=== PATIENT | male | born 1960 | race Hispanic/Latino ===

== ENCOUNTER 2016-11-01 17:56 | Inpatient (IN) | payer MEDICAID, OTHER ==
[2016-11-01 19:48] LABS: URINE BILIRUBIN NEGATIVE (NEGATIVE); URINE BLOOD 1+ (NEGATIVE); URINE CLARITY Clear (Clear); URINE COLOR Yellow (YELLOW); URINE GLUCOSE (UA) 3+ mg/dL (Normal); URINE LEUKOCYTE ESTERASE NEG Leu/uL (Negative); URINE NITRATE NEGATIVE (NEGATIVE); URINE PROTEIN 1+ mg/dL (NEGATIVE); URINE UROBILINOGEN NORMAL mg/dL (0.2-1.0)
[2016-11-01 19:51] LABS: BASO # 0.1 K/uL (0.0-0.2); BASO % 1.2 % (0.0-2.0); EOS # 0.4 K/uL (0.0-0.7); EOS % 3.8 % (0.0-4.0); HEMOGLOBIN 14.1 g/dL (12.0-18.0); LYMPH # 2.2 K/uL (1.0-4.3); LYMPH % 21.7 % (20.0-40.0); MEAN CELL VOLUME 86.7 fL (80.0-94.0); MEAN CORPUSCULAR HGB CONC 33.4 g/dL (33.0-37.0); MONO # 0.9 K/uL (0.0-0.8); MONO % 8.8 % (0.0-10.0); NEUT # 6.6 K/uL (1.8-7.0); NEUT % 64.5 % (50.0-75.0); NRBC % 0.1 % (0.0-2.0); RBC 4.86 Mil/uL (4.40-5.90); RED CELL DISTRIBUTION WIDTH 15.2 % (11.5-14.5); WHITE BLOOD COUNT 10.2 K/uL (4.8-10.8)
[2016-11-01 19:52] LABS: ALBUMIN 3.7 g/dL (3.5-5.0)
[2016-11-01 19:54] LABS: OPIATES, UR POSITIVE (NEGATIVE); PHENCYCLIDINE, UR NEGATIVE (NEGATIVE)
[2016-11-01 19:55] LABS: ACETAMINOPHEN < 10.0 ug/mL (10.0-30.0); ALB/GLOB RATIO 1.1 (1.0-2.1); AST/SGOT 36 U/L (17-59); BLOOD UREA NITROGEN 13 mg/dL (9-20); GFR AFRICAN-AMERICAN > 60; GFR NON-AFRICAN AMERICAN > 60; SALICYLATE < 1.0 mg/dL 1
[2016-11-01 19:56] LABS: ALT/SGPT 53 U/L (21-72); BARBITURATES, UR NEGATIVE (NEGATIVE)
[2016-11-01 19:57] LABS: BENZODIAZEPINES, UR NEGATIVE (NEGATIVE)
--- NOTE | 2016-11-01 20:04 | C.PDOC ---
Time Seen by Provider: 11/01/16 19:29 Chief Complaint (Nursing): Psychiatric Evaluation History Per: Patient Onset/Duration Of Symptoms: Days Current Symptoms Are (Timing): Still Present Suicide/Self Injury Attempted (Context): None Modifying Factor(s): Narcotics Severity: Moderate Associated Symptoms: Depression, Suicidal Thoughts Additional History Per: Prior Records Past Medical History Reviewed: Historical Data, Nursing Documentation, Vital Signs Vital Signs: Last Vital Signs Temp 98.3 F 11/01/16 19:42 Pulse 50 L 11/01/16 19:42 Resp 18 11/01/16 19:42 BP 181/82 H 11/01/16 19:42 Pulse Ox 100 11/01/16 20:04 - Medical History PMH: Back Problems, Depression, Diabetes (?) Surgical History: No Surg Hx - [facility] Procedures INJECT/INFUSE NEC (09/28/12) Family History: States: Unknown Family Hx - Social History Hx Tobacco Use: Yes Hx Alcohol Use: No Hx Substance Use: Yes (Snorts Heroin) - Immunization History Hx Tetanus Toxoid Vaccination: No Hx Influenza Vaccination: No Hx Pneumococcal Vaccination: No Review Of Systems Except As Marked, All Systems Reviewed And Found Negative. Constitutional: Negative for: Fever, Weakness Cardiovascular: Negative for: Chest Pain Respiratory: Negative for: Shortness of Breath Gastrointestinal: Negative for: Vomiting, Abdominal Pain Genitourinary: Negative for: Dysuria Musculoskeletal: Negative for: Neck Pain Skin: Negative for: Rash Neurological: Negative for: Weakness, Numbness, Seizures, Altered Mental Status , Headache Psych: Negative for: Psychosis Physical Exam - Physical Exam Appears: Non-toxic, No Acute Distress Skin: Normal Color, Warm, Dry, No Rash Head: Atraumatic, Normacephalic Eye(s): bilateral: Normal Inspection, PERRL, EOMI Neck: Normal ROM, Supple Cardiovascular: Rhythm Regular Respiratory: Normal Breath Sounds, No Accessory Muscle Use Gastrointestinal/Abdominal: Soft, No Tenderness Back: No CVA Tenderness Extremity: Normal ROM, No Deformity Neurological/Psych: Oriented x3, Normal Motor, Normal Sensation ED Course And Treatment - Laboratory Results Result Diagrams: 11/01/16 19:39 11/01/16 19:39 Lab Interpretation: No Acute Changes O2 Sat by Pulse Oximetry: 100 Pulse Ox Interpretation: Normal Progress Note: Pt is medically stable for psychiatric admission. Disposition Counseled Patient/Family Regarding: Studies Performed, Diagnosis - Disposition Disposition: HOSPITALIZED Disposition Time: 21:53 Condition: STABLE - Clinical Impression Clinical Impression: Depressive disorder, Opioid abuse Decision To Admit - Pt Status Changed To: Hospital Disposition Of: Inpatient - Admit Certification Admit to Inpatient:: After my assessment, the patient will require hospitalization for at least two midnights. This is because of the severity of symptoms shown, intensity of services needed, and/or the medical risk in this patient being treated as an outpatient. - InPatient: Physician Admission Certification: I certify that this patient requires 2 or more midnights of care for the following reason:: Psych. - . Bed Request Type: Psychiatry Admitting Physician: Katelyn Richardson Patient Diagnosis: Depressive disorder, Opioid abuse
[2016-11-01 22:10] VITALS: O2SAT 98
--- NOTE | 2016-11-01 22:37 | PCM.BM ---
<Eric Petty - Last Filed: 11/01/16 22:35> Treatment Plan Problems - Problems identified on initial assessmt Depression Date Initiated: 11/01/16 Time Initiated: 22:30 Assessment reference: NA Status: Active Opiates abuse Date Initiated: 11/01/16 Time Initiated: 22:37 Assessment reference: NA Status: Active Comment: "4 or 5 bags of heroin, sniffed the bags at 10pm" <Gabbi Gilman - Last Filed: 11/02/16 10:48> - Diagnosis (1) Depressive disorder Status: Acute Interventions: 11/02/16 10:48 * Assess/adjust medications daily and /or as needed * See patient on an individual basis 7x/week to assess symptoms of depression * Monitor for side effects & effectiveness of medications * (2) Opioid abuse Status: Acute Interventions: 11/02/16 10:48 * Assess 7x/week regarding severity of withdrawal * Educate regarding risks, benefits, side effects and alternatives of medications * Use Motivational Interviewing for abstinence * Use CBT for relapse prevention * Medication management for withdrawal symptoms * Encourage medication assisted treatment *
--- NOTE | 2016-11-02 14:39 | PCM.PSYCH ---
Initial Psychiatric Evaluation - Initial Psychiatric Evaluation Type of Admission: Voluntary Legal Status: Capacity Chief Complaint (in patient's own words): 'I was feeling depressed and suicidal' History of Present Illness and Precipitating Events: Patient is a 56-year-old male, who is homeless, came to the hospital because he was feeling depressed and suicidal. Patient states that he feels like he is at "the end of my rope, and I want to jump off a antwon because everything has gone downhill for the past 2 weeks." He explains that he was going to receive a room in [place], [place] but due to missing paperwork he was not able to secure it. He is also frustrated with not being able to get a copy of his certificate from [place], [place]. Patient states that he abuses heroin 5-6 bags per day by snorting. He denies any withdrawal symptoms, paranoia, or hallucinations. Patient denies use of any other substances. Patient denies any previous psychiatric history. He reports a history of previous psychiatric hospitalization for attempted suicide. He states that he attempted suicide 7 years ago by cutting his wrists. Patient states that he has been abusing 5-6 bags of heroin everyday for the past year. He reports a history of smoking 1-1.5 packs of cigarettes per day for past 43 years. He also states that he smokes marijuana "once in a while." Patient states that he used to abuse cocaine 20 years ago, but quit. He denies use of any other substances. Past medical history Denies Current Medications: Active Medications Generic Name Dose Route Start Last Admin Trade Name Freq PRN Reason Stop Dose Admin Acetaminophen 650 mg 11/01/16 23:33 Tylenol 325mg Tab PO Q6 PRN Fever >100.4 F Al Hydrox/Mg Hydrox/Simethicone 30 ml 11/01/16 23:34 Maalox 30 Ml PO TID PRN Indigestion / Heartburn Clonidine HCl 0.1 mg 11/01/16 23:34 Catapres PO Q8 PRN COWS Score More or Equal to 5 Diphenhydramine HCl 50 mg 11/01/16 23:33 11/02/16 02:20 Benadryl PO 50 mg Q6 PRN Administration Extra Pyramidal Symptoms Loperamide HCl 2 mg 11/01/16 23:33 Imodium PO Q8 PRN Diarrhea Ondansetron HCl 4 mg 11/01/16 23:33 Zofran Tab PO Q8H PRN Nausea/Vomiting Pneumococcal Polyvalent Vaccine 0.5 ml 11/04/16 10:00 Pneumovax 23 Vaccine IM 11/04/16 10:01 .ONCE ONE Sertraline HCl 25 mg 11/02/16 10:00 Zoloft PO DAILY BRENDA Trazodone HCl 50 mg 11/01/16 23:45 Desyrel PO HS BRENDA Past Psychiatric History - Past Psychiatric History Previous Treatment History: None Pertinent Medical Hx (Current Medical&Sleep Prob, Allergies): Allergies Allergy/AdvReac Type Severity Reaction Status Date / Time aspirin Allergy VOMITING Verified 07/01/16 18:45 No Known Home Med 11/01/16 Review of Systems - Psychiatric Psychiatric: Abnormal Sleep Pattern, Anhedonia, Anxiety, Depression, Difficulty Concentrating, Hopelessness. absent: Homicidal Ideation, Suicidal Ideation ( none now) Mental Status Examination - Personal Presentation Personal Presentation: Looks stated age - Affect Affect: Constricted, Blunted - Motor Activity Motor Activity: Calm - Reliability in Providing Information Reliability in Providing Information: Good - Speech Speech: Organized, Relevant - Mood Mood: Depressed, Anxious - Formal Thought Process Formal Thought Process: No Impairment - Cognitive Functions Orientation: Person, Place, Situation, Time Sensorium: Alert Attention/Concentration: Attentive Estimate of Intelligence: Below average Judgement: Imparied, as evidence by: Poor judgement, Intact, as evidence by: Insight regarding need for hospitalization - Risk Risk: Suicidal - Strength & Assets Inventory Strength & Assets Inventory: Cooperative - Limitations Limitations: Living alone DSM 5 DX - DSM 5 DSM 5 Diagnosis: Major depressive d/o - severe Opioid use disorder - severe Opioid withdrawal - Recommended/Plan of Treatment Treatment Recommendations and Plan of Treatment: Methadone detox if he withdraws As needed meds Support and psychoed Attend groups and activities Zoloft for depression CBT for depression 33 min Projected ELOS: 5 days Prognosis: good - Smoking Cessation Smoking Cessation Initiated: Yes
--- NOTE | 2016-11-03 15:22 | PCM.PYCHPN ---
Psychiatric Progress Note - Psychiatric Progress Note Patient seen today, length of contact: 16 min Patient Chief Complaint: 'I am feeling better but didn't get much sleep last night' Problems Identified/Issues Discussed: Patient is seen, evaluated, and case discussed with the staff. Patient states that his mood feels better today. He states that he could not sleep last night and only got 4 hours of sleep. Patient states denies diarrhea today, but states that he still has nausea, vomiting, cough, back pain, and abdominal craps. He denies any suicidal ideations. He denies any hallucinations , and paranoia. Patient is compliant with all medications, and denies any side effects. Support and psychoeducation given. Medication Change: Yes Medical Record Reviewed: Yes Mental Status Examination - Cognitive Function Orientation: Person, Place, Situation, Time Memory: Intact Attention: Poor Concentration: Poor Association: Loose Fund of Knowledge: Poor - Mood Mood: Depressed, Anxious - Affect Affect: Constricted, Blunted - Speech Speech: Appropriate - Formal Thought Process Formal Thought Process: No Impairment - Suicidal Ideation Suicidal Ideation: No - Homicidal Ideation Homicidal Ideation: No Goal/Treatment Plan - Goal/Treatment Plan Need for Continued Stay: Remain at risks for inpatient hospitalization, Discharge may exacerbated symptoms Progress Toward Problem(s) and Goals/Treatment Plan: Methadone detox if he withdraws As needed meds Support and psychoed Attend groups and activities Ghanshyam for depression CBT for depression Estimated Date of D/C: 11/06/16
[2016-11-03] MEDS: Aluminum Hydroxide/Magnesium Hydroxide Susp (30 mL) PO PRN ×2 (15:41→21:19)
[2016-11-04] MEDS ORDERED: Pneumococcal 23-Valent Vaccine IM ONE (10:00)
--- NOTE | 2016-11-04 13:44 | PCM.PYCHPN ---
Psychiatric Progress Note - Psychiatric Progress Note Patient seen today, length of contact: 16 min Patient Chief Complaint: 'I am doing good today' Problems Identified/Issues Discussed: Patient is seen, evaluated, and case discussed with the staff. Patient states that he is doing well today. He denies any symptoms. He states that he was able to get a good night's sleep, his mood is much better today, and denies any suicidal ideations. He denies any hallucinations, and paranoia. Patient is compliant with all medications, and denies any side effects. Support and psychoeducation given. Medication Change: Yes Medical Record Reviewed: Yes Mental Status Examination - Cognitive Function Orientation: Person, Place, Situation, Time Memory: Intact Attention: WNL Concentration: Poor Association: Loose Fund of Knowledge: Poor - Mood Mood: Depressed, Anxious - Affect Affect: Constricted - Speech Speech: Appropriate - Formal Thought Process Formal Thought Process: No Impairment - Suicidal Ideation Suicidal Ideation: No - Homicidal Ideation Homicidal Ideation: No Goal/Treatment Plan - Goal/Treatment Plan Need for Continued Stay: Remain at risks for inpatient hospitalization, Discharge may exacerbated symptoms Progress Toward Problem(s) and Goals/Treatment Plan: Methadone detox if he withdraws As needed meds Support and psychoed Attend groups and activities Zoloft for depression CBT for depression Estimated Date of D/C: 11/06/16
[2016-11-04] MEDS: Aluminum Hydroxide/Magnesium Hydroxide Susp (30 mL) PO PRN ×2 (13:45→21:12)
[2016-11-05 07:57] VITALS: BP 174/92; PULSE 67; RESP 19; TEMP 98.1
--- NOTE | 2016-11-05 09:35 | PCM.PYCHDC ---
Mental Status Examination - Mental Status Examination Orientation: Person, Place, Situation, Time Memory: Intact Mood: Anxious Affect: Constricted Speech: Appropriate Attention: WNL Concentration: Poor Association: WNL Fund of Knowledge: Poor Formal Thought Process: No Impairment Suicidal Ideation: No Current Homicidal Ideation?: No Discharge Summary - Discharge Note Reason for Hospitalization: Depression and SI Consultations:: List each consultation separately and include: 1. Reason for request. 2. Findings. 3. Follow-up Summary of Hospital Course include:: 1. Description of specific treatment plan utilized for patients during their course of treatmen. 2. Summarize the time- course for resolution of acute symptoms and/or regressed behaviors. 3. Describe issues identified and worked on during hospitalization. 4. Describe medication utilized. 5. Describe medical problems identified and treated. 6. Reassessment of suicide risk Summary of Hospital Course: On admission: Patient is a 56-year-old male, who is homeless, came to the hospital because he was feeling depressed and suicidal. Patient states that he feels like he is at "the end of my rope, and I want to jump off a antwon because everything has gone downhill for the past 2 weeks." He explains that he was going to receive a room in [place], [place] but due to missing paperwork he was not able to secure it. He is also frustrated with not being able to get a copy of his certificate from [place], [place]. Patient states that he abuses heroin 5-6 bags per day by snorting. He denies any withdrawal symptoms, paranoia, or hallucinations. Patient denies use of any other substances. Patient denies any previous psychiatric history. He reports a history of previous psychiatric hospitalization for attempted suicide. He states that he attempted suicide 7 years ago by cutting his wrists. Patient states that he has been abusing 5-6 bags of heroin everyday for the past year. He reports a history of smoking 1-1.5 packs of cigarettes per day for past 43 years. He also states that he smokes marijuana "once in a while." Patient states that he used to abuse cocaine 20 years ago, but quit. He denies use of any other substances. Past medical history Denies Hospital course: The pt was admitted and started on treatment with psychotherapy, support, psychoeducation and medications. AK and CBT used. The pt attended groups and activities, as well as milieu therapy. All the risks and benefits of medications are discussed and the patient understood and agreed. After care discussed with the patient. Went to [facility] bc [facility] is not accepting new pts The patient improved with the treatment provided and discharged as planned. - Final Diagnosis (DSM 5) Condition upon Discharge: STABLE DSM 5: Major depressive d/o - severe Opioid use disorder - severe Opioid withdrawal Disposition: HOME/ ROUTINE Follow-up Treatment Plan: Continue below medications after discharge. Follow after care plan as discussed above. Use relapse prevention skills. Return to ER or call 911 if suicidal, homicidal or symptoms relapse. Stay away from stress, alcohol and drugs. Use relaxation techniques. See primary doctor once a year and get labs. Consider MAT Prescriptions/Medication Reconciliation: Sertraline [Zoloft] 50 mg PO DAILY #30 tab traZODone [Desyrel] 100 mg PO HS #30 tab
== END 2016-11-05 10:35 | disposition home or self-care (01) | DRG 426 ==
LOC: C.ER 17:56 → C.5E 21:54
PROVIDERS: ADMIT Psychiatry & Neurology Psychiatry; ATTEND Psychiatry & Neurology Psychiatry
PROC: HZ2ZZZZ Detoxification Services for Substance Abuse Treatment (ICD-10-PCS; principal; 2016-11-01)
PROC: HZ91ZZZ Pharmacotherapy for Substance Abuse Treatment, Methadone Maintenance (ICD-10-PCS; 2016-11-01)
PROC: HZ56ZZZ Individual Psychotherapy for Substance Abuse Treatment, Psychoeducation (ICD-10-PCS; 2016-11-01)
PROC: HZ59ZZZ Individual Psychotherapy for Substance Abuse Treatment, Supportive (ICD-10-PCS; 2016-11-01)
DX: F32.9 Major depressive disorder, single episode, unspecified (principal); F11.23 Opioid dependence with withdrawal

== ENCOUNTER 2017-07-18 12:04 | Emergency (ER) | payer MEDICAID, OTHER ==
[2017-07-18 12:04] VITALS: BMI 29.2
[2017-07-18 12:14] VITALS: BP 139/77; PULSE 87; RESP 20; TEMP 97.5; O2SAT 99
--- NOTE | 2017-07-18 12:36 | C.PDOC ---
History Of Present Illness 57 year old male presents to the emergency department complaining of back pain. Patient arrived here immediately after being discharged from [place] at 10: 30AM. At [place], patient states that at [place], he was given Tylenol which he refused to take, and had a Lidocaine patch applied his back which has not helped his pain, hence he presents here. Patient reports he has had this back pain for the past 15 years, during which he took 120mg MS Contin and 15mg Oxycontin, but he has not taken them for the past 10 years. Time Seen by Provider: 07/18/17 12:21 Chief Complaint (Nursing): Back Pain History Per: Patient History/Exam Limitations: no limitations Onset/Duration Of Symptoms: Other (15 years) Quality Of Discomfort: "Pain" Past Medical History Reviewed: Historical Data, Nursing Documentation, Vital Signs Vital Signs: Last Vital Signs Temp 97.5 F L 07/18/17 12:10 Pulse 87 07/18/17 12:10 Resp 20 07/18/17 12:10 BP 139/77 07/18/17 12:10 Pulse Ox 99 07/18/17 12:36 - Medical History PMH: Anxiety, Back Problems, Depression, Diabetes (?), Hepatitis (Pt history and treatment), HTN, Kidney Stones, Chronic Kidney Disease Denies: HIV (Patient denied), Seizures (Patient denied), Sexually Transmitted Disease (Patient denied) Surgical History: No Surg Hx - [facility] Procedures DETOXIFICATION SERVICES FOR SUBSTANCE ABUSE TREATMENT (11/01/16) INDIV PSYCHOTHERAPY FOR SUBSTANCE ABUSE TREATMENT, SUPPORT (11/01/16) INDIV PSYCHOTHERAPY FOR SUBSTANCE ABUSE, PSYCHOEDUCATION (11/01/16) INJECT/INFUSE NEC (09/28/12) PHARMACOTHERAPY FOR SUBSTANCE ABUSE, METHADONE MAINT (11/01/16) Family History: States: No Known Family Hx - Social History Hx Tobacco Use: Yes Hx Alcohol Use: No Hx Substance Use: No - Immunization History Hx Tetanus Toxoid Vaccination: Yes Hx Influenza Vaccination: No Hx Pneumococcal Vaccination: No Review Of Systems Except As Marked, All Systems Reviewed And Found Negative. Musculoskeletal: Positive for: Back Pain Physical Exam - Physical Exam Appears: In Acute Distress (qualified as moderate) Skin: Normal Color, No Other (lesions) Head: Atraumatic, Normacephalic Neck: Normal, Supple Back: Other (limited full extension, patched placed near midline, diffuse lower back tenderness) Neurological/Psych: Oriented x3, Normal Speech, Normal Cognition, Other (no focal deficits. ) Gait: Other (weight bearing without difficulty) ED Course And Treatment O2 Sat by Pulse Oximetry: 99 (RA) Pulse Ox Interpretation: Normal Progress Note: Patient administered Decadron 12mg PO, Dilaudid 4mg PO, and Neurontin 300mg PO. Progress - Data Reviewed Data Reviewed: Old records Disposition Counseled Patient/Family Regarding: Diagnosis, Need For Followup, Rx Given - Disposition Referrals: Jadyn Lyon MD [Staff Provider] - Disposition: HOME/ ROUTINE Disposition Time: 12:35 Condition: IMPROVED Prescriptions: Gabapentin [Neurontin] 300 mg PO TID #30 cap Instructions: Sciatica Forms: [facility] [employer] [facility] (Czech) - Clinical Impression Clinical Impression: Chronic back pain, Sciatica - Scribe Statement The provider has reviewed the documentation as recorded by the Scribe (Galen Givens) Provider Attestation: All medical record entries made by the Scribe were at my direction and personally dictated by me. I have reviewed the chart and agree that the record accurately reflects my personal performance of the history, physical exam, medical decision making, and the department course for this patient. I have also personally directed, reviewed, and agree with the discharge instructions and disposition.
== END 2017-07-18 12:56 | disposition home or self-care (01) ==
LOC: C.ER 12:04
DX: G89.29 Other chronic pain (principal); M54.9 Dorsalgia, unspecified; M54.30 Sciatica, unspecified side
CPT/HCPCS: 99283; J8540

== ENCOUNTER 2017-10-31 06:06 | Inpatient (IN) | payer MEDICAID, OTHER ==
[2017-10-31 06:06] VITALS: BMI 29.2
[2017-10-31] MEDS ORDERED: Sodium Chloride 0.9% 1,000 ML IV ONE (07:40)
[2017-10-31] MEDS ORDERED: Iohexol 240 (50 ml) PO STA (07:40)
--- NOTE | 2017-10-31 07:40 | C.PDOC ---
History Of Present Illness 57 year old male presents to ED for evaluation of periumbilical pain worsening for the past week. Notes that pain occasionally radiates to upper and lower abdomen, and is now constant and more intense. 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 Pt has history of cholelithiasis "but this doesn't feel like my usual gallbladder pain". Pt states he has beer each night with dinner "haven't drank hard in many years". PSH neg. Denies fever, n/v/d, weight loss, or bloating. Prior ER visits for chronic back pain exacerbation but denies current pain med use. PERIUMB PAIN WORSENING X 1 WEEK. OCC RADIATION UPPER AND LOWER ABD, NOW CONSTANT AND MORE INTENSE. LAST BM THIS MORNING "LIKE USUAL" BUT REPORTS BM HAS BEEN [employer] COLOR THAN USUAL. HO CHOLELITHIASIS "BUT THIS DOESNT FEEL LIKE MY USUAL GALLBLADDER PAIN". PS HAS BEER EACH NIGHT W DINNER "HAVENT DRANK HARD IN MANY YEARS". PSH NEG. NO FEVER, NVD, WT LOSS, BLOATING. PRIOR ER VISITS FOR CHRONIC BACK PAIN EXAC BUT DENIES CURRENT PAIN MED USE. EXAM MOD DIST NONTOXIC HEENT ICTERIC MMM ABD +PERIUM/CENTRAL ABD TEND MOD SOFT NO R/G SKIN +JAUNDICE GOOD TURGOR REMAINDER NEG MDM NEW ONSET JAUNDICE RO ACUTE ABD. CT, LABS, PAIN RX, REEVAL Time Seen by Provider: 10/31/17 07:20 Chief Complaint (Nursing): Abdominal Pain History Per: Patient History/Exam Limitations: no limitations Onset/Duration Of Symptoms: Days, Worse Since Current Symptoms Are (Timing): Still Present Location Of Pain/Discomfort: Periumbilical Radiation Of Pain To:: None Quality Of Discomfort: "Pain" Associated Symptoms: denies: Nausea, Vomiting, Diarrhea, Urinary Symptoms Exacerbating Factors: None Alleviating Factors: None Recent travel outside of the [place]: No Additional History Per: Patient Past Medical History Reviewed: Historical Data, Nursing Documentation, Vital Signs Vital Signs: Last Vital Signs Temp 98.7 F 10/31/17 09:21 Pulse 85 10/31/17 09:21 Resp 18 10/31/17 09:21 BP 142/97 H 10/31/17 09:21 Pulse Ox 97 10/31/17 11:26 - Medical History PMH: Anxiety, Back Problems, Depression, Diabetes (?), Hepatitis (Pt history and treatment), HTN, Kidney Stones, Chronic Kidney Disease Denies: HIV (Patient denied), Seizures (Patient denied), Sexually Transmitted Disease (Patient denied) - [facility] Procedures DETOXIFICATION SERVICES FOR SUBSTANCE ABUSE TREATMENT (11/01/16) INDIV PSYCHOTHERAPY FOR SUBSTANCE ABUSE TREATMENT, SUPPORT (11/01/16) INDIV PSYCHOTHERAPY FOR SUBSTANCE ABUSE, PSYCHOEDUCATION (11/01/16) INJECT/INFUSE NEC (09/28/12) PHARMACOTHERAPY FOR SUBSTANCE ABUSE, METHADONE MAINT (11/01/16) Family History: States: Unknown Family Hx - Social History Hx Tobacco Use: Yes Hx Alcohol Use: No Hx Substance Use: No - Immunization History Hx Tetanus Toxoid Vaccination: Yes Hx Influenza Vaccination: No Hx Pneumococcal Vaccination: No Review Of Systems Except As Marked, All Systems Reviewed And Found Negative. Constitutional: Negative for: Fever, Chills Gastrointestinal: Positive for: Abdominal Pain. Negative for: Nausea, Vomiting , Diarrhea, Constipation Genitourinary: Negative for: Dysuria, Frequency, Hematuria Physical Exam - Physical Exam Appears: Non-toxic, Other (Moderate distress) Skin: Warm, Dry, Jaundice, Other (good turgor) Head: Atraumatic, Normacephalic Eye(s): bilateral: Scleral Icterus Nose: Normal Oral Mucosa: Moist Neck: Normal ROM, Supple Chest: Symmetrical Cardiovascular: Rhythm Regular, No Murmur Respiratory: Normal Breath Sounds, No Rales, No Rhonchi, No Wheezing Gastrointestinal/Abdominal: Soft, Tenderness (moderate periumbilical/central ), No Guarding, No Rebound Extremity: Normal ROM Neurological/Psych: Oriented x3, Normal Speech ED Course And Treatment - Laboratory Results Result Diagrams: 10/31/17 08:09 10/31/17 08:09 ECG: Interpreted By Me ECG Rhythm: Sinus Rhythm ECG Interpretation: Normal Rate From EC O2 Sat by Pulse Oximetry: 97 (RA) Pulse Ox Interpretation: Normal - CT Scan/US Abd Pelvis CT Other Rad Studies (CT/US): Read By Radiologist, Radiology Report Reviewed CT/US Interpretation: Impression: 1. Multiple distended and mildly dilated loops of small bowel seen within the left upper and mid abdomen. This may represent an underlying enteritis. No discrete transition point to suggest gross bowel obstruction however or early or developing bowel obstruction cannot be excluded. Clinical correlation. 2. Under distended and/or thickened colon which may represent an underlying pancolitis. Clinical correlation. 3. Hepatomegaly with a somewhat cirrhotic contour measuring up to 28 centimeters length. Suggestion of indeterminate hepatic lesions. Correlation with multiphasic CT or MR would be helpful for further evaluation clinically indicated. 4. Cholelithiasis. 5. Prominent spleen. 6. Small amount of pelvic ascites. Additional findings as above. Chest CT Other Rad Studies (CT/US): Read By Radiologist, Radiology Report Reviewed CT/US Interpretation: Impression: Scattered areas of consolidation suggestive for atelectasis within the bilateral lung power as described above. 7 millimeter pulmonary nodule within the right lung as described above. Three month interval followup maybe helpful if clinically indicated. Hepatosplenomegaly. Cholelithiasis. Abdominal ascites. Additional findings as above. Progress - Re-Evaluation Re-evaluation Note: 10/31/17 11:05 CO RECUR ABD PAIN. VSS. D/W DR Michael DE LA CRUZ AWARE OF ER FINDINGS WILL ADMIT. STATES TO ADMIT UNDER DR BAJWA - Data Reviewed Data Reviewed: Lab, Diagnostic imaging, Old records Medical Decision Making Medical Decision Making: Plan: Blood work Urinalysis EKG CXR Abd Pelvis CT IV fluids, Zofran, Morphine NEW ONSET JAUNDICE RO ACUTE ABD. CT, LABS, PAIN RX, REEVA Disposition Counseled Patient/Family Regarding: Studies Performed, Diagnosis - Disposition Disposition: HOSPITALIZED Disposition Time: 11:19 Condition: STABLE Forms: [facility] (Slovak) - POA Present On Arrival: None - Clinical Impression Clinical Impression: Jaundice not of , Cholelithiasis, Abdominal pain - Scribe Statement The provider has reviewed the documentation as recorded by the Scribe KP All medical record entries made by the Scribe were at my direction and personally dictated by me. I have reviewed the chart and agree that the record accurately reflects my personal performance of the history, physical exam, medical decision making, and the department course for this patient. I have also personally directed, reviewed, and agree with the discharge instructions and disposition. Decision To Admit - Pt Status Changed To: Hospital Disposition Of: Inpatient - Admit Certification Admit to Inpatient:: After my assessment, the patient will require hospitalization for at least two midnights. This is because of the severity of symptoms shown, intensity of services needed, and/or the medical risk in this patient being treated as an outpatient. - InPatient: Physician Admission Certification:: SEE NOTE - . Bed Request Type: Regular Admitting Physician: Augustina Medeiros Patient Diagnosis: Jaundice not of , Cholelithiasis, Abdominal pain
[2017-10-31] MEDS ORDERED: Iohexol 240 (50 ml) ONE (08:11)
[2017-10-31] MEDS ORDERED: Morphine 4 MG/ML VIAL ONE ×2 (08:11→12:17)
[2017-10-31] MEDS ORDERED: Sodium Chloride 0.9% 1,000 ML ONE (08:11)
[2017-10-31 08:15] LABS: BASO # 0.1 K/uL (0.0-0.2); BASO % 1.6 % (0.0-2.0); EOS # 0.2 K/uL (0.0-0.7); EOS % 2.2 % (0.0-4.0); MEAN CELL VOLUME 90.9 fL (80.0-94.0); MEAN CORPUSCULAR HEMOGLOBIN 31.8 pg (27.0-31.0); MEAN PLATELET VOLUME 10.7 fL (7.2-11.7); MONO # 0.6 K/uL (0.0-0.8); MONO % 7.3 % (0.0-10.0); NEUT # 6.7 K/uL (1.8-7.0); NEUT % 76.9 % (50.0-75.0); RBC 3.77 Mil/uL (4.40-5.90); RED CELL DISTRIBUTION WIDTH 15.7 % (11.5-14.5); WHITE BLOOD COUNT 8.7 K/uL (4.8-10.8)
[2017-10-31 08:24] LABS: URINE BILIRUBIN 1+ (NEGATIVE); URINE CLARITY Clear (Clear); URINE COLOR Amber (YELLOW); URINE GLUCOSE (UA) 3+ mg/dL (Normal); URINE LEUKOCYTE ESTERASE NEG Leu/uL (Negative); URINE PROTEIN 2+ mg/dL (NEGATIVE)
[2017-10-31 08:27] LABS: ALBUMIN 3.4 g/dL (3.5-5.0); ALT/SGPT 95 U/L (21-72); AST/SGOT 133 U/L (17-59); BLOOD UREA NITROGEN 13 mg/dL (9-20); CALCIUM 8.8 mg/dl (8.6-10.4); GFR AFRICAN-AMERICAN > 60; GFR NON-AFRICAN AMERICAN > 60; LIPASE 119 U/L (23-300)
--- NOTE | 2017-10-31 08:28 | RAD ---
Chest x-ray single frontal view History: Abdominal pain. Comparison: 10/31/2017 Findings: Mild venous congestion. Bilateral hilar prominence. Biapical pleural thickening with upper lobe granulomatous changes. Mild cardiomegaly. Degenerative changes in the spine and shoulders. Impression: Mild venous congestion. Bilateral hilar prominence. Biapical pleural thickening with upper lobe granulomatous changes. Mild cardiomegaly.
[2017-10-31 08:30] LABS: URINE BLOOD TRACE (NEGATIVE)
--- NOTE | 2017-10-31 08:58 | CT ---
CT chest History: Jaundice. Abdominal pain. Comparison: X-ray dated 10/31/2017 Technique: Multiple contiguous axial images were performed through the chest without the use of intravenous contrast. Subsequently, sagittal and coronal reformatted images were obtained. This CT exam was performed using one or more of the following dose reduction techniques: Automated exposure control, adjustment of the mA and/or kV according to patient size, and/or use of iterative reconstruction technique. Findings: Right lung: Emphysematous changes. 7 millimeter nodular density/pulmonary nodule seen within the right lung on series 3, image 52 near the fissure at the level of the inferior right upper lobe/superior right middle lobe. Mild atelectatic changes at the anterior aspect of the right lower lobe. Left lung: Mild nodular consolidation within the inferior left upper lobe on series 3, image 63 as well as within the lingula on series 3, image 72. More linear consolidative changes anteriorly within the left lower lobe. Trachea thru central airways are patent. No significant axillary adenopathy. Heterogeneity of the thyroid. Calcification and plaque within the aorta. Aortic arch measures up to 3 centimeters. Few shotty precarinal lymph nodes. Coronary calcifications. No pleural or pericardial effusion. Enlarged liver measuring up to 28.4 centimeters in length with a somewhat cirrhotic contour. Perihepatic ascites noted. Cholelithiasis. Prominent spleen. Nodularity of the adrenal glands. Mild fatty atrophy of the pancreas. Small hiatal hernia. Gastric wall thickening. Distended loops of small bowel in the left upper abdomen. Mild perinephric fat stranding. Partially exophytic low-attenuation lesion off the midpole of the left kidney measuring 9 millimeters, too small to adequately characterize. Degenerative changes spine. Impression: Scattered areas of consolidation suggestive for atelectasis within the bilateral lung power as described above. 7 millimeter pulmonary nodule within the right lung as described above. Three month interval followup maybe helpful if clinically indicated. Hepatosplenomegaly. Cholelithiasis. Abdominal ascites. Additional findings as above.
--- NOTE | 2017-10-31 09:36 | CT ---
CT abdomen and pelvis History: Abdominal pain. Comparison: None available. Technique: Multiple contiguous axial images were performed through the abdomen and pelvis without the use of intravenous contrast. Subsequently, sagittal and coronal reformatted images were obtained. This CT exam was performed using one or more of the following dose reduction techniques: Automated exposure control, adjustment of the mA and/or kV according to patient size, and/or use of iterative reconstruction technique. Findings: Scattered areas of atelectasis at the lung bases. No pleural or pericardial effusion. Hepatomegaly with a somewhat cirrhotic contour measuring up to 28 centimeters length. Perihepatic ascites. Within the right hepatic lobe, there is a relative focal area of increased attenuation with some peripheral low attenuation measuring up to 3.7 centimeters. This is of uncertain clinical etiology and may represent a hepatic lesion. Underlying neoplasm cannot be excluded. Additional heterogeneous 1.9 centimeter mixed attenuation lesion in the inferior aspect of the right kidney on series 3, image 53 also indeterminate. Correlation with multiphasic CT or MR would be helpful for further evaluation clinically indicated. Cholelithiasis. Prominent spleen. Nodular thickening of the adrenal glands. Mild fatty atrophy of the pancreas. Multiple distended and mildly dilated loops of small bowel seen within the left upper and mid abdomen. This may represent an underlying enteritis. No discrete transition point to suggest gross bowel obstruction however or early or developing bowel obstruction cannot be excluded. Clinical correlation. Calcification and plaque within the aorta. Left perinephric fat stranding. Urinary bladder is preserved. Prominent prostate with calcification. Small amount of pelvic ascites. Under distended and/or thickened colon which may represent an underlying pancolitis. Clinical correlation. Appendix appears partially imaged, grossly preserved. Shotty para-aortic and inguinal lymph nodes. Shotty lymphadenopathy in the upper abdomen. Small fat containing umbilical hernia. Degenerative changes in the spine and bilateral hips. Superior and inferior endplate concavities at the L5 vertebral body level. Multilevel anterior osteophytosis in the thoracic and lumbar spine. Impression: 1. Multiple distended and mildly dilated loops of small bowel seen within the left upper and mid abdomen. This may represent an underlying enteritis. No discrete transition point to suggest gross bowel obstruction however or early or developing bowel obstruction cannot be excluded. Clinical correlation. 2. Under distended and/or thickened colon which may represent an underlying pancolitis. Clinical correlation. 3. Hepatomegaly with a somewhat cirrhotic contour measuring up to 28 centimeters length. Suggestion of indeterminate hepatic lesions. Correlation with multiphasic CT or MR would be helpful for further evaluation clinically indicated. 4. Cholelithiasis. 5. Prominent spleen. 6. Small amount of pelvic ascites. Additional findings as above.
--- NOTE | 2017-10-31 11:00 | US ---
Right upper quadrant abdominal ultrasound History: Abdominal pain. Comparison: CT scan dated 10/31/2017 Technique: Real-time sonography was performed through the right upper quadrant of the abdomen. Findings: Liver: 18.5 centimeters in length. Increased echogenicity of the hepatic parenchymal cortex suggestive for fatty infiltration versus hepatic parenchymal disease. Clinical correlation. Multiple hepatic masses which are partially echogenic for example measuring up to 3.9 x 4.0 x 3.7 centimeters and 2.1 x 2.3 x 2.2 centimeters. These are indeterminate and may represent underlying neoplasm. Correlation with multiphasic CT or MR would be helpful for further evaluation if clinically indicated. Perihepatic ascites. Gallbladder: Cholelithiasis. Calculi measure up to 1.3 centimeters. Gallbladder wall thickening and edema measuring up to 5 millimeters. Pericholecystic fluid. Echogenic foci noted at the level of the portal vein concerning for possible portal vein thrombosis. Clinical correlation. Common bile duct measures 4.3 millimeters, within normal limits. Pancreas not well visualized. Visualized aorta and IVC are preserved. Right kidney: 12.5 x 5.2 x 5.7 centimeters. No calculi or hydronephrosis. Impression: 1. Echogenic foci noted at the level of the portal vein which may represent underlying portal vein thrombus. Clinical correlation. 2. Enlarged liver measuring 18.5 centimeters in length with associated increased echogenicity of the hepatic parenchymal cortex suggestive for fatty infiltration versus hepatic parenchymal disease. Clinical correlation. 3. Multiple prominent partially echogenic hepatic masses which are indeterminate and may represent underlying hepatic neoplasm. Correlation with multiphasic CT or MR may be helpful for further evaluation if clinically indicated. 4. Cholelithiasis with gallbladder wall thickening measuring up to 5 millimeters with associated gallbladder wall edema. Associated pericholecystic fluid. This may represent underlying cholecystitis. Clinical correlation. 5. Pancreas not well visualized.
[2017-10-31 11:52] LABS: INR 1.2; PROTHROMBIN TIME 13.5 SECONDS (9.7-12.2)
--- NOTE | 2017-10-31 12:04 | CP.PCM.PN ---
Subjective - Date & Time of Evaluation Date of Evaluation: 10/31/17 Time of Evaluation: 11:45 Objective - Vital Signs/Intake and Output Vital Signs (last 24 hours): Temp Pulse Resp BP Pulse Ox 98.7 F 85 18 142/97 H 97 10/31/17 09:21 10/31/17 09:21 10/31/17 09:21 10/31/17 09:21 10/31/17 11:27 - Medications Medications: Current Medications Metronidazole (Flagyl) 500 mg in 100 mls @ 100 mls/hr IVPB Q8H BRENDA PRN Reason: Protocol Piperacillin Sod/Tazobactam Sod (Zosyn 3.375 Gm Iv Premix) 3.375 gm in 50 mls @ 100 mls/hr IVPB Q6H BRENDA PRN Reason: Protocol - Labs Labs: 10/31/17 08:09 10/31/17 08:09 PT 13.5 SECONDS (9.7-12.2) H 10/31/17 11:31 INR 1.2 10/31/17 11:31 APTT 28 SECONDS (21-34) 10/31/17 11:31
--- NOTE | 2017-10-31 12:08 | CP.PCM.HP ---
<Jose Jack - Last Filed: 10/31/17 18:21> History of Present Illness - History of Present Illness History of Present Illness: 57 year old Male w/ PMHx Anxiety, Back Problems, Depression, Diabetes (?), Hepatitis (Pt history and treatment), HTN, Kidney Stones, colithiasis presents to ED with 1 month of abdominal pain that has been worsening over the past 3 days. Patient states the pain is in subxyphoid to umbilical area with radiation occasionally to the right upper quadrant that fluctuates in intensity. Patient also has had episodes of diarrhea, lasting for a few days over the past month, with bowel movements primarily white in color, with no blood. Patient also has had dark urine with no foul order present. Patient denies having taken an medications for the pain. ROS: Patient denies vision changes, vomiting, chest pain, lower extremity swelling. Pt does have diarrhea, nausea, and leg cramping. PMD: None PMHx: Anxiety, Back Problems, Depression, Diabetes (?), Hepatitis (Pt history and treatment), HTN, Kidney Stones PSHx: Denies Meds: Denies Allergies: Aspirin - GI blled Social: Pt states he has stopped drinking heavily for the past 25 years, only has occasional beer now. Per chart review FHx: Father, 65, colon cancer; Mother, living, diabetes, HTN, CAD Code Status: DNR/DNI Incase of emergency: SisterDemario, BrotherEloy, [phone] Present on Admission - Present on Admission Any Indicators Present on Admission: No Review of Systems - Constitutional Constitutional: absent: Weight Gain, Weight Loss - EENT Eyes: absent: Blurred Vision, Change in Vision, Itchy Eyes Ears: absent: Decreased Hearing, Ear Discharge Nose/Mouth/Throat: absent: Mouth Pain, Neck Pain - Cardiovascular Cardiovascular: absent: Syncope - Respiratory Respiratory: absent: Cough, Dyspnea, Wheezing, Snoring - Gastrointestinal Gastrointestinal: Diarrhea, Loose Stools, Nausea. absent: Heartburn Additional comments: pt states bowels are discolored / white - Genitourinary Genitourinary: absent: Difficulty Urinating, Pyuria, Nocturia Additional comments: Dark urine - Musculoskeletal Musculoskeletal: Muscle Cramps. absent: Arthralgias, Joint Swelling, Muscle Weakness, Radiating Pain into Limb Additional comments: Patient states leg cramps in the AM. - Integumentary Integumentary: absent: Bleeding Lesions, Pruritus, Rash, Skin Pain, Swelling - Neurological Neurological: absent: Abnormal Hearing, Behavioral Changes, Headaches, Tingling - Endocrine Endocrine: absent: Polyphagia, Polyuria - Hematologic/Lymphatic Hematologic: absent: Easy Bleeding, Easy Bruising, Lymphadenopathy Past Patient History - Infectious Disease Hx of Infectious Diseases: None - Past Social History Smoking Status: Heavy Smoker > 10 Cigarettes Daily - CARDIAC Hx Hypertension: Yes - PULMONARY Hx Respiratory Disorders: No Hx Tuberculosis: No (Patient denied) - NEUROLOGICAL Hx Seizures: No (Patient denied) - HEENT Hx HEENT Problems: No - RENAL Hx Chronic Kidney Disease: Yes Hx Kidney Stones: Yes - ENDOCRINE/METABOLIC Hx Endocrine Disorders: Yes Hx Diabetes Mellitus Type 2: Yes Other/Comment: "enlarged spleen" - HEMATOLOGICAL/ONCOLOGICAL Hx Human Immunodeficiency Virus (HIV): No (Patient denied) - INTEGUMENTARY Hx Dermatological Problems: No - MUSCULOSKELETAL/RHEUMATOLOGICAL Hx Musculoskeletal Disorders: Yes - GASTROINTESTINAL Hx Gastrointestinal Disorders: Yes Other/Comment: Gallstones - GENITOURINARY/GYNECOLOGICAL Hx Sexually Transmitted Disorders: No (Patient denied) - PSYCHIATRIC Hx Anxiety: Yes Hx Depression: Yes Hx Substance Use: No - SURGICAL HISTORY Hx Surgeries: No - ANESTHESIA Hx Anesthesia: No Meds Allergies/Adverse Reactions: Allergies Allergy/AdvReac Type Severity Reaction Status Date / Time aspirin AdvReac VOMITING Verified 07/18/17 12:14 Physical Exam - Constitutional Appears: Non-toxic, No Acute Distress - Eye Exam Eye Exam: EOMI, Scleral icterus Pupil Exam: PERRL - ENT Exam ENT Exam: Mucous Membranes Moist, Normal Oropharynx - Neck Exam Neck exam: Negative for: Thyromegaly - Respiratory Exam Respiratory Exam: Clear to Auscultation Bilateral, NORMAL BREATHING PATTERN. absent: Rales, Rhonchi, Wheezes - Cardiovascular Exam Cardiovascular Exam: +S1, +S2. absent: Irregular Rhythm - GI/Abdominal Exam GI & Abdominal Exam: Normal Bowel Sounds, Soft - Extremities Exam Extremities exam: Positive for: normal inspection, pedal pulses present. Negative for: calf tenderness, joint swelling, tenderness - Back Exam Back exam: NORMAL INSPECTION. absent: CVA tenderness (L), CVA tenderness (R) - Neurological Exam Neurological exam: Alert, CN II-XII Intact, Oriented x3 - Psychiatric Exam Psychiatric exam: Normal Affect, Normal Mood - Skin Skin Exam: Dry, Intact, Normal Color, Warm Results - Vital Signs Recent Vital Signs: Last Vital Signs Temp 98.7 F 10/31/17 09:21 Pulse 85 10/31/17 09:21 Resp 18 10/31/17 09:21 BP 142/97 H 10/31/17 09:21 Pulse Ox 97 10/31/17 11:27 - Labs Result Diagrams: 10/31/17 08:09 10/31/17 08:09 Labs: Laboratory Results - last 24 hr 10/31/17 10/31/17 10/31/17 08:09 08:09 08:09 WBC 8.7 RBC 3.77 L Hgb 12.0 D Hct 34.3 L MCV 90.9 D MCH 31.8 H MCHC 35.0 RDW 15.7 H Plt Count 164 MPV 10.7 Neut % (Auto) 76.9 H Lymph % (Auto) 12.0 L [place] % (Auto) 7.3 Eos % (Auto) 2.2 Baso % (Auto) 1.6 Neut # (Auto) 6.7 Lymph # (Auto) 1.0 [place] # (Auto) 0.6 Eos # (Auto) 0.2 Baso # (Auto) 0.1 PT INR APTT Sodium 138 Potassium 3.8 Chloride 103 Carbon Dioxide 26 Anion Gap 13 BUN 13 Creatinine 0.6 L Est GFR ( Amer) > 60 Est GFR (Non-Af Amer) > 60 Random Glucose 263 H Calcium 8.8 Total Bilirubin 5.7 H AST 133 H ALT 95 H D Alkaline Phosphatase 448 H Total Protein 6.8 Albumin 3.4 L Globulin 3.4 Albumin/Globulin Ratio 1.0 Lipase 119 Urine Color [place] Urine Clarity Clear Urine pH 6.0 Ur Specific [place] 1.015 Urine Protein 2+ H Urine Glucose (UA) 3+ H Urine Ketones Negative Urine Blood Trace Urine Nitrate Negative Urine Bilirubin 1+ H Urine Urobilinogen 4.0 Ur Leukocyte Esterase Neg Urine WBC (Auto) < 1 Urine RBC (Auto) 5 H 10/31/17 11:31 WBC RBC Hgb Hct MCV MCH MCHC RDW Plt Count MPV Neut % (Auto) Lymph % (Auto) [place] % (Auto) Eos % (Auto) Baso % (Auto) Neut # (Auto) Lymph # (Auto) [place] # (Auto) Eos # (Auto) Baso # (Auto) PT 13.5 H INR 1.2 APTT 28 Sodium Potassium Chloride Carbon Dioxide Anion Gap BUN Creatinine Est GFR ( Amer) Est GFR (Non-Af Amer) Random Glucose Calcium Total Bilirubin AST ALT Alkaline Phosphatase Total Protein Albumin Globulin Albumin/Globulin Ratio Lipase Urine Color Urine Clarity Urine pH Ur Specific [place] Urine Protein Urine Glucose (UA) Urine Ketones Urine Blood Urine Nitrate Urine Bilirubin Urine Urobilinogen Ur Leukocyte Esterase Urine WBC (Auto) Urine RBC (Auto) Assessment & Plan - Assessment and Plan (Free Text) Assessment: 57 year old M presents to ED w/ abdominal pain of 1 month: 1) Acute liver failure/ obstructive jaundice - R/o liver malignancy - Alpha feta protein elevated @1230 - CT scan indicates indeterminate hepatic lesions - F/u w/ MRI [address] Crawley recs - F/U IR - for paracentesis tap to see malignant cells & cultures 2) Hepatic Vein thrombosis - F/u MRI - Heparin [id number] - F/u coags profiles, Factor V, Protein C, Protein S, Prothombine Gene 3) Acute cholecytisis/ Pancolitis - F/u Bool cultures, stool cultures - Discussed w/ Dr. Benitez, no surgerical intervention at this time, clear liquid diets today, NPO after midnight for possible surgical intervention 4) Prophylaxis - Protonix 40mg IVP - Heparin [id number] <Augustina Medeiros - Last Filed: 11/02/17 07:55> Results - Vital Signs Recent Vital Signs: Last Vital Signs Temp 98.0 F 11/01/17 16:08 Pulse 67 11/01/17 16:08 Resp 20 11/01/17 16:08 BP 176/87 H 11/01/17 16:08 Pulse Ox 97 11/01/17 16:08 - Labs Result Diagrams: 11/02/17 06:44 11/01/17 06:52 Labs: Laboratory Results - last 24 hr 10/31/17 10/31/17 11/01/17 12:01 20:57 02:52 WBC RBC Hgb Hct MCV MCH MCHC RDW Plt Count MPV Neut % (Auto) Lymph % (Auto) [place] % (Auto) Eos % (Auto) Baso % (Auto) Neut # (Auto) Lymph # (Auto) [place] # (Auto) Eos # (Auto) Baso # (Auto) PT INR APTT 40 H D Sodium Potassium Chloride Carbon Dioxide Anion Gap BUN Creatinine Est GFR ( Amer) Est GFR (Non-Af Amer) Random Glucose Calcium Total Bilirubin AST ALT Alkaline Phosphatase Total Protein Albumin Globulin Albumin/Globulin Ratio Urine Opiates Screen Positive H Urine Methadone Screen Negative Ur Barbiturates Screen Negative Ur Phencyclidine Scrn Negative Ur Amphetamines Screen Negative U Benzodiazepines Scrn Negative U Oth Cocaine Metabols Negative U Cannabinoids Screen Negative Anti-Cardiolipin IgG Ab <14 Anti-Cardiolipin IgA Ab <11 Anti-Cardiolipin IgM Ab <12 11/01/17 11/01/17 11/01/17 06:52 06:52 11:31 WBC 8.1 RBC 3.65 L Hgb 11.6 L Hct 33.4 L MCV 91.4 MCH 31.9 H MCHC 34.8 RDW 15.9 H Plt Count 165 MPV 10.7 Neut % (Auto) 71.1 Lymph % (Auto) 18.2 L [place] % (Auto) 6.4 Eos % (Auto) 3.1 Baso % (Auto) 1.2 Neut # (Auto) 5.8 Lymph # (Auto) 1.5 [place] # (Auto) 0.5 Eos # (Auto) 0.3 Baso # (Auto) 0.1 PT 15.0 H INR 1.4 APTT 51 H D Sodium 140 Potassium 3.9 Chloride 104 Carbon Dioxide 25 Anion Gap 15 BUN 8 L Creatinine 0.7 L Est GFR ( Amer) > 60 Est GFR (Non-Af Amer) > 60 Random Glucose 171 H Calcium 8.8 Total Bilirubin 6.1 H AST 128 H ALT 85 H Alkaline Phosphatase 396 H Total Protein 6.5 Albumin 3.3 L Globulin 3.2 Albumin/Globulin Ratio 1.0 Urine Opiates Screen Urine Methadone Screen Ur Barbiturates Screen Ur Phencyclidine Scrn Ur Amphetamines Screen U Benzodiazepines Scrn U Oth Cocaine Metabols U Cannabinoids Screen Anti-Cardiolipin IgG Ab Anti-Cardiolipin IgA Ab Anti-Cardiolipin IgM Ab Attending/Attestation - Attestation I have personally seen and examined this patient.: Yes I have fully participated in the care of the patient.: Yes I have reviewed all pertinent clinical information: Yes Notes (Text): Patient was seen and examined by me at ER. patient has history of alcohol abuse 9stop drinking 25 years ago) and has history of hep C treated in the past. No following a primary care physician last few years. He is currently homeless . He is alert and oriented x3. Labs at ER showed acute liver failure with high bilirubin. CT without IV contrast and US done showed Liver mass,portal vein thrombosis ,acute cholecystits and pancolitis on examination Icteric sclera ,his lungs clear,abdomen soft,mild tenderness in med abdomen,no guarding Patient wants to be DNR/DNI Discussed with the resident. I agree with the documentation of the assessment and the plan of the resident
[2017-10-31] MEDS: Piperacill/Tazo 3.375gm in Dex 3.375 GM/50 ML BAG IVPB SCH ×2 (13:12→18:25)
[2017-10-31] MEDS: metroNIDAZOLE IV 500 mg/100 ml 500 MG/100 ML BAG IVPB SCH ×2 (13:50→21:00)
[2017-10-31] MEDS ORDERED: Heparin25000 units/250ml 1/2NS 25,000 UNITS/250 ML BAG IV PRN (16:43)
--- NOTE | 2017-10-31 16:50 | CP.PCM.CON ---
<Yovani Armenta - Last Filed: 11/01/17 05:22> History of Present Illness - History of Present Illness History of Present Illness: 57M w/ PMHx HepC, HTN, cholelithiasis, presents to ED with complaints of abdominal pain. Patient states abdominal pain has been ongoing for past month, with greatest severity of abdominal pain being within the past three days. Patient reports pain is along epigastric region with radiation towards right upper quadrant. Patient reports nausea as well as b/l leg cramping. Denies headaches/dizzines, fever/chill, vomiting, constipation, dysuria. PMHx:as stated above PSHx: Denies All: ASA Review of Systems - Review of Systems Review of Systems: 12 pt ROS unremarkable except as stated in HPI Past Patient History - Infectious Disease Hx of Infectious Diseases: None - Past Social History Smoking Status: Heavy Smoker > 10 Cigarettes Daily - CARDIAC Hx Hypertension: Yes - PULMONARY Hx Respiratory Disorders: No Hx Tuberculosis: No (Patient denied) - NEUROLOGICAL Hx Seizures: No (Patient denied) - HEENT Hx HEENT Problems: No - RENAL Hx Chronic Kidney Disease: Yes Hx Kidney Stones: Yes - ENDOCRINE/METABOLIC Hx Endocrine Disorders: Yes Hx Diabetes Mellitus Type 2: Yes Other/Comment: "enlarged spleen" - HEMATOLOGICAL/ONCOLOGICAL Hx Human Immunodeficiency Virus (HIV): No (Patient denied) - INTEGUMENTARY Hx Dermatological Problems: No - MUSCULOSKELETAL/RHEUMATOLOGICAL Hx Musculoskeletal Disorders: Yes - GASTROINTESTINAL Hx Gastrointestinal Disorders: Yes Other/Comment: Gallstones - GENITOURINARY/GYNECOLOGICAL Hx Sexually Transmitted Disorders: No (Patient denied) - PSYCHIATRIC Hx Anxiety: Yes Hx Depression: Yes Hx Substance Use: No - SURGICAL HISTORY Hx Surgeries: No - ANESTHESIA Hx Anesthesia: No Meds Allergies/Adverse Reactions: Allergies Allergy/AdvReac Type Severity Reaction Status Date / Time aspirin AdvReac VOMITING Verified 07/18/17 12:14 - Medications Medications: Current Medications Metronidazole (Flagyl) 500 mg in 100 mls @ 100 mls/hr IVPB Q8H BRENDA PRN Reason: Protocol Last Admin: 10/31/17 13:50 Dose: 100 mls/hr Piperacillin Sod/Tazobactam Sod (Zosyn 3.375 Gm Iv Premix) 3.375 gm in 50 mls @ 100 mls/hr IVPB Q6H BRENDA PRN Reason: Protocol Last Admin: 10/31/17 13:12 Dose: 100 mls/hr Pantoprazole Sodium (Protonix Inj) 40 mg IVP DAILY BRENDA Physical Exam - Constitutional Appears: Chronically Ill Additional comments: Jaundice - Head Exam Head Exam: NORMOCEPHALIC - ENT Exam ENT Exam: Mucous Membranes Moist - Respiratory Exam Respiratory Exam: NORMAL BREATHING PATTERN - Cardiovascular Exam Cardiovascular Exam: +S1, +S2 - GI/Abdominal Exam GI & Abdominal Exam: Soft, Tenderness. absent: Distended, Firm, Guarding, Rebound, Rigid Additional comments: RUQ tenderness - Neurological Exam Neurological exam: Alert, Oriented x3 - Psychiatric Exam Psychiatric exam: Normal Mood - Skin Skin Exam: Dry, Intact, Warm Results - Vital Signs Recent Vital Signs: Last Vital Signs Temp 98.5 F 10/31/17 10:00 Pulse 87 10/31/17 12:59 Resp 18 10/31/17 12:59 BP 155/80 H 10/31/17 12:59 Pulse Ox 99 10/31/17 12:59 - Labs Result Diagrams: 10/31/17 08:09 10/31/17 08:09 Labs: Laboratory Results - last 24 hr 10/31/17 10/31/17 10/31/17 08:09 08:09 08:09 WBC 8.7 RBC 3.77 L Hgb 12.0 D Hct 34.3 L MCV 90.9 D MCH 31.8 H MCHC 35.0 RDW 15.7 H Plt Count 164 MPV 10.7 Neut % (Auto) 76.9 H Lymph % (Auto) 12.0 L [place] % (Auto) 7.3 Eos % (Auto) 2.2 Baso % (Auto) 1.6 Neut # (Auto) 6.7 Lymph # (Auto) 1.0 [place] # (Auto) 0.6 Eos # (Auto) 0.2 Baso # (Auto) 0.1 PT INR APTT Sodium 138 Potassium 3.8 Chloride 103 Carbon Dioxide 26 Anion Gap 13 BUN 13 Creatinine 0.6 L Est GFR ( Amer) > 60 Est GFR (Non-Af Amer) > 60 Random Glucose 263 H Calcium 8.8 Total Bilirubin 5.7 H AST 133 H ALT 95 H D Alkaline Phosphatase 448 H Total Protein 6.8 Albumin 3.4 L Globulin 3.4 Albumin/Globulin Ratio 1.0 Lipase 119 Alpha Fetoprotein Urine Color [place] Urine Clarity Clear Urine pH 6.0 Ur Specific [place] 1.015 Urine Protein 2+ H Urine Glucose (UA) 3+ H Urine Ketones Negative Urine Blood Trace Urine Nitrate Negative Urine Bilirubin 1+ H Urine Urobilinogen 4.0 Ur Leukocyte Esterase Neg Urine WBC (Auto) < 1 Urine RBC (Auto) 5 H HIV 1&2 Antibody Screen 10/31/17 10/31/17 10/31/17 11:31 12:01 12:01 WBC RBC Hgb Hct MCV MCH MCHC RDW Plt Count MPV Neut % (Auto) Lymph % (Auto) [place] % (Auto) Eos % (Auto) Baso % (Auto) Neut # (Auto) Lymph # (Auto) [place] # (Auto) Eos # (Auto) Baso # (Auto) PT 13.5 H INR 1.2 APTT 28 Sodium Potassium Chloride Carbon Dioxide Anion Gap BUN Creatinine Est GFR ( Amer) Est GFR (Non-Af Amer) Random Glucose Calcium Total Bilirubin AST ALT Alkaline Phosphatase Total Protein Albumin Globulin Albumin/Globulin Ratio Lipase Alpha Fetoprotein 1230.0 H Urine Color Urine Clarity Urine pH Ur Specific [place] Urine Protein Urine Glucose (UA) Urine Ketones Urine Blood Urine Nitrate Urine Bilirubin Urine Urobilinogen Ur Leukocyte Esterase Urine WBC (Auto) Urine RBC (Auto) HIV 1&2 Antibody Screen Negative Assessment & Plan - Assessment and Plan (Free Text) Assessment: 57M with cholecystitis Plan: Child Figueroa Score Class B, 30% perioperative mortality MELD Score: 8 No plans for acute surgical intervention at this present time C/w ABx C/w hep drip for portal vein thrombosis C/w Analgesics F/u AM labs F/u GI recs Will follow D/w Dr. Eli Workman PGY3 <Adilson Benitez B - Last Filed: 11/07/17 18:43> Meds - Medications Medications: Current Medications Docusate Sodium (Colace) 100 mg PO BID [facility] Last Admin: 11/07/17 18:07 Dose: 100 mg Enoxaparin Sodium (Lovenox) 80 mg SC Q12 [facility] Last Admin: 11/07/17 09:48 Dose: 80 mg Morphine Sulfate (Morphine Immediate Release Tab) 15 mg PO QID PRN PRN Reason: Pain, moderate (4-7) Last Admin: 11/07/17 08:24 Dose: 15 mg Pantoprazole Sodium (Protonix Ec Tab) 40 mg PO DAILY BRENDA Last Admin: 11/07/17 09:48 Dose: 40 mg Results - Vital Signs Recent Vital Signs: Last Vital Signs Temp 98.8 F 11/07/17 16:00 Pulse 58 L 11/07/17 16:00 Resp 20 11/07/17 16:00 BP 149/54 L 11/07/17 16:00 Pulse Ox 97 11/07/17 16:00 - Labs Result Diagrams: 11/07/17 07:54 11/07/17 07:54 Labs: Laboratory Results - last 24 hr 11/07/17 11/07/17 07:54 07:54 WBC 10.6 RBC 3.69 L Hgb 11.6 L Hct 33.9 L MCV 92.0 MCH 31.4 H MCHC 34.1 RDW 16.3 H Plt Count 170 MPV 11.5 Neut % (Auto) 66.0 Lymph % (Auto) 23.5 [place] % (Auto) 6.9 Eos % (Auto) 2.4 Baso % (Auto) 1.2 Neut # (Auto) 7.0 Lymph # (Auto) 2.5 [place] # (Auto) 0.7 Eos # (Auto) 0.3 Baso # (Auto) 0.1 Sodium 136 Potassium 4.2 Chloride 101 Carbon Dioxide 24 Anion Gap 14 BUN 12 Creatinine 0.6 L Est GFR ( Amer) > 60 Est GFR (Non-Af Amer) > 60 Random Glucose 212 H Calcium 9.0 Total Bilirubin 5.9 H AST 108 H ALT 67 Alkaline Phosphatase 481 H Total Protein 7.1 Albumin 3.4 L Globulin 3.6 Albumin/Globulin Ratio 1.0 Attending/Attestation - Attestation I have personally seen and examined this patient.: Yes I have fully participated in the care of the patient.: Yes I have reviewed all pertinent clinical information: Yes Notes (Text): Pt was seen and examined at bedside Agree with above note and assessment Pt with Upper abdominal pain and tenderness Labs and radiology reviewed Ass : Hepatomegaly with Portal vein thrombosis , cholelithiasis Plan : No acute surgical intervention required for cholelithiasis c.w current mx IV antibiotics Plan d.w pt in detail Risk and benefit explained in detail.
[2017-10-31 21:19] LABS: BARBITURATES, UR NEGATIVE (NEGATIVE); BENZODIAZEPINES, UR NEGATIVE (NEGATIVE); OPIATES, UR POSITIVE (NEGATIVE); PHENCYCLIDINE, UR NEGATIVE (NEGATIVE)
[2017-11-01] MEDS: Piperacill/Tazo 3.375gm in Dex 3.375 GM/50 ML BAG IVPB SCH ×4 (00:02→18:06)
[2017-11-01] MEDS: metroNIDAZOLE IV 500 mg/100 ml 500 MG/100 ML BAG IVPB SCH ×3 (04:32→20:01)
[2017-11-01] MEDS: Heparin25000 units/250ml 1/2NS 25,000 UNITS/250 ML BAG IV PRN ×2 (04:34→13:14)
[2017-11-01] MEDS ORDERED: Dextrose 5%/Lactated Ringer's 1,000 ML IV SCH (07:30)
[2017-11-01 07:32] LABS: BASO # 0.1 K/uL (0.0-0.2); BASO % 1.2 % (0.0-2.0); EOS # 0.3 K/uL (0.0-0.7); EOS % 3.1 % (0.0-4.0); HEMOGLOBIN 11.6 g/dL (12.0-18.0); LYMPH # 1.5 K/uL (1.0-4.3); LYMPH % 18.2 % (20.0-40.0); MEAN CELL VOLUME 91.4 fL (80.0-94.0); MEAN CORPUSCULAR HEMOGLOBIN 31.9 pg (27.0-31.0); MEAN CORPUSCULAR HGB CONC 34.8 g/dL (33.0-37.0); MEAN PLATELET VOLUME 10.7 fL (7.2-11.7); MONO # 0.5 K/uL (0.0-0.8); MONO % 6.4 % (0.0-10.0); NEUT # 5.8 K/uL (1.8-7.0); NEUT % 71.1 % (50.0-75.0); RBC 3.65 Mil/uL (4.40-5.90); RED CELL DISTRIBUTION WIDTH 15.9 % (11.5-14.5); WHITE BLOOD COUNT 8.1 K/uL (4.8-10.8)
[2017-11-01 07:37] LABS: ALBUMIN 3.3 g/dL (3.5-5.0); ALT/SGPT 85 U/L (21-72); AST/SGOT 128 U/L (17-59); BLOOD UREA NITROGEN 8 mg/dL (9-20); CALCIUM 8.8 mg/dl (8.6-10.4); GFR AFRICAN-AMERICAN > 60; GFR NON-AFRICAN AMERICAN > 60
[2017-11-01 11:44] LABS: INR 1.4
[2017-11-01 11:56] LABS: CARDIOLIPIN AB (IGA) <11 APL (<=11)
--- NOTE | 2017-11-01 15:09 | CP.PCM.CON ---
History of Present Illness - History of Present Illness History of Present Illness: GI service consult requested on this 57 year old homeless man, h/o HCV treated > 15 yrs ago but apparently relapsed, admitted with severe abdominal pain progressively worsening over past month. Patient reports, martín colored stools, dark urine, weight loss > 20 lbs, weakness. Sono and CT show multiple liver lesions and likely portal vein thrombosis. Patient was begun on IV Heparin. Patient is very depressed and wants to . Has history of admissions in the past for Depression. AFP is markedly elevated. Patient drinks alcohol occasionally and uses ilicit drugs on occasion in the homeless [facility]. His father of colon cancer. Patient never had colonoscopy. He denies overt blood in stool or melena, and he recently had diarrhea intermittently. Review of Systems - Constitutional Constitutional: As Per HPI, Weight Loss - Cardiovascular Cardiovascular: absent: Chest Pain - Respiratory Respiratory: absent: Dyspnea - Gastrointestinal Gastrointestinal: Abdominal Pain, Nausea. absent: Melena - Psychiatric Psychiatric: Anhedonia, Depression, Hopelessness, Mood Swings - Hematologic/Lymphatic Hematologic: absent: Easy Bleeding Past Patient History - Infectious Disease Hx of Infectious Diseases: None - Past Medical History & Family History Past Medical History?: Yes - Past Social History Smoking Status: Heavy Smoker > 10 Cigarettes Daily - CARDIAC Hx Hypertension: Yes - PULMONARY Hx Respiratory Disorders: No Hx Tuberculosis: No (Patient denied) - NEUROLOGICAL Hx Seizures: No (Patient denied) - HEENT Hx HEENT Problems: No - RENAL Hx Chronic Kidney Disease: Yes Hx Kidney Stones: Yes - ENDOCRINE/METABOLIC Hx Endocrine Disorders: Yes Hx Diabetes Mellitus Type 2: Yes Other/Comment: "enlarged spleen" - HEMATOLOGICAL/ONCOLOGICAL Hx Human Immunodeficiency Virus (HIV): No (Patient denied) - INTEGUMENTARY Hx Dermatological Problems: No - MUSCULOSKELETAL/RHEUMATOLOGICAL Hx Musculoskeletal Disorders: Yes - GASTROINTESTINAL Hx Gastrointestinal Disorders: Yes Other/Comment: Gallstones - GENITOURINARY/GYNECOLOGICAL Hx Sexually Transmitted Disorders: No (Patient denied) - PSYCHIATRIC Hx Anxiety: Yes Hx Depression: Yes Hx Substance Use: No - SURGICAL HISTORY Hx Surgeries: No - ANESTHESIA Hx Anesthesia: No Meds Allergies/Adverse Reactions: Allergies Allergy/AdvReac Type Severity Reaction Status Date / Time aspirin AdvReac VOMITING Verified 07/18/17 12:14 - Medications Medications: Current Medications Metronidazole (Flagyl) 500 mg in 100 mls @ 100 mls/hr IVPB Q8H BRENDA PRN Reason: Protocol Last Admin: 11/01/17 12:29 Dose: 100 mls/hr Piperacillin Sod/Tazobactam Sod (Zosyn 3.375 Gm Iv Premix) 3.375 gm in 50 mls @ 100 mls/hr IVPB Q6H BRENDA PRN Reason: Protocol Last Admin: 11/01/17 12:14 Dose: 100 mls/hr Heparin Sodium/Sodium Chloride (Heparin 90667 Units/250ml 1/2 Normal Saline) 25 ,000 units in 250 mls @ 15.105 mls/hr IV .[id number] PRN; Protocol; 18 UNITS/KG/HR PRN Reason: PROTOCOL Last Admin: 11/01/17 13:14 Dose: 20 units/kg/hr, 16.783 mls/hr Dextrose/Lactated Ringer's (Dextrose 5%/Lactated Ringer's) 1,000 mls @ 60 mls/ hr IV .[id number] [facility] Last Admin: 11/01/17 12:14 Dose: 60 mls/hr Morphine Sulfate (Morphine) 1 mg IVP Q6 PRN PRN Reason: Pain, severe (8-10) Last Admin: 11/01/17 10:26 Dose: 1 mg Pantoprazole Sodium (Protonix Inj) 40 mg IVP DAILY [facility] Last Admin: 11/01/17 10:26 Dose: 40 mg Physical Exam - Constitutional Appears: Chronically Ill - Head Exam Head Exam: NORMOCEPHALIC - Eye Exam Eye Exam: absent: Scleral icterus - Neck Exam Neck exam: Positive for: Normal Inspection - Respiratory Exam Respiratory Exam: NORMAL BREATHING PATTERN - Cardiovascular Exam Cardiovascular Exam: REGULAR RHYTHM - GI/Abdominal Exam GI & Abdominal Exam: Soft. absent: Guarding, Mass, Rebound, Tenderness - Rectal Exam Rectal Exam: Deferred - Extremities Exam Extremities exam: Positive for: normal inspection - Neurological Exam Neurological exam: Alert, Oriented x3 - Skin Skin Exam: Normal Color Results - Vital Signs Recent Vital Signs: Last Vital Signs Temp 99 F 11/01/17 07:58 Pulse 60 11/01/17 07:58 Resp 20 11/01/17 07:58 BP 163/64 H 11/01/17 07:58 Pulse Ox 98 11/01/17 07:58 - Labs Result Diagrams: 11/01/17 06:52 11/01/17 06:52 Labs: Laboratory Results - last 24 hr 10/31/17 10/31/17 11/01/17 12:01 20:57 02:52 WBC RBC Hgb Hct MCV MCH MCHC RDW Plt Count MPV Neut % (Auto) Lymph % (Auto) [place] % (Auto) Eos % (Auto) Baso % (Auto) Neut # (Auto) Lymph # (Auto) [place] # (Auto) Eos # (Auto) Baso # (Auto) PT INR APTT 40 H D Sodium Potassium Chloride Carbon Dioxide Anion Gap BUN Creatinine Est GFR ( Amer) Est GFR (Non-Af Amer) Random Glucose Calcium Total Bilirubin AST ALT Alkaline Phosphatase Total Protein Albumin Globulin Albumin/Globulin Ratio Urine Opiates Screen Positive H Urine Methadone Screen Negative Ur Barbiturates Screen Negative Ur Phencyclidine Scrn Negative Ur Amphetamines Screen Negative U Benzodiazepines Scrn Negative U Oth Cocaine Metabols Negative U Cannabinoids Screen Negative Anti-Cardiolipin IgG Ab <14 Anti-Cardiolipin IgA Ab <11 Anti-Cardiolipin IgM Ab <12 11/01/17 11/01/17 11/01/17 06:52 06:52 11:31 WBC 8.1 RBC 3.65 L Hgb 11.6 L Hct 33.4 L MCV 91.4 MCH 31.9 H MCHC 34.8 RDW 15.9 H Plt Count 165 MPV 10.7 Neut % (Auto) 71.1 Lymph % (Auto) 18.2 L [place] % (Auto) 6.4 Eos % (Auto) 3.1 Baso % (Auto) 1.2 Neut # (Auto) 5.8 Lymph # (Auto) 1.5 [place] # (Auto) 0.5 Eos # (Auto) 0.3 Baso # (Auto) 0.1 PT 15.0 H INR 1.4 APTT 51 H D Sodium 140 Potassium 3.9 Chloride 104 Carbon Dioxide 25 Anion Gap 15 BUN 8 L Creatinine 0.7 L Est GFR ( Amer) > 60 Est GFR (Non-Af Amer) > 60 Random Glucose 171 H Calcium 8.8 Total Bilirubin 6.1 H AST 128 H ALT 85 H Alkaline Phosphatase 396 H Total Protein 6.5 Albumin 3.3 L Globulin 3.2 Albumin/Globulin Ratio 1.0 Urine Opiates Screen Urine Methadone Screen Ur Barbiturates Screen Ur Phencyclidine Scrn Ur Amphetamines Screen U Benzodiazepines Scrn U Oth Cocaine Metabols U Cannabinoids Screen Anti-Cardiolipin IgG Ab Anti-Cardiolipin IgA Ab Anti-Cardiolipin IgM Ab Assessment & Plan (1) Liver masses Assessment and Plan: In setting of chronic Hepatitis C, portal vein thrombosis, elevated AFP, I suspect multifocal Hepatocellular carcinoma. Less likely would be liver metastases from unknown primary This is likely source of patient's abdominal pain Rec: Triple phase CT abdomen. May need liver biopsy if CT is not consistent with HCC Status: Acute (2) Cholelithiasis Assessment and Plan: Cholecystitis unlikely Surgery consult is on board Status: Acute (3) Depressive disorder Assessment and Plan: Patient is fatalistic about his illness and social situation and wants to . has prior history of major Depression with inpatient treatment. Recommend Psychiatry consult Status: Acute (4) Carrier of viral hepatitis C Assessment and Plan: Need to check viral load, genotype, etc. Ongoing illicit drug use. Not a candidate for retreatment. Was treated > 20 years ago. 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 Hematology consult is on board Status: Acute - Date & Time Date: 11/01/17 Time: 15:19
--- NOTE | 2017-11-01 16:27 | CP.PCM.PN ---
<Linda Rothberjennie Centeno - Last Filed: 11/01/17 19:49> Subjective - Date & Time of Evaluation Date of Evaluation: 11/01/17 Time of Evaluation: 14:52 - Subjective Subjective: PGY-1 Medicine Progress Note for hospitalist Dr. Medeiros. Patient was seen and examined today at bedside in no acute distress. Nurse reports no overnight events. Abdominal pain unchanged from yesterday. Patient complains of three bowel movements in the last 24 hours, which is more than his usual. Patient is hungry as he has been NPO since yesterday. Denies chest pain, shortness of breath, nausea, vomiting, constipation. Objective - Vital Signs/Intake and Output Vital Signs (last 24 hours): Temp Pulse Resp BP Pulse Ox 98.0 F 67 20 176/87 H 97 11/01/17 16:08 11/01/17 16:08 11/01/17 16:08 11/01/17 16:08 11/01/17 16:08 Intake and Output: 11/01/17 11/01/17 06:59 18:59 Intake Total 532 Balance 532 - Medications Medications: Current Medications Metronidazole (Flagyl) 500 mg in 100 mls @ 100 mls/hr IVPB Q8H BRENDA PRN Reason: Protocol Last Admin: 11/01/17 12:29 Dose: 100 mls/hr Piperacillin Sod/Tazobactam Sod (Zosyn 3.375 Gm Iv Premix) 3.375 gm in 50 mls @ 100 mls/hr IVPB Q6H BRENDA PRN Reason: Protocol Last Admin: 11/01/17 12:14 Dose: 100 mls/hr Heparin Sodium/Sodium Chloride (Heparin 42212 Units/250ml 1/2 Normal Saline) 25 ,000 units in 250 mls @ 15.105 mls/hr IV .[id number] PRN; Protocol; 18 UNITS/KG/HR PRN Reason: PROTOCOL Last Admin: 11/01/17 13:14 Dose: 20 units/kg/hr, 16.783 mls/hr Morphine Sulfate (Morphine) 1 mg IVP Q6 PRN PRN Reason: Pain, severe (8-10) Last Admin: 11/01/17 10:26 Dose: 1 mg Pantoprazole Sodium (Protonix Inj) 40 mg IVP DAILY [facility] Last Admin: 11/01/17 10:26 Dose: 40 mg - Labs Labs: 11/01/17 06:52 11/01/17 06:52 PT 15.0 SECONDS (9.7-12.2) H 11/01/17 11:31 INR 1.4 11/01/17 11:31 APTT 51 SECONDS (21-34) H D 11/01/17 11:31 - Constitutional Appears: Well, No Acute Distress, Agitated - Head Exam Head Exam: ATRAUMATIC, NORMOCEPHALIC - Eye Exam Eye Exam: EOMI, Normal appearance. absent: Nystagmus, Scleral icterus Pupil Exam: NORMAL ACCOMODATION - ENT Exam ENT Exam: Mucous Membranes Dry - Respiratory Exam Respiratory Exam: Clear to Ausculation Bilateral, NORMAL BREATHING PATTERN. absent: Rales, Rhonchi, Wheezes - Cardiovascular Exam Cardiovascular Exam: REGULAR RHYTHM, +S1, +S2. absent: Murmur - GI/Abdominal Exam GI & Abdominal Exam: Guarding, Soft, Tenderness, Normal Bowel Sounds. absent: Firm, Rigid, Rebound Additional comments: Tenderness to palpation in the RUQ, extending down umbilicus to suprapubic area - Extremities Exam Extremities Exam: Full ROM, Normal Capillary Refill, Normal Inspection. absent : Joint Swelling, Pedal Edema Additional comments: peripheral pulses present 3+ (radial, DP) IV intact, good flow - Neurological Exam Neurological Exam: Alert, Awake, Oriented x3 - Psychiatric Exam Psychiatric exam: Agitated, Normal Affect, Normal Mood - Skin Skin Exam: Dry, Intact, Normal Color, Warm. absent: Cyanosis, Mottled, Pallor Additional comments: not jaundiced Assessment and Plan - Assessment and Plan (Free Text) Plan: 1) Acute liver failure/ obstructive jaundice - probable liver malignancy with metastasis Alpha feta protein elevated @1230 on admission Hx chronic Hepatitis C - f/u hepatitis panel - f/u HCV panel: genotype and quantitative Abd CT (10/31) multiple distended and mildly dilated loops of small bowel, may represent underlying enteritis. No discrete transition point to suggest gross bowl obstruction. CXR (10/31) mild venous congestion. Bilateral hilar prominence. Biapical pleural thickening with upper lobe granulomatous changes Chest CT (10/31) scattered areas of consolidation suggestive for atelectasis within the bilateral lung power. 7mm pulmonary nodule within the right lung. Hepatosplenomegaly. Cholelithiasis. Abdominal ascites. Abd US (10/31) portal vein thrombosis. enlarged liver 18.5cm with increased echogenecity of the hepatic parenchymal cortex suggestive for fatty infiltration vs. hepatic parenchymal disease. multiple prominent partially echogenic hepatic masses which are indeterminate and may represent underlying hepatic neoplasm. cholelithiasis with gallbladder thickening with associated pericholecystic fluid - may represent underlying cholecystitis. GI consulted: Dr. Crawley - henrik appreciated - triple phase CT abdomen tomorrow - consider liver biopsy if CT inconsistent with clinical picture - defer colonoscopy, in light of probable hepatocellular carcinoma - f/u CA 19-9, CEA 2) Hepatic Vein thrombosis - f/u CT 3 phase - Heparin [id number] - Coag (11/01) PT 15.0H INR 1.4 PTT 51H - f/u Anti phospholipid, Factor V, Protein C, Protein S, Prothrombin gene - collected Heme/Onc consulted: Dr. Cash - henrik appreciated. - F/u coags profiles, Factor V, Protein C, Protein S, Prothombine Gene 3) Cholelithiasis/Pancolitis Abd US (10/31) portal vein thrombosis. enlarged liver 18.5cm with increased echogenecity of the hepatic parenchymal cortex suggestive for fatty infiltration vs. hepatic parenchymal disease. multiple prominent partially echogenic hepatic masses which are indeterminate and may represent underlying hepatic neoplasm. cholelithiasis with gallbladder thickening with associated pericholecystic fluid - may represent underlying cholecystitis. Blood culture (10/31) no growth - preliminary Stool culture (11/01) collected Surgery consulted: Dr. Benitez - henrik appreciated - No plans for acute surgical intervention at this time - Cont antibiotics - Cont heparin drip for portal vein thrombosis - Cont analgesics 4) Prophylaxis - Protonix 40mg IVP - Heparin [id number] - Full Diet - DNR/DNI - Palliative Care consulted: Tata - 1:1 care <Augustina Medeiros - Last Filed: 11/05/17 15:06> Objective - Vital Signs/Intake and Output Vital Signs (last 24 hours): Temp Pulse Resp BP Pulse Ox 98.1 F 76 20 163/76 H 98 11/01/17 23:00 11/02/17 05:30 11/02/17 05:30 11/02/17 05:30 11/02/17 05:30 Intake and Output: 11/02/17 11/02/17 06:59 18:59 Intake Total 634.4 Balance 634.4 - Medications Medications: Current Medications Metronidazole (Flagyl) 500 mg in 100 mls @ 100 mls/hr IVPB Q8H BRENDA PRN Reason: Protocol Last Admin: 11/02/17 03:15 Dose: 100 mls/hr Piperacillin Sod/Tazobactam Sod (Zosyn 3.375 Gm Iv Premix) 3.375 gm in 50 mls @ 100 mls/hr IVPB Q6H BRENDA PRN Reason: Protocol Last Admin: 11/02/17 05:40 Dose: 100 mls/hr Heparin Sodium/Sodium Chloride (Heparin 80136 Units/250ml 1/2 Normal Saline) 25 ,000 units in 250 mls @ 15.105 mls/hr IV .[id number] PRN; Protocol; 18 UNITS/KG/HR PRN Reason: PROTOCOL Last Admin: 11/02/17 04:00 Dose: 20 units/kg/hr, 16.783 mls/hr Morphine Sulfate (Morphine) 1 mg IVP Q6 PRN PRN Reason: Pain, severe (8-10) Last Admin: 11/02/17 04:10 Dose: 1 mg Pantoprazole Sodium (Protonix Inj) 40 mg IVP DAILY [facility] Last Admin: 11/01/17 10:26 Dose: 40 mg - Labs Labs: 11/02/17 06:44 11/01/17 06:52 PT 15.2 SECONDS (9.7-12.2) H 11/02/17 06:44 INR 1.4 11/02/17 06:44 APTT 53 SECONDS (21-34) H 11/02/17 06:44 Attending/Attestation - Attestation I have personally seen and examined this patient.: Yes I have fully participated in the care of the patient.: Yes I have reviewed all pertinent clinical information, including history, physical exam and plan: Yes Notes (Text): Seen and examined by me. Discussed with the resident. Patient has mild abdominal pain,tolerating diet On heparin drip.Elevated AFP and CA19-9. Likely hepatocellular cancer d/w [employer]. we will follow triple phase CT liver I agree with the resident's documentation of the assessment and the plan
--- NOTE | 2017-11-01 20:31 | CP.PCM.CON ---
History of Present Illness - History of Present Illness History of Present Illness: 57 year old male with a history of hep C cirrhosis s/p treatment, admitted with abdominal pain, found to have portal vein thrombosis and multiple liver lesions , elevated AFP concerning for malignancy. The patient notes to progressive abdominal pain, associated with diminished appetite and about a 25 pound weightloss over [address] of the A/P revealed portal vein thrombosis, multiple liver nodules and suggestion of liver cirrhosis. He is currently on a heparin drip and feeling better. Past medical history: Hep C cirrhosis, substance abuse Past surgical history: Denies Family history: Father had colon cancer Social history: Occasional alcohol and drug abuse Allergies: Aspirin Review of systems: All remaining review of systems including HEENT, cardiovascular respiratory, gastrointestinal, genitourinary, musculoskeletal, dermatologic, neurologic, and psychiatric are negative unless mentioned in the HPI. Past Patient History - Infectious Disease Hx of Infectious Diseases: None - Past Medical History & Family History Past Medical History?: Yes - Past Social History Smoking Status: Heavy Smoker > 10 Cigarettes Daily - CARDIAC Hx Hypertension: Yes - PULMONARY Hx Respiratory Disorders: No Hx Tuberculosis: No (Patient denied) - NEUROLOGICAL Hx Seizures: No (Patient denied) - HEENT Hx HEENT Problems: No - RENAL Hx Chronic Kidney Disease: Yes Hx Kidney Stones: Yes - ENDOCRINE/METABOLIC Hx Endocrine Disorders: Yes Hx Diabetes Mellitus Type 2: Yes Other/Comment: "enlarged spleen" - HEMATOLOGICAL/ONCOLOGICAL Hx Human Immunodeficiency Virus (HIV): No (Patient denied) - INTEGUMENTARY Hx Dermatological Problems: No - MUSCULOSKELETAL/RHEUMATOLOGICAL Hx Musculoskeletal Disorders: Yes - GASTROINTESTINAL Hx Gastrointestinal Disorders: Yes Other/Comment: Gallstones - GENITOURINARY/GYNECOLOGICAL Hx Sexually Transmitted Disorders: No (Patient denied) - PSYCHIATRIC Hx Anxiety: Yes Hx Depression: Yes Hx Substance Use: No - SURGICAL HISTORY Hx Surgeries: No - ANESTHESIA Hx Anesthesia: No Meds Allergies/Adverse Reactions: Allergies Allergy/AdvReac Type Severity Reaction Status Date / Time aspirin AdvReac VOMITING Verified 07/18/17 12:14 - Medications Medications: Current Medications Metronidazole (Flagyl) 500 mg in 100 mls @ 100 mls/hr IVPB Q8H BRENDA PRN Reason: Protocol Last Admin: 11/01/17 20:01 Dose: 100 mls/hr Piperacillin Sod/Tazobactam Sod (Zosyn 3.375 Gm Iv Premix) 3.375 gm in 50 mls @ 100 mls/hr IVPB Q6H BRENDA PRN Reason: Protocol Last Admin: 11/01/17 18:06 Dose: 100 mls/hr Heparin Sodium/Sodium Chloride (Heparin 99785 Units/250ml 1/2 Normal Saline) 25 ,000 units in 250 mls @ 15.105 mls/hr IV .[id number] PRN; Protocol; 18 UNITS/KG/HR PRN Reason: PROTOCOL Last Admin: 11/01/17 13:14 Dose: 20 units/kg/hr, 16.783 mls/hr Morphine Sulfate (Morphine) 1 mg IVP Q6 PRN PRN Reason: Pain, severe (8-10) Last Admin: 11/01/17 10:26 Dose: 1 mg Pantoprazole Sodium (Protonix Inj) 40 mg IVP DAILY [facility] Last Admin: 11/01/17 10:26 Dose: 40 mg Physical Exam - Head Exam Head Exam: ATRAUMATIC - Eye Exam Eye Exam: Normal appearance - ENT Exam ENT Exam: Mucous Membranes Dry - Respiratory Exam Respiratory Exam: NORMAL BREATHING PATTERN - Cardiovascular Exam Cardiovascular Exam: +S1, +S2 - GI/Abdominal Exam GI & Abdominal Exam: Normal Bowel Sounds - Extremities Exam Extremities exam: Positive for: pedal edema - Neurological Exam Neurological exam: Oriented x3 - Psychiatric Exam Psychiatric exam: Normal Affect, Normal Mood - Skin Skin Exam: Warm Results - Vital Signs Recent Vital Signs: Last Vital Signs Temp 98.0 F 11/01/17 16:08 Pulse 67 11/01/17 16:08 Resp 20 11/01/17 16:08 BP 176/87 H 11/01/17 16:08 Pulse Ox 97 11/01/17 16:08 - Labs Result Diagrams: 11/02/17 06:44 11/02/17 07:42 Labs: Laboratory Results - last 24 hr 10/31/17 10/31/17 11/01/17 12:01 20:57 02:52 WBC RBC Hgb Hct MCV MCH MCHC RDW Plt Count MPV Neut % (Auto) Lymph % (Auto) [place] % (Auto) Eos % (Auto) Baso % (Auto) Neut # (Auto) Lymph # (Auto) [place] # (Auto) Eos # (Auto) Baso # (Auto) PT INR APTT 40 H D Sodium Potassium Chloride Carbon Dioxide Anion Gap BUN Creatinine Est GFR ( Amer) Est GFR (Non-Af Amer) Random Glucose Calcium Total Bilirubin AST ALT Alkaline Phosphatase Total Protein Albumin Globulin Albumin/Globulin Ratio Stool Leukocytes, Qual Urine Opiates Screen Positive H Urine Methadone Screen Negative Ur Barbiturates Screen Negative Ur Phencyclidine Scrn Negative Ur Amphetamines Screen Negative U Benzodiazepines Scrn Negative U Oth Cocaine Metabols Negative U Cannabinoids Screen Negative Anti-Cardiolipin IgG Ab <14 Anti-Cardiolipin IgA Ab <11 Anti-Cardiolipin IgM Ab <12 11/01/17 11/01/17 11/01/17 06:52 06:52 10:30 WBC 8.1 RBC 3.65 L Hgb 11.6 L Hct 33.4 L MCV 91.4 MCH 31.9 H MCHC 34.8 RDW 15.9 H Plt Count 165 MPV 10.7 Neut % (Auto) 71.1 Lymph % (Auto) 18.2 L [place] % (Auto) 6.4 Eos % (Auto) 3.1 Baso % (Auto) 1.2 Neut # (Auto) 5.8 Lymph # (Auto) 1.5 [place] # (Auto) 0.5 Eos # (Auto) 0.3 Baso # (Auto) 0.1 PT INR APTT Sodium 140 Potassium 3.9 Chloride 104 Carbon Dioxide 25 Anion Gap 15 BUN 8 L Creatinine 0.7 L Est GFR ( Amer) > 60 Est GFR (Non-Af Amer) > 60 Random Glucose 171 H Calcium 8.8 Total Bilirubin 6.1 H AST 128 H ALT 85 H Alkaline Phosphatase 396 H Total Protein 6.5 Albumin 3.3 L Globulin 3.2 Albumin/Globulin Ratio 1.0 Stool Leukocytes, Qual Negative Urine Opiates Screen Urine Methadone Screen Ur Barbiturates Screen Ur Phencyclidine Scrn Ur Amphetamines Screen U Benzodiazepines Scrn U Oth Cocaine Metabols U Cannabinoids Screen Anti-Cardiolipin IgG Ab Anti-Cardiolipin IgA Ab Anti-Cardiolipin IgM Ab 11/01/17 11:31 WBC RBC Hgb Hct MCV MCH MCHC RDW Plt Count MPV Neut % (Auto) Lymph % (Auto) [place] % (Auto) Eos % (Auto) Baso % (Auto) Neut # (Auto) Lymph # (Auto) [place] # (Auto) Eos # (Auto) Baso # (Auto) PT 15.0 H INR 1.4 APTT 51 H D Sodium Potassium Chloride Carbon Dioxide Anion Gap BUN Creatinine Est GFR ( Amer) Est GFR (Non-Af Amer) Random Glucose Calcium Total Bilirubin AST ALT Alkaline Phosphatase Total Protein Albumin Globulin Albumin/Globulin Ratio Stool Leukocytes, Qual Urine Opiates Screen Urine Methadone Screen Ur Barbiturates Screen Ur Phencyclidine Scrn Ur Amphetamines Screen U Benzodiazepines Scrn U Oth Cocaine Metabols U Cannabinoids Screen Anti-Cardiolipin IgG Ab Anti-Cardiolipin IgA Ab Anti-Cardiolipin IgM Ab Assessment & Plan (1) Portal vein thrombosis Assessment and Plan: on therapeutic anticoagulation ? cirrhosis related ? malignancy related Status: Acute (2) Lesion of liver Assessment and Plan: multifocal with elevated AFP and CA 19-[address] ? hepatocellular carcinoma Status: Acute (3) Anemia Assessment and Plan: will check retic count, b12, folate, ferritin to further characterize Thank you for this interesting consult. Status: Acute
[2017-11-02] MEDS: Piperacill/Tazo 3.375gm in Dex 3.375 GM/50 ML BAG IVPB SCH ×4 (01:05→17:16)
[2017-11-02] MEDS: metroNIDAZOLE IV 500 mg/100 ml 500 MG/100 ML BAG IVPB SCH ×3 (03:15→21:20)
[2017-11-02] MEDS: Heparin25000 units/250ml 1/2NS 25,000 UNITS/250 ML BAG IV PRN ×2 (04:00→21:45)
[2017-11-02 07:02] LABS: INR 1.4; PROTHROMBIN TIME 15.2 SECONDS (9.7-12.2)
[2017-11-02 07:30] LABS: BASO # 0.2 K/uL (0.0-0.2); BASO % 2.2 % (0.0-2.0); EOS # 0.2 K/uL (0.0-0.7); EOS % 2.8 % (0.0-4.0); HEMOGLOBIN 11.5 g/dL (12.0-18.0); LYMPH # 0.8 K/uL (1.0-4.3); MEAN CELL VOLUME 92.4 fL (80.0-94.0); MEAN CORPUSCULAR HEMOGLOBIN 31.8 pg (27.0-31.0); MEAN CORPUSCULAR HGB CONC 34.4 g/dL (33.0-37.0); MEAN PLATELET VOLUME 10.6 fL (7.2-11.7); MONO # 0.7 K/uL (0.0-0.8); MONO % 8.6 % (0.0-10.0); NEUT # 5.8 K/uL (1.8-7.0); NEUT % 75.4 % (50.0-75.0); RBC 3.63 Mil/uL (4.40-5.90); RED CELL DISTRIBUTION WIDTH 15.9 % (11.5-14.5); WHITE BLOOD COUNT 7.7 K/uL (4.8-10.8)
[2017-11-02 08:10] LABS: ALB/GLOB RATIO 0.9 (1.0-2.1); ALT/SGPT 77 U/L (21-72); AST/SGOT 132 U/L (17-59); BLOOD UREA NITROGEN 11 mg/dL (9-20); CALCIUM 8.4 mg/dl (8.6-10.4); GFR AFRICAN-AMERICAN > 60; GFR NON-AFRICAN AMERICAN > 60
--- NOTE | 2017-11-02 08:20 | CP.PCM.PN ---
Subjective - Date & Time of Evaluation Date of Evaluation: 11/02/17 Time of Evaluation: 08:00 - Subjective Subjective: F/U HCV, liver mass. Reprots feels OK. Stool soft. Denies fever, chills, SZ, LOC, CP, SOBm, BROWN, cough RB, melena Objective - Vital Signs/Intake and Output Vital Signs (last 24 hours): Temp Pulse Resp BP Pulse Ox 98.1 F 76 20 163/76 H 98 11/01/17 23:00 11/02/17 05:30 11/02/17 05:30 11/02/17 05:30 11/02/17 05:30 Intake and Output: 11/02/17 11/02/17 06:59 18:59 Intake Total 634.4 Balance 634.4 - Medications Medications: Current Medications Metronidazole (Flagyl) 500 mg in 100 mls @ 100 mls/hr IVPB Q8H BRENDA PRN Reason: Protocol Last Admin: 11/02/17 03:15 Dose: 100 mls/hr Piperacillin Sod/Tazobactam Sod (Zosyn 3.375 Gm Iv Premix) 3.375 gm in 50 mls @ 100 mls/hr IVPB Q6H BRENDA PRN Reason: Protocol Last Admin: 11/02/17 05:40 Dose: 100 mls/hr Heparin Sodium/Sodium Chloride (Heparin 03333 Units/250ml 1/2 Normal Saline) 25 ,000 units in 250 mls @ 15.105 mls/hr IV .[id number] PRN; Protocol; 18 UNITS/KG/HR PRN Reason: PROTOCOL Last Admin: 11/02/17 04:00 Dose: 20 units/kg/hr, 16.783 mls/hr Morphine Sulfate (Morphine) 1 mg IVP Q6 PRN PRN Reason: Pain, severe (8-10) Last Admin: 11/02/17 04:10 Dose: 1 mg Pantoprazole Sodium (Protonix Inj) 40 mg IVP DAILY [facility] Last Admin: 11/01/17 10:26 Dose: 40 mg - Labs Labs: 11/02/17 06:44 11/02/17 07:42 PT 15.2 SECONDS (9.7-12.2) H 11/02/17 06:44 INR 1.4 11/02/17 06:44 APTT 53 SECONDS (21-34) H 11/02/17 06:44 - Constitutional Appears: Well - Respiratory Exam Respiratory Exam: Clear to Ausculation Bilateral - Cardiovascular Exam Cardiovascular Exam: RRR - GI/Abdominal Exam GI & Abdominal Exam: Soft, Normal Bowel Sounds. 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
[2017-11-02] MEDS ORDERED: Iodixanol 320 MG/ML 100 ML BOTTLE IV ONE (08:56)
--- NOTE | 2017-11-02 10:37 | CP.PCM.CON ---
History of Present Illness - History of Present Illness History of Present Illness: Palliative consult requested by Doctor Mala for goals of care discussion Patient is a 57 yo , homeless male admitted with worsening periumbilical pain X 1 week. MELD score of 8.CT abdomen upon admission suggested SBO, pancolitis and pelvic acsites. CT chest significant for 7 mm pulmonary nodule. Doctor Shailesh on board. Patient reports having his legs very swollen in the past, up to his thighs. Patient also complains of lower back pain for what he needed to use " whatever" at the nursing home, to control pain. On admission, urine was positive for opioids. PMH: Hep C, Liver mass, liver failure Soc. Hx: unemployed, lost job in 2007 after what become homeless, admits to use of recreational drugs,has no income of any kind, denies contacts with two brothers of his, never , no children Fam. Hx: denies Review of Systems - Constitutional Constitutional: Fatigue - EENT Eyes: absent: As Per HPI, Blind Spots, Blurred Vision, Change in Vision, Decreased Night Vision, Diplopia, Discharge, Dry Eye, Exophthalmos, Floaters, Irritation, Itchy Eyes, Loss of Peripheral Vision, Pain, Photophobia, Requires Corrective Lenses, Sees Flashes, Spots in Vision, Tunnel Vision, Other Visual Disturbances, Loss of Vision, Other Ears: absent: As Per HPI, Decreased Hearing, Ear Discharge, Ear Pain, Tinnitus, Abnormal Hearing, Disequilibrium, Dizziness, Other Additional comments: Missing upper and lower teeth - Cardiovascular Cardiovascular: Dyspnea, Dyspnea on Exertion, Leg Edema - Respiratory Respiratory: Dyspnea on Exertion - Gastrointestinal Gastrointestinal: Abdominal Pain, Diarrhea, Loose Stools - Genitourinary Genitourinary: Flank Pain - Musculoskeletal Musculoskeletal: Muscle Weakness - Integumentary Integumentary: absent: As Per HPI, Acne, Alopecia, Bleeding Lesions, Change in Hair, Change in Nails, Change in Pigmentation, Changing Lesions, Dry Skin, Erythema, Furuncle, Hirsutism, Lesions, New Lesions, Non-Healing Lesions, Photosensitivity, Pruritus, Rash, Skin Pain, Skin Ulcer, Sores, Striae, Swelling , Unusual Bruising, Wounds, Jaundice, Other - Neurological Neurological: absent: As Per HPI, Abnormal Gait, Abnormal Hearing, Abnormal Movements, Abnormal Speech, Behavioral Changes, Burning Sensations, Confusion, Convulsions, Disequilibrium, Dizziness, Numbness, Focal Weakness, Frequent Falls , Headaches, Lack of Coordination, Loss of Vision, Memory Loss, Paresthesias, Radicular Pain, Restless Legs, Sensory Deficit, Syncope, Tingling, Tremor, Vertigo, Weakness, Other Visual Disturbances, Other - Psychiatric Psychiatric: absent: As Per HPI, Abnormal Sleep Pattern, Anhedonia, Anxiety, Auditory Hallucinations, Behavioral Changes, Change in Appetite, Change in Libido, Confusion, Depression, Difficulty Concentrating, Hallucinations, Homicidal Ideation, Hopelessness, Irritability, Memory Loss, Mood Swings, Panic Attacks, Paranoia, Suicidal Ideation, Visual Hallucinations, Tactile Hallucinations, Other - Endocrine Endocrine: absent: As Per HPI, Change in Body Appearance, Change in Libido, Cold Intolorance, Deepening of Voice, Excessive Sweating, Fatigue, Flushing, Heat Intolorance, Increase in Ring/Shoe/Hat Size, Palpitations, Polydipsia, Polyphagia, Polyuria, Other - Hematologic/Lymphatic Hematologic: absent: As Per HPI, Easy Bleeding, Easy Bruising, Lymphadenopathy, Other Past Patient History - Infectious Disease Hx of Infectious Diseases: None - Past Medical History & Family History Past Medical History?: Yes - Past Social History Smoking Status: Heavy Smoker > 10 Cigarettes Daily - CARDIAC Hx Hypertension: Yes - PULMONARY Hx Respiratory Disorders: No Hx Tuberculosis: No (Patient denied) - NEUROLOGICAL Hx Seizures: No (Patient denied) - HEENT Hx HEENT Problems: No - RENAL Hx Chronic Kidney Disease: Yes Hx Kidney Stones: Yes - ENDOCRINE/METABOLIC Hx Endocrine Disorders: Yes Hx Diabetes Mellitus Type 2: Yes Other/Comment: "enlarged spleen" - HEMATOLOGICAL/ONCOLOGICAL Hx Human Immunodeficiency Virus (HIV): No (Patient denied) - INTEGUMENTARY Hx Dermatological Problems: No - MUSCULOSKELETAL/RHEUMATOLOGICAL Hx Musculoskeletal Disorders: Yes - GASTROINTESTINAL Hx Gastrointestinal Disorders: Yes Other/Comment: Gallstones - GENITOURINARY/GYNECOLOGICAL Hx Sexually Transmitted Disorders: No (Patient denied) - PSYCHIATRIC Hx Anxiety: Yes Hx Depression: Yes Hx Substance Use: No - SURGICAL HISTORY Hx Surgeries: No - ANESTHESIA Hx Anesthesia: No Meds Allergies/Adverse Reactions: Allergies Allergy/AdvReac Type Severity Reaction Status Date / Time aspirin AdvReac VOMITING Verified 07/18/17 12:14 - Medications Medications: Current Medications Metronidazole (Flagyl) 500 mg in 100 mls @ 100 mls/hr IVPB Q8H BRENDA PRN Reason: Protocol Last Admin: 11/02/17 03:15 Dose: 100 mls/hr Piperacillin Sod/Tazobactam Sod (Zosyn 3.375 Gm Iv Premix) 3.375 gm in 50 mls @ 100 mls/hr IVPB Q6H BRENDA PRN Reason: Protocol Last Admin: 11/02/17 05:40 Dose: 100 mls/hr Heparin Sodium/Sodium Chloride (Heparin 25252 Units/250ml 1/2 Normal Saline) 25 ,000 units in 250 mls @ 15.105 mls/hr IV .[id number] PRN; Protocol; 18 UNITS/KG/HR PRN Reason: PROTOCOL Last Admin: 11/02/17 04:00 Dose: 20 units/kg/hr, 16.783 mls/hr Morphine Sulfate (Morphine) 1 mg IVP Q6 PRN PRN Reason: Pain, severe (8-10) Last Admin: 11/02/17 04:10 Dose: 1 mg Pantoprazole Sodium (Protonix Inj) 40 mg IVP DAILY [facility] Last Admin: 11/02/17 10:30 Dose: 40 mg Physical Exam - Constitutional Appears: Chronically Ill - Head Exam Head Exam: ATRAUMATIC, NORMAL INSPECTION, NORMOCEPHALIC - Eye Exam Eye Exam: EOMI, Normal appearance, PERRL Pupil Exam: NORMAL ACCOMODATION, PERRL - ENT Exam ENT Exam: Mucous Membranes Moist, Normal Exam - Neck Exam Neck exam: Positive for: Normal Inspection - Respiratory Exam Respiratory Exam: Decreased Breath Sounds, NORMAL BREATHING PATTERN - Cardiovascular Exam Cardiovascular Exam: REGULAR RHYTHM - GI/Abdominal Exam GI & Abdominal Exam: Hyperactive Bowel Sounds, Soft - Rectal Exam Rectal Exam: Deferred - Exam Exam: NORMAL INSPECTION - Extremities Exam Extremities exam: Positive for: pedal edema - Back Exam Back exam: NORMAL INSPECTION - Neurological Exam Neurological exam: Alert, Normal Gait, Oriented x3, Reflexes Normal - Psychiatric Exam Psychiatric exam: Normal Affect, Normal Mood - Skin Skin Exam: Dry, Intact, Normal Color, Warm Results - Vital Signs Recent Vital Signs: Last Vital Signs Temp 98.1 F 11/02/17 08:00 Pulse 66 11/02/17 08:00 Resp 20 11/02/17 08:00 BP 154/66 H 11/02/17 08:00 Pulse Ox 99 11/02/17 08:00 - Labs Result Diagrams: 11/02/17 06:44 11/02/17 07:42 Labs: Laboratory Results - last 24 hr 10/31/17 11/01/17 11/01/17 12:01 10:30 11:31 WBC RBC Hgb Hct MCV MCH MCHC RDW Plt Count MPV Neut % (Auto) Lymph % (Auto) [place] % (Auto) Eos % (Auto) Baso % (Auto) Neut # (Auto) Lymph # (Auto) [place] # (Auto) Eos # (Auto) Baso # (Auto) PT 15.0 H INR 1.4 APTT 51 H D Sodium Potassium Chloride Carbon Dioxide Anion Gap BUN Creatinine Est GFR ( Amer) Est GFR (Non-Af Amer) Random Glucose Calcium Total Bilirubin AST ALT Alkaline Phosphatase Total Protein Albumin Globulin Albumin/Globulin Ratio Carcinoembryonic Ag CA 19-9 Antigen Stool Leukocytes, Qual Negative Anti-Cardiolipin IgG Ab <14 Anti-Cardiolipin IgA Ab <11 Anti-Cardiolipin IgM Ab <12 11/02/17 11/02/17 11/02/17 06:44 06:44 07:42 WBC 7.7 RBC 3.63 L Hgb 11.5 L Hct 33.5 L MCV 92.4 MCH 31.8 H MCHC 34.4 RDW 15.9 H Plt Count 162 MPV 10.6 Neut % (Auto) 75.4 H Lymph % (Auto) 11.0 L [place] % (Auto) 8.6 Eos % (Auto) 2.8 Baso % (Auto) 2.2 H Neut # (Auto) 5.8 Lymph # (Auto) 0.8 L [place] # (Auto) 0.7 Eos # (Auto) 0.2 Baso # (Auto) 0.2 PT 15.2 H INR 1.4 APTT 53 H Sodium 137 Potassium 4.0 Chloride 104 Carbon Dioxide 24 Anion Gap 13 BUN 11 Creatinine 0.7 L Est GFR ( Amer) > 60 Est GFR (Non-Af Amer) > 60 Random Glucose 273 H Calcium 8.4 L Total Bilirubin 4.8 H AST 132 H ALT 77 H Alkaline Phosphatase 441 H Total Protein 6.3 Albumin 3.0 L Globulin 3.3 Albumin/Globulin Ratio 0.9 L Carcinoembryonic Ag 4.9 H CA 19-9 Antigen 41.3 H Stool Leukocytes, Qual Anti-Cardiolipin IgG Ab Anti-Cardiolipin IgA Ab Anti-Cardiolipin IgM Ab Assessment & Plan - Assessment and Plan (Free Text) Assessment: Palliative consult There is no Advance directive on chart, DNR/DNI, PPS 60% I reviewed medical records, all diagnostic studies, examined and interviewed patient in the bed. Patient is alert, oriented X 3, able to ambulate to bathroom with out assistance. Patient reports shortness of breath if ambulates longer distances. Patient looks chronically ill, with long hair and bazan, with some missing upper and lower teeth. Breath sounds normal, no cough, no SPOB at rest. Abdomen soft. Reports 5-6 watery stools that begun yesterday. Diet advanced to regular. Reports tolerating diet well. Reports abdominal pain to RUQ radiating to right flank. Pain controlled by Morphine IV Q 6 hr PRN. Patient reports pain returns within 4 hr from previous dose. There is mild pedal edema. PP +. Patient reports having significant edema of his LEs in the past, up to his thighs. BP 156/66, HR 66, O2Sat 99% RA. WBC 7.7, Hb 11.5, PT 15.2, INR 1.4, Total José Miguel 4.6 down from 6.1 Goals of care discussed. Patient is aware of his diagnosis. He hopes to apply for disability based on his diagnosis of cancer and to be able to find a decent place to live. He reports being in shelters for last 10 years. Patient reports having high tolerance to pain meds due to Hx of recreational drugs use in shelters and understands that for his pain to be controlled, he may need more complex pain management. Patient is concerned with managing pain once he returns to nursing home as many places do not accept people with pain meds due to possibility of meds abuse. Code status discussed. Patient was very clear that he would not want his life to be supported by any means of aggressive interventions, including CPR, MV assistance, PEG or HD. TEMO introduced, DNR/DNI discussed and signed by the patient. I discussed this with nursing. Patient was already DNR/DNI in the System. Impression * Chronically ill male with liver failure * Chronic abdominal pain, radiating to right flank * Loose stools * Mild pedal edema * Lack of housing * Lack of family support * Patient is concerned about managing chronic pain at shelters Suggestions * Would consider switching Morphine IV to PO pain meds as patient may be getting ready for discharge * Monitor number and consistency of stools. If continues would consider stool for C Diff and Immodium PRN * Elevate legs while in bed * Discharge planing * DNR/DNI * POLST on chart Advance planing time 40 min
--- NOTE | 2017-11-02 11:57 | CT ---
Date of service: 11/02/2017 PROCEDURE: CT Abdomen with and without intravenous contrast HISTORY: r/o liver cancer,high AFP,liver mass COMPARISON: None. TECHNIQUE: Axial images of the abdomen from lung bases to iliac crest with and without intravenous contrast enhancement. Coronal and sagittal reformats generated. Oral contrast also administered. Please note that due to technical limitation of the examination, images were not obtained during the hepatic arterial phase of enhancement. Intravenous contrast Dose: 100 mL Visipaque 320 Radiation dose: Total exam DLP = 2023.73 mGy-cm. This CT exam was performed using one or more of the following dose reduction techniques: Automated exposure control, adjustment of the mA and/or kV according to patient size, and/or use of iterative reconstruction technique. FINDINGS: LOWER THORAX: Unremarkable. LIVER: The liver is enlarged. Its contour is nodular consistent with hepatic cirrhosis. There is no intrahepatic biliary ductal dilatation. There are multiple ill-defined regions of diminished attenuation in the right hepatic lobe. No enhancing mass is identified. The possibility of a multifocal hepatic cellular carcinoma should be considered. This may also represent metastatic disease. Please note that there is thrombus extending into an entirely 8 occluding the right portal vein. This may be benign thrombus or may represent tumoral invasion. The left portal vein is patent. The main portal vein is patent, without evidence of thrombus. There is evidence of partial cavernous transformation with multiple for ready vessels enhancing immediately caudal to the location of the right portal vein. This is best demonstrated on series 6, image 62 through 68. The splenic vein is patent. GALLBLADDER AND BILE DUCTS: Gallbladder contracted with multiple calculi. PANCREAS: Unremarkable. No gross lesion or ductal dilatation. SPLEEN: Splenomegaly. The spleen measures 15.6 cm in greatest dimension. No mass identified. ADRENALS: Unremarkable. No mass. KIDNEYS AND URETERS: Unremarkable. No hydronephrosis. No solid mass. VASCULATURE: No evidence of abdominal aortic aneurysm. Complete occlusion of right portal vein. See above. BOWEL: Unremarkable. No obstruction. No gross mural thickening. APPENDIX: Not included PERITONEUM: Ascites LYMPH NODES: Unremarkable. No enlarged lymph nodes. BONES: No acute fracture. OTHER FINDINGS: None. IMPRESSION: Technically limited examination. Hepatic arterial phase images were not obtained. Multifocal low attenuation in the right hepatic lobe. This may represent a neoplastic process such as multifocal hepatic cellular malignancy or metastasis. Hepatic cirrhosis. Ascites. Hepatosplenomegaly. 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 Portal venous thrombus may be bland or tumoral. Cholelithiasis.
--- NOTE | 2017-11-02 17:33 | CP.PCM.PN ---
Subjective - Date & Time of Evaluation Date of Evaluation: 11/02/17 Time of Evaluation: 15:05 - Subjective Subjective: Feeling better Objective - Vital Signs/Intake and Output Vital Signs (last 24 hours): Temp Pulse Resp BP Pulse Ox 99.1 F 56 L 20 167/69 H 97 11/02/17 16:00 11/02/17 16:00 11/02/17 16:00 11/02/17 16:00 11/02/17 16:00 Intake and Output: 11/02/17 11/02/17 06:59 18:59 Intake Total 634.4 775.6 Balance 634.4 775.6 - Medications Medications: Current Medications Metronidazole (Flagyl) 500 mg in 100 mls @ 100 mls/hr IVPB Q8H BRENDA PRN Reason: Protocol Last Admin: 11/02/17 12:49 Dose: 100 mls/hr Piperacillin Sod/Tazobactam Sod (Zosyn 3.375 Gm Iv Premix) 3.375 gm in 50 mls @ 100 mls/hr IVPB Q6H BRENDA PRN Reason: Protocol Last Admin: 11/02/17 17:16 Dose: 100 mls/hr Heparin Sodium/Sodium Chloride (Heparin 04191 Units/250ml 1/2 Normal Saline) 25 ,000 units in 250 mls @ 15.105 mls/hr IV .[id number] PRN; Protocol; 18 UNITS/KG/HR PRN Reason: PROTOCOL Last Admin: 11/02/17 04:00 Dose: 20 units/kg/hr, 16.783 mls/hr Morphine Sulfate (Morphine) 1 mg IVP Q6 PRN PRN Reason: Pain, severe (8-10) Last Admin: 11/02/17 17:15 Dose: 1 mg Pantoprazole Sodium (Protonix Inj) 40 mg IVP DAILY BRENDA Last Admin: 11/02/17 10:30 Dose: 40 mg - Labs Labs: 11/02/17 06:44 11/02/17 07:42 PT 15.2 SECONDS (9.7-12.2) H 11/02/17 06:44 INR 1.4 11/02/17 06:44 APTT 53 SECONDS (21-34) H 11/02/17 06:44 - Head Exam Head Exam: ATRAUMATIC - Eye Exam Eye Exam: Normal appearance - ENT Exam ENT Exam: Mucous Membranes Dry - Respiratory Exam Respiratory Exam: NORMAL BREATHING PATTERN - Cardiovascular Exam Cardiovascular Exam: +S1, +S2 - GI/Abdominal Exam GI & Abdominal Exam: Normal Bowel Sounds Assessment and Plan (1) Portal vein thrombosis Assessment & Plan: on heparin drip ? tumor invasion vs thrombus Status: Acute (2) Lesion of liver Assessment & Plan: triple phase missing arterial phase; unable to fully evaluate for HCC MRI of the liver vs percutaneous biopsy Status: Acute (3) Anemia Assessment & Plan: f/u w/u Status: Acute
--- NOTE | 2017-11-02 20:14 | CP.PCM.PN ---
<Dena Roth - Last Filed: 11/02/17 20:12> Subjective - Date & Time of Evaluation Date of Evaluation: 11/02/17 Time of Evaluation: 14:36 - Subjective Subjective: PGY-1 Medicine Progress Note for hospitalist Dr. Medeiros. Patient was seen and examined today at bedside in no acute distress. Nurse reports no overnight events. Patient reports improvement of abdominal pain since yesterday. Patient is is in good spirits since being able to eat. Denies chest pain, shortness of breath, nausea, vomiting, constipation. Objective - Vital Signs/Intake and Output Vital Signs (last 24 hours): Temp Pulse Resp BP Pulse Ox 99.1 F 56 L 20 167/69 H 97 11/02/17 16:00 11/02/17 16:00 11/02/17 16:00 11/02/17 16:00 11/02/17 16:00 Intake and Output: 11/02/17 11/03/17 18:59 06:59 Intake Total 775.6 Balance 775.6 - Medications Medications: Current Medications Metronidazole (Flagyl) 500 mg in 100 mls @ 100 mls/hr IVPB Q8H BRENDA PRN Reason: Protocol Last Admin: 11/02/17 12:49 Dose: 100 mls/hr Piperacillin Sod/Tazobactam Sod (Zosyn 3.375 Gm Iv Premix) 3.375 gm in 50 mls @ 100 mls/hr IVPB Q6H BRENDA PRN Reason: Protocol Last Admin: 11/02/17 17:16 Dose: 100 mls/hr Heparin Sodium/Sodium Chloride (Heparin 88286 Units/250ml 1/2 Normal Saline) 25 ,000 units in 250 mls @ 15.105 mls/hr IV .[id number] PRN; Protocol; 18 UNITS/KG/HR PRN Reason: PROTOCOL Last Admin: 11/02/17 04:00 Dose: 20 units/kg/hr, 16.783 mls/hr Morphine Sulfate (Morphine) 1 mg IVP Q6 PRN PRN Reason: Pain, severe (8-10) Last Admin: 11/02/17 17:15 Dose: 1 mg Pantoprazole Sodium (Protonix Inj) 40 mg IVP DAILY [facility] Last Admin: 11/02/17 10:30 Dose: 40 mg - Labs Labs: 11/02/17 06:44 11/02/17 07:42 PT 15.2 SECONDS (9.7-12.2) H 11/02/17 06:44 INR 1.4 11/02/17 06:44 APTT 53 SECONDS (21-34) H 11/02/17 06:44 - Constitutional Appears: Well, Non-toxic, No Acute Distress - Head Exam Head Exam: ATRAUMATIC, NORMOCEPHALIC - Eye Exam Eye Exam: EOMI, Normal appearance, PERRL, Scleral icterus - ENT Exam ENT Exam: Mucous Membranes Dry Additional comments: missing multiple teeth - Respiratory Exam Respiratory Exam: Clear to Ausculation Bilateral, NORMAL BREATHING PATTERN. absent: Rales, Rhonchi, Wheezes - Cardiovascular Exam Cardiovascular Exam: REGULAR RHYTHM, +S1, +S2. absent: Gallop, Rubs, Murmur - GI/Abdominal Exam GI & Abdominal Exam: Guarding, Soft, Normal Bowel Sounds. absent: Firm, Tenderness, Rebound Additional comments: Tenderness to palpation in the RUQ, extending down umbilicus to suprapubic area - Extremities Exam Extremities Exam: Full ROM, Normal Capillary Refill, Normal Inspection. absent : Joint Swelling, Pedal Edema Additional comments: peripheral pulses present 3+ (radial, DP) IV in right hand intact, good flow - Neurological Exam Neurological Exam: Alert, Awake, CN II-XII Intact, Normal Gait, Oriented x3 - Psychiatric Exam Psychiatric exam: Normal Affect, Normal Mood - Skin Skin Exam: Dry, Intact, Warm Additional comments: Jaundice legs Assessment and Plan - Assessment and Plan (Free Text) Plan: 1) Acute liver failure/ obstructive jaundice - probable liver malignancy with metastasis Alpha feta protein elevated @1230 on admission Hx chronic Hepatitis C - f/u hepatitis panel - f/u HCV panel: genotype and quantitative Abd CT (10/31) multiple distended and mildly dilated loops of small bowel, may represent underlying enteritis. No discrete transition point to suggest gross bowl obstruction. CXR (10/31) mild venous congestion. Bilateral hilar prominence. Biapical pleural thickening with upper lobe granulomatous changes Chest CT (10/31) scattered areas of consolidation suggestive for atelectasis within the bilateral lung power. 7mm pulmonary nodule within the right lung. Hepatosplenomegaly. Cholelithiasis. Abdominal ascites. Abd US (10/31) portal vein thrombosis. enlarged liver 18.5cm with increased echogenecity of the hepatic parenchymal cortex suggestive for fatty infiltration vs. hepatic parenchymal disease. multiple prominent partially echogenic hepatic masses which are indeterminate and may represent underlying hepatic neoplasm. cholelithiasis with gallbladder thickening with associated pericholecystic fluid - may represent underlying cholecystitis. Liver CT (11/02) Multifocal low attenuation in the right hepatic lobe, may represent a neoplastic process such as multifocal hepatic cellular malignancy or metastasis. Hepatic cirrhosis. Ascites. Hepatosplenomegaly. 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 Portal venous thrombus may be bland or tumoral. Cholelithiasis. Hepatic arterial phase images not obtained. GI consulted: Dr. Crawley - henrik appreciated - triple phase MRI abdomen tomorrow - consider percutaneous liver biopsy if MRI inconsistent with clinical picture - defer colonoscopy, in light of probable hepatocellular carcinoma - CA 19-9 (11/02) 41.3H, CEA (11/02) 4.9H 2) Hepatic Vein thrombosis - Liver CT triple phase (11/02) see above. Complete occlusion of right portal vein. Left and main portal vein unobstructed - f/u MRI 3 phase - Heparin [id number] - Trend coags: PT today 15.2 trend 15.0 INR today 1.4 trend 1.4 PTT today 53 trend 51, 40 - f/u Anti phospholipid, Factor V, Protein C, Protein S, Prothrombin gene - collected Heme/Onc consulted: Dr. Cash - henrik appreciated. - f/u ferritin, folate, Vit B12, retic count 3) Cholelithiasis/Pancolitis Abd US (10/31) portal vein thrombosis. enlarged liver 18.5cm with increased echogenecity of the hepatic parenchymal cortex suggestive for fatty infiltration vs. hepatic parenchymal disease. multiple prominent partially echogenic hepatic masses which are indeterminate and may represent underlying hepatic neoplasm. cholelithiasis with gallbladder thickening with associated pericholecystic fluid - may represent underlying cholecystitis. Blood culture (10/31) no growth - preliminary Stool culture (11/01) negative - final - Flagyl 500mg IVPB q8h (10/31 Day 3) - Zosyn 3.375 IVPB q6h (10/31 Day 3) Surgery consulted: Dr. Benitez - henrik appreciated - No plans for acute surgical intervention at this time - Cont antibiotics - Cont heparin drip for portal vein thrombosis - Cont analgesics Pending cultures, consider stopping antibiotics 4) Prophylaxis - Protonix 40mg IVP - Heparin [id number] - Full Diet - DNR/DNI - Morphine 1mg IV q6 prn - Palliative Care consulted: Tata. Goals of care discussed. - 1:1 care Dena Ira PGY-1. Case discussed with Dr. Medeiros. <Augustina Medeiros - Last Filed: 11/05/17 18:14> Objective - Vital Signs/Intake and Output Vital Signs (last 24 hours): Temp Pulse Resp BP Pulse Ox 98.5 F 59 L 20 153/73 H 96 11/05/17 08:06 11/05/17 08:06 11/05/17 08:06 11/05/17 08:06 11/05/17 08:06 Intake and Output: 11/05/17 11/05/17 06:59 18:59 Intake Total 768 470 Balance 768 470 - Medications Medications: Current Medications Heparin Sodium/Sodium Chloride (Heparin 53813 Units/250ml 1/2 Normal Saline) 25 ,000 units in 250 mls @ 15.105 mls/hr IV .[id number] PRN; Protocol; 18 UNITS/KG/HR PRN Reason: PROTOCOL Last Admin: 11/05/17 14:54 Dose: 20 units/kg/hr, 16.783 mls/hr Morphine Sulfate (Morphine) 1 mg IVP Q6 PRN PRN Reason: Pain, severe (8-10) Last Admin: 11/05/17 13:32 Dose: 1 mg Pantoprazole Sodium (Protonix Ec Tab) 40 mg PO DAILY BRENDA - Labs Labs: 11/05/17 08:12 11/05/17 08:12 PT 15.0 SECONDS (9.7-12.2) H 11/04/17 07:25 INR 1.4 11/04/17 07:25 APTT 68 SECONDS (21-34) H 11/05/17 11:05 Attending/Attestation - Attestation I have personally seen and examined this patient.: Yes I have fully participated in the care of the patient.: Yes I have reviewed all pertinent clinical information, including history, physical exam and plan: Yes Notes (Text): Seen and examined by me. abdominal pain better,feels good,denies depression tolerating diet Discussed with gasroenterologist and oncologist s/p triple phase liver CT is incomplete follow MRI,continue heparin d/w resident. I agree with the resident's documentation of the assessment and the plan.
--- NOTE | 2017-11-02 22:31 | PCM.PSYCH ---
Initial Psychiatric Evaluation - Initial Psychiatric Evaluation Type of Admission: Voluntary Legal Status: Capacity Chief Complaint (in patient's own words): "I'm nervous" History of Present Illness and Precipitating Events: The pt is seen. chart reviewed, case discussed Consult was asked to r/o suicidality This is a 57 y/o WM, single, homeless, no child He denies SI, HI, AVH or delusions He claims that they suspected cancer and then he said he wouldn't like to live like that but he didn't mean to kill self or hurt self. He adamantly denies SI and is future oriented. No past psych or drug/alcohol history No known medical issues except for the ones now No family psych hx Current Medications: Active Medications Generic Name Dose Route Start Last Admin Trade Name Freq PRN Reason Stop Dose Admin Metronidazole 500 mg in 100 mls @ 100 mls/hr 10/31/17 12:00 11/02/17 21:20 Flagyl IVPB 100 mls/hr Q8H BRENDA Administration Protocol Piperacillin Sod/Tazobactam Sod 3.375 gm in 50 mls @ 100 mls/hr 10/31/17 12: 00 11/02/17 17:16 Zosyn 3.375 Gm Iv Premix IVPB 100 mls/hr Q6H BRENDA Administration Protocol Heparin Sodium/Sodium Chloride 25,000 units in 250 mls @ 15.105 mls/hr 03:57 11/02/17 21:45 Heparin 71642 Units/250ml 1/2 Normal Saline IV 20 units/kg/hr .[id number] PRN 16.783 mls/hr PROTOCOL Administration Protocol 18 UNITS/KG/HR Morphine Sulfate 1 mg 10/31/17 20:01 11/02/17 17:15 Morphine IVP 1 mg Q6 PRN Administration Pain, severe (8-10) Pantoprazole Sodium 40 mg 11/01/17 10:00 11/02/17 10:30 Protonix Inj IVP 40 mg DAILY BRENDA Administration Past Psychiatric History - Past Psychiatric History Previous Treatment History: None Pertinent Medical Hx (Current Medical&Sleep Prob, Allergies): Allergies Allergy/AdvReac Type Severity Reaction Status Date / Time aspirin AdvReac VOMITING Verified 07/18/17 12:14 RX: No Known Home Med 10/31/17 Review of Systems - Neurological Neurological: UNREMARKABLE - Psychiatric Psychiatric: Abnormal Sleep Pattern, Anxiety. absent: Depression, Hallucinations, Homicidal Ideation, Irritability, Paranoia, Suicidal Ideation Mental Status Examination - Personal Presentation Personal Presentation: Looks stated age - Affect Affect: Constricted - Motor Activity Motor Activity: Calm - Reliability in Providing Information Reliability in Providing Information: Good - Speech Speech: Organized - Mood Mood: Anxious - Formal Thought Process Formal Thought Process: No Impairment - Cognitive Functions Orientation: Person, Place, Situation, Time Sensorium: Alert Attention/Concentration: Attentive Estimate of Intelligence: Average Judgement: Intact, as evidence by: Insight regarding need for hospitalization Memory: Recent intact, as evidence by: Ability to recall events of the day, Remote intact, as evidenced by: Abilit to recall sig. life events - Risk Risk: Diminished functioning - Strength & Assets Inventory Strength & Assets Inventory: Cooperative DSM 5 DX - DSM 5 DSM 5 Diagnosis: Adjustment disorder - Recommended/Plan of Treatment Treatment Recommendations and Plan of Treatment: No treatment needed psychiatrically No need for 1:1 Support and psycho-ed given Please contact if he gets worse after any negative medical news 31 min
[2017-11-02 23:29] LABS: CARDIOLIPIN AB (IGA) <11 APL (<=11); CARDIOLIPIN AB (IGG) <14 GPL (<=14)
[2017-11-03] MEDS: Piperacill/Tazo 3.375gm in Dex 3.375 GM/50 ML BAG IVPB SCH ×4 (00:35→18:17)
[2017-11-03] MEDS: metroNIDAZOLE IV 500 mg/100 ml 500 MG/100 ML BAG IVPB SCH ×3 (04:00→19:32)
[2017-11-03] MEDS: Morphine 4 MG/ML VIAL IVP PRN ×3 (05:04→18:22)
[2017-11-03 08:05] LABS: BASO # 0.1 K/uL (0.0-0.2); BASO % 1.2 % (0.0-2.0); EOS # 0.3 K/uL (0.0-0.7); EOS % 3.2 % (0.0-4.0); HEMOGLOBIN 11.8 g/dL (12.0-18.0); LYMPH # 1.8 K/uL (1.0-4.3); LYMPH % 19.2 % (20.0-40.0); MEAN CELL VOLUME 91.4 fL (80.0-94.0); MEAN CORPUSCULAR HEMOGLOBIN 31.7 pg (27.0-31.0); MEAN CORPUSCULAR HGB CONC 34.7 g/dL (33.0-37.0); MEAN PLATELET VOLUME 10.7 fL (7.2-11.7); MONO # 0.7 K/uL (0.0-0.8); MONO % 7.4 % (0.0-10.0); NEUT # 6.4 K/uL (1.8-7.0); NRBC % 0.1 % (0.0-2.0); RBC 3.7 Mil/uL (4.40-5.90); WHITE BLOOD COUNT 9.3 K/uL (4.8-10.8)
[2017-11-03 08:10] LABS: INR 1.4; PROTHROMBIN TIME 15.2 SECONDS (9.7-12.2)
[2017-11-03 08:26] LABS: ALB/GLOB RATIO 1.1 (1.0-2.1); ALBUMIN 3.5 g/dL (3.5-5.0); ALT/SGPT 80 U/L (21-72); AST/SGOT 126 U/L (17-59); BLOOD UREA NITROGEN 12 mg/dL (9-20); CALCIUM 8.8 mg/dl (8.6-10.4); GFR AFRICAN-AMERICAN > 60; GFR NON-AFRICAN AMERICAN > 60
[2017-11-03 09:39] LABS: FOLATE 8.2 ng/mL
--- NOTE | 2017-11-03 11:50 | CP.PCM.PN ---
Subjective - Date & Time of Evaluation Date of Evaluation: 11/03/17 Time of Evaluation: 11:47 - Subjective Subjective: F/U liver masses D/W Oncologist and primary physician Objective - Vital Signs/Intake and Output Vital Signs (last 24 hours): Temp Pulse Resp BP Pulse Ox 98.9 F 63 20 147/69 98 11/03/17 08:05 11/03/17 08:05 11/03/17 08:05 11/03/17 08:05 11/03/17 08:05 Intake and Output: 11/03/17 11/03/17 06:59 18:59 Intake Total 1410.0 Balance 1410.0 - Medications Medications: Current Medications Metronidazole (Flagyl) 500 mg in 100 mls @ 100 mls/hr IVPB Q8H BRENDA PRN Reason: Protocol Last Admin: 11/03/17 04:00 Dose: 100 mls/hr Piperacillin Sod/Tazobactam Sod (Zosyn 3.375 Gm Iv Premix) 3.375 gm in 50 mls @ 100 mls/hr IVPB Q6H BRENDA PRN Reason: Protocol Last Admin: 11/03/17 11:21 Dose: 100 mls/hr Heparin Sodium/Sodium Chloride (Heparin 61518 Units/250ml 1/2 Normal Saline) 25 ,000 units in 250 mls @ 15.105 mls/hr IV .[id number] PRN; Protocol; 18 UNITS/KG/HR PRN Reason: PROTOCOL Last Admin: 11/02/17 21:45 Dose: 20 units/kg/hr, 16.783 mls/hr Morphine Sulfate (Morphine) 1 mg IVP Q6 PRN PRN Reason: Pain, severe (8-10) Last Admin: 11/03/17 05:04 Dose: 1 mg Pantoprazole Sodium (Protonix Inj) 40 mg IVP DAILY BERNDA Last Admin: 11/03/17 10:22 Dose: 40 mg - Labs Labs: 11/03/17 07:45 11/03/17 07:45 PT 15.2 SECONDS (9.7-12.2) H 11/03/17 07:45 INR 1.4 11/03/17 07:45 APTT 93 SECONDS (21-34) H D 11/03/17 07:45 Assessment and Plan (1) Liver masses Assessment & Plan: Triple phase CT not helpful due to technical difficulty Will try MRI and/or liver biopsy, as discussed HCC vs. 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
[2017-11-03 14:07] LABS: PHOSPHATIDYLSERINE AB IGG 13 U/mL (<10); PHOSPHATIDYLSERINE AB IGM <25 U/mL (<25)
[2017-11-03] MEDS: Heparin25000 units/250ml 1/2NS 25,000 UNITS/250 ML BAG IV PRN (14:15)
[2017-11-03 15:57] LABS: B2 GLYCOPROTEIN I AB(IGA) <9 SAU (<=20); B2 GLYCOPROTEIN I AB(IGG) <9 SGU (<=20); B2 GLYCOPROTEIN I AB(IGM) <9 SMU (<=20); CARDIOLIPIN AB (IGM) <12 MPL (<=12); PHOSPHATIDYLSERINE AB IGA <20 U/mL (<20)
--- NOTE | 2017-11-03 19:46 | CP.PCM.PN ---
<Nick Vance - Last Filed: 11/03/17 20:18> Subjective - Date & Time of Evaluation Date of Evaluation: 11/03/17 Time of Evaluation: 09:25 - Subjective Subjective: PGY-[address] Medeiros service Patient is seen and examined by bedside. Patient is eating breakfast at time of encouter. Patient states have six episodes of brown colored, soft, nonbloody diarrhea, that happens every time patient tries to go to urinate. patient admits to right upper abdominal pain that is 2/10 at the moment but it can get to be 8/10. Pain is described as sharp pain, constant and nonradiating. Patiet says hes anxious and does not sleep more than 3 hours. Patient denies fever, chills, chest pain, shortness of breath, nausea, vomiting, or lower extremity swelling. Objective - Vital Signs/Intake and Output Vital Signs (last 24 hours): Temp Pulse Resp BP Pulse Ox 99 F 55 L 18 160/72 H 99 11/03/17 16:00 11/03/17 16:00 11/03/17 16:00 11/03/17 16:00 11/03/17 16:00 Intake and Output: 11/03/17 11/04/17 18:59 06:59 Intake Total 784.4 Balance 784.4 - Medications Medications: Current Medications Metronidazole (Flagyl) 500 mg in 100 mls @ 100 mls/hr IVPB Q8H BRENDA PRN Reason: Protocol Last Admin: 11/03/17 19:32 Dose: 100 mls/hr Piperacillin Sod/Tazobactam Sod (Zosyn 3.375 Gm Iv Premix) 3.375 gm in 50 mls @ 100 mls/hr IVPB Q6H BRENDA PRN Reason: Protocol Last Admin: 11/03/17 18:17 Dose: 100 mls/hr Heparin Sodium/Sodium Chloride (Heparin 95887 Units/250ml 1/2 Normal Saline) 25 ,000 units in 250 mls @ 15.105 mls/hr IV .[id number] PRN; Protocol; 18 UNITS/KG/HR PRN Reason: PROTOCOL Last Admin: 11/03/17 14:15 Dose: 20 units/kg/hr, 16.783 mls/hr Morphine Sulfate (Morphine) 1 mg IVP Q6 PRN PRN Reason: Pain, severe (8-10) Last Admin: 11/03/17 18:22 Dose: 1 mg Pantoprazole Sodium (Protonix Inj) 40 mg IVP DAILY BRENDA Last Admin: 11/03/17 10:22 Dose: 40 mg - Labs Labs: 11/03/17 07:45 11/03/17 07:45 PT 15.2 SECONDS (9.7-12.2) H 11/03/17 07:45 INR 1.4 11/03/17 07:45 APTT 93 SECONDS (21-34) H D 11/03/17 07:45 - Constitutional Appears: Non-toxic, No Acute Distress - Head Exam Head Exam: ATRAUMATIC, NORMAL INSPECTION, NORMOCEPHALIC - Eye Exam Eye Exam: EOMI, Normal appearance, PERRL - ENT Exam ENT Exam: Mucous Membranes Moist, Normal Exam - Neck Exam Neck Exam: Full ROM, Normal Inspection - Respiratory Exam Respiratory Exam: Clear to Ausculation Bilateral, NORMAL BREATHING PATTERN. absent: Rales, Rhonchi, Wheezes - Cardiovascular Exam Cardiovascular Exam: REGULAR RHYTHM, +S1, +S2 - GI/Abdominal Exam GI & Abdominal Exam: Soft, Normal Bowel Sounds. absent: Distended, Guarding, Tenderness - Extremities Exam Extremities Exam: Full ROM, Normal Inspection. absent: Pedal Edema, Tenderness - Back Exam Back Exam: NORMAL INSPECTION - Neurological Exam Neurological Exam: Alert, CN II-XII Intact, Normal Gait, Oriented x3 - Psychiatric Exam Psychiatric exam: Normal Affect, Normal Mood - Skin Skin Exam: Dry, Intact, Normal Color Assessment and Plan - Assessment and Plan (Free Text) Plan: Acute liver failure/ obstructive jaundice -probable liver malignancy with metastasis Alpha feta protein elevated @[address] (10/31) multiple distended and mildly dilated loops of small bowel, may represent underlying enteritis. No discrete transition point to suggest gross bowl obstruction. CXR (10/31) mild venous congestion. Bilateral hilar prominence. Biapical pleural thickening with upper lobe granulomatous changes Chest CT (10/31) scattered areas of consolidation suggestive for atelectasis within the bilateral lung power. 7mm pulmonary nodule within the right lung. Hepatosplenomegaly. Cholelithiasis. Abdominal ascites. Abd US (10/31) portal vein thrombosis. enlarged liver 18.5cm with increased echogenecity of the hepatic parenchymal cortex suggestive for fatty infiltration vs. hepatic parenchymal disease. multiple prominent partially echogenic hepatic masses which are indeterminate and may represent underlying hepatic neoplasm. cholelithiasis with gallbladder thickening with associated pericholecystic fluid - may represent underlying cholecystitis. Liver CT (11/02) Multifocal low attenuation in the right hepatic lobe, may represent a neoplastic process such as multifocal hepatic cellular malignancy or metastasis. Hepatic cirrhosis. Ascites. Hepatosplenomegaly. 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 Portal venous thrombus may be bland or tumoral. Cholelithiasis. Hepatic arterial phase images not obtained. -CA 19-9 (11/02) 41.3H, CEA (11/02) 4.9H -GI consulted: Dr. Crawley - triple phase MRI abdomen was cancelled on 11/03 as Per radiology: Heparin drip being given at time -Rescheduled MRI triple phase for tomorrow (11/04) - consider percutaneous liver biopsy if MRI inconsistent with clinical picture - defer colonoscopy, in light of probable hepatocellular carcinoma Hepatic Vein thrombosis - Liver CT triple phase (11/02) see above. Complete occlusion of right portal vein. Left and main portal vein unobstructed - f/u MRI 3 phase (11/04) - Heparin [id number] drip - Trend coags: PT 11/02 -->15.2-->11/03 15.2 INR 11/02 -->1.4 --> 11/03 1.4 PTT 11/02 --> 53 --> 11/03 93 - f/u Anti phospholipid, Factor V, Protein C, Protein S, Prothrombin gene - collected Heme/Onc consulted: Dr. Cash - help appreciated. - f/u ferritin, folate, Vit B12, retic count Cholelithiasis/Pancolitis Abd US (10/31) portal vein thrombosis. enlarged liver 18.5cm with increased echogenecity of the hepatic parenchymal cortex suggestive for fatty infiltration vs. hepatic parenchymal disease. multiple prominent partially echogenic hepatic masses which are indeterminate and may represent underlying hepatic neoplasm. cholelithiasis with gallbladder thickening with associated pericholecystic fluid - may represent underlying cholecystitis. Blood culture (11/03) no growth after 3 days, final Stool culture (11/01) negative - final - Flagyl 500mg IVPB q8h (10/31 Day 4) - Zosyn 3.375 IVPB q6h (10/31 Day 4) Surgery consulted: Dr. Benitez - No plans for acute surgical intervention at this time - Cont antibiotics - Cont heparin drip for portal vein thrombosis - Cont analgesics Hx chronic Hepatitis C - f/u hepatitis panel - f/u HCV panel: genotype and quantitative Prophylaxis - Protonix 40mg IVP - Heparin [id number] - Full Diet - DNR/DNI - Morphine 1mg IV q6 prn - Palliative Care consulted: Tata. Goals of care discussed. Plan was discussed with Dr. Mala Vance, PGY-1 <Augustina Medeiros - Last Filed: 11/06/17 11:43> Objective - Vital Signs/Intake and Output Vital Signs (last 24 hours): Temp Pulse Resp BP Pulse Ox 98.2 F 57 L 20 155/76 H 98 11/05/17 15:55 11/05/17 15:55 11/05/17 15:55 11/05/17 15:55 11/05/17 15:55 Intake and Output: 11/05/17 11/05/17 06:59 18:59 Intake Total 768 470 Balance 768 470 - Medications Medications: Current Medications Enoxaparin Sodium (Lovenox) 80 mg SC Q12 BRENDA Morphine Sulfate (Morphine) 1 mg IVP Q6 PRN PRN Reason: Pain, severe (8-10) Pantoprazole Sodium (Protonix Ec Tab) 40 mg PO DAILY BRENDA - Labs Labs: 11/05/17 08:12 11/05/17 08:12 PT 15.0 SECONDS (9.7-12.2) H 11/04/17 07:25 INR 1.4 11/04/17 07:25 APTT 68 SECONDS (21-34) H 11/05/17 11:05 Attending/Attestation - Attestation I have personally seen and examined this patient.: Yes I have fully participated in the care of the patient.: Yes I have reviewed all pertinent clinical information, including history, physical exam and plan: Yes Notes (Text): seen and examined This is a pt with hep C has liver mass,elevated AFP,CA 19-9,Jaundice and portla vein thrombosis Follw MRI liver on heparin drip,tolerating diet,he is alert and oriented x3 d/w Resident . I agree with the assessment and the plan
[2017-11-03 23:33] VITALS: RESP 20
[2017-11-04] MEDS: Morphine 4 MG/ML VIAL IVP PRN ×4 (00:30→19:15)
[2017-11-04] MEDS: metroNIDAZOLE IV 500 mg/100 ml 500 MG/100 ML BAG IVPB SCH ×3 (04:12→20:00)
[2017-11-04] MEDS: Heparin25000 units/250ml 1/2NS 25,000 UNITS/250 ML BAG IV PRN ×2 (04:57→20:00)
[2017-11-04] MEDS: Piperacill/Tazo 3.375gm in Dex 3.375 GM/50 ML BAG IVPB SCH ×4 (05:33→18:06)
--- NOTE | 2017-11-04 07:36 | CP.PCM.PN ---
<Dena Roth Taryn - Last Filed: 11/04/17 22:24> Subjective - Date & Time of Evaluation Date of Evaluation: 11/04/17 Time of Evaluation: 16:35 - Subjective Subjective: PGY-1 Medicine Progress Note for hospitalist Dr. Medeiros Patient was seen and examined at bedside today in no acute distress. Nurse reported no overnight events. Patient has no new complaints. Abdominal pain comes and comes, travels from midline to right and back. 2/10 today. Denies chest pain, shortness of breath, nausea, vomiting, constipation, diarrhea. Objective - Vital Signs/Intake and Output Vital Signs (last 24 hours): Temp Pulse Resp BP Pulse Ox 99 F 58 L 20 150/66 97 11/03/17 23:31 11/03/17 23:31 11/03/17 23:31 11/03/17 23:31 11/03/17 23:31 Intake and Output: 11/04/17 11/04/17 06:59 18:59 Intake Total 1178.4 Balance 1178.4 - Medications Medications: Current Medications Metronidazole (Flagyl) 500 mg in 100 mls @ 100 mls/hr IVPB Q8H BRENDA PRN Reason: Protocol Last Admin: 11/04/17 04:12 Dose: 100 mls/hr Piperacillin Sod/Tazobactam Sod (Zosyn 3.375 Gm Iv Premix) 3.375 gm in 50 mls @ 100 mls/hr IVPB Q6H BRENDA PRN Reason: Protocol Last Admin: 11/04/17 05:33 Dose: 100 mls/hr Heparin Sodium/Sodium Chloride (Heparin 40728 Units/250ml 1/2 Normal Saline) 25 ,000 units in 250 mls @ 15.105 mls/hr IV .[id number] PRN; Protocol; 18 UNITS/KG/HR PRN Reason: PROTOCOL Last Admin: 11/04/17 04:57 Dose: 20 units/kg/hr, 16.783 mls/hr Morphine Sulfate (Morphine) 1 mg IVP Q6 PRN PRN Reason: Pain, severe (8-10) Last Admin: 11/04/17 06:35 Dose: 1 mg Pantoprazole Sodium (Protonix Inj) 40 mg IVP DAILY [facility] Last Admin: 11/03/17 10:22 Dose: 40 mg - Labs Labs: 11/03/17 07:45 11/03/17 07:45 PT 15.2 SECONDS (9.7-12.2) H 11/03/17 07:45 INR 1.4 11/03/17 07:45 APTT 93 SECONDS (21-34) H D 11/03/17 07:45 - Constitutional Appears: Well, Non-toxic, No Acute Distress - Head Exam Head Exam: ATRAUMATIC, NORMOCEPHALIC - Eye Exam Eye Exam: EOMI, Normal appearance, PERRL - ENT Exam ENT Exam: Mucous Membranes Moist, Normal Exam - Respiratory Exam Respiratory Exam: Clear to Ausculation Bilateral, NORMAL BREATHING PATTERN - Cardiovascular Exam Cardiovascular Exam: REGULAR RHYTHM, +S1, +S2. absent: Murmur - GI/Abdominal Exam GI & Abdominal Exam: Soft, Tenderness, Normal Bowel Sounds Additional comments: extra roll of skin - Extremities Exam Extremities Exam: Full ROM, Normal Capillary Refill, Normal Inspection. absent : Joint Swelling, Pedal Edema - Neurological Exam Neurological Exam: Alert, Awake, CN II-XII Intact, Normal Gait, Oriented x3 - Psychiatric Exam Psychiatric exam: Normal Affect, Normal Mood - Skin Skin Exam: Dry, Intact, Warm Additional comments: Jaundiced Assessment and Plan - Assessment and Plan (Free Text) Plan: Acute liver failure/ obstructive jaundice -probable liver malignancy with metastasis Alpha feta protein elevated @[address] (10/31) multiple distended and mildly dilated loops of small bowel, may represent underlying enteritis. No discrete transition point to suggest gross bowl obstruction. CXR (10/31) mild venous congestion. Bilateral hilar prominence. Biapical pleural thickening with upper lobe granulomatous changes Chest CT (10/31) scattered areas of consolidation suggestive for atelectasis within the bilateral lung power. 7mm pulmonary nodule within the right lung. Hepatosplenomegaly. Cholelithiasis. Abdominal ascites. Abd US (10/31) portal vein thrombosis. enlarged liver 18.5cm with increased echogenecity of the hepatic parenchymal cortex suggestive for fatty infiltration vs. hepatic parenchymal disease. multiple prominent partially echogenic hepatic masses which are indeterminate and may represent underlying hepatic neoplasm. cholelithiasis with gallbladder thickening with associated pericholecystic fluid - may represent underlying cholecystitis. Liver CT (11/02) Multifocal low attenuation in the right hepatic lobe, may represent a neoplastic process such as multifocal hepatic cellular malignancy or metastasis. Hepatic cirrhosis. Ascites. Hepatosplenomegaly. 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 Portal venous thrombus may be bland or tumoral. Cholelithiasis. Hepatic arterial phase images not obtained. - CA 19-9 (11/02) 41.3H, CEA (11/02) 4.9H - GI consulted: Dr. Crawley - triple phase MRI abdomen was cancelled on 11/03 as Per radiology: Heparin drip being given at time - Rescheduled MRI triple phase for tomorrow (11/04) pending read - consider percutaneous liver biopsy if MRI inconsistent with clinical picture - defer colonoscopy, in light of probable hepatocellular carcinoma Hepatic Vein thrombosis - Liver CT triple phase (11/02) see above. Complete occlusion of right portal vein. Left and main portal vein unobstructed - f/u MRI 3 phase (11/04) - Heparin [id number] drip (if not doing Bx, can switch to Eliquis) - coags stable, cont to trend - f/u Anti phospholipid, Factor V, Protein C, Protein S, Prothrombin gene - collected Heme/Onc consulted: Dr. Cash - help appreciated. - ferritin 566.0 - folate 8.2 - Vit B12 523 Cholelithiasis/Pancolitis Abd US (10/31) portal vein thrombosis. enlarged liver 18.5cm with increased echogenecity of the hepatic parenchymal cortex suggestive for fatty infiltration vs. hepatic parenchymal disease. multiple prominent partially echogenic hepatic masses which are indeterminate and may represent underlying hepatic neoplasm. cholelithiasis with gallbladder thickening with associated pericholecystic fluid - may represent underlying cholecystitis. Blood culture (11/03) no growth after 3 days, final Stool culture (11/01) negative - final - Flagyl 500mg IVPB q8h (10/31 Day 4) - Zosyn 3.375 IVPB q6h (10/31 Day 4) Surgery consulted: Dr. Benitez - No plans for acute surgical intervention at this time - Cont antibiotics - Cont heparin drip for portal vein thrombosis - Cont analgesics Hx chronic Hepatitis C - f/u hepatitis panel - f/u HCV panel: genotype and quantitative Prophylaxis - Protonix 40mg IVP - Heparin [id number] - Full Diet - DNR/DNI - Morphine 1mg IV q6 prn - Palliative Care consulted: Tata. Goals of care discussed Dena Roth PGY-1. Plan was discussed with Dr. Medeiros <Augustina Medeiros - Last Filed: 11/06/17 11:45> Objective - Vital Signs/Intake and Output Vital Signs (last 24 hours): Temp Pulse Resp BP Pulse Ox 98.4 F 65 20 176/77 H 97 11/06/17 08:17 11/06/17 08:17 11/06/17 08:17 11/06/17 08:17 11/06/17 08:17 - Medications Medications: Current Medications Docusate Sodium (Colace) 100 mg PO BID [facility] Last Admin: 11/06/17 09:43 Dose: Not Given Enoxaparin Sodium (Lovenox) 80 mg SC Q12 [facility] Last Admin: 11/06/17 09:43 Dose: 80 mg Morphine Sulfate (Morphine Immediate Release Tab) 15 mg PO QID PRN PRN Reason: Pain, moderate (4-7) Last Admin: 11/06/17 08:16 Dose: 15 mg Pantoprazole Sodium (Protonix Ec Tab) 40 mg PO DAILY [facility] Last Admin: 11/06/17 09:43 Dose: 40 mg - Labs Labs: 11/06/17 06:22 11/06/17 06:22 PT 13.3 SECONDS (9.7-12.2) H 11/06/17 06:22 INR 1.2 11/06/17 06:22 APTT 33 SECONDS (21-34) D 11/06/17 06:22 Attending/Attestation - Attestation I have personally seen and examined this patient.: Yes I have fully participated in the care of the patient.: Yes I have reviewed all pertinent clinical information, including history, physical exam and plan: Yes Notes (Text): Seen and examined by me. No complain,eating ok,pending MRI Continue heparin,may switch to oral once decide about possible biopsy. We will follwo with GI and oncologist Discussed with the resident and I agree with the resident's documentation of the assessment and the plan
[2017-11-04 07:46] LABS: BASO # 0.1 K/uL (0.0-0.2); BASO % 1.1 % (0.0-2.0); EOS # 0.3 K/uL (0.0-0.7); EOS % 3.2 % (0.0-4.0); HEMOGLOBIN 11.7 g/dL (12.0-18.0); LYMPH # 1.7 K/uL (1.0-4.3); MEAN CELL VOLUME 91.5 fL (80.0-94.0); MEAN CORPUSCULAR HEMOGLOBIN 31.1 pg (27.0-31.0); MEAN PLATELET VOLUME 10.9 fL (7.2-11.7); MONO # 0.7 K/uL (0.0-0.8); MONO % 6.9 % (0.0-10.0); NEUT # 7.2 K/uL (1.8-7.0); NEUT % 71.8 % (50.0-75.0); NRBC % 0.1 % (0.0-2.0); RBC 3.77 Mil/uL (4.40-5.90); RED CELL DISTRIBUTION WIDTH 15.9 % (11.5-14.5)
[2017-11-04 07:47] LABS: INR 1.4
[2017-11-04 08:11] LABS: ALB/GLOB RATIO 0.9 (1.0-2.1); ALBUMIN 3.2 g/dL (3.5-5.0); ALT/SGPT 74 U/L (21-72); AST/SGOT 114 U/L (17-59); BLOOD UREA NITROGEN 10 mg/dL (9-20); CALCIUM 8.8 mg/dl (8.6-10.4); GFR AFRICAN-AMERICAN > 60; GFR NON-AFRICAN AMERICAN > 60
--- NOTE | 2017-11-04 10:08 | CP.PCM.PN ---
Subjective - Date & Time of Evaluation Date of Evaluation: 11/04/17 Time of Evaluation: 09:50 - Subjective Subjective: F/u abdom pain. Reports variable abdom pain- upper and lower. Denies BROWN, cough, SZ, CP, SOB, RB, melena, fever, chills Objective - Vital Signs/Intake and Output Vital Signs (last 24 hours): Temp Pulse Resp BP Pulse Ox 99 F 58 L 20 150/66 97 11/03/17 23:31 11/03/17 23:31 11/03/17 23:31 11/03/17 23:31 11/03/17 23:31 Intake and Output: 11/04/17 11/04/17 06:59 18:59 Intake Total 1178.4 Balance 1178.4 - Medications Medications: Current Medications Metronidazole (Flagyl) 500 mg in 100 mls @ 100 mls/hr IVPB Q8H BRENDA PRN Reason: Protocol Last Admin: 11/04/17 04:12 Dose: 100 mls/hr Piperacillin Sod/Tazobactam Sod (Zosyn 3.375 Gm Iv Premix) 3.375 gm in 50 mls @ 100 mls/hr IVPB Q6H [facility]ENDA PRN Reason: Protocol Last Admin: 11/04/17 05:33 Dose: 100 mls/hr Heparin Sodium/Sodium Chloride (Heparin 61956 Units/250ml 1/2 Normal Saline) 25 ,000 units in 250 mls @ 15.105 mls/hr IV .[id number] PRN; Protocol; 18 UNITS/KG/HR PRN Reason: PROTOCOL Last Admin: 11/04/17 04:57 Dose: 20 units/kg/hr, 16.783 mls/hr Morphine Sulfate (Morphine) 1 mg IVP Q6 PRN PRN Reason: Pain, severe (8-10) Last Admin: 11/04/17 06:35 Dose: 1 mg Pantoprazole Sodium (Protonix Inj) 40 mg IVP DAILY [facility] Last Admin: 11/04/17 09:51 Dose: 40 mg - Labs Labs: 11/04/17 07:25 11/04/17 07:25 PT 15.0 SECONDS (9.7-12.2) H 11/04/17 07:25 INR 1.4 11/04/17 07:25 APTT 72 SECONDS (21-34) H D 11/04/17 07:25 - Constitutional Appears: Well - Respiratory Exam Respiratory Exam: Clear to Ausculation Bilateral - Cardiovascular Exam Cardiovascular Exam: RRR - GI/Abdominal Exam GI & Abdominal Exam: Soft, Normal Bowel Sounds. absent: Guarding - Neurological Exam Neurological Exam: Alert, Oriented x3 Assessment and Plan (1) Abdominal pain Assessment & Plan: Liver masses Status: Acute (2) Carrier of viral hepatitis C Status: Acute (3) Cholelithiasis Status: Acute (4) Liver masses Assessment & Plan: Elev AFP 1230- diagnostic for HCC. MRI is ordered for today. Dr Beth f/u. 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 On heparin. Status: Acute (6) Depressive disorder Status: Acute
--- NOTE | 2017-11-04 19:07 | CP.PCM.PN ---
Subjective - Date & Time of Evaluation Date of Evaluation: 11/03/17 Time of Evaluation: 13:00 - Subjective Subjective: Has abdominal pain case discussed with GI and PMD Objective - Vital Signs/Intake and Output Vital Signs (last 24 hours): Temp Pulse Resp BP Pulse Ox 98.6 F 63 20 160/66 H 98 11/04/17 15:55 11/04/17 15:55 11/04/17 15:55 11/04/17 15:55 11/04/17 15:55 Intake and Output: 11/04/17 11/05/17 18:59 06:59 Intake Total 336 Balance 336 - Medications Medications: Current Medications Metronidazole (Flagyl) 500 mg in 100 mls @ 100 mls/hr IVPB Q8H BRENDA PRN Reason: Protocol Last Admin: 11/04/17 12:31 Dose: 100 mls/hr Piperacillin Sod/Tazobactam Sod (Zosyn 3.375 Gm Iv Premix) 3.375 gm in 50 mls @ 100 mls/hr IVPB Q6H BRENDA PRN Reason: Protocol Last Admin: 11/04/17 18:06 Dose: 100 mls/hr Heparin Sodium/Sodium Chloride (Heparin 18158 Units/250ml 1/2 Normal Saline) 25 ,000 units in 250 mls @ 15.105 mls/hr IV .[id number] PRN; Protocol; 18 UNITS/KG/HR PRN Reason: PROTOCOL Last Admin: 11/04/17 04:57 Dose: 20 units/kg/hr, 16.783 mls/hr Morphine Sulfate (Morphine) 1 mg IVP Q6 PRN PRN Reason: Pain, severe (8-10) Last Admin: 11/04/17 12:24 Dose: 1 mg Pantoprazole Sodium (Protonix Inj) 40 mg IVP DAILY [facility] Last Admin: 11/04/17 09:51 Dose: 40 mg - Labs Labs: 11/04/17 07:25 11/04/17 07:25 PT 15.0 SECONDS (9.7-12.2) H 11/04/17 07:25 INR 1.4 11/04/17 07:25 APTT 72 SECONDS (21-34) H D 11/04/17 07:25 - Head Exam Head Exam: ATRAUMATIC - Eye Exam Eye Exam: Normal appearance - ENT Exam ENT Exam: Mucous Membranes Dry - Respiratory Exam Respiratory Exam: NORMAL BREATHING PATTERN - Cardiovascular Exam Cardiovascular Exam: +S1, +S2 - GI/Abdominal Exam GI & Abdominal Exam: Normal Bowel Sounds Assessment and Plan (1) Portal vein thrombosis Assessment & Plan: on therapeutic anticoagulation likely provoked from underlying malignancy Status: Acute (2) Lesion of liver Assessment & Plan: HCC vs mets triple phase CT attempted but not helpful due to technical difficulties for MRI may need biopsy if imaging not radiographically indicative of HCC Status: Acute (3) Anemia Assessment & Plan: chronic disease Status: Acute
--- NOTE | 2017-11-04 19:07 | CP.PCM.PN ---
Subjective - Date & Time of Evaluation Date of Evaluation: 11/04/17 Time of Evaluation: 15:00 - Subjective Subjective: Has some abdominal pain. Objective - Vital Signs/Intake and Output Vital Signs (last 24 hours): Temp Pulse Resp BP Pulse Ox 98.6 F 63 20 160/66 H 98 11/04/17 15:55 11/04/17 15:55 11/04/17 15:55 11/04/17 15:55 11/04/17 15:55 Intake and Output: 11/04/17 11/05/17 18:59 06:59 Intake Total 336 Balance 336 - Medications Medications: Current Medications Metronidazole (Flagyl) 500 mg in 100 mls @ 100 mls/hr IVPB Q8H BRENDA PRN Reason: Protocol Last Admin: 11/04/17 12:31 Dose: 100 mls/hr Piperacillin Sod/Tazobactam Sod (Zosyn 3.375 Gm Iv Premix) 3.375 gm in 50 mls @ 100 mls/hr IVPB Q6H BRENDA PRN Reason: Protocol Last Admin: 11/04/17 18:06 Dose: 100 mls/hr Heparin Sodium/Sodium Chloride (Heparin 98082 Units/250ml 1/2 Normal Saline) 25 ,000 units in 250 mls @ 15.105 mls/hr IV .[id number] PRN; Protocol; 18 UNITS/KG/HR PRN Reason: PROTOCOL Last Admin: 11/04/17 04:57 Dose: 20 units/kg/hr, 16.783 mls/hr Morphine Sulfate (Morphine) 1 mg IVP Q6 PRN PRN Reason: Pain, severe (8-10) Last Admin: 11/04/17 12:24 Dose: 1 mg Pantoprazole Sodium (Protonix Inj) 40 mg IVP DAILY [facility] Last Admin: 11/04/17 09:51 Dose: 40 mg - Labs Labs: 11/04/17 07:25 11/04/17 07:25 PT 15.0 SECONDS (9.7-12.2) H 11/04/17 07:25 INR 1.4 11/04/17 07:25 APTT 72 SECONDS (21-34) H D 11/04/17 07:25 - Head Exam Head Exam: ATRAUMATIC - Eye Exam Eye Exam: Normal appearance - ENT Exam ENT Exam: Mucous Membranes Dry - Respiratory Exam Respiratory Exam: NORMAL BREATHING PATTERN - Cardiovascular Exam Cardiovascular Exam: +S1, +S2 - GI/Abdominal Exam GI & Abdominal Exam: Normal Bowel Sounds Assessment and Plan (1) Portal vein thrombosis Assessment & Plan: on anticoagulation Status: Acute (2) Lesion of liver Assessment & Plan: MRI done today f/u results Status: Acute (3) Anemia Assessment & Plan: chronic disease Status: Acute
[2017-11-05] MEDS: Piperacill/Tazo 3.375gm in Dex 3.375 GM/50 ML BAG IVPB SCH ×3 (00:47→12:51)
[2017-11-05] MEDS: Morphine 4 MG/ML VIAL IVP PRN ×3 (01:21→13:32)
[2017-11-05] MEDS: metroNIDAZOLE IV 500 mg/100 ml 500 MG/100 ML BAG IVPB SCH ×2 (03:26→12:48)
[2017-11-05 08:22] LABS: BASO # 0.1 K/uL (0.0-0.2); BASO % 1.3 % (0.0-2.0); EOS # 0.3 K/uL (0.0-0.7); MEAN CELL VOLUME 91.8 fL (80.0-94.0); MEAN PLATELET VOLUME 11.4 fL (7.2-11.7)
--- NOTE | 2017-11-05 08:23 | CP.PCM.PN ---
Subjective - Date & Time of Evaluation Date of Evaluation: 11/05/17 Time of Evaluation: 08:21 - Subjective Subjective: F/u liver masses. Pt seen with student. Repoerts same abdom pain. Denies fever, CP, SOB, BROWN, cough, RB, melena, hemoptysis Objective - Vital Signs/Intake and Output Vital Signs (last 24 hours): Temp Pulse Resp BP Pulse Ox 98.5 F 59 L 20 153/73 H 96 11/05/17 08:06 11/05/17 08:06 11/05/17 08:06 11/05/17 08:06 11/05/17 08:06 Intake and Output: 11/05/17 11/05/17 06:59 18:59 Intake Total 768 470 Balance 768 470 - Medications Medications: Current Medications Metronidazole (Flagyl) 500 mg in 100 mls @ 100 mls/hr IVPB Q8H BRENDA PRN Reason: Protocol Last Admin: 11/05/17 03:26 Dose: 100 mls/hr Piperacillin Sod/Tazobactam Sod (Zosyn 3.375 Gm Iv Premix) 3.375 gm in 50 mls @ 100 mls/hr IVPB Q6H BRENDA PRN Reason: Protocol Last Admin: 11/05/17 05:04 Dose: 100 mls/hr Heparin Sodium/Sodium Chloride (Heparin 02586 Units/250ml 1/2 Normal Saline) 25 ,000 units in 250 mls @ 15.105 mls/hr IV .[id number] PRN; Protocol; 18 UNITS/KG/HR PRN Reason: PROTOCOL Last Admin: 11/04/17 20:00 Dose: 20 units/kg/hr, 16.783 mls/hr Morphine Sulfate (Morphine) 1 mg IVP Q6 PRN PRN Reason: Pain, severe (8-10) Last Admin: 11/05/17 07:30 Dose: 1 mg Pantoprazole Sodium (Protonix Inj) 40 mg IVP DAILY [facility] Last Admin: 11/04/17 09:51 Dose: 40 mg - Labs Labs: 11/04/17 07:25 11/04/17 07:25 PT 15.0 SECONDS (9.7-12.2) H 11/04/17 07:25 INR 1.4 11/04/17 07:25 APTT 72 SECONDS (21-34) H D 11/04/17 07:25 - Constitutional Appears: Well - Respiratory Exam Respiratory Exam: Clear to Ausculation Bilateral - Cardiovascular Exam Cardiovascular Exam: RRR - GI/Abdominal Exam GI & Abdominal Exam: Soft, Normal Bowel Sounds. absent: Guarding, Tenderness, Mass - Extremities Exam Extremities Exam: absent: Calf Tenderness - Neurological Exam Neurological Exam: Alert, Oriented x3 Assessment and Plan (1) Abdominal pain Assessment & Plan: liver masses Status: Acute (2) Carrier of viral hepatitis C Status: Acute (3) Cholelithiasis Status: Acute (4) Liver masses Assessment & Plan: Elev AFP c/w HCC. Check MRI. 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
[2017-11-05 08:27] LABS: EOS % 2.9 % (0.0-4.0); HEMOGLOBIN 11.7 g/dL (12.0-18.0); LYMPH # 1.9 K/uL (1.0-4.3); LYMPH % 19.1 % (20.0-40.0); MEAN CORPUSCULAR HEMOGLOBIN 32.2 pg (27.0-31.0); MONO # 0.7 K/uL (0.0-0.8); MONO % 7.4 % (0.0-10.0); NEUT # 6.8 K/uL (1.8-7.0); NEUT % 69.3 % (50.0-75.0); NRBC % 0.1 % (0.0-2.0); RBC 3.63 Mil/uL (4.40-5.90); RED CELL DISTRIBUTION WIDTH 15.9 % (11.5-14.5); WHITE BLOOD COUNT 9.8 K/uL (4.8-10.8)
[2017-11-05 08:42] LABS: ALBUMIN 3.4 g/dL (3.5-5.0); ALT/SGPT 71 U/L (21-72); AST/SGOT 124 U/L (17-59); BLOOD UREA NITROGEN 10 mg/dL (9-20); GFR AFRICAN-AMERICAN > 60; GFR NON-AFRICAN AMERICAN > 60
--- NOTE | 2017-11-05 12:40 | CP.PCM.PN ---
Subjective - Date & Time of Evaluation Date of Evaluation: 11/05/17 Time of Evaluation: 11:15 - Subjective Subjective: Has abdominal pain. Objective - Vital Signs/Intake and Output Vital Signs (last 24 hours): Temp Pulse Resp BP Pulse Ox 98.5 F 59 L 20 153/73 H 96 11/05/17 08:06 11/05/17 08:06 11/05/17 08:06 11/05/17 08:06 11/05/17 08:06 Intake and Output: 11/05/17 11/05/17 06:59 18:59 Intake Total 768 470 Balance 768 470 - Medications Medications: Current Medications Heparin Sodium/Sodium Chloride (Heparin 39266 Units/250ml 1/2 Normal Saline) 25 ,000 units in 250 mls @ 15.105 mls/hr IV .[id number] PRN; Protocol; 18 UNITS/KG/HR PRN Reason: PROTOCOL Last Admin: 11/04/17 20:00 Dose: 20 units/kg/hr, 16.783 mls/hr Morphine Sulfate (Morphine) 1 mg IVP Q6 PRN PRN Reason: Pain, severe (8-10) Last Admin: 11/05/17 07:30 Dose: 1 mg Pantoprazole Sodium (Protonix Inj) 40 mg IVP DAILY [facility] Last Admin: 11/05/17 10:06 Dose: 40 mg - Labs Labs: 11/05/17 08:12 11/05/17 08:12 PT 15.0 SECONDS (9.7-12.2) H 11/04/17 07:25 INR 1.4 11/04/17 07:25 APTT 68 SECONDS (21-34) H 11/05/17 11:05 - Head Exam Head Exam: ATRAUMATIC - Eye Exam Eye Exam: Normal appearance - ENT Exam ENT Exam: Mucous Membranes Dry - Respiratory Exam Respiratory Exam: NORMAL BREATHING PATTERN - Cardiovascular Exam Cardiovascular Exam: +S1, +S2 - GI/Abdominal Exam GI & Abdominal Exam: Normal Bowel Sounds Assessment and Plan (1) Portal vein thrombosis Assessment & Plan: provoked from malignancy on therapeutic anticoagulation Status: Acute (2) Lesion of liver Assessment & Plan: awaiting MRI report elevated CA19-9 and AFP Status: Acute (3) Anemia Assessment & Plan: chronic disease Status: Acute
[2017-11-05] MEDS: Heparin25000 units/250ml 1/2NS 25,000 UNITS/250 ML BAG IV PRN (14:54)
[2017-11-05] MEDS ORDERED: Gadodiamide 287 mg/ml 20 ml IV ONE (15:00)
--- NOTE | 2017-11-05 15:53 | MRI ---
Date of service: 11/04/2017 PROCEDURE: MRI Abdomen with and without contrast HISTORY: Hepatic neoplasm and portal venous thrombosis COMPARISON: CT abdomen/ pelvis dated 11/02/2017. TECHNIQUE: Multisequence, multiplanar MR images of the abdomen with and without gadolinium contrast enhancement. FINDINGS: LIVER: The liver is normal in size and contour. Most clearly evident on 1 minutes post gadolinium images, there are multiple masses in the right lobe of the liver, some discrete and some infiltrating. The largest discrete mass measures approximately 4.0 cm in diameter. There is an infiltrating mass extending to the erasto hepatis with invasion of the main portal vein and right portal vein and resulting portal venous thrombosis. The left portal vein appears patent. The left lobe of the liver is grossly unremarkable. GALLBLADDER: Unremarkable. SPLEEN: Mild splenomegaly. No discrete mass. PANCREAS: Unremarkable. ADRENALS: Unremarkable. KIDNEYS: Unremarkable. AORTA: No aneurysm. ASCITES: None. PERITONEUM: Unremarkable. LYMPH NODES: There is a mildly enlarged precaval node identified. No retroperitoneal lymphadenopathy is appreciated. There is at least 1 mildly enlarged erasto hepatis node. OTHER FINDINGS: None. IMPRESSION: Multifocal neoplasm in the right lobe of the liver. Differential diagnosis includes metastatic disease or multifocal hepatocellular carcinoma. Invasion and thrombosis of the right and main portal vein. Left portal vein appears patent. Mild erasto hepatis lymphadenopathy and 1 mildly enlarged precaval lymph node. Mild splenomegaly.
--- NOTE | 2017-11-05 17:12 | CP.PCM.PN ---
<Dena Roth - Last Filed: 11/05/17 19:06> Subjective - Date & Time of Evaluation Date of Evaluation: 11/05/17 Time of Evaluation: 17:05 - Subjective Subjective: PGY-1 Medicine Progress Note for hospitalist Dr. Medeiros Patient was seen and examined today at bedside in no acute distress. Nurses reported no overnight events. Patient reports no new problems. States pain has migrated from midline to the right along lateral fold of panniculus, rating the pain the same as before. Denies chest pain, shortness of breath, abdominal pain , nausea, vomiting, constipation, diarhhea. Objective - Vital Signs/Intake and Output Vital Signs (last 24 hours): Temp Pulse Resp BP Pulse Ox 98.2 F 57 L 20 155/76 H 98 11/05/17 15:55 11/05/17 15:55 11/05/17 15:55 11/05/17 15:55 11/05/17 15:55 Intake and Output: 11/05/17 11/05/17 06:59 18:59 Intake Total 768 470 Balance 768 470 - Medications Medications: Current Medications Morphine Sulfate (Morphine) 1 mg IVP Q6 PRN PRN Reason: Pain, severe (8-10) Last Admin: 11/05/17 13:32 Dose: 1 mg Pantoprazole Sodium (Protonix Ec Tab) 40 mg PO DAILY [facility] - Labs Labs: 11/05/17 08:12 11/05/17 08:12 PT 15.0 SECONDS (9.7-12.2) H 11/04/17 07:25 INR 1.4 11/04/17 07:25 APTT 68 SECONDS (21-34) H 11/05/17 11:05 - Constitutional Appears: Well, Non-toxic, No Acute Distress - Head Exam Head Exam: ATRAUMATIC, NORMOCEPHALIC - Eye Exam Eye Exam: EOMI, Normal appearance, PERRL, Scleral icterus - ENT Exam ENT Exam: Mucous Membranes Moist, Normal Exam - Respiratory Exam Respiratory Exam: Clear to Ausculation Bilateral, NORMAL BREATHING PATTERN - Cardiovascular Exam Cardiovascular Exam: REGULAR RHYTHM, +S1, +S2. absent: Murmur - GI/Abdominal Exam GI & Abdominal Exam: Soft, Normal Bowel Sounds. absent: Tenderness Additional comments: panniculus obese - Extremities Exam Extremities Exam: Full ROM, Normal Capillary Refill, Normal Inspection. absent : Joint Swelling, Pedal Edema - Neurological Exam Neurological Exam: Alert, Awake, CN II-XII Intact, Normal Gait, Oriented x3 - Psychiatric Exam Psychiatric exam: Normal Affect, Normal Mood - Skin Skin Exam: Dry, Intact, Normal Color, Warm Assessment and Plan - Assessment and Plan (Free Text) Plan: Acute liver failure/ obstructive jaundice -probable liver malignancy with metastasis Alpha feta protein elevated @[address] (10/31) multiple distended and mildly dilated loops of small bowel, may represent underlying enteritis. No discrete transition point to suggest gross bowl obstruction. CXR (10/31) mild venous congestion. Bilateral hilar prominence. Biapical pleural thickening with upper lobe granulomatous changes Chest CT (10/31) scattered areas of consolidation suggestive for atelectasis within the bilateral lung power. 7mm pulmonary nodule within the right lung. Hepatosplenomegaly. Cholelithiasis. Abdominal ascites. Abd US (10/31) portal vein thrombosis. enlarged liver 18.5cm with increased echogenecity of the hepatic parenchymal cortex suggestive for fatty infiltration vs. hepatic parenchymal disease. multiple prominent partially echogenic hepatic masses which are indeterminate and may represent underlying hepatic neoplasm. cholelithiasis with gallbladder thickening with associated pericholecystic fluid - may represent underlying cholecystitis. Liver CT (11/02) Multifocal low attenuation in the right hepatic lobe, may represent a neoplastic process such as multifocal hepatic cellular malignancy or metastasis. Hepatic cirrhosis. Ascites. Hepatosplenomegaly. 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 Portal venous thrombus may be bland or tumoral. Cholelithiasis. Hepatic arterial phase images not obtained. CA 19-9 (11/02) 41.3H, CEA (11/02) 4.9H Abd w/wo MRI (11/04) Right lobe shows metastatic disease or multifocal hepatocellular carcinoma. Right portal vein occlusion is result of both invasion and thrombosis. Mild splenomegally and precaval lymphadenopathy GI consulted: Dr. Crawley - MRI abdomen (11/04) completed. f/u recs - consider percutaneous liver biopsy if MRI inconsistent with clinical picture - defer colonoscopy, in light of probable hepatocellular carcinoma - cont analgesics, f/u GI and onc recs for possible biopsy Hepatic Vein thrombosis - Liver CT triple phase (11/02) see above. Complete occlusion of right portal vein. Left and main portal vein unobstructed - MRI 3 phase (11/04). Right portal vein occlusion is result of both invasion and thrombosis. 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 Cash - help appreciated. - ferritin 566.0 - folate 8.2 - Vit B12 523 - f/u heme recs - on therapeutic Lovenox (changed from heparin 11/05) Cholelithiasis/Pancolitis Abd US (10/31) portal vein thrombosis. enlarged liver 18.5cm with increased echogenecity of the hepatic parenchymal cortex suggestive for fatty infiltration vs. hepatic parenchymal disease. multiple prominent partially echogenic hepatic masses which are indeterminate and may represent underlying hepatic neoplasm. cholelithiasis with gallbladder thickening with associated pericholecystic fluid - may represent underlying cholecystitis. Blood culture (11/03) no growth after 3 days, final Stool culture (11/01) negative - final - Flagyl 500mg IVPB q8h (10/31 Day 6) - Zosyn 3.375 IVPB q6h (10/31 Day 6) Surgery consulted: Dr. Benitez - No plans for acute surgical intervention at this time - Cont antibiotics - Cont analgesics Hx chronic Hepatitis C - Hepatitis C RNA of [id number] and HCV RNA Quantitative (PCR) of 6.32 - discussed with patient and healthcare team. deferring treatment until after discharge Prophylaxis - Protonix 40mg IVP - Switched to Lovenox 80 sc daily from Heparin [id number] - Full Diet - DNR/DNI - Morphine 1mg IV q6 prn - Palliative Care consulted: Tata. Goals of care discussed - Psych consulted for necessity of 1:1: Dr. Gilman - help appreciated. Negative assessment. Dena Roth PGY-1. Plan was discussed with Dr. Medeiros <Augustina Medeiros - Last Filed: 11/07/17 20:33> Objective - Vital Signs/Intake and Output Vital Signs (last 24 hours): Temp Pulse Resp BP Pulse Ox 98.8 F 58 L 20 149/54 L 97 11/07/17 16:00 11/07/17 16:00 11/07/17 16:00 11/07/17 16:00 11/07/17 16:00 - Medications Medications: Current Medications Docusate Sodium (Colace) 100 mg PO BID [facility] Last Admin: 11/07/17 18:07 Dose: 100 mg Enoxaparin Sodium (Lovenox) 80 mg SC Q12 [facility] Last Admin: 11/07/17 09:48 Dose: 80 mg Morphine Sulfate (Morphine Immediate Release Tab) 15 mg PO QID PRN PRN Reason: Pain, moderate (4-7) Last Admin: 11/07/17 08:24 Dose: 15 mg Pantoprazole Sodium (Protonix Ec Tab) 40 mg PO DAILY [facility] Last Admin: 11/07/17 09:48 Dose: 40 mg - Labs Labs: 11/07/17 07:54 11/07/17 07:54 PT 13.3 SECONDS (9.7-12.2) H 11/06/17 06:22 INR 1.2 11/06/17 06:22 APTT 33 SECONDS (21-34) D 11/06/17 06:22 Attending/Attestation - Attestation I have personally seen and examined this patient.: Yes I have fully participated in the care of the patient.: Yes I have reviewed all pertinent clinical information, including history, physical exam and plan: Yes Notes (Text): Seen and examined by me He has mild abdominal pain . On examination his abdomen is soft and nontender Assessment and the plan as above Discussed with the the resident. I agree with the documentation
[2017-11-05] MEDS: Enoxaparin 80 mg Syringe SC SCH (21:16)
--- NOTE | 2017-11-06 04:13 | CP.PCM.PN ---
<Chet Ugalde - Last Filed: 11/06/17 04:18> Subjective - Date & Time of Evaluation Date of Evaluation: 11/06/17 Time of Evaluation: 04:08 - Subjective Subjective: Progress Note for Hospitalist service Patient seen and examined at bedside. He is resting comfortably in bed. He states he has pain along his right side of his abdomen. He denies chest pain, shortness of breath, headache, dizziness, palpitations, nausea, vomiting, constipation, diarrhea, lower extremity pain. Objective - Vital Signs/Intake and Output Vital Signs (last 24 hours): Temp Pulse Resp BP Pulse Ox 98.1 F 69 20 192/73 H 96 11/06/17 00:00 11/06/17 00:00 11/06/17 00:00 11/06/17 00:00 11/06/17 00:00 Intake and Output: 11/05/17 11/06/17 18:59 06:59 Intake Total 470 Balance 470 - Medications Medications: Current Medications Enoxaparin Sodium (Lovenox) 80 mg SC Q12 [facility] Last Admin: 11/05/17 21:16 Dose: 80 mg Morphine Sulfate (Morphine) 1 mg IVP Q6 PRN PRN Reason: Pain, severe (8-10) Last Admin: 11/06/17 02:12 Dose: 1 mg Pantoprazole Sodium (Protonix Ec Tab) 40 mg PO DAILY [facility] - Labs Labs: 11/05/17 08:12 11/05/17 08:12 PT 15.0 SECONDS (9.7-12.2) H 11/04/17 07:25 INR 1.4 11/04/17 07:25 APTT 68 SECONDS (21-34) H 11/05/17 11:05 - Constitutional Appears: Well, Non-toxic, No Acute Distress - Head Exam Head Exam: ATRAUMATIC, NORMOCEPHALIC - Eye Exam Eye Exam: EOMI, PERRL - ENT Exam ENT Exam: Mucous Membranes Moist - Respiratory Exam Respiratory Exam: Clear to Ausculation Bilateral, NORMAL BREATHING PATTERN. absent: Rhonchi, Wheezes, Respiratory Distress, Stridor - Cardiovascular Exam Cardiovascular Exam: REGULAR RHYTHM, +S1, +S2 - GI/Abdominal Exam GI & Abdominal Exam: Soft, Normal Bowel Sounds. absent: Distended, Firm, Guarding, Rigid, Tenderness Additional comments: Obese abdomen with pannus - Extremities Exam Extremities Exam: absent: Calf Tenderness, Pedal Edema - Neurological Exam Neurological Exam: Alert, Awake, Oriented x3 Assessment and Plan - Assessment and Plan (Free Text) Plan: Assessment/Plan: Acute liver failure/ obstructive jaundice -probable liver malignancy with metastasis Alpha feta protein elevated @[address] (10/31) multiple distended and mildly dilated loops of small bowel, may represent underlying enteritis. No discrete transition point to suggest gross bowl obstruction. CXR (10/31) mild venous congestion. Bilateral hilar prominence. Biapical pleural thickening with upper lobe granulomatous changes Chest CT (10/31) scattered areas of consolidation suggestive for atelectasis within the bilateral lung power. 7mm pulmonary nodule within the right lung. Hepatosplenomegaly. Cholelithiasis. Abdominal ascites. Abd US (10/31) portal vein thrombosis. enlarged liver 18.5cm with increased echogenecity of the hepatic parenchymal cortex suggestive for fatty infiltration vs. hepatic parenchymal disease. multiple prominent partially echogenic hepatic masses which are indeterminate and may represent underlying hepatic neoplasm. cholelithiasis with gallbladder thickening with associated pericholecystic fluid - may represent underlying cholecystitis. Liver CT (11/02) Multifocal low attenuation in the right hepatic lobe, may represent a neoplastic process such as multifocal hepatic cellular malignancy or metastasis. Hepatic cirrhosis. Ascites. Hepatosplenomegaly. 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 Portal venous thrombus may be bland or tumoral. Cholelithiasis. Hepatic arterial phase images not obtained. CA 19-9 (11/02) 41.3H, CEA (11/02) 4.9H Abd w/wo MRI (11/04) Right lobe shows metastatic disease or multifocal hepatocellular carcinoma. Right portal vein occlusion is result of both invasion and thrombosis. Mild splenomegally and precaval lymphadenopathy GI consulted: Dr. Crawley - MRI abdomen (11/04) multifocal neoplasm in right lobe of liver. Differential diagnoses include metastatic disease or multifocal HCC. Invasion and thrombosis of right and main portal vein. Left portal vein appears patent. mild erasto hepatis lymphadenopathy and 1 mildly enlarged precaval lymph node. Mild splenomegaly. - consider percutaneous liver biopsy if MRI inconsistent with clinical picture - defer colonoscopy, in light of probable hepatocellular carcinoma - cont analgesics, f/u GI and onc recs for possible biopsy Hepatic Vein thrombosis - Liver CT triple phase (11/02) see above. Complete occlusion of right portal vein. Left and main portal vein unobstructed - MRI 3 phase (11/04). Right portal vein occlusion is result of both invasion and thrombosis. 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 Cash - help appreciated. - ferritin 566.0 - folate 8.2 - Vit B12 523 - f/u heme recs - on therapeutic Lovenox (changed from heparin 11/05) Cholelithiasis/Pancolitis Abd US (10/31) portal vein thrombosis. enlarged liver 18.5cm with increased echogenecity of the hepatic parenchymal cortex suggestive for fatty infiltration vs. hepatic parenchymal disease. multiple prominent partially echogenic hepatic masses which are indeterminate and may represent underlying hepatic neoplasm. cholelithiasis with gallbladder thickening with associated pericholecystic fluid - may represent underlying cholecystitis. Blood culture (11/03) no growth after 3 days, final Stool culture (11/01) negative - final - Flagyl 500mg IVPB q8h (10/31 Day 7 ) - Zosyn 3.375 IVPB q6h (10/31 Day 7) Surgery consulted: Dr. Benitez - No plans for acute surgical intervention at this time - Cont antibiotics - Cont analgesics Hx chronic Hepatitis C - Hepatitis C RNA of [id number] and HCV RNA Quantitative (PCR) of 6.32 - discussed with patient and healthcare team. deferring treatment until after discharge Prophylaxis - Protonix 40mg IVP - Switched to Lovenox 80 sc daily from Heparin [id number] - Full Diet - DNR/DNI - Morphine 1mg IV q6 prn - Palliative Care consulted: Tata. Goals of care discussed - Psych consulted for necessity of 1:1: Dr. Gilman - help appreciated. Negative assessment. Case discussed with Dr. Mala Ugalde, PGY1 <Augustina Medeiros - Last Filed: 11/07/17 20:31> Objective - Vital Signs/Intake and Output Vital Signs (last 24 hours): Temp Pulse Resp BP Pulse Ox 98.4 F 65 20 176/77 H 97 11/06/17 08:17 11/06/17 08:17 11/06/17 08:17 11/06/17 08:17 11/06/17 08:17 - Medications Medications: Current Medications Docusate Sodium (Colace) 100 mg PO BID [facility] Last Admin: 11/06/17 09:43 Dose: Not Given Enoxaparin Sodium (Lovenox) 80 mg SC Q12 [facility] Last Admin: 11/06/17 09:43 Dose: 80 mg Morphine Sulfate (Morphine Immediate Release Tab) 15 mg PO QID PRN PRN Reason: Pain, moderate (4-7) Last Admin: 11/06/17 08:16 Dose: 15 mg Pantoprazole Sodium (Protonix Ec Tab) 40 mg PO DAILY [facility] Last Admin: 11/06/17 09:43 Dose: 40 mg - Labs Labs: 11/06/17 06:22 11/06/17 06:22 PT 13.3 SECONDS (9.7-12.2) H 11/06/17 06:22 INR 1.2 11/06/17 06:22 APTT 33 SECONDS (21-34) D 11/06/17 06:22 Attending/Attestation - Attestation I have personally seen and examined this patient.: Yes I have fully participated in the care of the patient.: Yes I have reviewed all pertinent clinical information, including history, physical exam and plan: Yes Notes (Text): 1.Liver mass/Likely its a malignant tumor 2. Portal vein thrombosis 3. Hepc with high viral load 4.AFP high,high CA 19-9 and CEA we will follow with GI and oncology,MRI report noted. Discussed with the patient d/w Resident and I agree with the resident documentation continue LOvenox
[2017-11-06 06:46] LABS: HEMOGLOBIN 11.6 g/dL (12.0-18.0); MEAN CELL VOLUME 92.2 fL (80.0-94.0); MEAN CORPUSCULAR HEMOGLOBIN 31.7 pg (27.0-31.0); MEAN CORPUSCULAR HGB CONC 34.3 g/dL (33.0-37.0); MEAN PLATELET VOLUME 11.8 fL (7.2-11.7); RBC 3.65 Mil/uL (4.40-5.90); RED CELL DISTRIBUTION WIDTH 15.7 % (11.5-14.5); WHITE BLOOD COUNT 9.9 K/uL (4.8-10.8)
[2017-11-06 06:52] LABS: INR 1.2; PROTHROMBIN TIME 13.3 SECONDS (9.7-12.2)
[2017-11-06 07:00] LABS: ALBUMIN 3.4 g/dL (3.5-5.0); ALT/SGPT 73 U/L (21-72); AST/SGOT 114 U/L (17-59); BLOOD UREA NITROGEN 10 mg/dL (9-20); GFR AFRICAN-AMERICAN > 60; GFR NON-AFRICAN AMERICAN > 60
[2017-11-06] MEDS: Morphine 15 mg Immediate Release Tab PO PRN ×2 (08:16→20:27)
[2017-11-06] MEDS: Enoxaparin 80 mg Syringe SC SCH ×2 (09:43→21:00)
[2017-11-06] MEDS: Pantoprazole 40 mg EC Tab PO SCH (09:43)
[2017-11-06 10:10] LABS: BASO # 0.1 K/uL (0.0-0.2); EOS # 0.2 K/uL (0.0-0.7); LYMPH # 2.3 K/uL (1.0-4.3); MONO # 0.7 K/uL (0.0-0.8); NEUT # 6.5 K/uL (1.8-7.0)
--- NOTE | 2017-11-06 11:28 | CARD ---
APPROVED REPORT Date of service: 10/31/2017 EKG Measurement Heart [id number] <Conclusion> Normal sinus rhythm Possible Left atrial enlargement T wave abnormality, consider anterior ischemia Abnormal ECG
--- NOTE | 2017-11-06 11:43 | CP.PCM.PN ---
Subjective - Date & Time of Evaluation Date of Evaluation: 11/06/17 Time of Evaluation: 11:39 - Subjective Subjective: COVERING DR MINER/JAKE MRI shows multiple masses in R lobe of liver with one 4cm in size and infiltrating the erasto hepatis and invading the Portal Vein causing thrombosis. Highly suggestive of HCCa in setting of HCV. Objective - Vital Signs/Intake and Output Vital Signs (last 24 hours): Temp Pulse Resp BP Pulse Ox 98.4 F 65 20 176/77 H 97 11/06/17 08:17 11/06/17 08:17 11/06/17 08:17 11/06/17 08:17 11/06/17 08:17 - Medications Medications: Current Medications Docusate Sodium (Colace) 100 mg PO BID [facility] Last Admin: 11/06/17 09:43 Dose: Not Given Enoxaparin Sodium (Lovenox) 80 mg SC Q12 [facility] Last Admin: 11/06/17 09:43 Dose: 80 mg Morphine Sulfate (Morphine Immediate Release Tab) 15 mg PO QID PRN PRN Reason: Pain, moderate (4-7) Last Admin: 11/06/17 08:16 Dose: 15 mg Pantoprazole Sodium (Protonix Ec Tab) 40 mg PO DAILY [facility] Last Admin: 11/06/17 09:43 Dose: 40 mg - Labs Labs: 11/06/17 06:22 11/06/17 06:22 PT 13.3 SECONDS (9.7-12.2) H 11/06/17 06:22 INR 1.2 11/06/17 06:22 APTT 33 SECONDS (21-34) D 11/06/17 06:22 - Constitutional Appears: No Acute Distress - Head Exam Head Exam: ATRAUMATIC, NORMOCEPHALIC - Respiratory Exam Respiratory Exam: NORMAL BREATHING PATTERN - Cardiovascular Exam Cardiovascular Exam: REGULAR RHYTHM - GI/Abdominal Exam GI & Abdominal Exam: Soft, Tenderness, Normal Bowel Sounds. absent: Mass, Rebound Assessment and Plan - Assessment and Plan (Free Text) Assessment: Liver masses c/w likely HCC Portal Vein thrombosis Chronic HCC Colitis Consider transfer to [facility] if possible for further management including biopsy and possible Chemoembolization or other palliative treatment. Biopsy complicated by need for anti-coagualtion which would need to be held. Further management per Hematology/Oncology
--- NOTE | 2017-11-06 19:37 | CP.PCM.PN ---
Subjective - Date & Time of Evaluation Date of Evaluation: 11/06/17 Time of Evaluation: 18:00 - Subjective Subjective: Has abdominal pain. Objective - Vital Signs/Intake and Output Vital Signs (last 24 hours): Temp Pulse Resp BP Pulse Ox 98.1 F 58 L 20 169/89 H 98 11/06/17 16:00 11/06/17 16:00 11/06/17 16:00 11/06/17 16:00 11/06/17 16:00 - Medications Medications: Current Medications Docusate Sodium (Colace) 100 mg PO BID [facility] Last Admin: 11/06/17 17:24 Dose: Not Given Enoxaparin Sodium (Lovenox) 80 mg SC Q12 [facility] Last Admin: 11/06/17 09:43 Dose: 80 mg Morphine Sulfate (Morphine Immediate Release Tab) 15 mg PO QID PRN PRN Reason: Pain, moderate (4-7) Last Admin: 11/06/17 08:16 Dose: 15 mg Pantoprazole Sodium (Protonix Ec Tab) 40 mg PO DAILY [facility] Last Admin: 11/06/17 09:43 Dose: 40 mg - Labs Labs: 11/06/17 06:22 11/06/17 06:22 PT 13.3 SECONDS (9.7-12.2) H 11/06/17 06:22 INR 1.2 11/06/17 06:22 APTT 33 SECONDS (21-34) D 11/06/17 06:22 - Head Exam Head Exam: ATRAUMATIC - Eye Exam Eye Exam: Normal appearance - Respiratory Exam Respiratory Exam: NORMAL BREATHING PATTERN - Cardiovascular Exam Cardiovascular Exam: +S1, +S2 - GI/Abdominal Exam GI & Abdominal Exam: Normal Bowel Sounds Assessment and Plan (1) Portal vein thrombosis Assessment & Plan: provoked from malignancy prothrombin gene mutation heterozygous mutation therapeutic anticoagulation Status: Acute (2) Lesion of liver Assessment & Plan: imaging will need to be reviewed with radiologist if has characteristic features of HCC otherwise, would need a biopsy Status: Acute (3) Anemia Assessment & Plan: chronic disease Status: Acute
[2017-11-07 08:22] LABS: HEMOGLOBIN 11.6 g/dL (12.0-18.0); MEAN CORPUSCULAR HEMOGLOBIN 31.4 pg (27.0-31.0); MEAN CORPUSCULAR HGB CONC 34.1 g/dL (33.0-37.0); MEAN PLATELET VOLUME 11.5 fL (7.2-11.7); RBC 3.69 Mil/uL (4.40-5.90); RED CELL DISTRIBUTION WIDTH 16.3 % (11.5-14.5); WHITE BLOOD COUNT 10.6 K/uL (4.8-10.8)
[2017-11-07] MEDS: Morphine 15 mg Immediate Release Tab PO PRN ×2 (08:24→20:35)
[2017-11-07 08:30] LABS: ALBUMIN 3.4 g/dL (3.5-5.0); ALT/SGPT 67 U/L (21-72); AST/SGOT 108 U/L (17-59); BLOOD UREA NITROGEN 12 mg/dL (9-20); GFR AFRICAN-AMERICAN > 60; GFR NON-AFRICAN AMERICAN > 60
[2017-11-07 09:06] LABS: BASO # 0.1 K/uL (0.0-0.2); BASO % 1.2 % (0.0-2.0); EOS # 0.3 K/uL (0.0-0.7); EOS % 2.4 % (0.0-4.0); LYMPH # 2.5 K/uL (1.0-4.3); LYMPH % 23.5 % (20.0-40.0); MONO # 0.7 K/uL (0.0-0.8); MONO % 6.9 % (0.0-10.0)
[2017-11-07] MEDS: Enoxaparin 80 mg Syringe SC SCH ×2 (09:48→21:30)
[2017-11-07] MEDS: Pantoprazole 40 mg EC Tab PO SCH (09:48)
--- NOTE | 2017-11-07 12:11 | CP.PCM.PN ---
<AnilOmkar carrilloer S - Last Filed: 11/07/17 11:52> Subjective - Date & Time of Evaluation Date of Evaluation: 11/07/17 Time of Evaluation: 11:52 - Subjective Subjective: Progress Note for Hospitalist service Patient seen and examined at bedside. He is resting comfortably in bed and sleeping. Upon awakening, he states he has continued pain along his right side of his abdomen. He denies chest pain, shortness of breath, headache, dizziness, palpitations, nausea, vomiting, constipation, diarrhea, lower extremity pain. No acute events overnight as per nursing staff. Objective - Vital Signs/Intake and Output Vital Signs (last 24 hours): Temp Pulse Resp BP Pulse Ox 99.0 F 56 L 20 148/70 97 11/07/17 08:16 11/07/17 08:16 11/07/17 08:16 11/07/17 08:16 11/07/17 08:16 - Medications Medications: Current Medications Docusate Sodium (Colace) 100 mg PO BID [facility] Last Admin: 11/07/17 09:51 Dose: Not Given Enoxaparin Sodium (Lovenox) 80 mg SC Q12 [facility] Last Admin: 11/07/17 09:48 Dose: 80 mg Morphine Sulfate (Morphine Immediate Release Tab) 15 mg PO QID PRN PRN Reason: Pain, moderate (4-7) Last Admin: 11/07/17 08:24 Dose: 15 mg Pantoprazole Sodium (Protonix Ec Tab) 40 mg PO DAILY [facility] Last Admin: 11/07/17 09:48 Dose: 40 mg - Labs Labs: 11/07/17 07:54 11/07/17 07:54 PT 13.3 SECONDS (9.7-12.2) H 11/06/17 06:22 INR 1.2 11/06/17 06:22 APTT 33 SECONDS (21-34) D 11/06/17 06:22 - Constitutional Appears: No Acute Distress - Head Exam Head Exam: ATRAUMATIC, NORMOCEPHALIC - Eye Exam Eye Exam: EOMI, Normal appearance - ENT Exam ENT Exam: Mucous Membranes Moist - Cardiovascular Exam Cardiovascular Exam: REGULAR RHYTHM, +S1, +S2 - GI/Abdominal Exam GI & Abdominal Exam: Soft. absent: Guarding, Tenderness - Neurological Exam Neurological Exam: Alert, Awake, Oriented x3 - Psychiatric Exam Psychiatric exam: Normal Affect, Normal Mood - Skin Skin Exam: Dry, Warm Assessment and Plan - Assessment and Plan (Free Text) Plan: Acute liver failure/obstructive jaundice Probable liver malignancy with metastasis GI consulted- Dr. Homa Alonso appreciated consider percutaneous liver biopsy if MRI inconsistent with clinical picture defer colonoscopy, in light of probable hepatocellular carcinoma cont analgesics Consider transfer to [facility] if possible for further management including biopsy and possible Chemoembolization or other palliative treatment Biopsy complicated by need for anti-coagualtion which would need to be held Further management per Hematology/Oncology Heme/onc consulted- Dr. Uma Alonso appreciated Suspicion for hepatocellular carcinoma- may need biopsy -Abd CT (10/31) multiple distended and mildly dilated loops of small bowel, may represent underlying enteritis. No discrete transition point to suggest gross bowl obstruction. -CXR (10/31) mild venous congestion. Bilateral hilar prominence. Biapical pleural thickening with upper lobe granulomatous changes -Chest CT (10/31) scattered areas of consolidation suggestive for atelectasis within the bilateral lung power. 7mm pulmonary nodule within the right lung. Hepatosplenomegaly. Cholelithiasis. Abdominal ascites. -Abd US (10/31) portal vein thrombosis. enlarged liver 18.5cm with increased echogenecity of the hepatic parenchymal cortex suggestive for fatty infiltration vs. hepatic parenchymal disease. multiple prominent partially echogenic hepatic masses which are indeterminate and may represent underlying hepatic neoplasm. cholelithiasis with gallbladder thickening with associated pericholecystic fluid - may represent underlying cholecystitis. -Liver CT (11/02) Multifocal low attenuation in the right hepatic lobe, may represent a neoplastic process such as multifocal hepatic cellular malignancy or metastasis. Hepatic cirrhosis. Ascites. Hepatosplenomegaly. 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 Portal venous thrombus may be bland or tumoral. Cholelithiasis. Hepatic arterial phase images not obtained. -MRI abdomen (11/03) multifocal neoplasm in right lobe of liver. Differential diagnoses include metastatic disease or multifocal HCC. Invasion and thrombosis of right and main portal vein. Left portal vein appears patent. mild erasto hepatis lymphadenopathy and 1 mildly enlarged precaval lymph node. Mild splenomegaly. Alpha feta protein elevated @1230 on admission -CA 19-9 (11/02) 41.3H -CEA (11/02) 4.9H Portal Vein thrombosis Heme/Onc consulted: Dr. Cash - help appreciated. - Liver CT triple phase (11/02) see above. Complete occlusion of right portal vein. Left and main portal vein unobstructed - MRI 3 phase (11/04). Right portal vein occlusion is result of both invasion and thrombosis. - coags stable, continue to trend - Patient is heterozygous for Prothrombin [id number] mutation - 2-4x increased risk of thrombosis - APTT is 68, which is therapeutic range - Anti phospholipid antibodies done 10/31- see full record in labs - Factor V not detected - Protein C (10/31) Ag 74 Activity 58L - Protein S (10/31) Ag 90 activity 56L - ferritin 566.0 - folate 8.2 - Vit B12 523 - on therapeutic Lovenox (changed from heparin 11/05)- Lovenox 80mg SC q12hrs Cholelithiasis/Pancolitis Abd US (10/31) portal vein thrombosis. enlarged liver 18.5cm with increased echogenecity of the hepatic parenchymal cortex suggestive for fatty infiltration vs. hepatic parenchymal disease. multiple prominent partially echogenic hepatic masses which are indeterminate and may represent underlying hepatic neoplasm. cholelithiasis with gallbladder thickening with associated pericholecystic fluid - may represent underlying cholecystitis. Blood culture (11/03) no growth after 3 days, final Stool culture (11/01) negative - final - Flagyl 500mg IVPB q8h (10/31 Day 7)- No longer active - Zosyn 3.375 IVPB q6h (10/31 Day 7)- No longer actuve Surgery consulted: Dr. Benitez No plans for acute surgical intervention at this time Cont analgesics Hx chronic Hepatitis C - Hepatitis C RNA of [id number] and HCV RNA Quantitative (PCR) of 6.32 - discussed with patient and healthcare team. deferring treatment until after discharge Prophylaxis - Protonix 40mg PO daily - Switched to Lovenox 80 sc daily from Heparin [id number] - Colace 100mg PO BID - Full Diet - DNR/DNI - Morphine 15mg PO q6 prn- mod pain - Palliative Care consulted: Tata. Goals of care discussed - Psych consulted for necessity of 1:1: Dr. Gilman - help appreciated. Negative assessment. This patient is likely suffering for HCC. In correspondence with GI it appears that he may benefit from transfer to [facility] for further care. Follow up Heme-Onc/ GI recs concerning transfer. Case discussed with Dr. Mala Goyal D.O. <Augustina Medeiros - Last Filed: 11/07/17 20:29> Objective - Vital Signs/Intake and Output Vital Signs (last 24 hours): Temp Pulse Resp BP Pulse Ox 98.8 F 58 L 20 149/54 L 97 11/07/17 16:00 11/07/17 16:00 11/07/17 16:00 11/07/17 16:00 11/07/17 16:00 - Medications Medications: Current Medications Docusate Sodium (Colace) 100 mg PO BID [facility] Last Admin: 11/07/17 18:07 Dose: 100 mg Enoxaparin Sodium (Lovenox) 80 mg SC Q12 [facility] Last Admin: 11/07/17 09:48 Dose: 80 mg Morphine Sulfate (Morphine Immediate Release Tab) 15 mg PO QID PRN PRN Reason: Pain, moderate (4-7) Last Admin: 11/07/17 08:24 Dose: 15 mg Pantoprazole Sodium (Protonix Ec Tab) 40 mg PO DAILY [facility] Last Admin: 11/07/17 09:48 Dose: 40 mg - Labs Labs: 11/07/17 07:54 11/07/17 07:54 PT 13.3 SECONDS (9.7-12.2) H 11/06/17 06:22 INR 1.2 11/06/17 06:22 APTT 33 SECONDS (21-34) D 11/06/17 06:22 Attending/Attestation - Attestation I have personally seen and examined this patient.: Yes I have fully participated in the care of the patient.: Yes I have reviewed all pertinent clinical information, including history, physical exam and plan: Yes Notes (Text): Seen and examined,mild abdominal pain,On examination mild tenderness on hi Right hypochondral area 1.Liver mass/Likely its a malignant tumor 2. Portal vein thrombosis 3. Hepc with high viral load 4.AFP high,high CA 19-9 and CEA d/w DR Cash. we will ask for a biopsy from dr navarrete d/w Resident and I agree with the resident documentation continue LOvenox
[2017-11-08 07:25] LABS: HEMOGLOBIN 11.4 g/dL (12.0-18.0); MEAN CELL VOLUME 92.3 fL (80.0-94.0); MEAN CORPUSCULAR HEMOGLOBIN 31.7 pg (27.0-31.0); MEAN CORPUSCULAR HGB CONC 34.4 g/dL (33.0-37.0); MEAN PLATELET VOLUME 11.2 fL (7.2-11.7); RBC 3.61 Mil/uL (4.40-5.90); RED CELL DISTRIBUTION WIDTH 16.2 % (11.5-14.5)
[2017-11-08 07:41] LABS: INR 1.2; PROTHROMBIN TIME 13.4 SECONDS (9.7-12.2)
[2017-11-08 07:44] LABS: ALBUMIN 3.5 g/dL (3.5-5.0); ALT/SGPT 69 U/L (21-72); AST/SGOT 116 U/L (17-59); BLOOD UREA NITROGEN 14 mg/dL (9-20); GFR AFRICAN-AMERICAN > 60; GFR NON-AFRICAN AMERICAN > 60
[2017-11-08] MEDS: Morphine 15 mg Immediate Release Tab PO PRN ×2 (08:38→20:04)
--- NOTE | 2017-11-08 08:57 | CP.PCM.PN ---
<Dena Roth Taryn - Last Filed: 11/08/17 15:32> Subjective - Date & Time of Evaluation Date of Evaluation: 11/08/17 Time of Evaluation: 07:40 - Subjective Subjective: PGY-1 Medicine Progress Note for Dr. Bunch Patient was seen and examined today at bedside in no acute distress. Nurse reports no overnight events. Patient reports no new problems. Pain is constant and unchanged from yesterday, a pressure on his right side going to the flank. Current pain regimen controls it well except for last hour. Denies chest pain, shortness of breath, abdominal pain, nausea, vomiting, constipation, diarrhea. Objective - Vital Signs/Intake and Output Vital Signs (last 24 hours): Temp Pulse Resp BP Pulse Ox 98.8 F 62 20 148/73 97 11/08/17 08:07 11/08/17 08:07 11/08/17 08:07 11/08/17 08:07 11/08/17 08:07 Intake and Output: 11/08/17 11/08/17 06:59 18:59 Intake Total 300 Balance 300 - Medications Medications: Current Medications Docusate Sodium (Colace) 100 mg PO BID [facility] Last Admin: 11/07/17 18:07 Dose: 100 mg Enoxaparin Sodium (Lovenox) 80 mg SC Q12 [facility] Last Admin: 11/07/17 21:30 Dose: 80 mg Morphine Sulfate (Morphine Immediate Release Tab) 15 mg PO QID PRN PRN Reason: Pain, moderate (4-7) Last Admin: 11/08/17 08:38 Dose: 15 mg Pantoprazole Sodium (Protonix Ec Tab) 40 mg PO DAILY [facility] Last Admin: 11/07/17 09:48 Dose: 40 mg - Labs Labs: 11/08/17 07:01 11/08/17 07:01 PT 13.4 SECONDS (9.7-12.2) H 11/08/17 07:01 INR 1.2 11/08/17 07:01 APTT 33 SECONDS (21-34) 11/08/17 07:01 - Constitutional Appears: Non-toxic, No Acute Distress - Head Exam Head Exam: ATRAUMATIC, NORMOCEPHALIC - Eye Exam Eye Exam: EOMI, Normal appearance, PERRL - ENT Exam ENT Exam: Mucous Membranes Moist, Normal Exam - Respiratory Exam Respiratory Exam: Clear to Ausculation Bilateral, NORMAL BREATHING PATTERN. absent: Rales, Rhonchi, Wheezes - Cardiovascular Exam Cardiovascular Exam: REGULAR RHYTHM, +S1, +S2. absent: Murmur - GI/Abdominal Exam GI & Abdominal Exam: Soft, Tenderness, Normal Bowel Sounds. absent: Firm Additional comments: tenderness to light and deep palpation on the right, radiating to front and back - Extremities Exam Extremities Exam: Full ROM. absent: Joint Swelling, Tenderness Additional comments: IV in both hands, good flow - Neurological Exam Neurological Exam: Alert, Awake, CN II-XII Intact, Normal Gait, Oriented x3 - Psychiatric Exam Psychiatric exam: Normal Affect, Normal Mood - Skin Skin Exam: Dry, Intact, Warm Additional comments: jaundiced Assessment and Plan - Assessment and Plan (Free Text) Plan: Acute liver failure/obstructive jaundice Probable liver malignancy with metastasis GI consulted- Dr. Homa Alonso appreciated consider percutaneous liver biopsy if MRI inconsistent with clinical picture defer colonoscopy, in light of probable hepatocellular carcinoma cont analgesics Consider transfer to [facility] if possible for further management including biopsy and possible Chemoembolization or other palliative treatment Biopsy complicated by need for anti-coagualtion which would need to be held Further management per Hematology/Oncology Heme/onc consulted- Dr. Uma Alonso appreciated Suspicion for hepatocellular carcinoma- may need biopsy -Abd CT (10/31) multiple distended and mildly dilated loops of small bowel, may represent underlying enteritis. No discrete transition point to suggest gross bowl obstruction. -CXR (10/31) mild venous congestion. Bilateral hilar prominence. Biapical pleural thickening with upper lobe granulomatous changes -Chest CT (10/31) scattered areas of consolidation suggestive for atelectasis within the bilateral lung power. 7mm pulmonary nodule within the right lung. Hepatosplenomegaly. Cholelithiasis. Abdominal ascites. -Abd US (10/31) portal vein thrombosis. enlarged liver 18.5cm with increased echogenecity of the hepatic parenchymal cortex suggestive for fatty infiltration vs. hepatic parenchymal disease. multiple prominent partially echogenic hepatic masses which are indeterminate and may represent underlying hepatic neoplasm. cholelithiasis with gallbladder thickening with associated pericholecystic fluid - may represent underlying cholecystitis. -Liver CT (11/02) Multifocal low attenuation in the right hepatic lobe, may represent a neoplastic process such as multifocal hepatic cellular malignancy or metastasis. Hepatic cirrhosis. Ascites. Hepatosplenomegaly. 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 Portal venous thrombus may be bland or tumoral. Cholelithiasis. Hepatic arterial phase images not obtained. -MRI abdomen (11/03) multifocal neoplasm in right lobe of liver. Differential diagnoses include metastatic disease or multifocal HCC. Invasion and thrombosis of right and main portal vein. Left portal vein appears patent. mild erasto hepatis lymphadenopathy and 1 mildly enlarged precaval lymph node. Mild splenomegaly. Alpha feta protein elevated @1230 on admission -CA 19-9 (11/02) 41.3H -CEA (11/02) 4.9H IR, Dr. Mejia, to do Bx tomorrow (11/09) - NPO at midnight Portal Vein thrombosis Heme/Onc consulted: Dr. Cash - help appreciated. - Liver CT triple phase (11/02) see above. Complete occlusion of right portal vein. Left and main portal vein unobstructed - MRI 3 phase (11/04). Right portal vein occlusion is result of both invasion and thrombosis. 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 enlarged liver 18.5cm with increased echogenecity of the hepatic parenchymal cortex suggestive for fatty infiltration vs. hepatic parenchymal disease. multiple prominent partially echogenic hepatic masses which are indeterminate and may represent underlying hepatic neoplasm. cholelithiasis with gallbladder thickening with associated pericholecystic fluid - may represent underlying cholecystitis. Blood culture (11/03) no growth after 3 days, final Stool culture (11/01) negative - final - Flagyl 500mg IVPB q8h (10/31 Day 7)- No longer active - Zosyn 3.375 IVPB q6h (10/31 Day 7)- No longer actuve Surgery consulted: Dr. Benitez No plans for acute surgical intervention at this time Cont analgesics Hx chronic Hepatitis C - Hepatitis C RNA of [id number] and HCV RNA Quantitative (PCR) of 6.32 - discussed with patient and healthcare team. deferring treatment until after discharge Prophylaxis - Protonix 40mg PO daily - Switched to Lovenox 80 sc daily from Heparin [id number] - Colace 100mg PO BID - Full Diet - DNR/DNI - Morphine 15mg PO q6 prn - mod pain - Palliative Care consulted: Tata. Goals of care discussed - Psych consulted for necessity of 1:1: Dr. Gilman - help appreciated. Negative assessment. This patient is likely suffering for HCC. In correspondence with GI it appears that he may benefit from transfer to [facility] for further care. Follow up Heme-Onc/ GI recs concerning transfer after biopsy tomorrow. Dena Roth PGY-1. Case discussed with Dr. Bunch <Isauro Bunch - Last Filed: 11/08/17 17:31> Objective - Vital Signs/Intake and Output Vital Signs (last 24 hours): Temp Pulse Resp BP Pulse Ox 98.1 F 56 L 20 133/71 97 11/08/17 15:00 11/08/17 15:00 11/08/17 15:00 11/08/17 15:00 11/08/17 15:00 Intake and Output: 11/08/17 11/08/17 06:59 18:59 Intake Total 300 500 Balance 300 500 - Medications Medications: Current Medications Docusate Sodium (Colace) 100 mg PO BID [facility] Last Admin: 11/08/17 09:30 Dose: Not Given Enoxaparin Sodium (Lovenox) 80 mg SC Q12 [facility] Last Admin: 11/08/17 09:28 Dose: 80 mg Morphine Sulfate (Morphine Immediate Release Tab) 15 mg PO QID PRN PRN Reason: Pain, moderate (4-7) Last Admin: 11/08/17 08:38 Dose: 15 mg Pantoprazole Sodium (Protonix Ec Tab) 40 mg PO DAILY [facility] Last Admin: 11/08/17 09:28 Dose: 40 mg - Labs Labs: 11/08/17 07:01 11/08/17 07:01 PT 13.4 SECONDS (9.7-12.2) H 11/08/17 07:01 INR 1.2 11/08/17 07:01 APTT 33 SECONDS (21-34) 11/08/17 07:01 Attending/Attestation - Attestation I have personally seen and examined this patient.: Yes I have fully participated in the care of the patient.: Yes I have reviewed all pertinent clinical information, including history, physical exam and plan: Yes Notes (Text): Medical attending: Patient was seen and examined by me as well. Agree with the above note by the resident This is my first time meeting patient so I had to review the previous documents as well. The patient was not in any acute distress when we saw him. He does have right upper quadrant area pain that when we saw him he reported was mild and controlled with medication. He is able to stand and walk. He is aware of the HCC and at this moment we are pending possible biopsy of this area. The AFP is very high. There is also a history of Hepatitis C and high viral load as well. He was previously on IV abx, no surgery at this time. Currently of the IV abx and afebrile, the WBC is also stable The patient is currently on lovenox due to the findings of portal vein thrombosis as well, likley a complication from the HCC Isauro Bunch
[2017-11-08 09:24] LABS: NEUT # 8.9 K/uL (1.8-7.0)
[2017-11-08 09:25] LABS: LYMPH # 1.1 K/uL (1.0-4.3)
[2017-11-08] MEDS: Enoxaparin 80 mg Syringe SC SCH ×2 (09:28→21:31)
[2017-11-08] MEDS: Pantoprazole 40 mg EC Tab PO SCH (09:28)
--- NOTE | 2017-11-08 15:28 | CP.PCM.PN ---
Subjective - Date & Time of Evaluation Date of Evaluation: 11/08/17 Time of Evaluation: 15:24 - Subjective Subjective: Multifocal HCC with extension to portal vein and thrombosis +Hep C with > 2 million IU viral load Objective - Vital Signs/Intake and Output Vital Signs (last 24 hours): Temp Pulse Resp BP Pulse Ox 98.8 F 62 20 148/73 97 11/08/17 08:07 11/08/17 08:07 11/08/17 08:07 11/08/17 08:07 11/08/17 08:07 Intake and Output: 11/08/17 11/08/17 06:59 18:59 Intake Total 300 500 Balance 300 500 - Medications Medications: Current Medications Docusate Sodium (Colace) 100 mg PO BID [facility] Last Admin: 11/08/17 09:30 Dose: Not Given Enoxaparin Sodium (Lovenox) 80 mg SC Q12 [facility] Last Admin: 11/08/17 09:28 Dose: 80 mg Morphine Sulfate (Morphine Immediate Release Tab) 15 mg PO QID PRN PRN Reason: Pain, moderate (4-7) Last Admin: 11/08/17 08:38 Dose: 15 mg Pantoprazole Sodium (Protonix Ec Tab) 40 mg PO DAILY [facility] Last Admin: 11/08/17 09:28 Dose: 40 mg - Labs Labs: 11/08/17 07:01 11/08/17 07:01 PT 13.4 SECONDS (9.7-12.2) H 11/08/17 07:01 INR 1.2 11/08/17 07:01 APTT 33 SECONDS (21-34) 11/08/17 07:01 - Constitutional Appears: Well, No Acute Distress - Respiratory Exam Respiratory Exam: NORMAL BREATHING PATTERN - Cardiovascular Exam Cardiovascular Exam: REGULAR RHYTHM - GI/Abdominal Exam GI & Abdominal Exam: Soft. absent: Tenderness Assessment and Plan (1) Liver masses Assessment & Plan: HCC with large mass lesions and portal vein thrombosis Patient will need penitentiary anticoagulation + referral to tertiary center for evaluation for treatment of HCC such as RFA or chemoembolization. Disposition and follow up is a major issue- patient is homeless is unlikely to receive any follow up care. Need social insurance analyst to assist I recommend evaluation at 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
[2017-11-09 06:20] LABS: HEMOGLOBIN 11.2 g/dL (12.0-18.0); MEAN CELL VOLUME 91.6 fL (80.0-94.0); MEAN CORPUSCULAR HEMOGLOBIN 31.5 pg (27.0-31.0); MEAN CORPUSCULAR HGB CONC 34.4 g/dL (33.0-37.0); RBC 3.55 Mil/uL (4.40-5.90); RED CELL DISTRIBUTION WIDTH 16.1 % (11.5-14.5); WHITE BLOOD COUNT 10.8 K/uL (4.8-10.8)
--- NOTE | 2017-11-09 06:23 | CP.PCM.PN ---
<Dena Roth - Last Filed: 11/09/17 15:39> Subjective - Date & Time of Evaluation Date of Evaluation: 11/09/17 Time of Evaluation: 07:05 - Subjective Subjective: PGY-1 Medicine Progress Note for Dr. Bunch Patient was seen and examined sitting up at bedside today in no acute distress. Nurse reports no overnight events. Patient does not complain of any new problems. Is going for biopsy with IR Dr. Mejia this am and has been NPO since midnight. Denies chest pain, shortness of breath, abdominal pain, nausea, vomiting, constipation, diarrhea. Objective - Vital Signs/Intake and Output Vital Signs (last 24 hours): Temp Pulse Resp BP Pulse Ox 98.3 F 61 20 159/74 H 97 11/09/17 05:30 11/09/17 05:30 11/09/17 05:30 11/09/17 05:30 11/09/17 05:30 Intake and Output: 11/08/17 11/09/17 18:59 06:59 Intake Total 500 480 Balance 500 480 - Medications Medications: Current Medications Docusate Sodium (Colace) 100 mg PO BID [facility] Last Admin: 11/08/17 18:21 Dose: Not Given Morphine Sulfate (Morphine Immediate Release Tab) 15 mg PO QID PRN PRN Reason: Pain, moderate (4-7) Last Admin: 11/08/17 20:04 Dose: 15 mg Pantoprazole Sodium (Protonix Ec Tab) 40 mg PO DAILY [facility] Last Admin: 11/08/17 09:28 Dose: 40 mg - Labs Labs: 11/08/17 07:01 11/08/17 07:01 PT 13.4 SECONDS (9.7-12.2) H 11/08/17 07:01 INR 1.2 11/08/17 07:01 APTT 33 SECONDS (21-34) 11/08/17 07:01 - Constitutional Appears: Non-toxic, No Acute Distress - Head Exam Head Exam: ATRAUMATIC, NORMOCEPHALIC - Eye Exam Eye Exam: EOMI, PERRL. absent: Scleral icterus - ENT Exam ENT Exam: Mucous Membranes Moist, Normal Exam - Respiratory Exam Respiratory Exam: Clear to Ausculation Bilateral, NORMAL BREATHING PATTERN. absent: Rales, Rhonchi, Wheezes - Cardiovascular Exam Cardiovascular Exam: REGULAR RHYTHM, +S1, +S2. absent: Gallop, Rubs, Murmur - GI/Abdominal Exam GI & Abdominal Exam: Soft, Normal Bowel Sounds. absent: Tenderness Additional comments: panniculus no tenderness to palpation today - Extremities Exam Extremities Exam: Full ROM, Normal Capillary Refill. absent: Joint Swelling Additional comments: IV in both hands, good flow - Neurological Exam Neurological Exam: Alert, Awake, Oriented x3 - Psychiatric Exam Psychiatric exam: Normal Affect, Normal Mood - Skin Skin Exam: Dry, Intact, Warm Additional comments: jaundiced Assessment and Plan - Assessment and Plan (Free Text) Plan: Acute liver failure/obstructive jaundice Probable liver malignancy with metastasis GI consulted- Dr. Homa Alonso appreciated consider percutaneous liver biopsy if MRI inconsistent with clinical picture defer colonoscopy, in light of probable hepatocellular carcinoma cont analgesics Consider transfer to [facility] if possible for further management including biopsy and possible Chemoembolization or other palliative treatment Biopsy complicated by need for anti-coagualtion which would need to be held Further management per Hematology/Oncology Heme/onc consulted- Dr. Uma Alonso appreciated Suspicion for hepatocellular carcinoma- may need biopsy -Abd CT (10/31) multiple distended and mildly dilated loops of small bowel, may represent underlying enteritis. No discrete transition point to suggest gross bowl obstruction. -CXR (10/31) mild venous congestion. Bilateral hilar prominence. Biapical pleural thickening with upper lobe granulomatous changes -Chest CT (10/31) scattered areas of consolidation suggestive for atelectasis within the bilateral lung power. 7mm pulmonary nodule within the right lung. Hepatosplenomegaly. Cholelithiasis. Abdominal ascites. -Abd US (10/31) portal vein thrombosis. enlarged liver 18.5cm with increased echogenecity of the hepatic parenchymal cortex suggestive for fatty infiltration vs. hepatic parenchymal disease. multiple prominent partially echogenic hepatic masses which are indeterminate and may represent underlying hepatic neoplasm. cholelithiasis with gallbladder thickening with associated pericholecystic fluid - may represent underlying cholecystitis. -Liver CT (11/02) Multifocal low attenuation in the right hepatic lobe, may represent a neoplastic process such as multifocal hepatic cellular malignancy or metastasis. Hepatic cirrhosis. Ascites. Hepatosplenomegaly. 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 Portal venous thrombus may be bland or tumoral. Cholelithiasis. Hepatic arterial phase images not obtained. -MRI abdomen (11/03) multifocal neoplasm in right lobe of liver. Differential diagnoses include metastatic disease or multifocal HCC. Invasion and thrombosis of right and main portal vein. Left portal vein appears patent. mild erasto hepatis lymphadenopathy and 1 mildly enlarged precaval lymph node. Mild splenomegaly. Alpha feta protein elevated @1230 on admission -CA 19-9 (11/02) 41.3H -CEA (11/02) 4.9H IR, Dr. Mejia, to do Bx today (11/09), pending final read Portal Vein thrombosis Heme/Onc consulted: Dr. Cash - help appreciated. - Liver CT triple phase (11/02) see above. Complete occlusion of right portal vein. Left and main portal vein unobstructed - MRI 3 phase (11/04). Right portal vein occlusion is result of both invasion and thrombosis. - coags stable, continue to trend - Patient is heterozygous for Prothrombin [id number] mutation - 2-4x increased risk of thrombosis - APTT is 68, which is therapeutic range - Anti phospholipid antibodies done 10/31- see full record in labs - Factor V not detected - Protein C (10/31) Ag 74 Activity 58L - Protein S (10/31) Ag 90 activity 56L - ferritin 566.0 - folate 8.2 - Vit B12 523 - on therapeutic Lovenox (changed from heparin 11/05)- Lovenox 80mg SC q12hrs Cholelithiasis/Pancolitis Abd US (10/31) portal vein thrombosis. enlarged liver 18.5cm with increased echogenecity of the hepatic parenchymal cortex suggestive for fatty infiltration vs. hepatic parenchymal disease. multiple prominent partially echogenic hepatic masses which are indeterminate and may represent underlying hepatic neoplasm. cholelithiasis with gallbladder thickening with associated pericholecystic fluid - may represent underlying cholecystitis. Blood culture (11/03) no growth after 3 days, final Stool culture (11/01) negative - final - Flagyl 500mg IVPB q8h (10/31 Day 7)- No longer active - Zosyn 3.375 IVPB q6h (10/31 Day 7)- No longer actuve Surgery consulted: Dr. Benitez No plans for acute surgical intervention at this time Cont analgesics Hx chronic Hepatitis C - Hepatitis C RNA of [id number] and HCV RNA Quantitative (PCR) of 6.32 - discussed with patient and healthcare team. deferring treatment until after discharge Prophylaxis - Protonix 40mg PO daily - Switched to Lovenox 80 sc daily from Heparin [id number], restarted after Bx - Full Diet - DNR/DNI - Morphine 15mg PO q6 prn - mod pain - Palliative Care consulted: Tata. Goals of care discussed - Psych consulted for necessity of 1:1: Dr. Gilman - help appreciated. Negative assessment. This patient is likely suffering for HCC. In correspondence with GI it appears that he may benefit from transfer to [facility] for further care; called and left a message to make appointment for establishing care. Follow up Heme-Onc/GI recs concerning transfer after biopsy. Dispo: Spoke with SS and CW for possible discharge at end of week. Dena Roth PGY-1. Case discussed with Dr. Bunch <Isauro Bunch - Last Filed: 11/09/17 18:18> Objective - Vital Signs/Intake and Output Vital Signs (last 24 hours): Temp Pulse Resp BP Pulse Ox 98.6 F 55 L 20 114/66 97 11/09/17 15:00 11/09/17 15:00 11/09/17 15:00 11/09/17 15:00 11/09/17 15:00 Intake and Output: 11/09/17 11/09/17 06:59 18:59 Intake Total 480 480 Balance 480 480 - Medications Medications: Current Medications Enoxaparin Sodium (Lovenox) 80 mg SC Q12 [facility] Morphine Sulfate (Morphine Immediate Release Tab) 15 mg PO QID PRN PRN Reason: Pain, moderate (4-7) Last Admin: 11/09/17 11:49 Dose: 15 mg Pantoprazole Sodium (Protonix Ec Tab) 40 mg PO DAILY [facility] Last Admin: 11/09/17 11:28 Dose: Not Given - Labs Labs: 11/09/17 06:14 11/09/17 06:14 PT 13.4 SECONDS (9.7-12.2) H 11/08/17 07:01 INR 1.2 11/08/17 07:01 APTT 33 SECONDS (21-34) 11/08/17 07:01 Attending/Attestation - Attestation I have personally seen and examined this patient.: Yes I have fully participated in the care of the patient.: Yes I have reviewed all pertinent clinical information, including history, physical exam and plan: Yes Notes (Text): 11/09/17 18:09 Medical attending: Patient was seen and examined by me with the medical office receptionist assistant. Reviewed the above note by the resident and agree with the above. Phone call to [facility] and they explained that there would be a long waiting period before patient can have an appointment. Today patient had liver biopsy done. He tolerated procedure well. The patient explained that he is homeless and this will likely make transportation difficult. He really wants to leave by otherwise will sign out AMA. He currently is medically stable. We explained to him that he at least needs to follow up with the [facility] at least for his paper. thank you Isauro Bunch
[2017-11-09 07:20] LABS: ALB/GLOB RATIO 0.9 (1.0-2.1); ALBUMIN 3.3 g/dL (3.5-5.0); ALT/SGPT 67 U/L (21-72); AST/SGOT 137 U/L (17-59); BLOOD UREA NITROGEN 13 mg/dL (9-20); GFR AFRICAN-AMERICAN > 60; GFR NON-AFRICAN AMERICAN > 60
[2017-11-09 09:14] LABS: NEUT # 9.1 K/uL (1.8-7.0)
[2017-11-09 09:15] LABS: EOS # 0.2 K/uL (0.0-0.7); LYMPH # 1.1 K/uL (1.0-4.3); MONO # 0.4 K/uL (0.0-0.8)
[2017-11-09] MEDS ORDERED: Midazolam 2 MG/2 ML VIAL ONE (10:53)
[2017-11-09] MEDS ORDERED: Absorbable Gelatin Sponge Size 12-7 ONE (11:02)
--- NOTE | 2017-11-09 11:21 | PCM.SURG1 ---
Surgeon's Initial Post Op Note - Surgeon's Notes Surgeon: Nicholas Mejia MD Ice Rink Attendant: NONE Type of Anesthesia: IV Sedation Pre-Operative Diagnosis: Portal vein thrombosis, infiltrative lesion right hepatic lobe Operative Findings: US showed heterogenous right hepatic lobe Post-Operative Diagnosis: Portal vein thrombosis, infiltrative lesion right hepatic lobe Operation Performed: US guided biopsy of right hepatic lobe. An 18 g needle advanced into heterogenous area where a lesion is described. Four 18 g core specimen removed. Biopsy tract embolized with gelfoam. Specimen/Specimens Removed: 18 gauge core x 4 Estimated Blood Loss: EBL {In ML}: 3 Blood Products Given: N/A Drains Used: No Drains Post-Op Condition: Fair Date of Surgery/Procedure: 11/09/17 Time of Surgery/Procedure: 11:15
[2017-11-09] MEDS: Pantoprazole 40 mg EC Tab PO SCH (11:28)
[2017-11-09] MEDS: Morphine 15 mg Immediate Release Tab PO PRN ×2 (11:49→20:12)
--- NOTE | 2017-11-09 13:47 | CP.PCM.PN ---
Subjective - Date & Time of Evaluation Date of Evaluation: 11/09/17 Time of Evaluation: 13:35 - Subjective Subjective: F/u liver mass. Occ abdom pain Denies RB, melena, fever, chills, CP, SOB, BROWN Objective - Vital Signs/Intake and Output Vital Signs (last 24 hours): Temp Pulse Resp BP Pulse Ox 99.6 F 81 20 137/74 97 11/09/17 07:00 11/09/17 07:00 11/09/17 07:00 11/09/17 07:00 11/09/17 07:00 Intake and Output: 11/09/17 11/09/17 06:59 18:59 Intake Total 480 Balance 480 - Medications Medications: Current Medications Docusate Sodium (Colace) 100 mg PO BID [facility] Last Admin: 11/09/17 11:28 Dose: Not Given Morphine Sulfate (Morphine Immediate Release Tab) 15 mg PO QID PRN PRN Reason: Pain, moderate (4-7) Last Admin: 11/09/17 11:49 Dose: 15 mg Pantoprazole Sodium (Protonix Ec Tab) 40 mg PO DAILY [facility] Last Admin: 11/09/17 11:28 Dose: Not Given - Labs Labs: 11/09/17 06:14 11/09/17 06:14 PT 13.4 SECONDS (9.7-12.2) H 11/08/17 07:01 INR 1.2 11/08/17 07:01 APTT 33 SECONDS (21-34) 11/08/17 07:01 - Constitutional Appears: Well - Respiratory Exam Respiratory Exam: Clear to Ausculation Bilateral - Cardiovascular Exam Cardiovascular Exam: RRR - GI/Abdominal Exam GI & Abdominal Exam: Soft, Tenderness, Normal Bowel Sounds. absent: Guarding, Rebound - Extremities Exam Extremities Exam: absent: Calf Tenderness - Neurological Exam Neurological Exam: Alert, Oriented x3 Assessment and Plan (1) Abdominal pain Assessment & Plan: masses Status: Acute (2) Carrier of viral hepatitis C Status: Acute (3) Cholelithiasis Status: Acute (4) Liver masses Assessment & Plan: c/w HCC. 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
--- NOTE | 2017-11-09 14:30 | US ---
PROCEDURE: Date of procedure: 11/09/2017 Procedure: Ultrasound-guided percutaneous core biopsy of liver mass, CPT 65580 Ultrasound guidance for biopsy, CPT 25481 Medications: The patient was sedated by the anesthesiologist with IV sedation and monitoring. HISTORY: Liver Mass, portal vein thrombosis TECHNIQUE: Following informed consent and procedure time-out, the patient was placed supine on bed and limited ultrasound showed heterogeneous right hepatic lobe. This is not consistent with heterogeneous infiltrative process seen on previous CT scan. After the patient abdomen was prepped and draped in the usual sterile fashion and the skin anesthetized with lidocaine, an 18 gauge core needle was advanced percutaneously under direct ultrasound guidance into the area of concern. Upon confirmation of needle position, four core specimens were obtained and sent for routine pathology. The biopsy track was then embolized with Gelfoam. A post biopsy ultrasound performed showed no hematoma. A dressing was applied. IMPRESSION: Ultrasound-guided core biopsy of heterogeneous infiltrative process within the right hepatic lobe.
[2017-11-09] MEDS: Enoxaparin 80 mg Syringe SC SCH (21:37)
[2017-11-10] MEDS: Morphine 15 mg Immediate Release Tab PO PRN ×2 (08:10→20:33)
[2017-11-10 08:16] LABS: HEMOGLOBIN 11.1 g/dL (12.0-18.0); MEAN CORPUSCULAR HEMOGLOBIN 32.2 pg (27.0-31.0); MEAN CORPUSCULAR HGB CONC 34.9 g/dL (33.0-37.0); MEAN PLATELET VOLUME 11.8 fL (7.2-11.7); RBC 3.44 Mil/uL (4.40-5.90); RED CELL DISTRIBUTION WIDTH 16.3 % (11.5-14.5); WHITE BLOOD COUNT 10.6 K/uL (4.8-10.8)
[2017-11-10 08:22] LABS: INR 1.3; PROTHROMBIN TIME 13.8 SECONDS (9.7-12.2)
[2017-11-10 08:33] LABS: ALB/GLOB RATIO 0.9 (1.0-2.1); ALBUMIN 3.4 g/dL (3.5-5.0); ALT/SGPT 72 U/L (21-72); AST/SGOT 142 U/L (17-59); BLOOD UREA NITROGEN 13 mg/dL (9-20); CALCIUM 9.2 mg/dl (8.6-10.4); GFR AFRICAN-AMERICAN > 60; GFR NON-AFRICAN AMERICAN > 60
[2017-11-10] MEDS: Enoxaparin 80 mg Syringe SC SCH (09:13)
[2017-11-10] MEDS: Pantoprazole 40 mg EC Tab PO SCH (09:13)
[2017-11-10 09:19] LABS: LYMPH # 1.4 K/uL (1.0-4.3); MONO # 1.2 K/uL (0.0-0.8); NEUT # 7.8 K/uL (1.8-7.0)
[2017-11-10 09:20] LABS: EOS # 0.3 K/uL (0.0-0.7)
--- NOTE | 2017-11-10 11:03 | CP.PCM.PN ---
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 medical team has initiated outpatient follow up at [facility] for HCC/HCV management , as well as fpc anticoagulation Will sign off Objective - Vital Signs/Intake and Output Vital Signs (last 24 hours): Temp Pulse Resp BP Pulse Ox 98.8 F 60 20 160/63 H 98 11/10/17 07:15 11/10/17 07:15 11/10/17 07:15 11/10/17 07:15 11/10/17 07:15 Intake and Output: 11/10/17 11/10/17 06:59 18:59 Intake Total 500 Balance 500 - Medications Medications: Current Medications Apixaban (Eliquis) 5 mg PO BID [facility] Docusate Sodium (Colace) 100 mg PO BID [facility] Morphine Sulfate (Morphine Immediate Release Tab) 15 mg PO QID PRN PRN Reason: Pain, moderate (4-7) Last Admin: 11/10/17 08:10 Dose: 15 mg Pantoprazole Sodium (Protonix Ec Tab) 40 mg PO DAILY [facility] Last Admin: 11/10/17 09:13 Dose: 40 mg - Labs Labs: 11/10/17 08:09 11/10/17 08:09 PT 13.8 SECONDS (9.7-12.2) H 11/10/17 08:09 INR 1.3 11/10/17 08:09 APTT 32 SECONDS (21-34) 11/10/17 08:09 Assessment and Plan (1) Liver masses Status: Acute (2) Cholelithiasis Status: Acute (3) Depressive disorder Status: Acute (4) Carrier of viral hepatitis C Status: Acute (5) Family history of colon cancer in father Status: Acute (6) Portal vein thrombosis secondary to HCC invasion Status: Acute
--- NOTE | 2017-11-10 11:51 | CP.PCM.PN ---
<Chet Ugalde - Last Filed: 11/10/17 14:12> Subjective - Date & Time of Evaluation Date of Evaluation: 11/10/17 Time of Evaluation: 11:51 - Subjective Subjective: Progress note for Hospitalist service Patient seen and examined at bedside. He complains of mild pain in his right abdomen, especially worse with movement. Denies fevers, chills, chest pain, shortness of breath, nausea, vomiting, diarrhea. States he feels slightly constipated. He would like to be discharged prior to Wednesday. Biopsy results pending. Patient advised that he would have to follow up with clinic. Objective - Vital Signs/Intake and Output Vital Signs (last 24 hours): Temp Pulse Resp BP Pulse Ox 98.8 F 60 20 160/63 H 98 11/10/17 07:15 11/10/17 07:15 11/10/17 07:15 11/10/17 07:15 11/10/17 07:15 Intake and Output: 11/10/17 11/10/17 06:59 18:59 Intake Total 500 Balance 500 - Medications Medications: Current Medications Apixaban (Eliquis) 5 mg PO BID [facility] Docusate Sodium (Colace) 100 mg PO BID [facility] Morphine Sulfate (Morphine Immediate Release Tab) 15 mg PO QID PRN PRN Reason: Pain, moderate (4-7) Last Admin: 11/10/17 08:10 Dose: 15 mg Pantoprazole Sodium (Protonix Ec Tab) 40 mg PO DAILY [facility] Last Admin: 11/10/17 09:13 Dose: 40 mg - Labs Labs: 11/10/17 08:09 11/10/17 08:09 PT 13.8 SECONDS (9.7-12.2) H 11/10/17 08:09 INR 1.3 11/10/17 08:09 APTT 32 SECONDS (21-34) 11/10/17 08:09 - Constitutional Appears: No Acute Distress, Unkempt, Chronically Ill - Head Exam Head Exam: ATRAUMATIC, NORMOCEPHALIC - Eye Exam Eye Exam: EOMI, Scleral icterus - ENT Exam ENT Exam: Mucous Membranes Moist - Neck Exam Neck Exam: Full ROM - Respiratory Exam Respiratory Exam: Clear to Ausculation Bilateral, NORMAL BREATHING PATTERN. absent: Rales, Rhonchi, Wheezes, Respiratory Distress, Stridor - Cardiovascular Exam Cardiovascular Exam: REGULAR RHYTHM, +S1, +S2. absent: Gallop, Rubs, Murmur - GI/Abdominal Exam GI & Abdominal Exam: Soft, Normal Bowel Sounds. absent: Distended, Firm, Guarding, Rigid, Tenderness - Extremities Exam Extremities Exam: Normal Capillary Refill. absent: Calf Tenderness, Pedal Edema - Back Exam Back Exam: absent: CVA tenderness (L), CVA tenderness (R) - Neurological Exam Neurological Exam: Alert, Awake, CN II-XII Intact, Oriented x3 - Psychiatric Exam Psychiatric exam: Normal Affect, Normal Mood - Skin Skin Exam: Dry, Intact, Warm Additional comments: Jaundiced Assessment and Plan - Assessment and Plan (Free Text) Plan: Plan: Acute liver failure/obstructive jaundice Probable liver malignancy with metastasis GI consulted- Dr. Homa Alonso appreciated currently pending results of percutaneous liver biopsy defer colonoscopy, in light of probable hepatocellular carcinoma continue analgesics Recommended outpatient follow up in [facility] if possible for further management including possible chemoembolization or other palliative treatment Further management per Hematology/Oncology Heme/onc consulted- Dr. Uma Alonso appreciated Suspicion for hepatocellular carcinoma, pending biopsy results -Abd CT (10/31) multiple distended and mildly dilated loops of small bowel, may represent underlying enteritis. No discrete transition point to suggest gross bowl obstruction. -CXR (10/31) mild venous congestion. Bilateral hilar prominence. Biapical pleural thickening with upper lobe granulomatous changes -Chest CT (10/31) scattered areas of consolidation suggestive for atelectasis within the bilateral lung power. 7mm pulmonary nodule within the right lung. Hepatosplenomegaly. Cholelithiasis. Abdominal ascites. -Abd US (10/31) portal vein thrombosis. enlarged liver 18.5cm with increased echogenecity of the hepatic parenchymal cortex suggestive for fatty infiltration vs. hepatic parenchymal disease. multiple prominent partially echogenic hepatic masses which are indeterminate and may represent underlying hepatic neoplasm. cholelithiasis with gallbladder thickening with associated pericholecystic fluid - may represent underlying cholecystitis. -Liver CT (11/02) Multifocal low attenuation in the right hepatic lobe, may represent a neoplastic process such as multifocal hepatic cellular malignancy or metastasis. Hepatic cirrhosis. Ascites. Hepatosplenomegaly. 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 Portal venous thrombus may be bland or tumoral. Cholelithiasis. Hepatic arterial phase images not obtained. -MRI abdomen (11/03) multifocal neoplasm in right lobe of liver. Differential diagnoses include metastatic disease or multifocal HCC. Invasion and thrombosis of right and main portal vein. Left portal vein appears patent. mild erasto hepatis lymphadenopathy and 1 mildly enlarged precaval lymph node. Mild splenomegaly. Alpha feta protein elevated @1230 on admission -CA 19-9 (11/02) 41.3H -CEA (11/02) 4.9H IR, Dr. Mejia, completed biopsy on 11/09/17, pending results Portal Vein thrombosis Heme/Onc consulted: Dr. Cash - help appreciated. - Liver CT triple phase (11/02) see above. Complete occlusion of right portal vein. Left and main portal vein unobstructed - MRI 3 phase (11/04). Right portal vein occlusion is result of both invasion and thrombosis. 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 enlarged liver 18.5cm with increased echogenecity of the hepatic parenchymal cortex suggestive for fatty infiltration vs. hepatic parenchymal disease. multiple prominent partially echogenic hepatic masses which are indeterminate and may represent underlying hepatic neoplasm. cholelithiasis with gallbladder thickening with associated pericholecystic fluid - may represent underlying cholecystitis. Blood culture (11/03) no growth after 3 days, final Stool culture (11/01) negative - final - Flagyl 500mg IVPB q8h (10/31 Day 7)- No longer active - Zosyn 3.375 IVPB q6h (10/31 Day 7)- No longer actuve Surgery consulted: Dr. Benitez No plans for acute surgical intervention at this time Continue analgesics Hx chronic Hepatitis C - Hepatitis C RNA of [id number] and HCV RNA Quantitative (PCR) of 6.32 - discussed with patient and healthcare team. deferring treatment until after discharge Prophylaxis - Protonix 40mg PO daily - Switched to Eliquis 5mg BID from Lovenox 80 sc daily - Full Diet - DNR/DNI - Morphine 15mg PO q6 prn - mod pain - Palliative Care consulted: Tata. Goals of care discussed - Psych consulted for necessity of 1:1: Dr. Gilman - help appreciated. Negative assessment. This patient is likely suffering for hepatocellular carcinoma complicated by portal vein thrombosis. As per GI recommendations, outpatient follow up with [facility] liver center for further care. Dispo: Spoke with SS and CW for possible discharge at end of week. <Isauro Bunch - Last Filed: 11/10/17 15:43> Objective - Vital Signs/Intake and Output Vital Signs (last 24 hours): Temp Pulse Resp BP Pulse Ox 98.8 F 60 20 160/63 H 98 11/10/17 07:15 11/10/17 07:15 11/10/17 07:15 11/10/17 07:15 11/10/17 07:15 Intake and Output: 11/10/17 11/10/17 06:59 18:59 Intake Total 500 Balance 500 - Medications Medications: Current Medications Apixaban (Eliquis) 5 mg PO BID [facility] Docusate Sodium (Colace) 100 mg PO BID [facility] Morphine Sulfate (Morphine Immediate Release Tab) 15 mg PO QID PRN PRN Reason: Pain, moderate (4-7) Last Admin: 11/10/17 08:10 Dose: 15 mg Pantoprazole Sodium (Protonix Ec Tab) 40 mg PO DAILY [facility] Last Admin: 11/10/17 09:13 Dose: 40 mg - Labs Labs: 11/10/17 08:09 11/10/17 08:09 PT 13.8 SECONDS (9.7-12.2) H 11/10/17 08:09 INR 1.3 11/10/17 08:09 APTT 32 SECONDS (21-34) 11/10/17 08:09 Attending/Attestation - Attestation I have personally seen and examined this patient.: Yes I have fully participated in the care of the patient.: Yes I have reviewed all pertinent clinical information, including history, physical exam and plan: Yes Notes (Text): 11/10/17 15:38 Medical attending: Patient was seen and examined by me. Agree with the above note by the resident The patient was not in any acute distress. Today we are D/C the lovenox and starting Eliquis PO BID for the portal vein thrombosis. We emphasized to patient that tomorrow we plan on discharge. He needs to follow up in either the [facility] or the [facility] and that it is important that he take the Eliquis and he will also need pain medications. Also it will take some time before the biopsy of the liver returns and he will need to follow up in the clinic for the results. We also again discussed that he will need to get himself over to [facility]'s liver center for further evaluation at some point - however his situation is more difficult due to his social situation thank you Isauro Bunch
[2017-11-10 16:08] VITALS: O2SAT 96
[2017-11-11 00:16] VITALS: PULSE 62
--- NOTE | 2017-11-11 06:57 | CP.PCM.DIS ---
<Dena Roth - Last Filed: 11/11/17 13:29> Provider - Provider Date of Admission: 10/31/17 11:20 Attending physician: Isauro Bunch DO Time Spent in preparation of Discharge (in minutes): 60 Hospital Course - Lab Results Lab Results: Micro Results 10/31/17 13:04 Blood-Venous Blood Culture - Final NO GROWTH AFTER 5 DAYS 10/31/17 13:04 Blood-Venous Gram Stain - Final TEST NOT PERFORMED 10/31/17 13:04 Blood-Venous Blood Culture - Final NO GROWTH AFTER 5 DAYS 10/31/17 13:04 Blood-Venous Gram Stain - Final TEST NOT PERFORMED 11/01/17 10:30 Stool Stool Culture - Final NO SALMONELLA, SHIGELLA OR CAMPYLOBACTER ISOLATED. 11/01/17 10:30 Stool Ova and Parasite Concentrate Exam - Final Most Recent Lab Values WBC 10.6 K/uL (4.8-10.8) 11/10/17 08:09 RBC 3.44 Mil/uL (4.40-5.90) L 11/10/17 08:09 Hgb 11.1 g/dL (12.0-18.0) L 11/10/17 08:09 Hct 31.7 % (35.0-51.0) L 11/10/17 08:09 MCV 92.0 fL (80.0-94.0) 11/10/17 08:09 MCH 32.2 pg (27.0-31.0) H 11/10/17 08:09 MCHC 34.9 g/dL (33.0-37.0) 11/10/17 08:09 RDW 16.3 % (11.5-14.5) H 11/10/17 08:09 Plt Count 200 K/uL (130-400) 11/10/17 08:09 MPV 11.8 fL (7.2-11.7) H 11/10/17 08:09 Neut % (Auto) 73.0 % (50.0-75.0) 11/10/17 08:09 Lymph % (Auto) 13.0 % (20.0-40.0) L 11/10/17 08:09 Archuleta % (Auto) 11.0 % (0.0-10.0) H 11/10/17 08:09 Eos % (Auto) 3.0 % (0.0-4.0) 11/10/17 08:09 Baso % (Auto) 0.0 % (0.0-2.0) 11/10/17 08:09 Neut # (Auto) 7.8 K/uL (1.8-7.0) H 11/10/17 08:09 Lymph # (Auto) 1.4 K/uL (1.0-4.3) 11/10/17 08:09 Archuleta # (Auto) 1.2 K/uL (0.0-0.8) H 11/10/17 08:09 Eos # (Auto) 0.3 K/uL (0.0-0.7) 11/10/17 08:09 Baso # (Auto) 0.0 K/uL (0.0-0.2) 11/10/17 08:09 Retic Count 1.9 % (0.5-1.5) H 11/03/17 07:45 PT 13.8 SECONDS (9.7-12.2) H 11/10/17 08:09 INR 1.3 11/10/17 08:09 APTT 32 SECONDS (21-34) 11/10/17 08:09 Protein C Antigen 74 % (70-140) 10/31/17 12:01 Protein C Activity 58 % (70-180) L 10/31/17 12:01 Protein S Activity 56 % (70-150) L 10/31/17 12:01 Protein S Antigen 90 % (70-140) 10/31/17 12:01 Factor V see note 10/31/17 12:01 Sodium 135 mmol/L (132-148) 11/10/17 08:09 Potassium 4.4 mmol/L (3.6-5.2) 11/10/17 08:09 Chloride 100 mmol/L (98-107) 11/10/17 08:09 Carbon Dioxide 25 mmol/L (22-30) 11/10/17 08:09 Anion Gap 15 (10-20) 11/10/17 08:09 BUN 13 mg/dL (9-20) 11/10/17 08:09 Creatinine 0.6 mg/dL (0.8-1.5) L 11/10/17 08:09 Est GFR ( Amer) > 60 11/10/17 08:09 Est GFR (Non-Af Amer) > 60 11/10/17 08:09 Random Glucose 233 mg/dL (75-110) H 11/10/17 08:09 Calcium 9.2 mg/dl (8.6-10.4) 11/10/17 08:09 Ferritin 566.0 ng/mL 11/03/17 07:45 Total Bilirubin 6.9 mg/dL (0.2-1.3) H 11/10/17 08:09 AST 142 U/L (17-59) H 11/10/17 08:09 ALT 72 U/L (21-72) 11/10/17 08:09 Alkaline Phosphatase 549 U/L (38-126) H 11/10/17 08:09 Total Protein 7.0 g/dL (6.3-8.3) 11/10/17 08:09 Albumin 3.4 g/dL (3.5-5.0) L 11/10/17 08:09 Globulin 3.6 gm/dL (2.2-3.9) 11/10/17 08:09 Albumin/Globulin Ratio 0.9 (1.0-2.1) L 11/10/17 08:09 Lipase 119 U/L (23-300) 10/31/17 08:09 Alpha Fetoprotein 1230.0 ng/mL (0.0-7.5) H 10/31/17 12:01 Carcinoembryonic Ag 4.9 ng/mL (0-3.0) H 11/02/17 07:42 CA 19-9 Antigen 41.3 U/mL (0-37) H 11/02/17 07:42 Vitamin B12 523 pg/mL (239-931) 11/03/17 07:45 Folate 8.2 ng/mL 11/03/17 07:45 Urine Color Asia (YELLOW) 10/31/17 08:09 Urine Clarity Clear (Clear) 10/31/17 08:09 Urine pH 6.0 (5.0-8.0) 10/31/17 08:09 Ur Specific Paden 1.015 (1.003-1.030) 10/31/17 08:09 Urine Protein 2+ mg/dL (NEGATIVE) H 10/31/17 08:09 Urine Glucose (UA) 3+ mg/dL (Normal) H 10/31/17 08:09 Urine Ketones Negative mg/dL (NEGATIVE) 10/31/17 08:09 Urine Blood Trace (NEGATIVE) 10/31/17 08:09 Urine Nitrate Negative (NEGATIVE) 10/31/17 08:09 Urine Bilirubin 1+ (NEGATIVE) H 10/31/17 08:09 Urine Urobilinogen 4.0 mg/dL (0.2-1.0) 10/31/17 08:09 Ur Leukocyte Esterase Neg Brandi/uL (Negative) 10/31/17 08:09 Urine WBC (Auto) < 1 /hpf (0-5) 10/31/17 08:09 Urine RBC (Auto) 5 /hpf (0-3) H 10/31/17 08:09 Stool Leukocytes, Qual Negative (NEGATIVE) 11/01/17 10:30 Urine Opiates Screen Positive (NEGATIVE) H 10/31/17 20:57 Urine Methadone Screen Negative (NEGATIVE) 10/31/17 20:57 Ur Barbiturates Screen Negative (NEGATIVE) 10/31/17 20:57 Ur Phencyclidine Scrn Negative (NEGATIVE) 10/31/17 20:57 Ur Amphetamines Screen Negative (NEGATIVE) 10/31/17 20:57 U Benzodiazepines Scrn Negative (NEGATIVE) 10/31/17 20:57 U Oth Cocaine Metabols Negative (NEGATIVE) 10/31/17 20:57 U Cannabinoids Screen Negative (NEGATIVE) 10/31/17 20:57 Jtug-7-Ukidbieuwgey Ab <9 TING (<=20) 10/31/17 12:01 Beta-2 GPI IgG Ab <9 SGU (<=20) 10/31/17 12:01 Beta-2 GPI IgM Ab <9 SMU (<=20) 10/31/17 12:01 Phosphatidylserine IgG 13 U/mL (<10) H 10/31/17 12:01 Phosphatidylserine IgA <20 U/mL (<20) 10/31/17 12:01 Phosphatidylserine IgM <25 U/mL (<25) 10/31/17 12:01 Anti-Phospholipid Intrp see note 10/31/17 12:01 Anti-Cardiolipin IgG Ab <14 GPL (<=14) 10/31/17 12:01 Anti-Cardiolipin IgA Ab <11 APL (<=11) 10/31/17 12:01 Anti-Cardiolipin IgM Ab <12 MPL (<=12) 10/31/17 12:01 Hepatitis C RNA [id number] IU/mL (Not Detected) H 11/02/17 06:44 HCV RNA Genotype LiPA 3a (Not Detected) H 11/02/17 06:44 HCV RNA Quant (PCR) 6.32 Log IU/mL (Not Detected) H 11/02/17 06:44 HIV 1&2 Antibody Screen Negative (NEGATIVE) 10/31/17 12:01 Prothrombin Mut Interp see note H 10/31/17 12:01 Prothrombin Gene Mutate see note H 10/31/17 12:01 Prothromb Gene Review see note 10/31/17 12:01 Blood Type O POSITIVE 11/03/17 07:45 Antibody Screen Negative 11/03/17 07:45 - Hospital Course Hospital Course: 57 year old Male w/ PMHx Anxiety, Back Problems, Depression, Diabetes (?), Hepatitis (Pt history and treatment), HTN, Kidney Stones, colithiasis presents to ED with 1 month of abdominal pain that has been worsening over the past 3 days. Patient states the pain is in subxyphoid to umbilical area with radiation occasionally to the right upper quadrant that fluctuates in intensity. Patient also has had episodes of diarrhea, lasting for a few days over the past month, with bowel movements primarily white in color, with no blood. Patient also has had dark urine with no foul order present. Patient denies having taken an medications for the pain. CT abdomen and pelvis showed hepatomegaly with cirrhotic contour and indeterminate hepatic lesions, cholelithiasis. CXR showed mild venous congestion , bilateral hilar prominence, biapical pleural thickening with upper lobe granulomatous changes, mild cardiomegaly. CT chest scattered areas of consolidation suggestive for atelectasis within the bilateral lung power, 7mm pulmonary nodule within the right lung, abdominal ascites. Abdominal US show portal vein thrombosis, hepatomegaly with fatty infiltration vs. hepatic parenchymal disease, multiple prominent hepatic masses, cholelithiasis. CT chest triple phase gave a limited arterial study and was unable to confirm multifocal hepatic cellular malignancy vs. metastasis. It confirmed complete occlusion of the right portal vein and cholelithiasis. MRI abdomen triple phase showed multifocal neoplasm in the right liver lobe but was unable to confirm origin. Interventional radiology did a percutaneous biopsy, which was sent to pathology. Surgery, GI, and Heme/Onc agreed with IV antibiotics, heparin drip switched to Eliquis as an outpatient, analgesics, with no acute surgical intervention aside from percutaneous biopsy. Primary Diagnosis: Hepatocellular carcinoma, Portal Vein Thrombosis, Hepatitis C Patient is cleared for discharge per Dr. Bunch. He is to start taking the following medications as prescribed: Eliquis 5mg by mouth twice a day Oxycontin IR 15mg by mouth four times a day Patient should follow up with the clinic for pain management and blood thinner medications. Patient should follow up with the Liver Clinic at [facility] for followup of liver issues. If the symptoms return or worsen, please return immediately to the ED. This was discussed with the patient who understood and agreed. This is a summary of the hospital course. Please refer to the EMR for more details. - Date & Time of H&P Date of H&P: 11/11/17 Time of H&P: 11:19 Discharge Exam - Head Exam Head Exam: ATRAUMATIC, NORMOCEPHALIC - Eye Exam Eye Exam: EOMI, Normal appearance - ENT Exam ENT Exam: Mucous Membranes Moist, Normal Exam - Respiratory Exam Respiratory Exam: NORMAL BREATHING PATTERN, UNREMARKABLE. absent: Rales, Rhonchi, Wheezes, Respiratory Distress - Cardiovascular Exam Cardiovascular Exam: REGULAR RHYTHM, RRR, +S1, +S2. absent: Gallop, Rubs, Systolic Murmur - GI/Abdominal Exam GI & Abdominal Exam: Normal Bowel Sounds, Soft. absent: Firm, Guarding, Rebound , Tenderness - Extremities Exam Extremities exam: normal capillary refill, pedal pulses present - Neurological Exam Neurological exam: Alert, CN II-XII Intact, Normal Gait, Oriented x3, Reflexes Normal - Psychiatric Exam Psychiatric exam: Normal Affect, Normal Mood - Skin Skin Exam: Dry, Intact, Normal Color, Warm Discharge Plan - Discharge Medications Prescriptions: Apixaban [Eliquis] 5 mg PO BID #60 tab oxyCODONE [oxyCODONE Immediate Release Tab] 15 mg PO QID #20 tab - Follow Up Plan Condition: STABLE Disposition: HOME/ ROUTINE Instructions: Hepatitis C (DC), Jaundice, Adult (DC), Apixaban, Oxycodone, Deep Venous Thrombosis (DC) Additional Instructions: Patient is cleared for discharge per Dr. Bunch. He is to start taking the following medications as prescribed: Eliquis 5mg by mouth twice a day Oxycontin IR 15mg by mouth four times a day Patient should follow up with the clinic for pain management and blood thinner medications. Patient should follow up with the Liver Clinic at [facility] for followup of liver issues. If the symptoms return or worsen, please return immediately to the ED. This was discussed with the patient who understood and agreed. Clinical Quality Measures - CQM - VTE Did patient receive overlap therapy during hosptialization?: Yes Is patient being discharged on overlap therapy?: Yes If yes, what prescription has been given to the patient?: Sheila <Isauro uBnch - Last Filed: 11/11/17 16:08> Provider - Provider Date of Admission: 10/31/17 11:20 Attending physician: Isauro Bunch DO Hospital Course - Lab Results Lab Results: Micro Results 10/31/17 13:04 Blood-Venous Blood Culture - Final NO GROWTH AFTER 5 DAYS 10/31/17 13:04 Blood-Venous Gram Stain - Final TEST NOT PERFORMED 10/31/17 13:04 Blood-Venous Blood Culture - Final NO GROWTH AFTER 5 DAYS 10/31/17 13:04 Blood-Venous Gram Stain - Final TEST NOT PERFORMED 11/01/17 10:30 Stool Stool Culture - Final NO SALMONELLA, SHIGELLA OR CAMPYLOBACTER ISOLATED. 11/01/17 10:30 Stool Ova and Parasite Concentrate Exam - Final Most Recent Lab Values WBC 10.4 K/uL (4.8-10.8) 11/11/17 07:20 RBC 3.43 Mil/uL (4.40-5.90) L 11/11/17 07:20 Hgb 11.0 g/dL (12.0-18.0) L 11/11/17 07:20 Hct 31.8 % (35.0-51.0) L 11/11/17 07:20 MCV 92.8 fL (80.0-94.0) 11/11/17 07:20 MCH 32.0 pg (27.0-31.0) H 11/11/17 07:20 MCHC 34.5 g/dL (33.0-37.0) 11/11/17 07:20 RDW 16.2 % (11.5-14.5) H 11/11/17 07:20 Plt Count 201 K/uL (130-400) 11/11/17 07:20 MPV 11.1 fL (7.2-11.7) 11/11/17 07:20 Neut % (Auto) 73.0 % (50.0-75.0) 11/10/17 08:09 Lymph % (Auto) 13.0 % (20.0-40.0) L 11/10/17 08:09 Archuleta % (Auto) 11.0 % (0.0-10.0) H 11/10/17 08:09 Eos % (Auto) 3.0 % (0.0-4.0) 11/10/17 08:09 Baso % (Auto) 0.0 % (0.0-2.0) 11/10/17 08:09 Neut # (Auto) 7.8 K/uL (1.8-7.0) H 11/10/17 08:09 Lymph # (Auto) 1.4 K/uL (1.0-4.3) 11/10/17 08:09 Archuleta # (Auto) 1.2 K/uL (0.0-0.8) H 11/10/17 08:09 Eos # (Auto) 0.3 K/uL (0.0-0.7) 11/10/17 08:09 Baso # (Auto) 0.0 K/uL (0.0-0.2) 11/10/17 08:09 Retic Count 1.9 % (0.5-1.5) H 11/03/17 07:45 PT 13.8 SECONDS (9.7-12.2) H 11/10/17 08:09 INR 1.3 11/10/17 08:09 APTT 32 SECONDS (21-34) 11/10/17 08:09 Protein C Antigen 74 % (70-140) 10/31/17 12:01 Protein C Activity 58 % (70-180) L 10/31/17 12:01 Protein S Activity 56 % (70-150) L 10/31/17 12:01 Protein S Antigen 90 % (70-140) 10/31/17 12:01 Factor V see note 10/31/17 12:01 Sodium 133 mmol/L (132-148) 11/11/17 07:20 Potassium 5.0 mmol/L (3.6-5.2) 11/11/17 07:20 Chloride 98 mmol/L (98-107) 11/11/17 07:20 Carbon Dioxide 28 mmol/L (22-30) 11/11/17 07:20 Anion Gap 13 (10-20) 11/11/17 07:20 BUN 13 mg/dL (9-20) 11/11/17 07:20 Creatinine 0.7 mg/dL (0.8-1.5) L 11/11/17 07:20 Est GFR ( Amer) > 60 11/11/17 07:20 Est GFR (Non-Af Amer) > 60 11/11/17 07:20 Random Glucose 256 mg/dL (75-110) H 11/11/17 07:20 Calcium 9.2 mg/dl (8.6-10.4) 11/11/17 07:20 Phosphorus 3.6 mg/dL (2.5-4.5) 11/11/17 07:20 Magnesium 2.0 mg/dL (1.6-2.3) 11/11/17 07:20 Ferritin 566.0 ng/mL 11/03/17 07:45 Total Bilirubin 7.7 mg/dL (0.2-1.3) H 11/11/17 07:20 AST 152 U/L (17-59) H 11/11/17 07:20 ALT 72 U/L (21-72) 11/11/17 07:20 Alkaline Phosphatase 557 U/L (38-126) H 11/11/17 07:20 Total Protein 7.2 g/dL (6.3-8.3) 11/11/17 07:20 Albumin 3.5 g/dL (3.5-5.0) 11/11/17 07:20 Globulin 3.7 gm/dL (2.2-3.9) 11/11/17 07:20 Albumin/Globulin Ratio 0.9 (1.0-2.1) L 11/11/17 07:20 Lipase 119 U/L (23-300) 10/31/17 08:09 Alpha Fetoprotein 1230.0 ng/mL (0.0-7.5) H 10/31/17 12:01 Carcinoembryonic Ag 4.9 ng/mL (0-3.0) H 11/02/17 07:42 CA 19-9 Antigen 41.3 U/mL (0-37) H 11/02/17 07:42 Vitamin B12 523 pg/mL (239-931) 11/03/17 07:45 Folate 8.2 ng/mL 11/03/17 07:45 Urine Color Asia (YELLOW) 10/31/17 08:09 Urine Clarity Clear (Clear) 10/31/17 08:09 Urine pH 6.0 (5.0-8.0) 10/31/17 08:09 Ur Specific Paden 1.015 (1.003-1.030) 10/31/17 08:09 Urine Protein 2+ mg/dL (NEGATIVE) H 10/31/17 08:09 Urine Glucose (UA) 3+ mg/dL (Normal) H 10/31/17 08:09 Urine Ketones Negative mg/dL (NEGATIVE) 10/31/17 08:09 Urine Blood Trace (NEGATIVE) 10/31/17 08:09 Urine Nitrate Negative (NEGATIVE) 10/31/17 08:09 Urine Bilirubin 1+ (NEGATIVE) H 10/31/17 08:09 Urine Urobilinogen 4.0 mg/dL (0.2-1.0) 10/31/17 08:09 Ur Leukocyte Esterase Neg Brandi/uL (Negative) 10/31/17 08:09 Urine WBC (Auto) < 1 /hpf (0-5) 10/31/17 08:09 Urine RBC (Auto) 5 /hpf (0-3) H 10/31/17 08:09 Stool Leukocytes, Qual Negative (NEGATIVE) 11/01/17 10:30 Urine Opiates Screen Positive (NEGATIVE) H 10/31/17 20:57 Urine Methadone Screen Negative (NEGATIVE) 10/31/17 20:57 Ur Barbiturates Screen Negative (NEGATIVE) 10/31/17 20:57 Ur Phencyclidine Scrn Negative (NEGATIVE) 10/31/17 20:57 Ur Amphetamines Screen Negative (NEGATIVE) 10/31/17 20:57 U Benzodiazepines Scrn Negative (NEGATIVE) 10/31/17 20:57 U Oth Cocaine Metabols Negative (NEGATIVE) 10/31/17 20:57 U Cannabinoids Screen Negative (NEGATIVE) 10/31/17 20:57 Snby-4-Qvulaqltmrrg Ab <9 TING (<=20) 10/31/17 12:01 Beta-2 GPI IgG Ab <9 SGU (<=20) 10/31/17 12:01 Beta-2 GPI IgM Ab <9 SMU (<=20) 10/31/17 12:01 Phosphatidylserine IgG 13 U/mL (<10) H 10/31/17 12:01 Phosphatidylserine IgA <20 U/mL (<20) 10/31/17 12:01 Phosphatidylserine IgM <25 U/mL (<25) 10/31/17 12:01 Anti-Phospholipid Intrp see note 10/31/17 12:01 Anti-Cardiolipin IgG Ab <14 GPL (<=14) 10/31/17 12:01 Anti-Cardiolipin IgA Ab <11 APL (<=11) 10/31/17 12:01 Anti-Cardiolipin IgM Ab <12 MPL (<=12) 10/31/17 12:01 Hepatitis C RNA [id number] IU/mL (Not Detected) H 11/02/17 06:44 HCV RNA Genotype LiPA 3a (Not Detected) H 11/02/17 06:44 HCV RNA Quant (PCR) 6.32 Log IU/mL (Not Detected) H 11/02/17 06:44 HIV 1&2 Antibody Screen Negative (NEGATIVE) 10/31/17 12:01 Prothrombin Mut Interp see note H 10/31/17 12:01 Prothrombin Gene Mutate see note H 10/31/17 12:01 Prothromb Gene Review see note 10/31/17 12:01 Blood Type O POSITIVE 11/03/17 07:45 Antibody Screen Negative 11/03/17 07:45 Attending/Attestation - Attestation I have personally seen and examined this patient.: Yes I have fully participated in the care of the patient.: Yes I have reviewed all pertinent clinical information, including history, physical exam and plan: Yes Notes (Text): Medical attending: Agree with the above note by the resident The patient was not in any acute distress, he will need to follow up at the [facility] for the results of the liver biopsy as well as future refills on the anticoagulation medication Eliquis PO BID as well as the pain medication Oxycontin IR. As mentioned previously he developed a portal vein thrombosis from complications with HCC. Also history of hepatitis C as well. We did not want to do Percocet do to the combination with tylenol and the current state of his LFTs. He is aware that while the [facility] in [place] and [place] can see him for follow ups - that ultimately he needs to make an appointment to see the [facility] clinics in [place] as we do not have the facilities to help him here. While here in the hospital he has been remarkably stable. He does not have ascities at this time, though in the future this is a real possibiblity. Also he was never encephalopathic and was always AAO x 3. He was able to readily ambulate in the hospital floors without assistance. thank you Isauro Bunch
[2017-11-11 07:33] LABS: MEAN CELL VOLUME 92.8 fL (80.0-94.0); MEAN CORPUSCULAR HGB CONC 34.5 g/dL (33.0-37.0); MEAN PLATELET VOLUME 11.1 fL (7.2-11.7); PLATELET COUNT 201 K/uL (130-400); RBC 3.43 Mil/uL (4.40-5.90); RED CELL DISTRIBUTION WIDTH 16.2 % (11.5-14.5); WHITE BLOOD COUNT 10.4 K/uL (4.8-10.8)
[2017-11-11 07:49] LABS: ALB/GLOB RATIO 0.9 (1.0-2.1); ALBUMIN 3.5 g/dL (3.5-5.0); ALT/SGPT 72 U/L (21-72); AST/SGOT 152 U/L (17-59); BLOOD UREA NITROGEN 13 mg/dL (9-20); CALCIUM 9.2 mg/dl (8.6-10.4); GFR AFRICAN-AMERICAN > 60; GFR NON-AFRICAN AMERICAN > 60
[2017-11-11 08:10] VITALS: BP 153/80; TEMP 98.5
[2017-11-11] MEDS: Morphine 15 mg Immediate Release Tab PO PRN (09:37)
[2017-11-11] MEDS: Pantoprazole 40 mg EC Tab PO SCH (09:37)
== END 2017-11-11 14:42 | disposition home or self-care (01) | DRG 435 ==
LOC: C.ER 06:06 → C.9E 11:20 → C.3T 18:37
PROVIDERS: ADMIT Hospitalist; ATTEND Hospitalist
PROC: BF45ZZZ Ultrasonography of Liver (ICD-10-PCS; 2017-11-09)
PROC: 0FB03ZX Excision of Liver, Percutaneous Approach, Diagnostic (ICD-10-PCS; principal; 2017-11-09 10:00)
DX: C22.0 Liver cell carcinoma (principal); I81 Portal vein thrombosis; K72.00 Acute and subacute hepatic failure without coma; K80.10 Calculus of gallbladder with chronic cholecystitis without obstruction; B18.2 Chronic viral hepatitis C; E11.22 Type 2 diabetes mellitus with diabetic chronic kidney disease; K70.31 Alcoholic cirrhosis of liver with ascites; F19.10 Other psychoactive substance abuse, uncomplicated; F32.9 Major depressive disorder, single episode, unspecified; F43.20 Adjustment disorder, unspecified; G89.29 Other chronic pain; I12.9 Hypertensive chronic kidney disease with stage 1 through stage 4 chronic kidney disease, or unspecified chronic kidney disease; D64.9 Anemia, unspecified; F10.10 Alcohol abuse, uncomplicated; I51.7 Cardiomegaly; K52.9 Noninfective gastroenteritis and colitis, unspecified; K59.00 Constipation, unspecified; F17.210 Nicotine dependence, cigarettes, uncomplicated; Z66 Do not resuscitate; Z59.0 Homelessness

== ENCOUNTER 2017-11-16 13:56 | Emergency (ER) | payer MEDICAID, OTHER ==
[2017-11-16 14:02] VITALS: O2SAT 96
[2017-11-16 14:07] VITALS: BMI 29.9
[2017-11-16] MEDS ORDERED: Oxycodone/Acetaminophen 5/325 mg Tab PO ONE (14:20)
--- NOTE | 2017-11-16 14:20 | C.PDOC ---
History Of Present Illness 57 year old male with past medical history of hepatocellular carcinoma and hepatitis C presents to the ER s/p fall. Patient states yesterday around 7: 30pm he was walking and tripped over the uneven sidewalk and fell onto his right knee. Patient denies hitting his head. Patient states he scrapped his right knee and elbow at the time. He states he took Oxycontin as he does for his cancer and he did not have any relief of his pain. He states his pain when walking is a 7/10 and when resting it is a 4/10. He states his right knee is swollen and it painful and difficult for him to bend his knee. He denies headache, dizziness, lightheadedness, fever or redness of the skin. (Shawna Haley) History Per: Patient History/Exam Limitations: no limitations Onset/Duration Of Symptoms: Hrs Pain Scale Rating Of: 7 - Hip Currently Unable To: Bend Or Move - Knee Description Of Injury: Fell Currently Unable To: Bend Or Move Time Seen by Provider: 11/16/17 13:58 Past Medical History - Medical History PMH: Anxiety, Back Problems, Depression, Diabetes (?), Hepatitis (Pt history and treatment), HTN, Kidney Stones, Chronic Kidney Disease Denies: HIV (Patient denied), Seizures (Patient denied), Sexually Transmitted Disease (Patient denied) Family History: States: Unknown Family Hx - Social History Hx Tobacco Use: Yes Hx Alcohol Use: No Hx Substance Use: No - Immunization History Hx Tetanus Toxoid Vaccination: Yes Hx Influenza Vaccination: No Hx Pneumococcal Vaccination: No Vital Signs: Last Vital Signs Temp 100.1 F H 11/16/17 14:01 Pulse 81 11/16/17 14:01 Resp 20 11/16/17 14:01 BP 132/56 L 11/16/17 14:01 Pulse Ox 96 11/16/17 14:38 - [facility] Procedures DETOXIFICATION SERVICES FOR SUBSTANCE ABUSE TREATMENT (11/01/16) EXCISION OF LIVER, PERCUTANEOUS APPROACH, DIAGNOSTIC (10/31/17) INDIV PSYCHOTHERAPY FOR SUBSTANCE ABUSE TREATMENT, SUPPORT (11/01/16) INDIV PSYCHOTHERAPY FOR SUBSTANCE ABUSE, PSYCHOEDUCATION (11/01/16) INJECT/INFUSE NEC (09/28/12) PHARMACOTHERAPY FOR SUBSTANCE ABUSE, METHADONE MAINT (11/01/16) ULTRASONOGRAPHY OF LIVER (10/31/17) Review Of Systems Constitutional: Negative for: Fever, Chills Cardiovascular: Negative for: Chest Pain, Palpitations Respiratory: Negative for: Shortness of Breath Gastrointestinal: Positive for: Nausea (chronic secondary to history of cancer) . Negative for: Vomiting Genitourinary: Negative for: Dysuria Skin: Positive for: Bruising Neurological: Negative for: Weakness, Numbness Physical Exam - Physical Exam Appears: Well Skin: Normal Color, Other (abrasion on the right knee and right elbow) Head: Atraumatic, Normacephalic, No Tenderness, No Swelling, No Abrasion, No Laceration Eye(s): bilateral: PERRL, EOMI Teeth: No Normal Dentition (missing teeth ) Cardiovascular: Rhythm Regular Respiratory: Normal Breath Sounds Extremity: No Normal ROM (right knee decreased ROM - flexion;), Tenderness ( right knee tenderness ), Swelling (right knee swelling ) Neurological/Psych: Oriented x3 Gait: Unsteady (due to right knee pain and decreased ROM) ED Course And Treatment O2 Sat by Pulse Oximetry: 96 Medical Decision Making Medical Decision Making: Right Knee x-ray: Negative for fracture. Physical Therapy: Crutches; Right knee Immobilizer (Shawna Haley SYessy) Patient seen by the resident and then evaluated by me. He reports R knee pain after tripping on sidewalk yesterday. Ambulating around ED without issue. Normal ROM on my exam after pain medication. xray negative. Placed in knee immobilizer and given crutch training and instructed to follow-up with PMD and orthopedics (Nichole Tellez) Disposition Discussed With Dr.: Nichole Tellez Doctor Will See Patient In The: ED - Disposition Disposition Time: 14:36 - Disposition Referrals: Rudy Guerrero III, MD [Staff Provider] - Jen Butler MD [Staff Provider] - Disposition: HOME/ ROUTINE Condition: IMPROVED Additional Instructions: Patient to follow up with the [facility] in 2 weeks. Patient to follow up with Orthopedics within 1 week. Instructions: Knee Pain (DC), Contusion (DC), Knee Sprain (DC) - Clinical Impression Clinical Impression: Right knee pain - PA / DIRECTOR WORK / Resident Statement / has reviewed & agrees with the documentation as recorded. / has examined the patient and agrees with the treatment plan.
[2017-11-16] MEDS ORDERED: Oxycodone/Acetaminophen 5/325 mg Tab ONE (14:43)
[2017-11-16 15:20] VITALS: BP 129/87; PULSE 89; RESP 16; TEMP 99.5
--- NOTE | 2017-11-17 07:32 | RAD ---
Date of service: 11/16/2017 PROCEDURE: Right Knee Radiographs. HISTORY: R knee pain after fall COMPARISON: None. FINDINGS: BONES: Normal. No fracture. JOINTS: Mild osteoarthritis JOINT EFFUSION: None. OTHER FINDINGS: None. IMPRESSION: No evidence of acute fracture or dislocation. Mild osteoarthritis.
== END 2017-11-16 15:28 | disposition home or self-care (01) ==
LOC: C.ER 13:56
DX: M25.561 Pain in right knee (principal)
CPT/HCPCS: 73562; 97116; 97161; 99285; G8978; G8979; G8980

== ENCOUNTER 2017-11-25 14:30 | Inpatient (IN) | payer MEDICAID, OTHER ==
[2017-11-25 14:44] VITALS: BMI 28.0
--- NOTE | 2017-11-25 17:06 | C.PDOC ---
History Of Present Illness 57 y/o male with history of Liver CA, DVT and DM presents to ED with c/o lower leg swelling bilateral for 7 days. Patient reports it is painful with walking and denies sob, chest pain or any other complaints at this time. Time Seen by Provider: 11/25/17 16:25 Chief Complaint (Nursing): Lower Extremity Problem/Injury History Per: Patient History/Exam Limitations: no limitations Onset/Duration Of Symptoms: Days Current Symptoms Are (Timing): Still Present Past Medical History Reviewed: Historical Data, Nursing Documentation, Vital Signs Vital Signs: Last Vital Signs Temp 98.1 F 11/25/17 14:43 Pulse 69 11/25/17 14:43 Resp 18 11/25/17 14:43 BP 125/58 L 11/25/17 14:43 Pulse Ox 98 11/25/17 18:18 - Medical History PMH: Anxiety, Back Problems, Depression, Diabetes (?), Hepatitis (Pt history and treatment), HTN, Kidney Stones, Chronic Kidney Disease Surgical History: No Surg Hx - [facility] DETOXIFICATION SERVICES FOR SUBSTANCE ABUSE TREATMENT (11/01/16) EXCISION OF LIVER, PERCUTANEOUS APPROACH, DIAGNOSTIC (10/31/17) INDIV PSYCHOTHERAPY FOR SUBSTANCE ABUSE TREATMENT, SUPPORT (11/01/16) INDIV PSYCHOTHERAPY FOR SUBSTANCE ABUSE, PSYCHOEDUCATION (11/01/16) INJECT/INFUSE NEC (09/28/12) PHARMACOTHERAPY FOR SUBSTANCE ABUSE, METHADONE MAINT (11/01/16) ULTRASONOGRAPHY OF LIVER (10/31/17) Family History: States: No Known Family Hx - Social History Hx Tobacco Use: Yes Hx Alcohol Use: No Hx Substance Use: No - Immunization History Hx Tetanus Toxoid Vaccination: Yes Hx Influenza Vaccination: No Hx Pneumococcal Vaccination: No Review Of Systems Except As Marked, All Systems Reviewed And Found Negative. Musculoskeletal: Positive for: Leg Pain (swelling) Physical Exam - Physical Exam Appears: Non-toxic, No Acute Distress Skin: Warm, Dry, No Rash, Jaundice Head: Atraumatic, Normacephalic Eye(s): bilateral: PERRL, EOMI, Scleral Icterus Oral Mucosa: Moist Neck: Supple Cardiovascular: Rhythm Regular Respiratory: Normal Breath Sounds, No Rales, No Rhonchi, No Wheezing Gastrointestinal/Abdominal: Soft, No Tenderness, No Guarding, No Rebound Extremity: Capillary Refill (<2 seconds), No Deformity, Other (+4 pitting edema to lower extremities bilaterally) Pulses: Left Dorsalis Pedis: Normal, Right Dorsalis Pedis: Normal Neurological/Psych: Oriented x3, Normal Speech, Normal Motor, Normal Sensation ED Course And Treatment - Laboratory Results Result Diagrams: 11/25/17 17:30 11/25/17 17:30 ECG: Interpreted By Me, Viewed By Me ECG Rhythm: Sinus Rhythm Interpretation Of ECG: Normal interval. Normal access Rate From EC (BPM) O2 Sat by Pulse Oximetry: 98 (RA) Pulse Ox Interpretation: Normal Medical Decision Making Medical Decision Making: Assessment: Leg swelling 1417: D/w Dr. Bunch, instructed to admit patient under Dr. Gupat service Disposition Discussed With : Anam Gupta Doctor Will See Patient In The: Hospital Counseled Patient/Family Regarding: Studies Performed, Diagnosis - Disposition Disposition: HOSPITALIZED Disposition Time: 18:19 Condition: FAIR Forms: [facility] (Estonian) - Clinical Impression Clinical Impression: SOB (shortness of breath), Edema - Scribe Statement The provider has reviewed the documentation as recorded by the Scribmica Morfin All medical record entries made by the Scribe were at my direction and personally dictated by me. I have reviewed the chart and agree that the record accurately reflects my personal performance of the history, physical exam, medical decision making, and the department course for this patient. I have also personally directed, reviewed, and agree with the discharge instructions and disposition.
[2017-11-25 17:34] LABS: RED CELL DISTRIBUTION WIDTH 15.6 % (11.5-14.5)
[2017-11-25 17:39] LABS: HEMOGLOBIN 9.8 g/dL (12.0-18.0); MEAN CELL VOLUME 93.3 fL (80.0-94.0); MEAN CORPUSCULAR HEMOGLOBIN 31.4 pg (27.0-31.0); MEAN CORPUSCULAR HGB CONC 33.6 g/dL (33.0-37.0); RBC 3.13 Mil/uL (4.40-5.90); WHITE BLOOD COUNT 10.1 K/uL (4.8-10.8)
[2017-11-25 17:49] LABS: INR 1.6; PROTHROMBIN TIME 17.6 SECONDS (9.7-12.2)
[2017-11-25 17:53] LABS: BLOOD UREA NITROGEN 15 mg/dL (9-20); GFR AFRICAN-AMERICAN > 60; GFR NON-AFRICAN AMERICAN > 60
[2017-11-25 17:54] LABS: ALB/GLOB RATIO 0.9 (1.0-2.1); ALBUMIN 3.2 g/dL (3.5-5.0); ALT/SGPT 56 U/L (21-72); AST/SGOT 145 U/L (17-59); CALCIUM 9.2 mg/dl (8.6-10.4)
[2017-11-25 17:59] LABS: B-TYPE NATRIURETIC PEPTIDE 795 pg/mL (0-900)
--- NOTE | 2017-11-25 18:27 | RAD ---
Date of service: 11/25/2017 PROCEDURE: CHEST RADIOGRAPH, 1 VIEW HISTORY: SOB COMPARISON: 10/31/2017. FINDINGS: LUNGS: Clear. PLEURA: No pneumothorax or pleural fluid seen. CARDIOVASCULAR: No radiographic findings to suggest acute or significant cardiovascular disease. OSSEOUS STRUCTURES: No significant abnormalities. VISUALIZED UPPER ABDOMEN: Normal. OTHER FINDINGS: None. IMPRESSION: No active disease. No acute/significant interval changes.
--- NOTE | 2017-11-25 22:36 | CP.PCM.HP ---
<Anam Gupta P - Last Filed: 11/26/17 06:25> Meds Allergies/Adverse Reactions: Allergies Allergy/AdvReac Type Severity Reaction Status Date / Time aspirin AdvReac VOMITING Verified 11/25/17 14:42 Results - Vital Signs Recent Vital Signs: Last Vital Signs Temp 98.1 F 11/25/17 23:45 Pulse 60 11/26/17 04:50 Resp 20 11/25/17 23:45 BP 134/65 11/25/17 23:45 Pulse Ox 97 11/25/17 23:45 - Labs Result Diagrams: 11/25/17 17:30 11/25/17 17:30 Labs: Laboratory Results - last 24 hr 11/25/17 11/25/17 11/25/17 17:30 17:30 17:30 WBC 10.1 RBC 3.13 L Hgb 9.8 L Hct 29.2 L MCV 93.3 MCH 31.4 H MCHC 33.6 RDW 15.6 H Plt Count 249 MPV 9.0 PT 17.6 H INR 1.6 APTT 33 D-Dimer, Quantitative 493 H Sodium 138 Potassium 4.4 Chloride 99 Carbon Dioxide 29 Anion Gap 15 BUN 15 Creatinine 0.9 Est GFR ( Amer) > 60 Est GFR (Non-Af Amer) > 60 Random Glucose 206 H Calcium 9.2 Magnesium 1.9 Total Bilirubin 8.5 H AST 145 H ALT 56 Alkaline Phosphatase 490 H Troponin I < 0.0120 NT-Pro-B Natriuret Pep 795 Total Protein 6.9 Albumin 3.2 L Globulin 3.7 Albumin/Globulin Ratio 0.9 L TSH 3rd Generation 0.54 Attending/Attestation - Attestation I have personally seen and examined this patient.: Yes I have fully participated in the care of the patient.: Yes I have reviewed all pertinent clinical information: Yes Notes (Text): 11/26/17 06:25 Assessment * B/l leg swelling gradual last few days most likely form pressure of liver on IVC, dd of b/l dvt, unlikely volume overload * Hepatocellular ca, not treated * Hep C untreated * Portal vein thrombosis on eliquis * RUQ pain on oxycodone * Homeless, lives in skilled nursing Plan * Venous doppler of both legs * Chest/abd/pelvis CT with contrast to asses above DD and check spread * Pain control * Poor prognosis * Palliative care be consulted. * See orders for detail. <Alyson Ballesteros - Last Filed: 11/26/17 09:14> History of Present Illness - History of Present Illness History of Present Illness: HPI: Patient is a 57 year old male with a past medical history of hepatocellular cancer, hepatitis C, right portal vein thrombosis, HTN, DM, who presents with complaints of bilateral lower extremity swelling. The patient states hes had swelling for 7 days, has been taking a water pill that his PMD prescribed, and has not had relief. He says he has leg swelling several years ago which resolved with a water pill. He currently complains of swellng and pain described at pressure and burning in both legs. Patient denies chest pain, palpitations, dyspnea, cough, nausea, vomiting, fevers, headaches, dysuria, hematuria, diarrhea, constipation, abdominal pain. PMD: Dr. Butler PMHx: hepatocellular cancer, hepatitis C, right portal vein thrombosis, HTN, DM , sciatic, depression SurgHx: denies FamHx: Father- colon cancer SocHx: 1-1.5ppd x40+ years; social etoh use; formerly used cocaine (14 years ago ); homeless and lives in a skilled nursing Medications: "a water pill", Eliquis 5mg PO BID, Oxycodone 15mg PO QID Allergies: Aspirin Present on Admission - Present on Admission Any Indicators Present on Admission: Yes History of DVT/PE: Yes Review of Systems - Constitutional Constitutional: absent: Chills, Fever, Headache, Weakness - EENT Eyes: absent: Change in Vision - Cardiovascular Cardiovascular: Leg Edema. absent: Chest Pain, Dyspnea, Palpitations - Respiratory Respiratory: absent: Cough, Dyspnea, Hemoptysis - Gastrointestinal Gastrointestinal: absent: Abdominal Pain, Constipation, Diarrhea, Hematemesis, Hematochezia, Melena, Nausea, Vomiting - Genitourinary Genitourinary: absent: Dysuria, Hematuria, Pyuria - Integumentary Integumentary: Swelling (b/l LE). absent: Erythema, Sores, Unusual Bruising - Neurological Neurological: absent: Dizziness, Headaches - Endocrine Endocrine: absent: Fatigue, Palpitations - Hematologic/Lymphatic Hematologic: absent: Easy Bleeding, Easy Bruising Past Patient History - Infectious Disease Hx of Infectious Diseases: None - Past Medical History & Family History Past Medical History?: Yes - Past Social History Smoking Status: Heavy Smoker > 10 Cigarettes Daily - CARDIAC Hx Hypertension: Yes - PULMONARY Hx Respiratory Disorders: No Hx Tuberculosis: No (Patient denied) - NEUROLOGICAL Hx Seizures: No (Patient denied) - HEENT Hx HEENT Problems: No - RENAL Hx Chronic Kidney Disease: Yes Hx Kidney Stones: Yes - ENDOCRINE/METABOLIC Hx Endocrine Disorders: Yes Hx Diabetes Mellitus Type 2: Yes Other/Comment: "enlarged spleen" - HEMATOLOGICAL/ONCOLOGICAL Hx Human Immunodeficiency Virus (HIV): No (Patient denied) - INTEGUMENTARY Hx Dermatological Problems: No - MUSCULOSKELETAL/RHEUMATOLOGICAL Hx Musculoskeletal Disorders: Yes - GASTROINTESTINAL Hx Gastrointestinal Disorders: Yes Other/Comment: Gallstones - GENITOURINARY/GYNECOLOGICAL Hx Sexually Transmitted Disorders: No (Patient denied) - PSYCHIATRIC Hx Anxiety: Yes Hx Depression: Yes Hx Substance Use: No - SURGICAL HISTORY Hx Surgeries: No Other/Comment: Liver biopsy - ANESTHESIA Hx Anesthesia: No Physical Exam - Constitutional Appears: No Acute Distress - Head Exam Head Exam: ATRAUMATIC, NORMAL INSPECTION - Eye Exam Eye Exam: EOMI, PERRL, Scleral icterus - ENT Exam ENT Exam: Mucous Membranes Moist - Respiratory Exam Respiratory Exam: Decreased Breath Sounds, NORMAL BREATHING PATTERN. absent: Rales, Rhonchi, Wheezes, Respiratory Distress - Cardiovascular Exam Cardiovascular Exam: REGULAR RHYTHM, +S1, +S2 - GI/Abdominal Exam GI & Abdominal Exam: Guarding (w/palpation of RUQ), Normal Bowel Sounds, Soft, Tenderness (Right upper quadrant). absent: Distended, Firm - Extremities Exam Extremities exam: Positive for: full ROM, pedal edema (extending to knees b/l), tenderness. Negative for: calf tenderness, normal inspection, pedal pulses present (nonpalpable due to edema) - Neurological Exam Neurological exam: Alert, CN II-XII Intact, Oriented x3 - Psychiatric Exam Psychiatric exam: Normal Affect, Normal Mood - Skin Skin Exam: Dry, Intact, Warm Additional comments: Jaundiced Results - Vital Signs Recent Vital Signs: Last Vital Signs Temp 99.2 F 11/25/17 22:27 Pulse 72 11/25/17 22:27 Resp 20 11/25/17 22:27 BP 175/73 H 11/25/17 22:27 Pulse Ox 99 11/25/17 22:27 - Labs Result Diagrams: 11/26/17 07:49 11/26/17 07:49 Labs: Laboratory Results - last 24 hr 11/25/17 11/25/17 11/25/17 17:30 17:30 17:30 WBC 10.1 RBC 3.13 L Hgb 9.8 L Hct 29.2 L MCV 93.3 MCH 31.4 H MCHC 33.6 RDW 15.6 H Plt Count 249 MPV 9.0 PT 17.6 H INR 1.6 APTT 33 D-Dimer, Quantitative 493 H Sodium 138 Potassium 4.4 Chloride 99 Carbon Dioxide 29 Anion Gap 15 BUN 15 Creatinine 0.9 Est GFR ( Amer) > 60 Est GFR (Non-Af Amer) > 60 Random Glucose 206 H Calcium 9.2 Magnesium 1.9 Total Bilirubin 8.5 H AST 145 H ALT 56 Alkaline Phosphatase 490 H Troponin I < 0.0120 NT-Pro-B Natriuret Pep 795 Total Protein 6.9 Albumin 3.2 L Globulin 3.7 Albumin/Globulin Ratio 0.9 L TSH 3rd Generation 0.54 Assessment & Plan - Assessment and Plan (Free Text) Assessment: Bilateral Lower Extremity Swelling - May be due liver compressing surrounding structures. - Lasix given in the ED - Venous dopplers b/l: f/u - Chest/Abd/Pelv CT: f/u Portal Vein Thrombosis - Continue home medication: Eliquis 5mg PO BID Hepatocellular carcinoma - Not treated; recently diagnosed [At last admission in 10/2017- was recommended outpatient follow up in [facility] for further management] - Continue home medication: Oxycodone 15mg PO QID for pain - Palliative care consult for goals of care Hx chronic Hepatitis C - Hepatitis C RNA (11/02/17): [id number] - HCV RNA Quantitative PCR (11/02/17): 6.32 - No previous treatment Tobacco abuse - Nicoderm patch Prophylaxis - DVT: ELiquis 5mg PO BID; SCDs C/I due to swelling - GI: not indicated - Regular diet - PT/OT - Palliative care consult for goals of care
--- NOTE | 2017-11-26 06:59 | CP.PCM.PN ---
<Candelaria Redman - Last Filed: 11/26/17 19:11> Subjective - Date & Time of Evaluation Date of Evaluation: 11/26/17 Time of Evaluation: 09:00 - Subjective Subjective: Pt examined in room, on way to CT. Patient complains of swelling and pain in legs B/L. He states he continues to have abdominal pain. Patient denies chest pain, SOB, nausea, diarrhea, constipation. Objective - Vital Signs/Intake and Output Vital Signs (last 24 hours): Temp Pulse Resp BP Pulse Ox 98.1 F 60 20 134/65 97 11/25/17 23:45 11/26/17 04:50 11/25/17 23:45 11/25/17 23:45 11/25/17 23:45 - Medications Medications: Current Medications Apixaban (Eliquis) 5 mg PO BID [facility] Oxycodone HCl (Oxycodone Immediate Release Tab) 15 mg PO QID [facility]ENDA - Labs Labs: 11/25/17 17:30 11/25/17 17:30 PT 17.6 SECONDS (9.7-12.2) H 11/25/17 17:30 INR 1.6 11/25/17 17:30 APTT 33 SECONDS (21-34) 11/25/17 17:30 - Constitutional Appears: Non-toxic, No Acute Distress - Head Exam Head Exam: ATRAUMATIC, NORMAL INSPECTION, NORMOCEPHALIC - Eye Exam Eye Exam: EOMI, Normal appearance - Neck Exam Neck Exam: Normal Inspection - Respiratory Exam Respiratory Exam: Decreased Breath Sounds, NORMAL BREATHING PATTERN. absent: Accessory Muscle Use, Rales, Rhonchi, Wheezes - Cardiovascular Exam Cardiovascular Exam: REGULAR RHYTHM, +S1, +S2. absent: Tachycardia, Murmur - GI/Abdominal Exam GI & Abdominal Exam: Distended, Tenderness, Normal Bowel Sounds. absent: Guarding, Rebound - Extremities Exam Extremities Exam: Normal Capillary Refill, Pedal Edema. absent: Calf Tenderness , Joint Swelling - Neurological Exam Neurological Exam: Alert, Awake, Normal Gait, Oriented x3 - Psychiatric Exam Psychiatric exam: Normal Affect, Normal Mood - Skin Skin Exam: Intact, Warm. absent: Normal Color (jaundice) Assessment and Plan - Assessment and Plan (Free Text) Assessment: Bilateral Lower Extremity Swelling - May be due liver compressing surrounding structures. - Lasix 20mg PO daily - flomax .4 to assist with urinary retention - Venous dopplers b/l: f/u - Chest x-ray shows no active disease - CTAbd/Pelv CT shows multifocal low-attenuated areas in r/l lobe of liver, suspicious for metastasis vs HCC neoplasm. Minimal ascites. Hepatosplenomegaly. Chloelithiasis. Pericholecystic fluid. -morphine 1mg Q3 pain -Oxycodone 15mg PO QID pain Portal Vein Thrombosis - Continue home medication: Eliquis 5mg PO BID Hepatocellular carcinoma - Not treated; recently diagnosed [At last admission in 10/2017- was recommended outpatient follow up in [facility] for further management] - Oxycodone 15mg PO QID for pain - morphine 1mg Q3 PRN pain - Palliative care consult for goals of care Hx chronic Hepatitis C - Hepatitis C RNA (11/02/17): [id number] - HCV RNA Quantitative PCR (11/02/17): 6.32 - No previous treatment Tobacco abuse - Nicoderm patch Prophylaxis - DVT: ELiquis 5mg PO BID; SCDs C/I due to swelling - GI: not indicated - Regular diet - PT/OT - Palliative care consult for goals of care <Isauro Bunch - Last Filed: 11/26/17 19:28> Objective - Vital Signs/Intake and Output Vital Signs (last 24 hours): Temp Pulse Resp BP Pulse Ox 98.6 F 63 20 162/67 H 97 11/26/17 15:41 11/26/17 15:50 11/26/17 15:41 11/26/17 15:41 11/26/17 15:41 Intake and Output: 11/26/17 11/27/17 18:59 06:59 Intake Total 200 Balance 200 - Medications Medications: Current Medications Apixaban (Eliquis) 5 mg PO BID [facility] Last Admin: 11/26/17 17:42 Dose: 5 mg Furosemide (Lasix) 20 mg IVP Q12 [facility] Morphine Sulfate (Morphine) 1 mg IVP Q3 PRN PRN Reason: Pain, moderate (4-7) Nicotine (Nicoderm Cq) 1 patch TD DAILY [facility] Last Admin: 11/26/17 11:22 Dose: Not Given Oxycodone HCl (Oxycodone Immediate Release Tab) 15 mg PO QID [facility] Last Admin: 11/26/17 17:42 Dose: 15 mg Pneumococcal Polyvalent Vaccine (Pneumovax 23 Vaccine) 0.5 ml IM .ONCE ONE Stop: 11/27/17 14:42 Tamsulosin HCl (Flomax) 0.4 mg PO DAILY [facility] Last Admin: 11/26/17 17:41 Dose: 0.4 mg - Labs Labs: 11/26/17 07:49 11/26/17 07:49 PT 17.6 SECONDS (9.7-12.2) H 11/25/17 17:30 INR 1.6 11/25/17 17:30 APTT 33 SECONDS (21-34) 11/25/17 17:30 Attending/Attestation - Attestation I have personally seen and examined this patient.: Yes I have fully participated in the care of the patient.: Yes I have reviewed all pertinent clinical information, including history, physical exam and plan: Yes Notes (Text): Medical attending: Patient was seen and examined by me. Agree with the above note by the resident The patient is known to our hospitalist service from previous admissions as he has had abdominal pain the last time from a portal vein thrombosis as well with a history of liver cirrhosis and also having HCC. So far he does not have development of large amount of abdominal ascities - but he does have signifigant build up of edema in lower extremities - probably due to venous backup from the the liver cirrhosis situation. He is able to ambulate but he explains that the legs and feet are heavy and painful with the edema in the legs. Isauro Bunch
[2017-11-26 07:58] LABS: HEMOGLOBIN 9.9 g/dL (12.0-18.0); MEAN CELL VOLUME 92.6 fL (80.0-94.0); MEAN CORPUSCULAR HEMOGLOBIN 32.1 pg (27.0-31.0); MEAN CORPUSCULAR HGB CONC 34.6 g/dL (33.0-37.0); MEAN PLATELET VOLUME 9.6 fL (7.2-11.7); RBC 3.08 Mil/uL (4.40-5.90); RED CELL DISTRIBUTION WIDTH 15.6 % (11.5-14.5); WHITE BLOOD COUNT 9.1 K/uL (4.8-10.8)
[2017-11-26 08:10] LABS: ALB/GLOB RATIO 0.9 (1.0-2.1); ALBUMIN 3.2 g/dL (3.5-5.0); ALT/SGPT 59 U/L (21-72); AST/SGOT 136 U/L (17-59); BLOOD UREA NITROGEN 14 mg/dL (9-20); CALCIUM 9.2 mg/dl (8.6-10.4); GFR AFRICAN-AMERICAN > 60; GFR NON-AFRICAN AMERICAN > 60
[2017-11-26] MEDS ORDERED: Iodixanol 320 MG/ML 100 ML BOTTLE IV ONE ×2 (09:23→09:39)
[2017-11-26] MEDS: oxyCODONE 5 mg Immediate Release Tab PO SCH ×4 (10:20→22:12)
[2017-11-26 10:36] LABS: BASO # 0.1 K/uL (0.0-0.2); EOS # 0.3 K/uL (0.0-0.7); LYMPH # 0.9 K/uL (1.0-4.3); MONO # 0.6 K/uL (0.0-0.8); NEUT # 7.2 K/uL (1.8-7.0)
[2017-11-26 10:42] LABS: BASO # 0.1 K/uL (0.0-0.2); BASO % 1.3 % (0.0-2.0); EOS # 0.2 K/uL (0.0-0.7); EOS % 1.6 % (0.0-4.0); LYMPH # 2.3 K/uL (1.0-4.3); MONO # 0.7 K/uL (0.0-0.8); MONO % 7.3 % (0.0-10.0); NEUT # 6.8 K/uL (1.8-7.0); NEUT % 66.6 % (50.0-75.0)
[2017-11-26] MEDS ORDERED: Pneumococcal 23-Valent Vaccine IM ONE (11:44)
--- NOTE | 2017-11-26 14:55 | CT ---
Date of service: 11/26/2017 PROCEDURE: CT Chest, Abdomen and Pelvis with intravenous contrast HISTORY: liver cancer COMPARISON: None available. TECHNIQUE: IV dose administered: 100 mL Visipaque 320 Radiation dose: Total exam DLP = mGy-cm. This CT exam was performed using one or more of the following dose reduction techniques: Automated exposure control, adjustment of the mA and/or kV according to patient size, and/or use of iterative reconstruction technique. FINDINGS: CT CHEST WITH CONTRAST: LUNGS: Clear. No nodule, mass or consolidation. MEDIASTINUM: Unremarkable. Normal caliber aorta and pulmonary arterial trunk. No aortic dissection. Normal size heart. Coronary arterial calcification noted. LYMPH NODES: Unremarkable. PLEURA: Unremarkable. No pneumothorax. No pleural fluid. BONES: Unremarkable. OTHER FINDINGS: None. CT ABDOMEN AND PELVIS: LIVER: Hepatomegaly. Multifocal ill-defined areas of diminished attenuation in the right hepatic lobe as well as few areas in the left hepatic lobe, suspicious for metastatic disease versus multifocal hepatic cellular neoplasm. No intrahepatic biliary ductal dilatation. Persistent demonstration of portal venous thrombosis, possibly by direct tumor invasion. This involves main portal vein and the right portal vein. This is unchanged in appearance compared to the prior CT examination. GALLBLADDER AND BILE DUCTS: Cholelithiasis. Mild nonspecific pericholecystic fluid. PANCREAS: Unremarkable. No gross lesion or ductal dilatation. SPLEEN: Mild splenomegaly. The spleen measures up to 15.6 cm greatest dimension. No focal mass. ADRENALS: Unremarkable. No mass. KIDNEYS AND URETERS: Unremarkable. No hydronephrosis. No solid mass. VASCULATURE: Unremarkable. No aortic aneurysm. BOWEL: Sigmoid diverticulosis without evidence of diverticulitis. No bowel obstruction. No other abnormal bowel loops. APPENDIX: Normal appendix. PERITONEUM: Minimal ascites, predominantly about the liver and spleen and in trace fluid in the pelvis. Very small umbilical hernia containing only mesenteric fat. LYMPH NODES: Unremarkable. No enlarged lymph nodes. BLADDER: Unremarkable. REPRODUCTIVE: Normal prostate BONES: No acute fracture. OTHER FINDINGS: None. IMPRESSION: Multifocal ill-defined areas of low attenuation in the right and left lobe of the liver, right greater than left. Suspicious for metastasis versus multifocal hepatocellular neoplasm. Hepatosplenomegaly. Minimal ascites. No evidence of remote metastasis elsewhere. Portal venous thrombosis as detailed above. Cholelithiasis. Pericholecystic fluid is nonspecific particularly in light of mild generalized ascites. Additional minor findings as above.
[2017-11-26] MEDS ORDERED: Alum-Mag Hydrox-Simethicone Susp (30 mL) PO ONE (22:42)
--- NOTE | 2017-11-27 08:23 | CP.PCM.PN ---
Subjective - Date & Time of Evaluation Date of Evaluation: 11/27/17 Time of Evaluation: 08:20 - Subjective Subjective: Pt seen and examined at bedside. Pt complains of r sided lower quadrant belly pain, soreness and cramping. Pt had a normal consitency and colored bowel movement. pt denies f/c n/v sob, chest pain Objective - Vital Signs/Intake and Output Vital Signs (last 24 hours): Temp Pulse Resp BP Pulse Ox 98.5 F 65 18 169/68 H 98 11/27/17 07:10 11/27/17 07:10 11/27/17 07:10 11/27/17 07:10 11/27/17 07:10 Intake and Output: 11/27/17 11/27/17 06:59 18:59 Intake Total 350 Balance 350 - Medications Medications: Current Medications Apixaban (Eliquis) 5 mg PO BID [facility]CLUDES [facility] Last Admin: 11/26/17 17:42 Dose: 5 mg Furosemide (Lasix) 20 mg IVP Q12 [facility] INCLUDES [facility] Last Admin: 11/26/17 22:11 Dose: 20 mg Morphine Sulfate (Morphine) 1 mg IVP Q3 PRN PRN Reason: Pain, moderate (4-7) Nicotine (Nicoderm Cq) 1 patch TD DAILY [facility]CLUDES [facility] Last Admin: 11/26/17 11:22 Dose: Not Given Oxycodone HCl (Oxycodone Immediate Release Tab) 15 mg PO QID COUNT INCLUDES [facility] Last Admin: 11/26/17 22:12 Dose: 15 mg Pneumococcal Polyvalent Vaccine (Pneumovax 23 Vaccine) 0.5 ml IM .ONCE ONE Stop: 11/27/17 14:42 Tamsulosin HCl (Flomax) 0.4 mg PO DAILY COUNT [facility]CLUDES [facility] Last Admin: 11/26/17 17:41 Dose: 0.4 mg - Labs Labs: 11/26/17 07:49 11/26/17 07:49 PT 17.6 SECONDS (9.7-12.2) H 11/25/17 17:30 INR 1.6 11/25/17 17:30 APTT 33 SECONDS (21-34) 11/25/17 17:30 Assessment and Plan - Assessment and Plan (Free Text) Assessment: - Constitutional Appears: Non-toxic, No Acute Distress - Head Exam Head Exam: ATRAUMATIC, NORMAL INSPECTION, NORMOCEPHALIC - Eye Exam Eye Exam: EOMI, Normal appearance - Neck Exam Neck Exam: Normal Inspection - Respiratory Exam Respiratory Exam: Decreased Breath Sounds, NORMAL BREATHING PATTERN. absent: Accessory Muscle Use, Rales, Rhonchi, Wheezes - Cardiovascular Exam Cardiovascular Exam: REGULAR RHYTHM, +S1, +S2. absent: Tachycardia, Murmur - GI/Abdominal Exam GI & Abdominal Exam: Distended, Tenderness, Normal Bowel Sounds. absent: Guarding, Rebound, RLQ pain on palpation - Extremities Exam Extremities Exam: Normal Capillary Refill, Pedal Edema. absent: Calf Tenderness , Joint Swelling - Neurological Exam Neurological Exam: Alert, Awake, Normal Gait, Oriented x3 - Psychiatric Exam Psychiatric exam: Normal Affect, Normal Mood - Skin Skin Exam: Intact, Warm. absent: Normal Color (jaundice) Assessment and Plan - Assessment and Plan (Free Text) Assessment: Bilateral Lower Extremity Swelling - May be due liver compressing surrounding structures. - Lasix 20mg PO daily - flomax .4 to assist with urinary retention - Venous dopplers b/l: pending report - Chest x-ray shows no active disease - CTAbd/Pelv CT shows multifocal low-attenuated areas in r/l lobe of liver, suspicious for metastasis vs HCC neoplasm. Minimal ascites. Hepatosplenomegaly. Chloelithiasis. Pericholecystic fluid. -morphine 1mg Q3 pain -Oxycodone 15mg PO QID pain Portal Vein Thrombosis - Continue home medication: Eliquis 5mg PO BID Hepatocellular carcinoma - Not treated; recently diagnosed [At last admission in 10/2017- was recommended outpatient follow up in [facility] for further management] - Oxycodone 15mg PO QID for pain - morphine 1mg Q3 PRN pain - Palliative care consult for goals of care Hx chronic Hepatitis C - Hepatitis C RNA (11/02/17): [id number] - HCV RNA Quantitative PCR (11/02/17): 6.32 - No previous treatment Tobacco abuse - Nicoderm patch Prophylaxis - DVT: ELiquis 5mg PO BID; SCDs C/I due to swelling - GI: not indicated - Regular diet - PT/OT - Palliative care consult for goals of care
[2017-11-27 09:03] LABS: HEMOGLOBIN 10.8 g/dL (12.0-18.0); MEAN CELL VOLUME 93.2 fL (80.0-94.0); MEAN CORPUSCULAR HGB CONC 34.3 g/dL (33.0-37.0); MEAN PLATELET VOLUME 9.8 fL (7.2-11.7); RBC 3.39 Mil/uL (4.40-5.90); RED CELL DISTRIBUTION WIDTH 15.4 % (11.5-14.5); WHITE BLOOD COUNT 12.4 K/uL (4.8-10.8)
[2017-11-27 09:28] LABS: ALB/GLOB RATIO 0.9 (1.0-2.1); ALBUMIN 3.6 g/dL (3.5-5.0); ALT/SGPT 77 U/L (21-72); AST/SGOT 168 U/L (17-59); BLOOD UREA NITROGEN 12 mg/dL (9-20); CALCIUM 9.4 mg/dl (8.6-10.4); GFR AFRICAN-AMERICAN > 60; GFR NON-AFRICAN AMERICAN > 60
[2017-11-27 10:08] LABS: BASO # 0.1 K/uL (0.0-0.2); BASO % 0.8 % (0.0-2.0); EOS % 2.2 % (0.0-4.0); LYMPH % 16.9 % (20.0-40.0); MONO % 5.6 % (0.0-10.0); NEUT % 74.5 % (50.0-75.0)
[2017-11-27 10:09] LABS: EOS # 0.3 K/uL (0.0-0.7); LYMPH # 2.1 K/uL (1.0-4.3); MONO # 0.7 K/uL (0.0-0.8); NEUT # 9.2 K/uL (1.8-7.0); NRBC % 0.1 % (0.0-2.0)
[2017-11-27] MEDS: oxyCODONE 5 mg Immediate Release Tab PO SCH ×4 (10:39→21:16)
--- NOTE | 2017-11-27 12:32 | CARD ---
APPROVED REPORT Date of service: 11/25/2017 EKG Measurement Heart [id number] <Conclusion> Normal sinus rhythm Normal ECG
[2017-11-27] MEDS ORDERED: (Novolin R) Insulin Human Regular 100 units/ml vial SC ONE (12:59)
[2017-11-27] MEDS ORDERED: Pneumococcal 23-Valent Vaccine IM ONE (14:41)
[2017-11-27 16:50] VITALS: RESP 20
[2017-11-27] MEDS: (Novolog) Insulin Aspart, Recombinant 100 u/ml 10 ml vial SC SCH ×2 (17:55→21:54)
[2017-11-28] MEDS: (Novolog) Insulin Aspart, Recombinant 100 u/ml 10 ml vial SC SCH ×4 (07:39→21:44)
[2017-11-28 07:58] LABS: BASO # 0.1 K/uL (0.0-0.2); BASO % 1.3 % (0.0-2.0); EOS # 0.3 K/uL (0.0-0.7); EOS % 3.1 % (0.0-4.0); HEMOGLOBIN 10.3 g/dL (12.0-18.0); LYMPH # 2.3 K/uL (1.0-4.3); LYMPH % 21.7 % (20.0-40.0); MEAN CELL VOLUME 92.8 fL (80.0-94.0); MEAN CORPUSCULAR HEMOGLOBIN 31.8 pg (27.0-31.0); MEAN CORPUSCULAR HGB CONC 34.2 g/dL (33.0-37.0); MEAN PLATELET VOLUME 9.8 fL (7.2-11.7); MONO # 0.6 K/uL (0.0-0.8); MONO % 6.1 % (0.0-10.0); NEUT % 67.8 % (50.0-75.0); NRBC % 0.1 % (0.0-2.0); RBC 3.23 Mil/uL (4.40-5.90); RED CELL DISTRIBUTION WIDTH 15.7 % (11.5-14.5); WHITE BLOOD COUNT 10.4 K/uL (4.8-10.8)
--- NOTE | 2017-11-28 08:14 | CP.PCM.PN ---
Subjective - Date & Time of Evaluation Date of Evaluation: 11/28/17 Time of Evaluation: 08:13 - Subjective Subjective: Pt seen and examined at bedside. Pt reports RUQ belly pain worse on palpation. Pt reports sleeping better this night than yesterday. Pt denies n/v f/c sob chest pain. Objective - Vital Signs/Intake and Output Vital Signs (last 24 hours): Temp Pulse Resp BP Pulse Ox 99.1 F 63 20 163/71 H 98 11/27/17 23:35 11/28/17 00:27 11/27/17 23:35 11/27/17 23:35 11/27/17 23:35 - Medications Medications: Current Medications Al Hydrox/Mg Hydrox/Simethicone (Maalox 30 Ml) 30 ml PO DAILY PRN PRN Reason: Indigestion / Heartburn Apixaban (Eliquis) 5 mg PO BID [facility] Last Admin: 11/27/17 17:55 Dose: 5 mg Furosemide (Lasix) 20 mg IVP Q12 [facility] Last Admin: 11/27/17 21:15 Dose: 20 mg Insulin Aspart (Novolog) 0 unit SC ACHS [facility] PRN Reason: Protocol Last Admin: 11/28/17 07:39 Dose: Not Given Morphine Sulfate (Morphine) 1 mg IVP Q3 PRN PRN Reason: Pain, moderate (4-7) Last Admin: 11/28/17 03:48 Dose: 1 mg Nicotine (Nicoderm Cq) 1 patch TD DAILY [facility] Last Admin: 11/27/17 10:41 Dose: Not Given Oxycodone HCl (Oxycodone Immediate Release Tab) 15 mg PO QID [facility] Last Admin: 11/27/17 21:16 Dose: 15 mg Tamsulosin HCl (Flomax) 0.4 mg PO DAILY [facility] Last Admin: 11/27/17 10:41 Dose: 0.4 mg - Labs Labs: 11/28/17 07:43 11/27/17 08:44 PT 17.6 SECONDS (9.7-12.2) H 11/25/17 17:30 INR 1.6 11/25/17 17:30 APTT 33 SECONDS (21-34) 11/25/17 17:30 Assessment and Plan - Assessment and Plan (Free Text) Assessment: Constitutional Appears: Non-toxic, No Acute Distress - Head Exam Head Exam: ATRAUMATIC, NORMAL INSPECTION, NORMOCEPHALIC - Eye Exam Eye Exam: EOMI, Normal appearance - Neck Exam Neck Exam: Normal Inspection - Respiratory Exam Respiratory Exam: Decreased Breath Sounds, NORMAL BREATHING PATTERN. absent: Accessory Muscle Use, Rales, Rhonchi, Wheezes - Cardiovascular Exam Cardiovascular Exam: REGULAR RHYTHM, +S1, +S2. absent: Tachycardia, Murmur - GI/Abdominal Exam GI & Abdominal Exam: Distended, Tenderness, Normal Bowel Sounds. absent: Guarding, Rebound, RLQ pain on palpation - Extremities Exam Extremities Exam: Normal Capillary Refill, Pedal Edema. absent: Calf Tenderness , Joint Swelling - Neurological Exam Neurological Exam: Alert, Awake, Normal Gait, Oriented x3 - Psychiatric Exam Psychiatric exam: Normal Affect, Normal Mood - Skin Skin Exam: Intact, Warm. absent: Normal Color (jaundice) Assessment and Plan Bilateral Lower Extremity Swelling - May be due liver compressing surrounding structures. - Lasix 20mg PO daily - flomax .4 to assist with urinary retention - Venous dopplers b/l: pending report - Chest x-ray shows no active disease - CTAbd/Pelv CT shows multifocal low-attenuated areas in r/l lobe of liver, suspicious for metastasis vs HCC neoplasm. Minimal ascites. Hepatosplenomegaly. Chloelithiasis. Pericholecystic fluid. -morphine 1mg Q3 pain -Oxycodone 15mg PO QID pain Portal Vein Thrombosis - Continue home medication: Eliquis 5mg PO BID Hepatocellular carcinoma - Not treated; recently diagnosed [At last admission in 10/2017- was recommended outpatient follow up in [facility] for further management] - Oxycodone 15mg PO QID for pain - morphine 1mg Q3 PRN pain - Palliative care consult for goals of care Hx chronic Hepatitis C - Hepatitis C RNA (11/02/17): [id number] - HCV RNA Quantitative PCR (11/02/17): 6.32 - No previous treatment Tobacco abuse - Nicoderm patch Prophylaxis - DVT: ELiquis 5mg PO BID; SCDs C/I due to swelling - GI: not indicated - Regular diet - PT/OT - Palliative care consult for goals of care
[2017-11-28 08:23] LABS: ALB/GLOB RATIO 0.8 (1.0-2.1); ALBUMIN 3.2 g/dL (3.5-5.0); ALT/SGPT 70 U/L (21-72); AST/SGOT 167 U/L (17-59); BLOOD UREA NITROGEN 9 mg/dL (9-20); CALCIUM 9.1 mg/dl (8.6-10.4); GFR AFRICAN-AMERICAN > 60; GFR NON-AFRICAN AMERICAN > 60
[2017-11-28] MEDS: oxyCODONE 5 mg Immediate Release Tab PO SCH ×4 (09:47→21:44)
--- NOTE | 2017-11-28 16:01 | VASCLAB ---
Date of service: 11/26/2017 PROCEDURE: Lower Extremity Venous Duplex Exam. HISTORY: le edema PRIORS: None. TECHNIQUE: Bilateral common femoral, femoral, popliteal and posterior tibial, peroneal and great saphenous veins were evaluated. Flow was assessed with color Doppler, compressibility, assessment of phasic flow and augmentation response. Report prepared by Jaiden Jefferson, RADHA, RVT FINDINGS: RIGHT: 1. Common Femoral Vein: 1.1. Compressibility - Fully compressible: Thrombus - None : Flow - Phasic: Augmentation -Normal: Reflux - None. 2. Femoral Vein: 2.1. Compressibility - Fully compressible: Thrombus - None : Flow - Phasic: Augmentation -Normal: Reflux - None. 3. Popliteal Vein: 3.1. Compressibility - Fully compressible: Thrombus - None : Flow - Phasic: Augmentation -Normal: Reflux - None. 4. Posterior Tibial Vein: 4.1. Compressibility - Fully compressible: Thrombus - None: Flow - Phasic: Augmentation -Normal: Reflux - None. 5. Peroneal Vein: 5.1. Compressibility - Fully compressible: Thrombus - None: Flow - Phasic: Augmentation -Normal: Reflux - None. 6. Great Saphenous Vein: 6.1. Compressibility - Fully compressible: Thrombus - None: Flow - Phasic: Augmentation - Normal: Reflux - None. LEFT: 1. Common Femoral Vein: 1.1. Compressibility - Fully compressible: Thrombus - None: Flow - Phasic: Augmentation -Normal: Reflux - None. 2. Femoral Vein: 2.1. Compressibility - Fully compressible: Thrombus - None: Flow - Phasic: Augmentation -Normal: Reflux - None. 3. Popliteal Vein: 3.1. Compressibility - Fully compressible: Thrombus - None : Flow - Phasic: Augmentation -Normal: Reflux - None. 4. Posterior Tibial Vein: 4.1. Compressibility - Fully compressible: Thrombus - None: Flow - Phasic: Augmentation -Normal: Reflux - None. 5. Peroneal Vein: 5.1. Compressibility - Fully compressible: Thrombus - None: Flow - Phasic: Augmentation -Normal: Reflux - None. 6. Great Saphenous Vein: 6.1. Compressibility - Fully compressible: Thrombus - None: Flow - Phasic: Augmentation - Normal: Reflux - None. OTHER FINDINGS: Right: None significant. Left: None significant. IMPRESSION: Right: No evidence of deep or superficial vein thrombosis of the right lower extremity. Normal valve function noted of the right side. Left: No evidence of deep or superficial vein thrombosis of the left lower extremity. Normal valve function noted of the left side.
[2017-11-28] MEDS: Aluminum Hydroxide/Magnesium Hydroxide Susp (30 mL) PO PRN (17:28)
[2017-11-29 07:00] LABS: HEMOGLOBIN 10.2 g/dL (12.0-18.0); MEAN CELL VOLUME 92.3 fL (80.0-94.0); MEAN CORPUSCULAR HEMOGLOBIN 31.6 pg (27.0-31.0); MEAN CORPUSCULAR HGB CONC 34.3 g/dL (33.0-37.0); MEAN PLATELET VOLUME 9.9 fL (7.2-11.7); RBC 3.23 Mil/uL (4.40-5.90); RED CELL DISTRIBUTION WIDTH 15.5 % (11.5-14.5); WHITE BLOOD COUNT 10.9 K/uL (4.8-10.8)
[2017-11-29 07:48] VITALS: O2SAT 98
[2017-11-29 07:59] VITALS: TEMP 98.3
[2017-11-29 08:19] LABS: ALB/GLOB RATIO 0.9 (1.0-2.1); ALBUMIN 3.2 g/dL (3.5-5.0); ALT/SGPT 67 U/L (21-72); AST/SGOT 156 U/L (17-59); BLOOD UREA NITROGEN 14 mg/dL (9-20); CALCIUM 8.8 mg/dl (8.6-10.4); GFR AFRICAN-AMERICAN > 60; GFR NON-AFRICAN AMERICAN > 60
[2017-11-29] MEDS: (Novolog) Insulin Aspart, Recombinant 100 u/ml 10 ml vial SC SCH ×2 (08:56→12:27)
[2017-11-29 09:24] VITALS: BP 123/67
[2017-11-29] MEDS: Aluminum Hydroxide/Magnesium Hydroxide Susp (30 mL) PO PRN (09:24)
[2017-11-29 09:34] LABS: BASO % 1.2 % (0.0-2.0); EOS % 3.2 % (0.0-4.0); LYMPH # 2.1 K/uL (1.0-4.3); LYMPH % 19.1 % (20.0-40.0); MONO # 0.7 K/uL (0.0-0.8); MONO % 6.6 % (0.0-10.0); NEUT # 7.6 K/uL (1.8-7.0); NEUT % 69.9 % (50.0-75.0); NRBC % 0.1 % (0.0-2.0)
[2017-11-29 09:35] LABS: BASO # 0.1 K/uL (0.0-0.2); EOS # 0.4 K/uL (0.0-0.7)
[2017-11-29] MEDS: oxyCODONE 5 mg Immediate Release Tab PO SCH (11:07)
[2017-11-29 13:15] VITALS: PULSE 59
--- NOTE | 2017-11-29 13:59 | CP.PCM.CON ---
History of Present Illness - History of Present Illness History of Present Illness: Palliative consult requested by Doctor nilsa Mclaughlin for goals of care discussion Patient is a 57 yo male known to me from multiple, prior visits. [facility] with complaints of edema to LEs and painful walking X 7 days. Patient has had these symptoms in the past as well and were resolved with Lasix. Patient's PMD is Doctor Carrie. Patient also reports that recently he could not urinate X few days due to prostate issues. Once prescribed Flomax, symptoms subsided. Doppler of LEs was negative acute findings. CT abdomen and pelvis was significant for ascites and portal vein thrombosis but negative for remote mets. Sctered masses seen throughout the liver. On this admission Lasix Iv started with great result in reducing legs edema. PMH: Hep C, Liver CA, DVT, HTN, CKD Soc. Hx" single, home less, no family support, lives in [facility], smoked 1-1.5 ppd, former coccaine user Fam. Hx: father from colon cancer Review of Systems - Constitutional Constitutional: absent: As Per HPI, Anorexia, Chills, Daytime Sleepiness, Excessive Sweating, Fatigue, Fever, Frequent Falls, Headache, Increased Appetite , Lethargy, Malaise, Night Sweats, Snoring, Sleep Apnea, Weight Gain, Weight Loss, Weakness, Other - EENT Eyes: absent: As Per HPI, Blind Spots, Blurred Vision, Change in Vision, Decreased Night Vision, Diplopia, Discharge, Dry Eye, Exophthalmos, Floaters, Irritation, Itchy Eyes, Loss of Peripheral Vision, Pain, Photophobia, Requires Corrective Lenses, Sees Flashes, Spots in Vision, Tunnel Vision, Other Visual Disturbances, Loss of Vision, Other Ears: absent: As Per HPI, Decreased Hearing, Ear Discharge, Ear Pain, Tinnitus, Abnormal Hearing, Disequilibrium, Dizziness, Other Nose/Mouth/Throat: absent: As Per HPI, Epistaxis, Nasal Congestion, Nasal Discharge, Nasal Obstruction, Nasal Trauma, Nose Pain, Post Nasal Drip, Sinus Pain, Sinus Pressure, Bleeding Gums, Change in Voice, Dental Pain, Dry Mouth, Dysphagia, Halitosis, Hoarsness, Lip Swelling, Mouth Lesions, Mouth Pain, Odynophagia, Sore Throat, Throat Swelling, Tongue Swelling, Facial Pain, Neck Pain, Neck Mass, Other - Cardiovascular Cardiovascular: Edema - Respiratory Respiratory: Dyspnea on Exertion - Gastrointestinal Gastrointestinal: absent: As Per HPI, Abdominal Pain, Belching, Bloating, Change in Bowel Habits, Change in Stool Character, Coffee Ground Emesis, Constipation, Cramping, Diarrhea, Dyspepsia, Dysphagia, Early Satiety, Excessive Flatus, Fecal Incontinence, Heartburn, Hematemesis, Hematochezia, Loose Stools, Melena, Nausea, Odynophagia, Temesmus, Vomiting, Other - Genitourinary Genitourinary: absent: As Per HPI, Change in Urinary Stream, Difficulty Urinating, Dysuria, Flank Pain, Hematuria, Pyuria, Nocturia, Urinary Incontinence, Urinary Frequency, Urinary Hesitance, Urinary Urgency, Voiding Freq/Small Amts, Freq UTI, Hx Renal/Bladder Calculi, Hx /Renal Surgery, Bladder Distension, Other - Musculoskeletal Musculoskeletal: Limited Range of Motion - Integumentary Integumentary: Change in Pigmentation - Neurological Neurological: absent: As Per HPI, Abnormal Gait, Abnormal Hearing, Abnormal Movements, Abnormal Speech, Behavioral Changes, Burning Sensations, Confusion, Convulsions, Disequilibrium, Dizziness, Numbness, Focal Weakness, Frequent Falls , Headaches, Lack of Coordination, Loss of Vision, Memory Loss, Paresthesias, Radicular Pain, Restless Legs, Sensory Deficit, Syncope, Tingling, Tremor, Vertigo, Weakness, Other Visual Disturbances, Other - Psychiatric Psychiatric: absent: As Per HPI, Abnormal Sleep Pattern, Anhedonia, Anxiety, Auditory Hallucinations, Behavioral Changes, Change in Appetite, Change in Libido, Confusion, Depression, Difficulty Concentrating, Hallucinations, Homicidal Ideation, Hopelessness, Irritability, Memory Loss, Mood Swings, Panic Attacks, Paranoia, Suicidal Ideation, Visual Hallucinations, Tactile Hallucinations, Other - Endocrine Endocrine: absent: As Per HPI, Change in Body Appearance, Change in Libido, Cold Intolorance, Deepening of Voice, Excessive Sweating, Fatigue, Flushing, Heat Intolorance, Increase in Ring/Shoe/Hat Size, Palpitations, Polydipsia, Polyphagia, Polyuria, Other - Hematologic/Lymphatic Hematologic: absent: As Per HPI, Easy Bleeding, Easy Bruising, Lymphadenopathy, Other Past Patient History - Infectious Disease Hx of Infectious Diseases: None - Past Medical History & Family History Past Medical History?: Yes - Past Social History Smoking Status: Heavy Smoker > 10 Cigarettes Daily - CARDIAC Hx Hypertension: Yes - PULMONARY Hx Respiratory Disorders: No - NEUROLOGICAL Other/Comment: Sciatica - HEENT Hx HEENT Problems: No - RENAL Hx Chronic Kidney Disease: Yes Hx Kidney Stones: Yes - ENDOCRINE/METABOLIC Hx Diabetes Mellitus Type 2: Yes - HEMATOLOGICAL/ONCOLOGICAL Hx Hepatitis C: Yes - INTEGUMENTARY Other/Comment: Jaundice - MUSCULOSKELETAL/RHEUMATOLOGICAL Hx Musculoskeletal Disorders: Yes Hx Falls: No - GASTROINTESTINAL Hx Gastrointestinal Disorders: Yes Hx Gastritis: Yes (Gall stones) Hx Liver Failure: (Liver cancer, clot in the liver) Other/Comment: Gallstones,. Enlarged Spleen - GENITOURINARY/GYNECOLOGICAL Hx Sexually Transmitted Disorders: No (Patient denied) - PSYCHIATRIC Hx Anxiety: Yes Hx Depression: Yes Hx Substance Use: No - SURGICAL HISTORY Hx Surgeries: No Other/Comment: Liver biopsy - ANESTHESIA Hx Anesthesia: No Meds Home Medications: Home Medication List Medication Instructions Recorded Confirmed Type Tamsulosin [Flomax] 0.4 mg PO DAILY #30 cap 11/29/17 Rx Allergies/Adverse Reactions: Allergies Allergy/AdvReac Type Severity Reaction Status Date / Time aspirin AdvReac VOMITING Verified 11/25/17 14:42 Physical Exam - Constitutional Appears: Chronically Ill - Head Exam Head Exam: ATRAUMATIC, NORMAL INSPECTION, NORMOCEPHALIC - Eye Exam Eye Exam: EOMI, Normal appearance, Scleral icterus Pupil Exam: NORMAL ACCOMODATION, PERRL - ENT Exam ENT Exam: Mucous Membranes Moist, Normal Exam - Neck Exam Neck exam: Positive for: Normal Inspection - Respiratory Exam Respiratory Exam: Decreased Breath Sounds, NORMAL BREATHING PATTERN - Cardiovascular Exam Cardiovascular Exam: REGULAR RHYTHM - GI/Abdominal Exam GI & Abdominal Exam: Normal Bowel Sounds, Soft - Rectal Exam Rectal Exam: Deferred - Exam Exam: NORMAL INSPECTION - Extremities Exam Extremities exam: Positive for: normal inspection - Back Exam Back exam: NORMAL INSPECTION - Neurological Exam Neurological exam: Alert, Oriented x3 - Psychiatric Exam Psychiatric exam: Normal Affect, Normal Mood - Skin Additional comments: jaundice Results - Vital Signs Recent Vital Signs: Last Vital Signs Temp 98.3 F 11/29/17 07:05 Pulse 59 L 11/29/17 08:25 Resp 20 11/29/17 07:05 BP 123/67 11/29/17 09:21 Pulse Ox 98 11/29/17 07:48 - Labs Result Diagrams: 11/29/17 06:37 11/29/17 06:37 Labs: Laboratory Results - last 24 hr 11/27/17 11/27/17 11/27/17 07:03 12:33 17:26 WBC RBC Hgb Hct MCV MCH MCHC RDW Plt Count MPV Neut % (Auto) Lymph % (Auto) Ralls % (Auto) Eos % (Auto) Baso % (Auto) Neut # (Auto) Lymph # (Auto) Ralls # (Auto) Eos # (Auto) Baso # (Auto) Sodium Potassium Chloride Carbon Dioxide Anion Gap BUN Creatinine Est GFR ( Amer) Est GFR (Non-Af Amer) POC Glucose (mg/dL) 200 H 400 H* 264 H Random Glucose Calcium Phosphorus Magnesium Total Bilirubin AST ALT Alkaline Phosphatase Total Protein Albumin Globulin Albumin/Globulin Ratio 11/27/17 11/28/17 11/28/17 21:42 06:56 11:22 WBC RBC Hgb Hct MCV MCH MCHC RDW Plt Count MPV Neut % (Auto) Lymph % (Auto) Ralls % (Auto) Eos % (Auto) Baso % (Auto) Neut # (Auto) Lymph # (Auto) Ralls # (Auto) Eos # (Auto) Baso # (Auto) Sodium Potassium Chloride Carbon Dioxide Anion Gap BUN Creatinine Est GFR ( Amer) Est GFR (Non-Af Amer) POC Glucose (mg/dL) 226 H 149 H 250 H Random Glucose Calcium Phosphorus Magnesium Total Bilirubin AST ALT Alkaline Phosphatase Total Protein Albumin Globulin Albumin/Globulin Ratio 11/28/17 11/28/17 11/29/17 17:15 21:11 06:37 WBC 10.9 H RBC 3.23 L Hgb 10.2 L Hct 29.8 L MCV 92.3 MCH 31.6 H MCHC 34.3 RDW 15.5 H Plt Count 224 MPV 9.9 Neut % (Auto) 69.9 Lymph % (Auto) 19.1 L Ralls % (Auto) 6.6 Eos % (Auto) 3.2 Baso % (Auto) 1.2 Neut # (Auto) 7.6 H Lymph # (Auto) 2.1 Ralls # (Auto) 0.7 Eos # (Auto) 0.4 Baso # (Auto) 0.1 Sodium Potassium Chloride Carbon Dioxide Anion Gap BUN Creatinine Est GFR ( Amer) Est GFR (Non-Af Amer) POC Glucose (mg/dL) 222 H 205 H Random Glucose Calcium Phosphorus Magnesium Total Bilirubin AST ALT Alkaline Phosphatase Total Protein Albumin Globulin Albumin/Globulin Ratio 11/29/17 11/29/17 11/29/17 06:37 06:47 11:05 WBC RBC Hgb Hct MCV MCH MCHC RDW Plt Count MPV Neut % (Auto) Lymph % (Auto) Ralls % (Auto) Eos % (Auto) Baso % (Auto) Neut # (Auto) Lymph # (Auto) Ralls # (Auto) Eos # (Auto) Baso # (Auto) Sodium 135 Potassium 4.1 Chloride 99 Carbon Dioxide 24 Anion Gap 15 BUN 14 Creatinine 0.6 L Est GFR ( Amer) > 60 Est GFR (Non-Af Amer) > 60 POC Glucose (mg/dL) 163 H 350 H Random Glucose 157 H Calcium 8.8 Phosphorus 3.7 Magnesium 1.9 Total Bilirubin 6.9 H AST 156 H ALT 67 Alkaline Phosphatase 682 H Total Protein 6.8 Albumin 3.2 L Globulin 3.6 Albumin/Globulin Ratio 0.9 L Assessment & Plan - Assessment and Plan (Free Text) Assessment: Palliative consult DNR/DNI, POLST on chart, PPS 30% I reviewed mdical records, all diagnostic studies, examined and interviewed patient in the bed. Patient is alert, oriented X 3 with speech that is clear. Patient is missing a lot of upper and lower teeth. Patient looks like if he lost some weight since last admission. Skin and sclera jaundiced. Total José Miguel elevated at 6.9, AST 159. Breathing normal without adding sounds. Breath sounds diminished, there is no cough. Patient admits of feeling short of breath upon excretion. These symptoms are much improved now since edema to LEs has subsided. Abdomen is soft, regular BMs. Patient reports fair appetite, denies nausea. LEs, mobile, ambulates to bathroom, minimal edema present. Pain to LEs is much less now but still present. Patient asks occasionally for pain meds for his LEs pain. Goals of care discussed. patient is happy hs condition has improved and was looking toward returning to a [facility]. His concern was lack of pain meds on hand as his pain meds were " locked up" at the [facility]. I reassured him that he will get needed prescriptions upon discharge. Code status reviewed. I presented patient with Copy of POLST he signed on last admission calling for DNR/DNI. Patient stated understanding and did not ant to make any changes. Impression * Recurrent edema of LEs due to liver CA * Chronic pain of LEs 2 nd to edema * Difficulties walking due to pain * lack of housing * Lack of family support * At risk for multiple readmissions due to chronic condition and unfavorable living conditions Suggestions * Fahad continua Lasix PO daily for edema of LEs control * Continue pain meds PRN legs pain * Flomax PO daily for BPH * Return to [facility] * Scripts for pain meds on discharge * DNR/DNI * POLST on chart Palliative care will sign off at this time. patient is being prepared for discharge Advance planing 25 min
[2017-11-29] MEDS ORDERED: oxyCODONE 10 mg Immediate Release Tab PO SCH (14:00)
[2017-11-29] MEDS ORDERED: oxyCODONE 5 mg Immediate Release Tab PO SCH (14:00)
== END 2017-11-29 13:27 | disposition home or self-care (01) | DRG 442 ==
LOC: C.ER 14:30 → C.9E 18:18 → C.6T 21:32 → OBSVTOIN 11-28 08:17
PROVIDERS: ADMIT Internal Medicine; ATTEND Internal Medicine
DX: I81 Portal vein thrombosis (principal); R18.8 Other ascites; C22.0 Liver cell carcinoma; K74.60 Unspecified cirrhosis of liver; N18.9 Chronic kidney disease, unspecified; N40.1 Benign prostatic hyperplasia with lower urinary tract symptoms; Z51.5 Encounter for palliative care; Z59.0 Homelessness; Z66 Do not resuscitate; Z72.0 Tobacco use; R33.8 Other retention of urine; I12.9 Hypertensive chronic kidney disease with stage 1 through stage 4 chronic kidney disease, or unspecified chronic kidney disease; G89.29 Other chronic pain; E11.22 Type 2 diabetes mellitus with diabetic chronic kidney disease; B18.2 Chronic viral hepatitis C; K80.20 Calculus of gallbladder without cholecystitis without obstruction

== ENCOUNTER 2017-12-23 10:18 | Inpatient (IN) | payer MEDICAID ==
[2017-12-23 10:19] VITALS: BMI 28.0
--- NOTE | 2017-12-23 11:48 | C.PDOC ---
History Of Present Illness 57 y/o male, w/PMhx of liver cancer, presents to the ER complaining of chest discomfort x 2 days. Pt states that he has 6-7 episodes of chest discomfort each day, each episode is about 15 min. The discomfort spontaneously resolves. Pt reports that he feels SOB for the past 3 weeks. He is also complaining of dark colored stool x 2 -3 weeks. Denies having fever, chills, dysuria, and hematuria. Time Seen by Provider: 12/23/17 10:29 Chief Complaint (Nursing): Chest Pain History Per: Patient History/Exam Limitations: no limitations Onset/Duration Of Symptoms: Days Current Symptoms Are (Timing): Still Present Severity: Moderate Past Medical History Reviewed: Historical Data, Nursing Documentation, Vital Signs Vital Signs: Last Vital Signs Temp 98.7 F 12/23/17 15:40 Pulse 65 12/23/17 15:40 Resp 20 12/23/17 15:40 BP 145/76 12/23/17 15:40 Pulse Ox 100 12/23/17 18:59 - Medical History PMH: Anxiety, Back Problems, Depression, Diabetes (?), Gastritis (Gall stones), Hepatitis (Pt history and treatment), HTN, Kidney Stones, Chronic Kidney Disease Denies: HIV (Patient denied), Seizures (Patient denied), Sexually Transmitted Disease (Patient denied) Other Surgeries: Hx of surgeries - [facility] Procedures DETOXIFICATION SERVICES FOR SUBSTANCE ABUSE TREATMENT (11/01/16) EXCISION OF LIVER, PERCUTANEOUS APPROACH, DIAGNOSTIC (10/31/17) INDIV PSYCHOTHERAPY FOR SUBSTANCE ABUSE TREATMENT, SUPPORT (11/01/16) INDIV PSYCHOTHERAPY FOR SUBSTANCE ABUSE, PSYCHOEDUCATION (11/01/16) INJECT/INFUSE NEC (09/28/12) PHARMACOTHERAPY FOR SUBSTANCE ABUSE, METHADONE MAINT (11/01/16) ULTRASONOGRAPHY OF LIVER (10/31/17) Family History: States: No Known Family Hx - Social History Hx Tobacco Use: Yes Hx Alcohol Use: No Hx Substance Use: No - Immunization History Hx Tetanus Toxoid Vaccination: Yes Hx Influenza Vaccination: No Hx Pneumococcal Vaccination: No Review Of Systems Constitutional: Negative for: Fever, Chills Cardiovascular: Positive for: Other (chest discomfort) Respiratory: Positive for: Shortness of Breath Gastrointestinal: Positive for: Other (dark colored stool) Genitourinary: Negative for: Dysuria, Hematuria Physical Exam - Physical Exam Appears: Non-toxic, No Acute Distress Skin: Warm, Dry, Jaundice Head: Atraumatic, Normacephalic Eye(s): bilateral: Scleral Icterus Nose: Normal Oral Mucosa: Moist Teeth: No Normal Dentition (poor dentition), Edentulous (partly edentulous), Other (several broken teeth) Neck: Supple Chest: Symmetrical Cardiovascular: Rhythm Regular, Murmur (blowing systolic murmur 4/6 approximal left sternal border) Respiratory: Normal Breath Sounds, No Rales, No Rhonchi, No Wheezing Gastrointestinal/Abdominal: Soft, Tenderness (mild RUQ and LUQ tenderness), No Guarding, No Rebound Rectal: Heme Positive, Maroon Stool, Melena Extremity: Normal ROM, Other (3+ pitting edema bilateral) Pulses: Left Dorsalis Pedis: Normal, Right Dorsalis Pedis: Normal Neurological/Psych: Oriented x3, Normal Speech ED Course And Treatment - Laboratory Results Result Diagrams: 12/23/17 11:46 12/23/17 11:46 ECG: Interpreted By Me, Viewed By Me ECG Rhythm: Sinus Rhythm Rate From EC O2 Sat by Pulse Oximetry: 100 (RA) Pulse Ox Interpretation: Normal Medical Decision Making Medical Decision Making: Plan: --Labs --EKG --CXR --UA pt with hgb 6.9, gi bleed, anemia, chest pain possibly from anemia, discussed with Dr Michael Kaur, will admit to his service, and transfuse 2 units prbc, pt agrees with plan. pt not given asa for chest pain due to allergy and current gi bleed. Disposition Discussed With Dr.: Salvador Kaur Doctor Will See Patient In The: Hospital - Disposition Disposition: HOSPITALIZED Disposition Time: 13:40 Condition: STABLE - Clinical Impression Clinical Impression: Chest pain, Jaundice, Anemia - PA / [employer] / Resident Statement MD/DO has reviewed & agrees with the documentation as recorded. - Scribe Statement The provider has reviewed the documentation as recorded by the Ilana Schumacher Provider Attestation All medical record entries made by the Scribe were at my direction and personally dictated by me. I have reviewed the chart and agree that the record accurately reflects my personal performance of the history, physical exam, medical decision making, and the department course for this patient. I have also personally directed, reviewed, and agree with the discharge instructions and disposition. Decision To Admit - Pt Status Changed To: Hospital Disposition Of: Inpatient - Admit Certification Admit to Inpatient:: After my assessment, the patient will require hospitalization for at least two midnights. This is because of the severity of symptoms shown, intensity of services needed, and/or the medical risk in this patient being treated as an outpatient. - InPatient: Physician Admission Certification: I certify that this patient requires 2 or more midnights of care for the following reason:: for cardiac workup and anemia - . Bed Request Type: Telemetry Patient Diagnosis: Chest pain, Jaundice, Anemia
--- NOTE | 2017-12-23 11:51 | C.PDOC ---
Time Seen by Provider: 12/23/17 10:29 Chief Complaint (Nursing): Chest Pain Past Medical History Vital Signs: Last Vital Signs Temp 98.9 F 12/23/17 10:30 Pulse 77 12/23/17 10:30 Resp 22 12/23/17 10:30 BP 153/47 H 12/23/17 10:30 Pulse Ox 100 12/23/17 10:30 - Medical History PMH: Anxiety, Back Problems, Depression, Diabetes (?), Gastritis (Gall stones), Hepatitis (Pt history and treatment), HTN, Kidney Stones, Chronic Kidney Disease Denies: HIV (Patient denied), Seizures (Patient denied), Sexually Transmitted Disease (Patient denied) - [employer] Procedures DETOXIFICATION SERVICES FOR SUBSTANCE ABUSE TREATMENT (11/01/16) EXCISION OF LIVER, PERCUTANEOUS APPROACH, DIAGNOSTIC (10/31/17) INDIV PSYCHOTHERAPY FOR SUBSTANCE ABUSE TREATMENT, SUPPORT (11/01/16) INDIV PSYCHOTHERAPY FOR SUBSTANCE ABUSE, PSYCHOEDUCATION (11/01/16) INJECT/INFUSE NEC (09/28/12) PHARMACOTHERAPY FOR SUBSTANCE ABUSE, METHADONE MAINT (11/01/16) ULTRASONOGRAPHY OF LIVER (10/31/17) Family History: States: Unknown Family Hx - Social History Hx Tobacco Use: Yes Hx Alcohol Use: No Hx Substance Use: No - Immunization History Hx Tetanus Toxoid Vaccination: Yes Hx Influenza Vaccination: No Hx Pneumococcal Vaccination: No ED Course And Treatment O2 Sat by Pulse Oximetry: 100 Disposition - Disposition
[2017-12-23 11:52] LABS: BASO # 0.1 K/uL (0.0-0.2); EOS # 0.3 K/uL (0.0-0.7); MEAN CORPUSCULAR HEMOGLOBIN 32.7 pg (27.0-31.0); MEAN CORPUSCULAR HGB CONC 33.5 g/dL (33.0-37.0); MEAN PLATELET VOLUME 10.3 fL (7.2-11.7); MONO # 0.5 K/uL (0.0-0.8); NRBC % 0.1 % (0.0-2.0); RBC 2.12 Mil/uL (4.40-5.90); RED CELL DISTRIBUTION WIDTH 17.3 % (11.5-14.5)
[2017-12-23 11:54] LABS: INR 1.4; PROTHROMBIN TIME 14.8 SECONDS (9.7-12.2)
[2017-12-23 11:58] LABS: BASO % 1.2 % (0.0-2.0); EOS % 2.2 % (0.0-4.0); HEMOGLOBIN 6.9 g/dL (12.0-18.0); LYMPH # 2.1 K/uL (1.0-4.3); LYMPH % 18.5 % (20.0-40.0); MEAN CELL VOLUME 97.5 fL (80.0-94.0); MONO % 4.3 % (0.0-10.0); NEUT # 8.5 K/uL (1.8-7.0); NEUT % 73.8 % (50.0-75.0); WHITE BLOOD COUNT 11.5 K/uL (4.8-10.8)
[2017-12-23 12:13] LABS: ALB/GLOB RATIO 0.9 (1.0-2.1); ALBUMIN 3.1 g/dL (3.5-5.0); ALT/SGPT 54 U/L (21-72); AST/SGOT 140 U/L (17-59); BLOOD UREA NITROGEN 29 mg/dL (9-20); CALCIUM 8.9 mg/dl (8.6-10.4); GFR NON-AFRICAN AMERICAN > 60
--- NOTE | 2017-12-23 12:29 | RAD ---
Date of service: 12/23/2017 HISTORY: Shortness of breath, chest pain. COMPARISON: 11/25/2017. TECHNIQUE: Chest PA and lateral FINDINGS: LUNGS: No active pulmonary disease. PLEURA: No significant pleural effusion identified. No pneumothorax apparent. CARDIOVASCULAR: No radiographic findings to suggest acute or significant cardiovascular disease. OSSEOUS STRUCTURES: No significant abnormalities. VISUALIZED UPPER ABDOMEN: Normal. OTHER FINDINGS: None. IMPRESSION: No active disease. No active disease. No acute/significant interval changes.
[2017-12-23 14:23] VITALS: RESP 20
--- NOTE | 2017-12-23 15:20 | CP.PCM.HP ---
Addendum entered and electronically signed by Jose Jack 12/24/17 00:13: 57M with a PMH of Hepatocellular CA, DM, and HepC presents with GI bleed likely 2/2 to Elliquis, Chest pain w/ palpitations, portal vein thrombosis, cholelithiasis, Hx of Alcohol and nicotine use. GI Bleed likely 2/2 Eliquis -Consult GI on 12/24 (Dr. Francis) -Hold Eliquis -Type and Cross 2 units -Transfuse 2 units each over 4 hour periods -Monitor on tele -Protonix 40mg IV q12h -Monitor CBC, CMP, H&H Chest pain w/ palpitations -CHU x3, f/u troponins 6pm then 12am -EKG showed normal sinus rhythm, F/u EKG @6pm & 12 AM Hepatocellular CA w/ extensive vascular invasions -s/p FNA Bx (11/09/17) -see Liver CT (11/02/17): Technically limited examination. Hepatic arterial phase images were not obtained. Multifocal low attenuation in the right hepatic lobe. This may represent a neoplastic process such as multifocal hepatic cellular malignancy or metastasis. Hepatic cirrhosis. Ascites. Hepatosplenomegaly. 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 Portal venous thrombus may be bland or tumoral. Cholelithiasis. -MRI Abd (11/03/17): Multifocal neoplasm in the right lobe of the liver. Differential diagnosis includes metastatic disease or multifocal hepatocellular carcinoma. Invasion and thrombosis of the right and main portal vein. Left portal vein appears patent. Mild erasto hepatis lymphadenopathy and 1 mildly enlarged precaval lymph node. Mild splenomegaly. 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 Echogenic foci noted at the level of the portal vein which may represent underlying portal vein thrombus. Clinical correlation. 2. Enlarged liver measuring 18.5 centimeters in length with associated increased echogenicity of the hepatic parenchymal cortex suggestive for fatty infiltration versus hepatic parenchymal disease. Clinical correlation. 3. Multiple prominent partially echogenic hepatic masses which are indeterminate and may represent underlying hepatic neoplasm. Correlation with multiphasic CT or MR may be helpful for further evaluation if clinically indicated. 4. Cholelithiasis with gallbladder wall thickening measuring up to 5 millimeters with associated gallbladder wall edema. Associated pericholecystic fluid. This may represent underlying cholecystitis. Clinical correlation. 5. Pancreas not well visualized. -Holding Eliquis 2/2 GI bleed Hx Lower Extremity Edema - Chronic Has been present since prior admissions, likely 2/2 to other medical problems Hx Cholelithiasis -see Abd US (10/31/17) above; treated 7 days w/ Flagyl and Zosyn in October 2017 -see Surgery note in October 2017; no acute intervention Hx Hepatitis C -Hep C RNA [id number] & Quantitative PCR 6.32 in October 2017 Hx Diabetes - Accuchecks - ISS - hypoglycemia Hx HTN: - will monitor Hx Alcohol Use Last ETOH was over one year ago Thiamine Folic Acid Multivitamin Hx Nicotine Use -Nicoderm patch 21g sc q12hr PPX GI PPX: Protonix 40mg iv q12h DVT PPX: Contraindicated at this time 2/2 bleed Patient is DNR/DNI. Patient requests all medical information be withheld from his brother and sister. Original Note: <Jose Jack - Last Filed: 12/23/17 19:08> History of Present Illness - History of Present Illness History of Present Illness: PGY 1 Medicine H& P for Dr. Jude Kaur CC: Shortness of breath on exertion 57 year old male with a PMH of hepatocellular cancer, hepatitis C, right portal vein thrombosis, HTN, DM who presents to the ED with SOB on exertion, relieved while resting. Patient additionally has had dark stools 2 days prior along with pain bilateral flanks while passing bowel movements. Patient additionally has been complaining of dark brown urine for the past 2 days. Patient furthermore has had one episode of chest pain radiating upto the chest that is now resolved. Patient denies fever, chills, headache, dizziness, tinnitus, changes in appetite, constipation, diarrhea, weakness, numbness or tingling in the extremities. Patient was unable to follow up with the liver clinic @ [facility] on Thursday 12/21 because he was not feeling well. PMD: Clinic PMHx: hepatocellular cancer, hepatitis C, right portal vein thrombosis, HTN, DM PSHx: denies Medications: "a water pill", Eliquis 5mg PO BID, Oxycodone 15mg PO QID Allergies: Aspirin FamHx: Father- colon cancer SocHx: 1-1.5ppd x40+ years; social etoh use; formerly used cocaine (14 years ago ); homeless and lives in a jail Present on Admission - Present on Admission Any Indicators Present on Admission: No Review of Systems - Constitutional Constitutional: absent: Headache, Increased Appetite - EENT Eyes: absent: Discharge, Itchy Eyes Nose/Mouth/Throat: absent: Dry Mouth - Cardiovascular Cardiovascular: Dyspnea on Exertion, Leg Edema. absent: Chest Pain, Irregular Heart Rhythm, Leg Ulcers - Respiratory Respiratory: Dyspnea on Exertion - Gastrointestinal Gastrointestinal: absent: Abdominal Pain, Diarrhea, Fecal Incontinence, Nausea, Vomiting - Genitourinary Genitourinary: Hematuria - Integumentary Integumentary: Jaundice. absent: Changing Lesions, Erythema, Non-Healing Lesions - Neurological Neurological: absent: Abnormal Hearing, Behavioral Changes, Burning Sensations - Psychiatric Psychiatric: absent: Anxiety, Behavioral Changes, Confusion, Depression Past Patient History - Infectious Disease Hx of Infectious Diseases: None - Past Medical History & Family History Past Medical History?: Yes - Past Social History Smoking Status: Current Some Days Smoker - CARDIAC Hx Hypertension: Yes - PULMONARY Hx Respiratory Disorders: No - NEUROLOGICAL Hx Seizures: No (Patient denied) - HEENT Hx HEENT Problems: No - RENAL Hx Chronic Kidney Disease: Yes Hx Kidney Stones: Yes - ENDOCRINE/METABOLIC Hx Diabetes Mellitus Type 2: Yes (state not been treated) - HEMATOLOGICAL/ONCOLOGICAL Hx Human Immunodeficiency Virus (HIV): No (Patient denied) - INTEGUMENTARY Other/Comment: Jaundice. Admit diagnose with liver cancer at [facility] 2month - MUSCULOSKELETAL/RHEUMATOLOGICAL Hx Falls: No - GASTROINTESTINAL Hx Gastritis: Yes (Gall stones) - GENITOURINARY/GYNECOLOGICAL Hx Sexually Transmitted Disorders: No (Patient denied) - PSYCHIATRIC Hx Substance Use: No (denies) - SURGICAL HISTORY Hx Surgeries: Yes Other/Comment: Liver biopsy - ANESTHESIA Hx Anesthesia: Yes Hx Anesthesia Reactions: No Hx Malignant Hyperthermia: No Meds Allergies/Adverse Reactions: Allergies Allergy/AdvReac Type Severity Reaction Status Date / Time aspirin AdvReac VOMITING Verified 12/07/17 18:58 Physical Exam - Constitutional Appears: Non-toxic, No Acute Distress - Head Exam Head Exam: ATRAUMATIC, NORMAL INSPECTION, NORMOCEPHALIC - Eye Exam Eye Exam: EOMI, Normal appearance, Scleral icterus Additional comments: Conjunctiva pallor - ENT Exam ENT Exam: Mucous Membranes Moist Additional comments: Poor dentition, several teeth missing - Neck Exam Neck exam: Negative for: Lymphadenopathy, Thyromegaly - Respiratory Exam Respiratory Exam: Clear to Auscultation Bilateral, NORMAL BREATHING PATTERN. absent: Rales, Rhonchi, Wheezes - Cardiovascular Exam Cardiovascular Exam: +S1, +S2. absent: Irregular Rhythm, Systolic Murmur - GI/Abdominal Exam GI & Abdominal Exam: Normal Bowel Sounds Additional comments: Hepatomegaly - Extremities Exam Extremities exam: Positive for: pedal edema Additional comments: 1+ pitting edema from ankles to below patella region - Neurological Exam Neurological exam: Alert, CN II-XII Intact, Oriented x3 - Psychiatric Exam Psychiatric exam: Normal Affect, Normal Mood - Skin Skin Exam: Dry, Intact, Pallor Additional comments: Slightly jaundiced Results - Vital Signs Recent Vital Signs: Last Vital Signs Temp 98 F 12/23/17 14:22 Pulse 62 12/23/17 14:22 Resp 20 12/23/17 14:22 BP 130/58 L 12/23/17 14:22 Pulse Ox 96 12/23/17 14:22 - Labs Result Diagrams: 12/23/17 11:46 12/23/17 11:46 Labs: Laboratory Results - last 24 hr 12/23/17 12/23/17 12/23/17 11:41 11:46 11:46 WBC 11.5 H RBC 2.12 L Hgb 6.9 L D Hct 20.6 L MCV 97.5 H D MCH 32.7 H MCHC 33.5 RDW 17.3 H Plt Count 219 MPV 10.3 Neut % (Auto) 73.8 Lymph % (Auto) 18.5 L [place] % (Auto) 4.3 Eos % (Auto) 2.2 Baso % (Auto) 1.2 Neut # (Auto) 8.5 H Lymph # (Auto) 2.1 [place] # (Auto) 0.5 Eos # (Auto) 0.3 Baso # (Auto) 0.1 PT 14.8 H INR 1.4 APTT 29 Sodium 139 Potassium 4.7 Chloride 104 Carbon Dioxide 25 Anion Gap 14 BUN 29 H Creatinine 0.6 L Est GFR ( Amer) > 60 Est GFR (Non-Af Amer) > 60 Random Glucose 222 H Calcium 8.9 Total Bilirubin 4.2 H AST 140 H ALT 54 Alkaline Phosphatase 643 H Troponin I < 0.0120 Total Protein 6.5 Albumin 3.1 L Globulin 3.4 Albumin/Globulin Ratio 0.9 L Stool Occult Blood Blood Type Antibody Screen 12/23/17 12/23/17 11:46 12:57 WBC RBC Hgb Hct MCV MCH MCHC RDW Plt Count MPV Neut % (Auto) Lymph % (Auto) [place] % (Auto) Eos % (Auto) Baso % (Auto) Neut # (Auto) Lymph # (Auto) [place] # (Auto) Eos # (Auto) Baso # (Auto) PT INR APTT Sodium Potassium Chloride Carbon Dioxide Anion Gap BUN Creatinine Est GFR ( Amer) Est GFR (Non-Af Amer) Random Glucose Calcium Total Bilirubin AST ALT Alkaline Phosphatase Troponin I Total Protein Albumin Globulin Albumin/Globulin Ratio Stool Occult Blood Positive H Blood Type O POSITIVE Antibody Screen Negative Assessment & Plan - Assessment and Plan (Free Text) Assessment: 57M with a PMH of Hepatocellular CA, DM, and HepC presents with GI bleed likely 2/2 to Elliquis, Chest pain w/ palpitations, portal vein thrombosis, cholelithiasis, Hx of Alcohol and nicotine use. GI Bleed likely 2/2 Eliquis -Consult GI on 12/24 (Dr. Francis) -Hold Eliquis -Type and Cross 2 units -Transfuse 2 units each over 4 hour periods -Monitor on tele -Protonix 40mg IV q12h -Monitor CBC, CMP, H&H Chest pain w/ palpitations -CHU x3, f/u troponins 6pm then 12am -EKG showed normal sinus rhythm, F/u EKG @6pm & 12 AM Hepatocellular CA w/ extensive vascular invasions -s/p FNA Bx (11/09/17) -see Liver CT (11/02/17): Technically limited examination. Hepatic arterial phase images were not obtained. Multifocal low attenuation in the right hepatic lobe. This may represent a neoplastic process such as multifocal hepatic cellular malignancy or metastasis. Hepatic cirrhosis. Ascites. Hepatosplenomegaly. 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 Portal venous thrombus may be bland or tumoral. Cholelithiasis. -MRI Abd (11/03/17): Multifocal neoplasm in the right lobe of the liver. Differential diagnosis includes metastatic disease or multifocal hepatocellular carcinoma. Invasion and thrombosis of the right and main portal vein. Left portal vein appears patent. Mild erasto hepatis lymphadenopathy and 1 mildly enlarged precaval lymph node. Mild splenomegaly. -morphine 0.5 mg IVP Q4 PRN for moderate pain -morphine 1 mg IVP Q4 PRN for severe pain -Colace 100 mg BID Dark Urine -Possible hematuria 2/2 eliquis -Hold elqiuis -Keep farooq in place currently -F/u CPK Portal Vein Thrombosis -heterozygous for Prothombin [id number] Mutation; increased risk for blood clots -US (10/31/17): 1. Echogenic foci noted at the level of the portal vein which may represent underlying portal vein thrombus. Clinical correlation. 2. Enlarged liver measuring 18.5 centimeters in length with associated increased echogenicity of the hepatic parenchymal cortex suggestive for fatty infiltration versus hepatic parenchymal disease. Clinical correlation. 3. Multiple prominent partially echogenic hepatic masses which are indeterminate and may represent underlying hepatic neoplasm. Correlation with multiphasic CT or MR may be helpful for further evaluation if clinically indicated. 4. Cholelithiasis with gallbladder wall thickening measuring up to 5 millimeters with associated gallbladder wall edema. Associated pericholecystic fluid. This may represent underlying cholecystitis. Clinical correlation. 5. Pancreas not well visualized. -Holding Eliquis 2/2 GI bleed Lower Extremity Edema - Chronic Has been present since prior admissions, likely 2/2 to other medical problems Cholelithiasis -see Abd US (10/31/17) above; treated 7 days w/ Flagyl and Zosyn in October 2017 -see Surgery note in October 2017; no acute intervention Hepatitis C -Hep C RNA [id number] & Quantitative PCR 6.32 in October 2017 Hx Alcohol Use Last ETOH was over one year ago Thiamine Folic Acid Multivitamin Hx Nicotine Use -Nicoderm patch 21g sc q12hr PPX GI PPX: Protonix 40mg iv q12h DVT PPX: Contraindicated at this time Patient is DNR/DNI. Patient requests all medical information be withheld from his brother and sister. <Salvador Kaur - Last Filed: 12/25/17 18:45> Results - Vital Signs Recent Vital Signs: Last Vital Signs Temp 98.3 F 12/25/17 08:47 Pulse 93 H 12/25/17 08:47 Resp 20 12/25/17 08:47 BP 165/77 H 12/25/17 08:47 Pulse Ox 98 12/25/17 08:47 - Labs Result Diagrams: 12/25/17 07:00 12/25/17 07:00 Labs: Laboratory Results - last 24 hr 12/24/17 12/25/17 12/25/17 21:10 06:16 07:00 WBC 12.5 H RBC 2.80 L Hgb 9.0 L Hct 26.4 L MCV 94.3 H MCH 32.2 H MCHC 34.2 RDW 17.8 H Plt Count 182 MPV 10.0 Neut % (Auto) 80.8 H Lymph % (Auto) 10.0 L [place] % (Auto) 5.0 Eos % (Auto) 3.0 Baso % (Auto) 1.2 Neut # (Auto) 10.1 H Lymph # (Auto) 1.3 [place] # (Auto) 0.6 Eos # (Auto) 0.4 Baso # (Auto) 0.2 Sodium Potassium Chloride Carbon Dioxide Anion Gap BUN Creatinine Est GFR ( Amer) Est GFR (Non-Af Amer) POC Glucose (mg/dL) 204 H 194 H Random Glucose Calcium Total Bilirubin AST ALT Alkaline Phosphatase Total Protein Albumin Globulin Albumin/Globulin Ratio 12/25/17 12/25/17 07:00 11:52 WBC RBC Hgb Hct MCV MCH MCHC RDW Plt Count MPV Neut % (Auto) Lymph % (Auto) [place] % (Auto) Eos % (Auto) Baso % (Auto) Neut # (Auto) Lymph # (Auto) [place] # (Auto) Eos # (Auto) Baso # (Auto) Sodium 136 Potassium 4.3 Chloride 105 Carbon Dioxide 22 Anion Gap 14 BUN 17 Creatinine 0.7 L Est GFR ( Amer) > 60 Est GFR (Non-Af Amer) > 60 POC Glucose (mg/dL) 277 H Random Glucose 222 H Calcium 8.9 Total Bilirubin 4.3 H AST 129 H ALT 52 Alkaline Phosphatase 577 H Total Protein 6.3 Albumin 2.9 L Globulin 3.4 Albumin/Globulin Ratio 0.9 L Attending/Attestation - Attestation I have personally seen and examined this patient.: Yes I have fully participated in the care of the patient.: Yes I have reviewed all pertinent clinical information: Yes Notes (Text): 12/25/17 18:44 This is a late entry. Care of this patient was gone over in detail with resident Dr. Jack at the time of admission. Salvador Kaur D.O.
[2017-12-23] MEDS ORDERED: oxyCODONE 10 mg Immediate Release Tab PO PRN (16:42)
[2017-12-23] MEDS ORDERED: oxyCODONE 10 mg ER Tab (oxyCONTIN) PO STA (16:55)
[2017-12-23] MEDS: Multiple Vitamins Tab PO SCH (17:19)
--- NOTE | 2017-12-23 19:16 | CARD ---
APPROVED REPORT Date of service: 12/23/2017 EKG Measurement Heart [id number] CT [id number] [id number] <Conclusion> Normal sinus rhythm Normal ECG
[2017-12-23 22:28] LABS: URINE BACTERIA RARE (<OCC); URINE BILIRUBIN NEGATIVE (NEGATIVE); URINE BLOOD NEGATIVE (NEGATIVE); URINE CLARITY Clear (Clear); URINE GLUCOSE (UA) NORMAL (Normal); URINE LEUKOCYTE ESTERASE NEG Leu/uL (Negative); URINE PROTEIN NEGATIVE (NEGATIVE)
[2017-12-23 22:31] LABS: URINE COLOR YELLOW (YELLOW)
[2017-12-24] MEDS ORDERED: oxyCODONE 10 mg ER Tab (oxyCONTIN) PO SCH (05:00)
--- NOTE | 2017-12-24 07:02 | CP.PCM.PN ---
<JaneSilvano - Last Filed: 12/24/17 17:46> Subjective - Date & Time of Evaluation Date of Evaluation: 12/24/17 Time of Evaluation: 07:02 - Subjective Subjective: PGY1 Medicine Progress Note Patient seen and examined at bedside this AM, resting comfortably and in no acute distress. No acute episodes reported overnight. Patient endorses 7 dark BM overnight, no bright red blood per rectum. Denies any more dark colored urine , denies any dysuria. Does not endorse any abdominal or flank pain. No fevers/ chills, headaches, dizziness, chest pain, palpitations, sob, cough, or nausea/ vomiting/constipation. Objective - Vital Signs/Intake and Output Vital Signs (last 24 hours): Temp Pulse Resp BP Pulse Ox 98.7 F 74 20 154/68 H 100 12/24/17 01:21 12/24/17 01:21 12/24/17 01:21 12/24/17 01:21 12/23/17 19:02 Intake and Output: 12/24/17 12/24/17 06:59 18:59 Intake Total 1275 Balance 1275 - Medications Medications: Current Medications Docusate Sodium (Colace) 100 mg PO BID [facility] Last Admin: 12/23/17 17:19 Dose: 100 mg Folic Acid (Folic Acid) 1 mg PO DAILY [facility] Last Admin: 12/23/17 17:19 Dose: 1 mg Insulin Aspart (Novolog) 0 unit SC ACHS [facility] PRN Reason: Protocol Morphine Sulfate (Morphine) 0.5 mg IVP Q4 PRN PRN Reason: Pain, moderate (4-7) Morphine Sulfate (Morphine) 1 mg IVP Q4 PRN PRN Reason: Pain, severe (8-10) Last Admin: 12/24/17 05:21 Dose: 1 mg Multivitamins (Hexavitamin) 1 tab PO DAILY [facility] Last Admin: 12/23/17 17:19 Dose: 1 tab Nicotine (Nicoderm Cq) 1 patch TD DAILY [facility] Last Admin: 12/23/17 17:27 Dose: Not Given Pantoprazole Sodium (Protonix Inj) 40 mg IVP Q12H [facility] Last Admin: 12/24/17 05:21 Dose: 40 mg Thiamine HCl (Vitamin B1 Tab) 100 mg PO DAILY [facility] Last Admin: 12/23/17 17:19 Dose: 100 mg - Labs Labs: 12/23/17 11:46 12/23/17 11:46 PT 14.8 SECONDS (9.7-12.2) H 12/23/17 11:41 INR 1.4 12/23/17 11:41 APTT 29 SECONDS (21-34) 12/23/17 11:41 - Constitutional Appears: Non-toxic, No Acute Distress, Chronically Ill - Head Exam Head Exam: ATRAUMATIC, NORMAL INSPECTION, NORMOCEPHALIC - Eye Exam Eye Exam: EOMI, Normal appearance - ENT Exam ENT Exam: Mucous Membranes Moist, Normal Exam - Neck Exam Neck Exam: Full ROM, Normal Inspection - Respiratory Exam Respiratory Exam: Clear to Ausculation Bilateral, NORMAL BREATHING PATTERN. absent: Rales, Rhonchi, Wheezes - Cardiovascular Exam Cardiovascular Exam: REGULAR RHYTHM, +S1, +S2 - GI/Abdominal Exam GI & Abdominal Exam: Soft, Normal Bowel Sounds, Organomegaly (hepatomegaly). absent: Distended, Firm, Guarding, Rigid, Tenderness, Rebound - Extremities Exam Extremities Exam: Normal Capillary Refill, Normal Inspection. absent: Joint Swelling, Pedal Edema - Back Exam Back Exam: NORMAL INSPECTION. 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 Active treatment of acute on chronic anemia on anticoagulation. No prior EGD or colonoscopy. Plan: 1. GI Bleed likely 2/2 Eliquis -GI recs (Dr. Francis) appreciated -no active bleeding -continue to hold eliquis -f/u outpatient EGD/colonoscopy -Protonix 40mg IV q12h 2. Chest pain w/ palpitations--resolved -patient is asymptomatic -CHU x3 -EKG showed normal sinus rhythm, F/u EKG @6pm & 12 AM 3. Hepatocellular CA w/ extensive vascular invasions -s/p FNA Bx (11/09/17) -see Liver CT (11/02/17): Technically limited examination. Hepatic arterial phase images were not obtained. Multifocal low attenuation in the right hepatic lobe. This may represent a neoplastic process such as multifocal hepatic cellular malignancy or metastasis. Hepatic cirrhosis. Ascites. Hepatosplenomegaly. 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 Portal venous thrombus may be bland or tumoral. Cholelithiasis. -MRI Abd (11/03/17): Multifocal neoplasm in the right lobe of the liver. Differential diagnosis includes metastatic disease or multifocal hepatocellular carcinoma. Invasion and thrombosis of the right and main portal vein. Left portal vein appears patent. Mild erasto hepatis lymphadenopathy and 1 mildly enlarged precaval lymph node. Mild splenomegaly. -morphine 0.5 mg IVP Q4 PRN for moderate pain -morphine 1 mg IVP Q4 PRN for severe pain -Colace 100 mg BID 4. Dark Urine -Possible hematuria 2/2 eliquis -Hold elqiuis -CPK: 0.52 5. Portal Vein Thrombosis -heterozygous for Prothombin [id number] Mutation; increased risk for blood clots -US (10/31/17): 1. Echogenic foci noted at the level of the portal vein which may represent underlying portal vein thrombus. Clinical correlation. 2. Enlarged liver measuring 18.5 centimeters in length with associated increased echogenicity of the hepatic parenchymal cortex suggestive for fatty infiltration versus hepatic parenchymal disease. Clinical correlation. 3. Multiple prominent partially echogenic hepatic masses which are indeterminate and may represent underlying hepatic neoplasm. Correlation with multiphasic CT or MR may be helpful for further evaluation if clinically indicated. 4. Cholelithiasis with gallbladder wall thickening measuring up to 5 millimeters with associated gallbladder wall edema. Associated pericholecystic fluid. This may represent underlying cholecystitis. Clinical correlation. 5. Pancreas not well visualized. -Holding Eliquis 2/2 GI bleed 6. Lower Extremity Edema - Chronic -Has been present since prior admissions, likely 2/2 to other medical problems 7. Cholelithiasis -see Abd US (10/31/17) above; treated 7 days w/ Flagyl and Zosyn in October 2017 -see Surgery note in October 2017; no acute intervention 8. Hepatitis C -Hep C RNA [id number] & Quantitative PCR 6.32 in October 2017 9. Hx Alcohol Use -Last ETOH was over one year ago -Thiamine 100 mg PO daily -Folic Acid 1 mg PO daily -Multivitamin 1 tab PO daily 10. Hx Nicotine Use -Nicoderm patch 21g sc q12hr 11. PPX, Diet, Disposition -GI PPX: Protonix 40mg iv q12h -DVT PPX: Contraindicated at this time -Pt to be d/c'd likely tomorrow to [facility] -Follow at [facility] liver clinic--appointment scheduled for 01/07 @ 2:45 PM. -Patient is DNR/DNI. Patient requests all medical information be withheld from his brother and sister Case discussed with Dr. Vincent Lara PGY-1 <Salvador Kaur - Last Filed: 12/25/17 18:44> Objective - Vital Signs/Intake and Output Vital Signs (last 24 hours): Temp Pulse Resp BP Pulse Ox 98.3 F 93 H 20 165/77 H 98 12/25/17 08:47 12/25/17 08:47 12/25/17 08:47 12/25/17 08:47 12/25/17 08:47 Intake and Output: 12/25/17 12/25/17 06:59 18:59 Intake Total 350 Balance 350 - Labs Labs: 12/25/17 07:00 12/25/17 07:00 PT 14.8 SECONDS (9.7-12.2) H 12/23/17 11:41 INR 1.4 12/23/17 11:41 APTT 29 SECONDS (21-34) 12/23/17 11:41 Attending/Attestation - Attestation I have personally seen and examined this patient.: Yes I have fully participated in the care of the patient.: Yes I have reviewed all pertinent clinical information, including history, physical exam and plan: Yes Notes (Text): 12/25/17 18:43 This is a late entry. This patient was seen by me and care of this patient was gone over in detail with resident Dr. Lara during rounds on 12/24/17. Salvador Kaur D.O.
[2017-12-24 07:49] LABS: BASO # 0.1 K/uL (0.0-0.2); EOS # 0.2 K/uL (0.0-0.7); EOS % 1.7 % (0.0-4.0); LYMPH # 1.4 K/uL (1.0-4.3); LYMPH % 10.4 % (20.0-40.0); MEAN CORPUSCULAR HEMOGLOBIN 31.1 pg (27.0-31.0); MEAN CORPUSCULAR HGB CONC 32.7 g/dL (33.0-37.0); MEAN PLATELET VOLUME 10.4 fL (7.2-11.7); MONO # 0.7 K/uL (0.0-0.8); MONO % 5.2 % (0.0-10.0); NEUT # 10.7 K/uL (1.8-7.0); NEUT % 81.7 % (50.0-75.0); RBC 2.85 Mil/uL (4.40-5.90); RED CELL DISTRIBUTION WIDTH 17.7 % (11.5-14.5); WHITE BLOOD COUNT 13.1 K/uL (4.8-10.8)
[2017-12-24 07:51] LABS: HEMOGLOBIN 8.9 g/dL (12.0-18.0)
[2017-12-24 07:52] LABS: ALB/GLOB RATIO 0.9 (1.0-2.1); ALBUMIN 2.9 g/dL (3.5-5.0); ALT/SGPT 49 U/L (21-72); AST/SGOT 135 U/L (17-59); BLOOD UREA NITROGEN 16 mg/dL (9-20); CALCIUM 8.7 mg/dl (8.6-10.4); GFR NON-AFRICAN AMERICAN > 60
[2017-12-24 07:58] LABS: CK-MB 0.52 ng/mL (0.0-3.38)
[2017-12-24] MEDS: (Novolog) Insulin Aspart, Recombinant 100 u/ml 10 ml vial SC SCH ×4 (08:24→21:11)
[2017-12-24] MEDS: Multiple Vitamins Tab PO SCH (09:48)
--- NOTE | 2017-12-24 11:04 | CARD ---
APPROVED REPORT Date of service: 12/23/2017 EKG Measurement Heart [id number] [id number] <Conclusion> Normal sinus rhythm Normal ECG
--- NOTE | 2017-12-24 11:11 | CP.PCM.CON ---
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 Patient notes dark stools once daily since wednesday evening associated with weakness. Last bowel movement this morning endorsed to be formed and brown. Denies nausea, vomiting, hematemesis, diarrhea , constipation, hematochezia, jaundice, confusion, andominal distension, leg swelling, altered sleep/wake cycles, chest pain, shortness of breath. Admits to 40 pound unintentional weight loss over the last 2-3 months. Notes unchanged chronic right flank pain. No prior EGD or colonoscopy. Family History- father colon cancer diagnosed in early 60s of age, denies stomach cancer Social History- 40 pack years, social alcohol use, prior snorting of multiple illicit drugs over 10 years ago Surgical History- none Review of Systems - Review of Systems Review of Systems: 12-point review of systems negative except for as above Past Patient History - Infectious Disease Hx of Infectious Diseases: None - Past Medical History & Family History Past Medical History?: Yes - Past Social History Smoking Status: Current Some Days Smoker - CARDIAC Hx Hypertension: Yes - PULMONARY Hx Respiratory Disorders: No - NEUROLOGICAL Hx Seizures: No (Patient denied) - HEENT Hx HEENT Problems: No - RENAL Hx Chronic Kidney Disease: Yes Hx Kidney Stones: Yes - ENDOCRINE/METABOLIC Hx Diabetes Mellitus Type 2: Yes (state not been treated) - HEMATOLOGICAL/ONCOLOGICAL Hx Human Immunodeficiency Virus (HIV): No (Patient denied) - INTEGUMENTARY Other/Comment: Jaundice. Admit diagnose with liver cancer at [facility] 2month - MUSCULOSKELETAL/RHEUMATOLOGICAL Hx Falls: No - GASTROINTESTINAL Hx Gastritis: Yes (Gall stones) - GENITOURINARY/GYNECOLOGICAL Hx Sexually Transmitted Disorders: No (Patient denied) - PSYCHIATRIC Hx Substance Use: No (denies) - SURGICAL HISTORY Hx Surgeries: Yes Other/Comment: Liver biopsy - ANESTHESIA Hx Anesthesia: Yes Hx Anesthesia Reactions: No Hx Malignant Hyperthermia: No Meds Allergies/Adverse Reactions: Allergies Allergy/AdvReac Type Severity Reaction Status Date / Time aspirin AdvReac VOMITING Verified 12/07/17 18:58 - Medications Medications: Current Medications Docusate Sodium (Colace) 100 mg PO BID [facility] Last Admin: 12/24/17 09:51 Dose: Not Given Folic Acid (Folic Acid) 1 mg PO DAILY [facility] Last Admin: 12/24/17 09:48 Dose: 1 mg Insulin Aspart (Novolog) 0 unit SC ACHS [facility] PRN Reason: Protocol Last Admin: 12/24/17 08:24 Dose: 3 units Morphine Sulfate (Morphine) 0.5 mg IVP Q4 PRN PRN Reason: Pain, moderate (4-7) Morphine Sulfate (Morphine) 1 mg IVP Q4 PRN PRN Reason: Pain, severe (8-10) Last Admin: 12/24/17 09:50 Dose: 1 mg Multivitamins (Hexavitamin) 1 tab PO DAILY [facility] Last Admin: 12/24/17 09:48 Dose: 1 tab Nicotine (Nicoderm Cq) 1 patch TD DAILY [facility] Last Admin: 12/24/17 09:52 Dose: Not Given Pantoprazole Sodium (Protonix Inj) 40 mg IVP Q12H [facility] Last Admin: 12/24/17 05:21 Dose: 40 mg Thiamine HCl (Vitamin B1 Tab) 100 mg PO DAILY [facility] Last Admin: 12/24/17 09:50 Dose: 100 mg Physical Exam - Constitutional Appears: Non-toxic, No Acute Distress, Chronically Ill - Head Exam Head Exam: ATRAUMATIC, NORMOCEPHALIC - Eye Exam Eye Exam: EOMI, PERRL. absent: Scleral icterus Pupil Exam: PERRL. absent: Miosis, Mydriatic - ENT Exam ENT Exam: Mucous Membranes Moist, Normal Oropharynx - Neck Exam Neck exam: Positive for: Full Rom, Normal Inspection - Respiratory Exam Respiratory Exam: Clear to Auscultation Bilateral. absent: Rales, Rhonchi, Wheezes - Cardiovascular Exam Cardiovascular Exam: RRR, +S1, +S2. absent: Gallop, Rubs - GI/Abdominal Exam GI & Abdominal Exam: Normal Bowel Sounds, Organomegaly, Soft, Tenderness. absent: Distended, Firm, Guarding, Rebound, Rigid Additional comments: right flank tenderness to palpation, hepatosplenomegaly - Rectal Exam Additional comments: yellow mucus in rectal vault - Extremities Exam Extremities exam: Positive for: normal inspection, pedal edema - Neurological Exam Neurological exam: Alert Additional comments: no asterixis - Psychiatric Exam Psychiatric exam: Normal Affect, Normal Mood - Skin Skin Exam: Dry, Intact, Normal Color, Warm Results - Vital Signs Recent Vital Signs: Last Vital Signs Temp 98.7 F 12/24/17 07:00 Pulse 72 12/24/17 07:47 Resp 20 12/24/17 07:00 BP 168/69 H 12/24/17 07:00 Pulse Ox 99 12/24/17 07:00 - Labs Result Diagrams: 12/24/17 07:20 12/24/17 07:19 Labs: Laboratory Results - last 24 hr 12/23/17 12/23/17 12/23/17 11:41 11:46 11:46 WBC 11.5 H RBC 2.12 L Hgb 6.9 L D Hct 20.6 L MCV 97.5 H D MCH 32.7 H MCHC 33.5 RDW 17.3 H Plt Count 219 MPV 10.3 Neut % (Auto) 73.8 Lymph % (Auto) 18.5 L [place] % (Auto) 4.3 Eos % (Auto) 2.2 Baso % (Auto) 1.2 Neut # (Auto) 8.5 H Lymph # (Auto) 2.1 [place] # (Auto) 0.5 Eos # (Auto) 0.3 Baso # (Auto) 0.1 PT 14.8 H INR 1.4 APTT 29 Sodium 139 Potassium 4.7 Chloride 104 Carbon Dioxide 25 Anion Gap 14 BUN 29 H Creatinine 0.6 L Est GFR ( Amer) > 60 Est GFR (Non-Af Amer) > 60 POC Glucose (mg/dL) Random Glucose 222 H Calcium 8.9 Total Bilirubin 4.2 H AST 140 H ALT 54 Alkaline Phosphatase 643 H Total Creatine Kinase CK-MB (Mass) Troponin I < 0.0120 Total Protein 6.5 Albumin 3.1 L Globulin 3.4 Albumin/Globulin Ratio 0.9 L Urine Color Urine Clarity Urine pH Ur Specific [place] Urine Protein Urine Glucose (UA) Urine Ketones Urine Blood Urine Nitrate Urine Bilirubin Urine Urobilinogen Ur Leukocyte Esterase Urine WBC (Auto) Urine RBC (Auto) Urine Bacteria Stool Occult Blood Blood Type Antibody Screen 12/23/17 12/23/17 12/23/17 11:46 12:57 22:08 WBC RBC Hgb Hct MCV MCH MCHC RDW Plt Count MPV Neut % (Auto) Lymph % (Auto) [place] % (Auto) Eos % (Auto) Baso % (Auto) Neut # (Auto) Lymph # (Auto) [place] # (Auto) Eos # (Auto) Baso # (Auto) PT INR APTT Sodium Potassium Chloride Carbon Dioxide Anion Gap BUN Creatinine Est GFR ( Amer) Est GFR (Non-Af Amer) POC Glucose (mg/dL) Random Glucose Calcium Total Bilirubin AST ALT Alkaline Phosphatase Total Creatine Kinase CK-MB (Mass) Troponin I Total Protein Albumin Globulin Albumin/Globulin Ratio Urine Color Yellow Urine Clarity Clear Urine pH 5.0 Ur Specific [place] 1.018 Urine Protein Negative Urine Glucose (UA) Normal Urine Ketones Negative Urine Blood Negative Urine Nitrate Negative Urine Bilirubin Negative Urine Urobilinogen 4.0 Ur Leukocyte Esterase Neg Urine WBC (Auto) 7 H Urine RBC (Auto) 1 Urine Bacteria Rare Stool Occult Blood Positive H Blood Type O POSITIVE Antibody Screen Negative 12/24/17 12/24/17 12/24/17 06:10 07:19 07:20 WBC 13.1 H RBC 2.85 L Hgb 8.9 L D Hct 27.1 L MCV 95.0 H D MCH 31.1 H MCHC 32.7 L RDW 17.7 H Plt Count 192 MPV 10.4 Neut % (Auto) 81.7 H Lymph % (Auto) 10.4 L [place] % (Auto) 5.2 Eos % (Auto) 1.7 Baso % (Auto) 1.0 Neut # (Auto) 10.7 H Lymph # (Auto) 1.4 [place] # (Auto) 0.7 Eos # (Auto) 0.2 Baso # (Auto) 0.1 PT INR APTT Sodium 138 Potassium 4.0 Chloride 106 Carbon Dioxide 23 Anion Gap 13 BUN 16 Creatinine 0.6 L Est GFR ( Amer) > 60 Est GFR (Non-Af Amer) > 60 POC Glucose (mg/dL) 201 H Random Glucose 187 H Calcium 8.7 Total Bilirubin 4.3 H AST 135 H ALT 49 Alkaline Phosphatase 634 H Total Creatine Kinase 27 L CK-MB (Mass) 0.52 Troponin I < 0.0120 Total Protein 6.3 Albumin 2.9 L Globulin 3.4 Albumin/Globulin Ratio 0.9 L Urine Color Urine Clarity Urine pH Ur Specific [place] Urine Protein Urine Glucose (UA) Urine Ketones Urine Blood Urine Nitrate Urine Bilirubin Urine Urobilinogen Ur Leukocyte Esterase Urine WBC (Auto) Urine RBC (Auto) Urine Bacteria Stool Occult Blood Blood Type Antibody Screen Assessment & Plan - Assessment and Plan (Free Text) Assessment: 57 year old male with PMH of decompensated HCV cirrhosis (Genotype 3a, viral load >2million with failed treatment IFN/RBN 15 years ago) complicated by multifocal HCC with vascular invasion on liver biopsy 10/2017 and chronic portal vein thrombosis, Prothrombin [id number] mutation on Eliquis, and Polysubstance Abuse presenting with dark stools. Active treatment of acute on chronic anemia on anticoagulation. No prior EGD or colonoscopy. Plan: -MELD 16 -s/p 2U pRBCs with appropriate response -rectal without signs of overt GI bleed, yellow mucus -low suspicion for active GI bleed requiring emergent/urgent intervention -Eliquis held since , would recommend holding given acute anemia -high risk patient with multiple risk factors for thrombosis with prothrombin mutation, HCC with chronic Right PVT, and cirrhosis -risk vs benefit of anticoagulation must be discussed with multidisciplinary approach -missed appointment on 12/21 at [facility], appt made for 01/07/18 at 230pm at [facility] hepatology ambulatory clinic -outpatient EGD for variceal screening /anemia and colonoscopy for CRC screening give family history of colon cancer- recommend establish care at [facility] once evaluated in hepatology clinic <Todd Reza - Last Filed: 12/24/17 11:55> Meds - Medications Medications: Current Medications Docusate Sodium (Colace) 100 mg PO BID [facility] Last Admin: 12/24/17 09:51 Dose: Not Given Folic Acid (Folic Acid) 1 mg PO DAILY [facility] Last Admin: 12/24/17 09:48 Dose: 1 mg Insulin Aspart (Novolog) 0 unit SC ACHS [facility] PRN Reason: Protocol Last Admin: 12/24/17 08:24 Dose: 3 units Morphine Sulfate (Morphine) 0.5 mg IVP Q4 PRN PRN Reason: Pain, moderate (4-7) Morphine Sulfate (Morphine) 1 mg IVP Q4 PRN PRN Reason: Pain, severe (8-10) Last Admin: 09/07/18 09:50 Dose: 1 mg Multivitamins (Hexavitamin) 1 tab PO DAILY [facility] Last Admin: 12/24/17 09:48 Dose: 1 tab Nicotine (Nicoderm Cq) 1 patch TD DAILY [facility] Last Admin: 12/24/17 09:52 Dose: Not Given Pantoprazole Sodium (Protonix Inj) 40 mg IVP Q12H [facility] Last Admin: 12/24/17 05:21 Dose: 40 mg Thiamine HCl (Vitamin B1 Tab) 100 mg PO DAILY [facility] Last Admin: 12/24/17 09:50 Dose: 100 mg Results - Vital Signs Recent Vital Signs: Last Vital Signs Temp 98.7 F 12/24/17 07:00 Pulse 72 12/24/17 07:47 Resp 20 12/24/17 07:00 BP 168/69 H 12/24/17 07:00 Pulse Ox 99 12/24/17 07:00 - Labs Result Diagrams: 12/24/17 07:20 12/24/17 07:19 Labs: Laboratory Results - last 24 hr 12/23/17 12/23/17 12/23/17 11:41 11:46 11:46 WBC 11.5 H RBC 2.12 L Hgb 6.9 L D Hct 20.6 L MCV 97.5 H D MCH 32.7 H MCHC 33.5 RDW 17.3 H Plt Count 219 MPV 10.3 Neut % (Auto) 73.8 Lymph % (Auto) 18.5 L [place] % (Auto) 4.3 Eos % (Auto) 2.2 Baso % (Auto) 1.2 Neut # (Auto) 8.5 H Lymph # (Auto) 2.1 [place] # (Auto) 0.5 Eos # (Auto) 0.3 Baso # (Auto) 0.1 PT 14.8 H INR 1.4 APTT 29 Sodium 139 Potassium 4.7 Chloride 104 Carbon Dioxide 25 Anion Gap 14 BUN 29 H Creatinine 0.6 L Est GFR ( Amer) > 60 Est GFR (Non-Af Amer) > 60 POC Glucose (mg/dL) Random Glucose 222 H Calcium 8.9 Total Bilirubin 4.2 H AST 140 H ALT 54 Alkaline Phosphatase 643 H Total Creatine Kinase CK-MB (Mass) Troponin I < 0.0120 Total Protein 6.5 Albumin 3.1 L Globulin 3.4 Albumin/Globulin Ratio 0.9 L Urine Color Urine Clarity Urine pH Ur Specific [place] Urine Protein Urine Glucose (UA) Urine Ketones Urine Blood Urine Nitrate Urine Bilirubin Urine Urobilinogen Ur Leukocyte Esterase Urine WBC (Auto) Urine RBC (Auto) Urine Bacteria Stool Occult Blood Blood Type Antibody Screen 12/23/17 12/23/17 12/23/17 11:46 12:57 22:08 WBC RBC Hgb Hct MCV MCH MCHC RDW Plt Count MPV Neut % (Auto) Lymph % (Auto) [place] % (Auto) Eos % (Auto) Baso % (Auto) Neut # (Auto) Lymph # (Auto) [place] # (Auto) Eos # (Auto) Baso # (Auto) PT INR APTT Sodium Potassium Chloride Carbon Dioxide Anion Gap BUN Creatinine Est GFR ( Amer) Est GFR (Non-Af Amer) POC Glucose (mg/dL) Random Glucose Calcium Total Bilirubin AST ALT Alkaline Phosphatase Total Creatine Kinase CK-MB (Mass) Troponin I Total Protein Albumin Globulin Albumin/Globulin Ratio Urine Color Yellow Urine Clarity Clear Urine pH 5.0 Ur Specific [place] 1.018 Urine Protein Negative Urine Glucose (UA) Normal Urine Ketones Negative Urine Blood Negative Urine Nitrate Negative Urine Bilirubin Negative Urine Urobilinogen 4.0 Ur Leukocyte Esterase Neg Urine WBC (Auto) 7 H Urine RBC (Auto) 1 Urine Bacteria Rare Stool Occult Blood Positive H Blood Type O POSITIVE Antibody Screen Negative 12/24/17 12/24/17 12/24/17 06:10 07:19 07:20 WBC 13.1 H RBC 2.85 L Hgb 8.9 L D Hct 27.1 L MCV 95.0 H D MCH 31.1 H MCHC 32.7 L RDW 17.7 H Plt Count 192 MPV 10.4 Neut % (Auto) 81.7 H Lymph % (Auto) 10.4 L [place] % (Auto) 5.2 Eos % (Auto) 1.7 Baso % (Auto) 1.0 Neut # (Auto) 10.7 H Lymph # (Auto) 1.4 [place] # (Auto) 0.7 Eos # (Auto) 0.2 Baso # (Auto) 0.1 PT INR APTT Sodium 138 Potassium 4.0 Chloride 106 Carbon Dioxide 23 Anion Gap 13 BUN 16 Creatinine 0.6 L Est GFR ( Amer) > 60 Est GFR (Non-Af Amer) > 60 POC Glucose (mg/dL) 201 H Random Glucose 187 H Calcium 8.7 Total Bilirubin 4.3 H AST 135 H ALT 49 Alkaline Phosphatase 634 H Total Creatine Kinase 27 L CK-MB (Mass) 0.52 Troponin I < 0.0120 Total Protein 6.3 Albumin 2.9 L Globulin 3.4 Albumin/Globulin Ratio 0.9 L Urine Color Urine Clarity Urine pH Ur Specific [place] Urine Protein Urine Glucose (UA) Urine Ketones Urine Blood Urine Nitrate Urine Bilirubin Urine Urobilinogen Ur Leukocyte Esterase Urine WBC (Auto) Urine RBC (Auto) Urine Bacteria Stool Occult Blood Blood Type Antibody Screen Attending/Attestation - Attestation I have personally seen and examined this patient.: Yes I have fully participated in the care of the patient.: Yes I have reviewed all pertinent clinical information: Yes Notes (Text): 12/24/17 11:48 I have seen and examined patient with GI fellow. Agree with above documentation with the following additions. In brief, this is a 57 year old male with history of HCV cirrhosis, recently diagnosed HCC with portal vein vascular invasion, hypercoaguable state on eliquis, who presents to hospital with progressive fatigue and dark colored stool. He notes change in stool color beginning 4 days ago, though had a normal brown bowel movement this morning. He endorses chronic RUQ abdominal pain but denies nausea, vomiting, fever/chills. He does report a weight loss of nearly 40 pounds over the past few months, no prior endoscopic evaluation. His last dose of Eliquis was yesterday. Tolerating PO diet without difficulty. Review of vitals from today shows elevated BP. Decompensated HCV cirrhosis, MELD 16 HCC with portal vein invasion Anemia Hypercoaguable state on Eliquis - H/H stable, s/p PRBC transfusion, continue to monitor. Rectal exam performed today shows soft yellow colored stool in rectal vault without palpable lesions. - Would continue to hold eliquis for time being, though patient remains high risk for pro-thrombotic events - Patient follows at [facility] liver clinic for management of HCC in decompensated cirrhosis, new appointment made for him on 01/07 - Patient would benefit from outpatient EGD/colonsocopy for variceal screening and colorectal cancer screening particularly given family history of colon cancer - No planned GI intervention at this time, will sign off case. Please reconsult as necessary, thank you.
[2017-12-24 17:13] LABS: BASO # 0.1 K/uL (0.0-0.2); BASO % 0.9 % (0.0-2.0); EOS # 0.1 K/uL (0.0-0.7); EOS % 0.8 % (0.0-4.0); LYMPH # 1.1 K/uL (1.0-4.3); MEAN CELL VOLUME 94.3 fL (80.0-94.0); MEAN CORPUSCULAR HEMOGLOBIN 31.6 pg (27.0-31.0); MEAN CORPUSCULAR HGB CONC 33.5 g/dL (33.0-37.0); MEAN PLATELET VOLUME 9.5 fL (7.2-11.7); MONO # 0.9 K/uL (0.0-0.8); MONO % 5.7 % (0.0-10.0); NEUT # 13.6 K/uL (1.8-7.0); NEUT % 85.6 % (50.0-75.0); PLATELET COUNT 260 K/uL (130-400); RBC 2.84 Mil/uL (4.40-5.90); RED CELL DISTRIBUTION WIDTH 17.8 % (11.5-14.5); WHITE BLOOD COUNT 15.9 K/uL (4.8-10.8)
[2017-12-24 17:49] LABS: BANDS 1 % (0-2); EOSINOPHIL 1 % (0-4); LYMPHOCYTE 8 % (20-40); MONOCYTE 3 % (0-10); NEUTROPHIL 87 % (50-75); PLATELET ESTIMATE NORMAL (NORMAL); TOTAL CELLS COUNTED 100
[2017-12-24 17:50] LABS: ANISOCYTOSIS SLIGHT
[2017-12-24 17:51] LABS: HYPOCHROMIC SLIGHT; POIKILOCYTOSIS SLIGHT
[2017-12-25 07:24] LABS: BASO # 0.2 K/uL (0.0-0.2); BASO % 1.2 % (0.0-2.0); EOS # 0.4 K/uL (0.0-0.7); LYMPH # 1.3 K/uL (1.0-4.3); MEAN CELL VOLUME 94.3 fL (80.0-94.0); MEAN CORPUSCULAR HEMOGLOBIN 32.2 pg (27.0-31.0); MEAN CORPUSCULAR HGB CONC 34.2 g/dL (33.0-37.0); MONO # 0.6 K/uL (0.0-0.8); NEUT # 10.1 K/uL (1.8-7.0); NEUT % 80.8 % (50.0-75.0); RBC 2.8 Mil/uL (4.40-5.90); RED CELL DISTRIBUTION WIDTH 17.8 % (11.5-14.5); WHITE BLOOD COUNT 12.5 K/uL (4.8-10.8)
[2017-12-25] MEDS: (Novolog) Insulin Aspart, Recombinant 100 u/ml 10 ml vial SC SCH ×2 (07:40→12:34)
[2017-12-25 07:46] LABS: ALB/GLOB RATIO 0.9 (1.0-2.1); ALBUMIN 2.9 g/dL (3.5-5.0); ALT/SGPT 52 U/L (21-72); AST/SGOT 129 U/L (17-59); BLOOD UREA NITROGEN 17 mg/dL (9-20); CALCIUM 8.9 mg/dl (8.6-10.4); GFR NON-AFRICAN AMERICAN > 60
--- NOTE | 2017-12-25 08:04 | CP.PCM.DIS ---
<Silvano Lara - Last Filed: 12/25/17 16:17> Provider - Provider Date of Admission: 12/23/17 12:57 Attending physician: Salvador Kaur MD Time Spent in preparation of Discharge (in minutes): 40 Hospital Course - Lab Results Lab Results: Most Recent Lab Values WBC 12.5 K/uL (4.8-10.8) H 12/25/17 07:00 RBC 2.80 Mil/uL (4.40-5.90) L 12/25/17 07:00 Hgb 9.0 g/dL (12.0-18.0) L 12/25/17 07:00 Hct 26.4 % (35.0-51.0) L 12/25/17 07:00 MCV 94.3 fL (80.0-94.0) H 12/25/17 07:00 MCH 32.2 pg (27.0-31.0) H 12/25/17 07:00 MCHC 34.2 g/dL (33.0-37.0) 12/25/17 07:00 RDW 17.8 % (11.5-14.5) H 12/25/17 07:00 Plt Count 182 K/uL (130-400) 12/25/17 07:00 MPV 10.0 fL (7.2-11.7) 12/25/17 07:00 Neut % (Auto) 80.8 % (50.0-75.0) H 12/25/17 07:00 Lymph % (Auto) 10.0 % (20.0-40.0) L 12/25/17 07:00 [place] % (Auto) 5.0 % (0.0-10.0) 12/25/17 07:00 Eos % (Auto) 3.0 % (0.0-4.0) 12/25/17 07:00 Baso % (Auto) 1.2 % (0.0-2.0) 12/25/17 07:00 Neut # (Auto) 10.1 K/uL (1.8-7.0) H 12/25/17 07:00 Lymph # (Auto) 1.3 K/uL (1.0-4.3) 12/25/17 07:00 [place] # (Auto) 0.6 K/uL (0.0-0.8) 12/25/17 07:00 Eos # (Auto) 0.4 K/uL (0.0-0.7) 12/25/17 07:00 Baso # (Auto) 0.2 K/uL (0.0-0.2) 12/25/17 07:00 Neutrophils % (Manual) 87 % (50-75) H 12/24/17 17:06 Band Neutrophils % 1 % (0-2) 12/24/17 17:06 Lymphocytes % (Manual) 8 % (20-40) L 12/24/17 17:06 Monocytes % (Manual) 3 % (0-10) 12/24/17 17:06 Eosinophils % (Manual) 1 % (0-4) 12/24/17 17:06 Platelet Estimate Normal (NORMAL) 12/24/17 17:06 Hypochromasia (manual) Slight 12/24/17 17:06 Poikilocytosis (manual Slight 12/24/17 17:06 Basophilic Stippling Slight 12/24/17 17:06 Anisocytosis (manual) Slight 12/24/17 17:06 PT 14.8 SECONDS (9.7-12.2) H 12/23/17 11:41 INR 1.4 12/23/17 11:41 APTT 29 SECONDS (21-34) 12/23/17 11:41 Sodium 136 mmol/L (132-148) 12/25/17 07:00 Potassium 4.3 mmol/L (3.6-5.2) 12/25/17 07:00 Chloride 105 mmol/L (98-107) 12/25/17 07:00 Carbon Dioxide 22 mmol/L (22-30) 12/25/17 07:00 Anion Gap 14 (10-20) 12/25/17 07:00 BUN 17 mg/dL (9-20) 12/25/17 07:00 Creatinine 0.7 mg/dL (0.8-1.5) L 12/25/17 07:00 Est GFR ( Amer) > 60 12/25/17 07:00 Est GFR (Non-Af Amer) > 60 12/25/17 07:00 POC Glucose (mg/dL) 194 mg/dL (65-110) H 12/25/17 06:16 Random Glucose 222 mg/dL (75-110) H 12/25/17 07:00 Calcium 8.9 mg/dl (8.6-10.4) 12/25/17 07:00 Total Bilirubin 4.3 mg/dL (0.2-1.3) H 12/25/17 07:00 AST 129 U/L (17-59) H 12/25/17 07:00 ALT 52 U/L (21-72) 12/25/17 07:00 Alkaline Phosphatase 577 U/L (38-126) H 12/25/17 07:00 Total Creatine Kinase 27 U/L (55-170) L 12/24/17 07:19 CK-MB (Mass) 0.52 ng/mL (0.0-3.38) 12/24/17 07:19 Troponin I < 0.0120 ng/mL (0.00-0.120) 12/24/17 07:19 Total Protein 6.3 g/dL (6.3-8.3) 12/25/17 07:00 Albumin 2.9 g/dL (3.5-5.0) L 12/25/17 07:00 Globulin 3.4 gm/dL (2.2-3.9) 12/25/17 07:00 Albumin/Globulin Ratio 0.9 (1.0-2.1) L 12/25/17 07:00 Urine Color Yellow (YELLOW) 12/23/17 22:08 Urine Clarity Clear (Clear) 12/23/17 22:08 Urine pH 5.0 (5.0-8.0) 12/23/17 22:08 Ur Specific [place] 1.018 (1.003-1.030) 12/23/17 22:08 Urine Protein Negative mg/dL (NEGATIVE) 12/23/17 22:08 Urine Glucose (UA) Normal mg/dL (Normal) 12/23/17 22:08 Urine Ketones Negative mg/dL (NEGATIVE) 12/23/17 22:08 Urine Blood Negative (NEGATIVE) 12/23/17 22:08 Urine Nitrate Negative (NEGATIVE) 12/23/17 22:08 Urine Bilirubin Negative (NEGATIVE) 12/23/17 22:08 Urine Urobilinogen 4.0 mg/dL (0.2-1.0) 12/23/17 22:08 Ur Leukocyte Esterase Neg Brandi/uL (Negative) 12/23/17 22:08 Urine WBC (Auto) 7 /hpf (0-5) H 12/23/17 22:08 Urine RBC (Auto) 1 /hpf (0-3) 12/23/17 22:08 Urine Bacteria Rare (<OCC) 12/23/17 22:08 Stool Occult Blood Positive (NEGATIVE) H 12/23/17 11:46 Blood Type O POSITIVE 12/23/17 12:57 Antibody Screen Negative 12/23/17 12:57 - Hospital Course Hospital Course: Mr. 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 Patient additionally had dark stools 2 days prior along with pain along the bilateral flanks while passing bowel movements. Patient additionally complained of dark brown urine for the past 2 days. Patient also endorsed one episode of chest pain radiating up to the chest that resolved upon admission. Of note, he follows up with [facility] liver clinic but did not make his 12/21 appointment because he did not feel well. Upon admission, patient's shortness of breath and chest pain with palpitations resolved. CHU x3 were negative, EKG demonstrated normal sinus rhythm and CXR showed no acute findings. Hb/HCT was 6.9/20.6 respectively. 2 units of pRBCs were prepared and transfused, with appropriate response to 8.9/27.1. GI was consulted (Dr. Francis) for GI bleed in the setting of multiple episodes of dark brown BM and dark brown urine. Rectal exam performed by GI showed yellow colored stool in rectal vault without palpable lesions. Eliquis was held given patient's acute anemia, though patient remains high risk for pro-thrombotic events. Per GI, given no active bleeding, patient would benefit from outpatient EGD/colonoscopy exam for variceal screening and colorectal cancer screening, particularly given family history of colon cancer. No planned GI intervention was indicated at this time. Patient has a calculated MELD score of 16 and was scheduled for a new appointment at [facility] liver clinic for his condition. Patient 's Hb/HCT stabilized during course of admission and patient remained asymptomatic. Patient is medically stable for discharge, per Dr. Kaur. The following instructions were explained to him and a copy will need to be provided to him upon discharge: 1). You have been scheduled for follow up with the GI/Liver Clinic at [facility] in [place], [place] for 01/07/18 at 2:45 PM. Please do NOT miss this appointment as this clinic will help you with your history of Liver Cancer , Hepatitis C and further evaluation with upper endoscopy and colonoscopy. 2). You stated that you had enough of your lasix, oxycontin. Please continue to use these medications as instructed to you in the past admissions. 3). You stated that you did not have enough of your Flomax therefore a 30 day supply has been provided to you. Please take every morning at 8 AM. 4). Your blood pressure was high during this admission therefore you were provided with 30 day supply for Propranolol 10 mg 1 tablet by mouth to be taken at 8 AM, 2 PM, and 8 PM. 5). You have declined treatment for your diabetes. 6). STOP taking Eliquis for now as this is causing bleeding. 7). Please make sure to schedule follow up with the [facility] located on Floor [address] of [address] in [place], [place] for coordination of your health care. This appointment should take place in the next 7 to 10 days or before you run out of your medications. The following is a summary of hospital course. For full detail, please refer to EMR. Discharge Exam - Head Exam Head Exam: ATRAUMATIC, NORMAL INSPECTION, NORMOCEPHALIC - Eye Exam Eye Exam: EOMI, Normal appearance, PERRL Pupil Exam: NORMAL ACCOMODATION - ENT Exam ENT Exam: Mucous Membranes Moist, Normal Exam Additional comments: Poor dentition with multiple teeth upper and lower are missing - Respiratory Exam Respiratory Exam: NORMAL BREATHING PATTERN, UNREMARKABLE. absent: Rales, Rhonchi, Wheezes, Respiratory Distress, Stridor - Cardiovascular Exam Cardiovascular Exam: REGULAR RHYTHM, +S1, +S2. absent: Diastolic murmur, Gallop , Rubs, Systolic Murmur - GI/Abdominal Exam GI & Abdominal Exam: Normal Bowel Sounds, Soft, Unremarkable. absent: Distended , Firm, Guarding, Mass, Rebound, Rigid, Tenderness - Extremities Exam Extremities exam: normal capillary refill, normal inspection, pedal pulses present - Back Exam Back exam: NORMAL INSPECTION - Neurological Exam Neurological exam: Alert, CN II-XII Intact, Oriented x3 Discharge Plan - Discharge Medications Prescriptions: RX: Propranolol [Inderal] 10 mg PO TID #90 tab RX: Tamsulosin [Flomax] 0.4 mg PO DAILY #30 cap - Follow Up Plan Condition: STABLE Disposition: HOME/ ROUTINE Instructions: Good Food Sources of Iron, Chest Pain (DC), Jaundice, Adult (DC) , Normocytic Normochromic Anemia (DC) Additional Instructions: The following instructions were explained to patient and a copy will need to be provided to him upon discharge: 1). You have been scheduled for follow up with the GI/Liver Clinic at [facility] in [place], [place] for 01/07/18 at 2:45 PM. Please do NOT miss this appointment as this clinic will help you with your history of Liver Cancer , Hepatitis C and further evaluation with upper endoscopy and colonoscopy. 2). You stated that you had enough of your lasix, oxycontin. Please continue to use these medications as instructed to you in the past admissions. 3). You stated that you did not have enough of your Flomax therefore a 30 day supply has been provided to you. Please take every morning at 8 AM. 4). Your blood pressure was high during this admission therefore you were provided with 30 day supply for Propranolol 10 mg 1 tablet by mouth to be taken at 8 AM, 2 PM, and 8 PM. 5). You have declined treatment for your diabetes. 6). STOP taking Eliquis for now as this is causing bleeding. 7). Please make sure to schedule follow up with the [facility] located on [address] of [address] in [place], [place] for coordination of your health care. This appointment should take place in the next 7 to 10 days or before you run out of your medications. <Salvador Kaur - Last Filed: 12/25/17 18:43> Provider - Provider Date of Admission: 12/23/17 12:57 Attending physician: Salvador Kaur MD Hospital Course - Lab Results Lab Results: Most Recent Lab Values WBC 12.5 K/uL (4.8-10.8) H 12/25/17 07:00 RBC 2.80 Mil/uL (4.40-5.90) L 12/25/17 07:00 Hgb 9.0 g/dL (12.0-18.0) L 12/25/17 07:00 Hct 26.4 % (35.0-51.0) L 12/25/17 07:00 MCV 94.3 fL (80.0-94.0) H 12/25/17 07:00 MCH 32.2 pg (27.0-31.0) H 12/25/17 07:00 MCHC 34.2 g/dL (33.0-37.0) 12/25/17 07:00 RDW 17.8 % (11.5-14.5) H 12/25/17 07:00 Plt Count 182 K/uL (130-400) 12/25/17 07:00 MPV 10.0 fL (7.2-11.7) 12/25/17 07:00 Neut % (Auto) 80.8 % (50.0-75.0) H 12/25/17 07:00 Lymph % (Auto) 10.0 % (20.0-40.0) L 12/25/17 07:00 [place] % (Auto) 5.0 % (0.0-10.0) 12/25/17 07:00 Eos % (Auto) 3.0 % (0.0-4.0) 12/25/17 07:00 Baso % (Auto) 1.2 % (0.0-2.0) 12/25/17 07:00 Neut # (Auto) 10.1 K/uL (1.8-7.0) H 12/25/17 07:00 Lymph # (Auto) 1.3 K/uL (1.0-4.3) 12/25/17 07:00 [place] # (Auto) 0.6 K/uL (0.0-0.8) 12/25/17 07:00 Eos # (Auto) 0.4 K/uL (0.0-0.7) 12/25/17 07:00 Baso # (Auto) 0.2 K/uL (0.0-0.2) 12/25/17 07:00 Neutrophils % (Manual) 87 % (50-75) H 12/24/17 17:06 Band Neutrophils % 1 % (0-2) 12/24/17 17:06 Lymphocytes % (Manual) 8 % (20-40) L 12/24/17 17:06 Monocytes % (Manual) 3 % (0-10) 12/24/17 17:06 Eosinophils % (Manual) 1 % (0-4) 12/24/17 17:06 Platelet Estimate Normal (NORMAL) 12/24/17 17:06 Hypochromasia (manual) Slight 12/24/17 17:06 Poikilocytosis (manual Slight 12/24/17 17:06 Basophilic Stippling Slight 12/24/17 17:06 Anisocytosis (manual) Slight 12/24/17 17:06 PT 14.8 SECONDS (9.7-12.2) H 12/23/17 11:41 INR 1.4 12/23/17 11:41 APTT 29 SECONDS (21-34) 12/23/17 11:41 Sodium 136 mmol/L (132-148) 12/25/17 07:00 Potassium 4.3 mmol/L (3.6-5.2) 12/25/17 07:00 Chloride 105 mmol/L (98-107) 12/25/17 07:00 Carbon Dioxide 22 mmol/L (22-30) 12/25/17 07:00 Anion Gap 14 (10-20) 12/25/17 07:00 BUN 17 mg/dL (9-20) 12/25/17 07:00 Creatinine 0.7 mg/dL (0.8-1.5) L 12/25/17 07:00 Est GFR ( Amer) > 60 12/25/17 07:00 Est GFR (Non-Af Amer) > 60 12/25/17 07:00 POC Glucose (mg/dL) 277 mg/dL (65-110) H 12/25/17 11:52 Random Glucose 222 mg/dL (75-110) H 12/25/17 07:00 Calcium 8.9 mg/dl (8.6-10.4) 12/25/17 07:00 Total Bilirubin 4.3 mg/dL (0.2-1.3) H 12/25/17 07:00 AST 129 U/L (17-59) H 12/25/17 07:00 ALT 52 U/L (21-72) 12/25/17 07:00 Alkaline Phosphatase 577 U/L (38-126) H 12/25/17 07:00 Total Creatine Kinase 27 U/L (55-170) L 12/24/17 07:19 CK-MB (Mass) 0.52 ng/mL (0.0-3.38) 12/24/17 07:19 Troponin I < 0.0120 ng/mL (0.00-0.120) 12/24/17 07:19 Total Protein 6.3 g/dL (6.3-8.3) 12/25/17 07:00 Albumin 2.9 g/dL (3.5-5.0) L 12/25/17 07:00 Globulin 3.4 gm/dL (2.2-3.9) 12/25/17 07:00 Albumin/Globulin Ratio 0.9 (1.0-2.1) L 12/25/17 07:00 Urine Color Yellow (YELLOW) 12/23/17 22:08 Urine Clarity Clear (Clear) 12/23/17 22:08 Urine pH 5.0 (5.0-8.0) 12/23/17 22:08 Ur Specific [place] 1.018 (1.003-1.030) 12/23/17 22:08 Urine Protein Negative mg/dL (NEGATIVE) 12/23/17 22:08 Urine Glucose (UA) Normal mg/dL (Normal) 12/23/17 22:08 Urine Ketones Negative mg/dL (NEGATIVE) 12/23/17 22:08 Urine Blood Negative (NEGATIVE) 12/23/17 22:08 Urine Nitrate Negative (NEGATIVE) 12/23/17 22:08 Urine Bilirubin Negative (NEGATIVE) 12/23/17 22:08 Urine Urobilinogen 4.0 mg/dL (0.2-1.0) 12/23/17 22:08 Ur Leukocyte Esterase Neg Brandi/uL (Negative) 12/23/17 22:08 Urine WBC (Auto) 7 /hpf (0-5) H 12/23/17 22:08 Urine RBC (Auto) 1 /hpf (0-3) 12/23/17 22:08 Urine Bacteria Rare (<OCC) 12/23/17 22:08 Stool Occult Blood Positive (NEGATIVE) H 12/23/17 11:46 Blood Type O POSITIVE 12/23/17 12:57 Antibody Screen Negative 12/23/17 12:57 Attending/Attestation - Attestation I have personally seen and examined this patient.: Yes I have fully participated in the care of the patient.: Yes I have reviewed all pertinent clinical information, including history, physical exam and plan: Yes Notes (Text): 12/25/17 18:42 Please see my note 12/25/17 Salvador Kaur D.O.
[2017-12-25 08:49] VITALS: BP 165/77; PULSE 93; TEMP 98.3; O2SAT 98
[2017-12-25] MEDS: Multiple Vitamins Tab PO SCH (09:32)
--- NOTE | 2017-12-25 11:14 | CP.PCM.PN ---
Subjective - Date & Time of Evaluation Date of Evaluation: 12/25/17 Time of Evaluation: 10:30 - Subjective Subjective: Hospitalist Progress Note Patient was seen and examined at 10:30 AM 12/25/17 667 A Upon FULL ROS Had normal nonbloody/nonblack bowel movement this morning Had some nausea with dinner last night but not this morning Feels like his belly is bloated with gas: he is moving his bowels and passing gas Weakness that he has been experiencing is better today NO chest pain NO dysphagia/odynopahgia NO soreness in throat NO cough NO sinus/nasal congestion NO fever/chills NO joint pain NO chest pain/palpations NO SOB/dyspnea NO BROWN NO lightheadedness/dizziness NO paresthesias NO new changes in vision NO new changes in hearing Exam: General: AAOX3, NAD HEENT: NCA, EOMI, PERRLA, NO cervical/supraclavicular/submandibular lymphadenopathy, NO pharyngeal erythema/exudate, Nasal Turbinates are nonerythematous/nonedematous, Oral Mucosa is moist, Poor dentition with multiple teeth upper and lower are missing Cardio: NS1 and NS2, NO M/R/G Resp: CTA B/L, NO R/R/W GI: BSx4, Soft, NT, Central Obesity, Liver and Spleen could not be adequately palpated, Periumbilical (to the right) nontender/nonerythematous, easily reducible hernia Ext: Pulses are strong and equal, Capillary Refill is 2 seconds, 1+ pitting edema bilateral lower legs upto tibial tuberosities Neuro: CN II through XII are grossly intact Assessments: 1). GI Bleeding Likely Secondary to the Eliquis: Eliquis held. HgB/Hct are stable 2). Chest Pain/Palpitations: likely secondary to the Anemia from the GI Bleed. Resolved 3). Hepatocellular Carcinoma: will need outpatient GI follow up through Liver Clinic at [facility]. Patient set up for appointment for at 2:45 PM and he was provided with this information along with address by GI team. Patient stated that he had enough of Oxycontin IR 15 mg PO Q6H PRN. 4). C/O Dark Urine: resolved 5). Chronic LE Edema: stable. Patient stated that he had enough of his Lasix 20 mg PO 1x/day 6). Cholelithiasis: stable and will need outpatient GI follow up 7). Hx Hepatitis C: will need outpatient GI follow up 8). Hx Alcohol Abuse: currently not drinking for the past 1 year as per patient 9). Hx Smoking: counseled 10). Hx Portal Vein Thrombosis: Eliquis was held due to the GI Bleed on this admission. Will continue to HOLD and patient understands NOT to take his Eliquis 11). Preventative Care: will need outpatient EGD for evluation of possible Varices and Colonoscopy for Colon CA screening 12). BPH: stated that he needed refill on on Flomax 0.4 mg PO 1x/day 13). Hx DM 2: explained to him that I would like to start him on Metformin 500 mg PO 2x/day however patient has declined stating that he his blood glucose is high as he has not been moving around since his admission. Advised that he should be started on Metformin and again he declined. 14). HTN: he has history of this but not on any medication. Elevated this admission therefore Rx will be provided for Propranolol 10 mg PO Q8H ( considering the likelyhood of varices considering his liver disease) Disposition: HgB/Hct are stable Presenting symptoms have resolved The following instructions were explained to patient and a copy will need to be provided to him upon discharge: 1). You have been scheduled for follow up with the GI/Liver Clinic at [facility] in [place], [place] for 01/07/18 at 2:45 PM. Please do NOT miss this appointment as this clinic will help you with your history of Liver Cancer , Hepatitis C and further evaluation with upper endoscopy and colonoscopy. 2). You stated that you had enough of your lasix, oxycontin. Please continue to use these medications as instructed to you in the past admissions. 3). You stated that you did not have enough of your Flomax therefore a 30 day supply has been provided to you. Please take every morning at 8 AM. 4). Your blood pressure was high during this admission therefore you were provided with 30 day supply for Propranolol 10 mg 1 tablet by mouth to be taken at 8 AM, 2 PM, and 8 PM. 5). You have declined treatment for your diabetes. 6). STOP taking Eliquis for now as this is causing bleeding. 7). Please make sure to schedule follow up with the [facility] located on [address] of [address] in [place], [place] for coordination of your health care. This appointment should take place in the next 7 to 10 days or before you run out of your medications. Salvador Kaur D.O. Objective - Vital Signs/Intake and Output Vital Signs (last 24 hours): Temp Pulse Resp BP Pulse Ox 98.3 F 93 H 20 165/77 H 98 12/25/17 08:47 12/25/17 08:47 12/25/17 08:47 12/25/17 08:47 12/25/17 08:47 Intake and Output: 12/25/17 12/25/17 06:59 18:59 Intake Total 350 Balance 350 - Medications Medications: Current Medications Docusate Sodium (Colace) 100 mg PO BID [facility] Last Admin: 12/25/17 09:45 Dose: 100 mg Folic Acid (Folic Acid) 1 mg PO DAILY [facility] Last Admin: 12/25/17 09:32 Dose: 1 mg Insulin Aspart (Novolog) 0 unit SC ACHS [facility] PRN Reason: Protocol Last Admin: 12/25/17 07:40 Dose: 2 units Morphine Sulfate (Morphine) 0.5 mg IVP Q4 PRN PRN Reason: Pain, moderate (4-7) Last Admin: 12/25/17 06:07 Dose: 0.5 mg Morphine Sulfate (Morphine) 1 mg IVP Q4 PRN PRN Reason: Pain, severe (8-10) Last Admin: 12/25/17 09:33 Dose: 1 mg Multivitamins (Hexavitamin) 1 tab PO DAILY [facility] Last Admin: 12/25/17 09:32 Dose: 1 tab Nicotine (Nicoderm Cq) 1 patch TD DAILY [facility] Last Admin: 12/25/17 09:33 Dose: 1 patch Pantoprazole Sodium (Protonix Inj) 40 mg IVP Q12H [facility] Last Admin: 12/25/17 06:13 Dose: 40 mg Thiamine HCl (Vitamin B1 Tab) 100 mg PO DAILY [facility] Last Admin: 12/25/17 09:44 Dose: 100 mg - Labs Labs: 12/25/17 07:00 12/25/17 07:00 PT 14.8 SECONDS (9.7-12.2) H 12/23/17 11:41 INR 1.4 12/23/17 11:41 APTT 29 SECONDS (21-34) 12/23/17 11:41
== END 2017-12-25 14:47 | disposition home or self-care (01) | DRG 377 ==
LOC: C.ER 10:18 → C.9E 12:57 → C.6T 13:32
PROVIDERS: ADMIT Family Medicine; ATTEND Family Medicine
PROC: 30233N1 Transfusion of Nonautologous Red Blood Cells into Peripheral Vein, Percutaneous Approach (ICD-10-PCS; principal; 2017-12-23)
DX: K92.2 Gastrointestinal hemorrhage, unspecified (principal); I81 Portal vein thrombosis; R18.8 Other ascites; D62 Acute posthemorrhagic anemia; T45.515A Adverse effect of anticoagulants, initial encounter; E11.22 Type 2 diabetes mellitus with diabetic chronic kidney disease; I12.9 Hypertensive chronic kidney disease with stage 1 through stage 4 chronic kidney disease, or unspecified chronic kidney disease; Z85.05 Personal history of malignant neoplasm of liver; F17.210 Nicotine dependence, cigarettes, uncomplicated; B19.20 Unspecified viral hepatitis C without hepatic coma; K74.60 Unspecified cirrhosis of liver; K80.20 Calculus of gallbladder without cholecystitis without obstruction; Z66 Do not resuscitate; N18.9 Chronic kidney disease, unspecified; Z80.0 Family history of malignant neoplasm of digestive organs; Z79.4 Long term (current) use of insulin

== ENCOUNTER 2017-12-28 18:21 | Inpatient (IN) | payer MEDICAID, OTHER ==
[2017-12-28 18:21] VITALS: BMI 28.0
--- NOTE | 2017-12-28 19:53 | C.PDOC ---
History Of Present Illness 57-year-old male presents to the ED with complaints of black stool, starting 2 hours prior to arrival. Associated with nausea and abdominal pain. He reports current symptoms are similar to prior episode, when he was admitted last week for GI bleed. Patient is currently awaiting clearance to go to [facility] for further management of his liver disease. Otherwise he denies any chest pain, diarrhea, or bright red blood in stool. Patient admits to feeling mildly short of breath, associated with bilateral lower leg swelling. PMD: the clinic, Dr. Jen Butler Time Seen by Provider: 12/28/17 18:44 Chief Complaint (Nursing): GI Problem History Per: Patient History/Exam Limitations: no limitations Onset/Duration Of Symptoms: Hrs (x2) Current Symptoms Are (Timing): Still Present Associated Symptoms: Nausea, Melena Additional History Per: EMS, Prior Records Past Medical History Reviewed: Historical Data, Nursing Documentation, Vital Signs Vital Signs: Last Vital Signs Temp 98.7 F 12/28/17 18:22 Pulse 86 12/28/17 21:36 Resp 20 12/28/17 21:36 BP 152/61 H 12/28/17 21:36 Pulse Ox 100 12/28/17 21:36 - Medical History PMH: Anxiety, Back Problems, Depression, Diabetes (?), Gastritis (Gall stones), Hepatitis (Pt history and treatment), HTN, Kidney Stones, Chronic Kidney Disease Denies: HIV (Patient denied), Seizures (Patient denied), Sexually Transmitted Disease (Patient denied) - [facility] Procedures DETOXIFICATION SERVICES FOR SUBSTANCE ABUSE TREATMENT (11/01/16) EXCISION OF LIVER, PERCUTANEOUS APPROACH, DIAGNOSTIC (10/31/17) INDIV PSYCHOTHERAPY FOR SUBSTANCE ABUSE TREATMENT, SUPPORT (11/01/16) INDIV PSYCHOTHERAPY FOR SUBSTANCE ABUSE, PSYCHOEDUCATION (11/01/16) INJECT/INFUSE NEC (09/28/12) PHARMACOTHERAPY FOR SUBSTANCE ABUSE, METHADONE MAINT (11/01/16) TRANSFUSE NONAUT RED BLOOD CELLS IN PERIPH VEIN, PERC (12/23/17) ULTRASONOGRAPHY OF LIVER (10/31/17) Family History: States: Unknown Family Hx - Social History Hx Tobacco Use: Yes Hx Alcohol Use: No Hx Substance Use: No (denies) - Immunization History Hx Tetanus Toxoid Vaccination: Yes Hx Influenza Vaccination: No Hx Pneumococcal Vaccination: No Review Of Systems Except As Marked, All Systems Reviewed And Found Negative. Constitutional: Negative for: Fever, Chills Cardiovascular: Negative for: Chest Pain Respiratory: Positive for: Shortness of Breath (mild) Gastrointestinal: Positive for: Nausea, Abdominal Pain, Melena. Negative for: Diarrhea, Hematochezia, Hematemesis Genitourinary: Positive for: Other (Urinary hesitancy, associated with prior prostate problem). Negative for: Dysuria, Hematuria Musculoskeletal: Positive for: Other (bilateral lower leg swelling) Neurological: Negative for: Weakness, Numbness, Dizziness Physical Exam - Physical Exam Appears: Non-toxic, No Acute Distress Skin: Warm, Dry, Pale Head: Atraumatic, Normacephalic Eye(s): bilateral: PERRL, EOMI, Scleral Icterus Oral Mucosa: Dry Throat: No Erythema, No Exudate Neck: Normal ROM, Supple Lymphatic: No Adenopathy Chest: Symmetrical Cardiovascular: Rhythm Regular, No Murmur Respiratory: Normal Breath Sounds, No Rales, No Rhonchi, No Wheezing Gastrointestinal/Abdominal: Soft, Tenderness (minimal tenderness to palpation diffusely), No Mass, Distention, No Guarding, No Rebound Rectal: Melena Back: Normal Inspection, No CVA Tenderness, No Vertebral Tenderness Extremity: Normal ROM, No Calf Tenderness, Swelling (2+ bilateral lower leg pitting edema) Neurological/Psych: Oriented x3, Normal Speech, Normal Motor, Normal Sensation ED Course And Treatment - Laboratory Results Result Diagrams: 12/28/17 20:20 12/28/17 20:04 O2 Sat by Pulse Oximetry: 99 (RA) Pulse Ox Interpretation: Normal Medical Decision Making Medical Decision Making: Initial Impression: Black stool Differential diagnosis includes but is not limited to: GI bleed, anemia, liver cirrhosis or failure, peptic ulcer disease, dehydration, or electrolyte abnormality Initial Plan: --Labs including occult stool analysis --Chest X-Ray --EKG Labs demonstrate anemia and occult stool positive for blood. Needs hospitalization for ongoing GI bleed and anemia. VICTOR MANUEL Booker for hospitalization Disposition Counseled Patient/Family Regarding: Studies Performed, Diagnosis - Disposition Disposition: HOSPITALIZED Disposition Time: 21:00 Condition: GUARDED - Clinical Impression Clinical Impression: Anemia, Gastrointestinal hemorrhage - Scribe Statement The provider has reviewed the documentation as recorded by the Ilana Christian Provider Attestation: All medical record entries made by the Scribe were at my direction and personally dictated by me. I have reviewed the chart and agree that the record accurately reflects my personal performance of the history, physical exam, medical decision making, and the department course for this patient. I have also personally directed, reviewed, and agree with the discharge instructions and disposition.
[2017-12-28 20:10] LABS: BASO # 0.1 K/uL (0.0-0.2); BASO % 1.4 % (0.0-2.0); EOS # 0.3 K/uL (0.0-0.7); EOS % 2.8 % (0.0-4.0); HEMOGLOBIN 8.3 g/dL (12.0-18.0); LYMPH # 1.4 K/uL (1.0-4.3); LYMPH % 14.5 % (20.0-40.0); MEAN CELL VOLUME 95.9 fL (80.0-94.0); MEAN CORPUSCULAR HEMOGLOBIN 33.1 pg (27.0-31.0); MEAN CORPUSCULAR HGB CONC 34.5 g/dL (33.0-37.0); MEAN PLATELET VOLUME 10.6 fL (7.2-11.7); MONO # 0.6 K/uL (0.0-0.8); MONO % 6.3 % (0.0-10.0); NEUT # 7.3 K/uL (1.8-7.0); NRBC % 0.2 % (0.0-2.0); RBC 2.51 Mil/uL (4.40-5.90); RED CELL DISTRIBUTION WIDTH 17.2 % (11.5-14.5); WHITE BLOOD COUNT 9.7 K/uL (4.8-10.8)
[2017-12-28 20:18] LABS: INR 1.2; PROTHROMBIN TIME 13.5 SECONDS (9.7-12.2)
[2017-12-28 20:46] LABS: ALB/GLOB RATIO 0.9 (1.0-2.1); ALT/SGPT 80 U/L (21-72); AST/SGOT 143 U/L (17-59); BLOOD UREA NITROGEN 24 mg/dL (9-20); CALCIUM 8.4 mg/dl (8.6-10.4); GFR NON-AFRICAN AMERICAN > 60; LIPASE 65 U/L (23-300)
--- NOTE | 2017-12-28 22:20 | CP.PCM.HP ---
<Rafaela Anderson - Last Filed: 12/28/17 22:36> History of Present Illness - History of Present Illness History of Present Illness: Mr. 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 Patient was recently at [facility] from 12/23-12/25 due to GI Bleed. Patient states his stool was normal color in the morning and black by the afternoon. He does admit to diarrhea as well. He denies any fever, chills, headache, chest pain, palpitations, shortness of breath, orthopnea, nausea, vomiting, or constipation. Patient does admit to trouble urinating at time. He denies any dysuria, hematuria, or increased urinary frequency. He admits to dizziness when getting up from a seated position. ROS: As stated above PMHx: Hepatocellular Carcinoma, Hepatitis C, Right portal Vein Thrombosis, Hypertension, Diabetes M. II, Benign Prostatic Hyperplasia (BPH) PSHx: Denies Allergies: Aspirin Social Hx: 1-1.5ppd x40+ years; social etoh use; formerly used cocaine (14 years ago); homeless and lives in a half-way Hos: GI Bleed (12/23/17) FamHx: Father - Colon CA, Mother - CHF Meds: Lasix 20mg Daily , Oxycodone 15mg PO QID. Flomax 0.4 Daily, Eliquis STOPPED on previous admission. PMD: Clinic Present on Admission - Present on Admission Any Indicators Present on Admission: No Past Patient History - Infectious Disease Hx of Infectious Diseases: None - Past Medical History & Family History Past Medical History?: Yes - Past Social History Smoking Status: Current Some Days Smoker - CARDIAC Hx Hypertension: Yes - PULMONARY Hx Respiratory Disorders: No - NEUROLOGICAL Hx Seizures: No (Patient denied) - HEENT Hx HEENT Problems: No - RENAL Hx Chronic Kidney Disease: Yes Hx Kidney Stones: Yes - ENDOCRINE/METABOLIC Hx Diabetes Mellitus Type 2: Yes (state not been treated) - HEMATOLOGICAL/ONCOLOGICAL Hx Human Immunodeficiency Virus (HIV): No (Patient denied) - INTEGUMENTARY Other/Comment: Jaundice. Admit diagnose with liver cancer at [facility] 2month - MUSCULOSKELETAL/RHEUMATOLOGICAL Hx Falls: No - GASTROINTESTINAL Hx Gastritis: Yes (Gall stones) - GENITOURINARY/GYNECOLOGICAL Hx Sexually Transmitted Disorders: No (Patient denied) - PSYCHIATRIC Hx Anxiety: Yes Hx Depression: Yes Hx Substance Use: No (denies) - SURGICAL HISTORY Hx Surgeries: Yes Other/Comment: Liver biopsy - ANESTHESIA Hx Anesthesia: Yes Hx Anesthesia Reactions: No Hx Malignant Hyperthermia: No Meds Allergies/Adverse Reactions: Allergies Allergy/AdvReac Type Severity Reaction Status Date / Time aspirin AdvReac VOMITING Verified 12/28/17 18:24 Physical Exam - Constitutional Appears: Non-toxic, No Acute Distress, Unkempt - Head Exam Head Exam: ATRAUMATIC, NORMAL INSPECTION, NORMOCEPHALIC - Eye Exam Eye Exam: EOMI, Normal appearance. absent: Scleral icterus - ENT Exam ENT Exam: Mucous Membranes Moist - Respiratory Exam Respiratory Exam: Clear to Auscultation Bilateral, NORMAL BREATHING PATTERN. absent: Accessory Muscle Use, Rales, Rhonchi, Wheezes - Cardiovascular Exam Cardiovascular Exam: RRR, +S1, +S2, Systolic Murmur. absent: JVD, +S4 - GI/Abdominal Exam GI & Abdominal Exam: Normal Bowel Sounds, Organomegaly (Hepatomegaly), Soft, Tenderness (Diffuse). absent: Guarding, Rebound, Rigid Additional comments: Negative Matamoros's Sign. - Rectal Exam Rectal Exam: Black Stool - Extremities Exam Extremities exam: Positive for: normal capillary refill (in Upper Ext. ), pedal edema - Neurological Exam Neurological exam: Alert, Oriented x3 - Psychiatric Exam Psychiatric exam: Normal Affect, Normal Mood - Skin Skin Exam: Dry, Intact, Normal Color, Warm Additional comments: No Jaundice Results - Vital Signs Recent Vital Signs: Last Vital Signs Temp 98.7 F 12/28/17 18:22 Pulse 86 12/28/17 21:36 Resp 20 12/28/17 21:36 BP 152/61 H 12/28/17 21:36 Pulse Ox 100 12/28/17 21:36 - Labs Result Diagrams: 12/28/17 20:20 12/28/17 20:04 Labs: Laboratory Results - last 24 hr 12/28/17 12/28/17 12/28/17 19:57 19:57 20:04 WBC RBC Hgb Hct MCV MCH MCHC RDW Plt Count MPV Neut % (Auto) Lymph % (Auto) [place] % (Auto) Eos % (Auto) Baso % (Auto) Neut # (Auto) Lymph # (Auto) [place] # (Auto) Eos # (Auto) Baso # (Auto) PT 13.5 H INR 1.2 APTT 28 Sodium Potassium Chloride Carbon Dioxide Anion Gap BUN Creatinine Est GFR ( Amer) Est GFR (Non-Af Amer) Random Glucose Lactic Acid 1.4 Calcium Magnesium Total Bilirubin AST ALT Alkaline Phosphatase Ammonia Total Protein Albumin Globulin Albumin/Globulin Ratio Lipase Stool Occult Blood Positive H Blood Type Antibody Screen 12/28/17 12/28/17 12/28/17 20:04 20:04 20:04 WBC RBC Hgb Hct MCV MCH MCHC RDW Plt Count MPV Neut % (Auto) Lymph % (Auto) [place] % (Auto) Eos % (Auto) Baso % (Auto) Neut # (Auto) Lymph # (Auto) [place] # (Auto) Eos # (Auto) Baso # (Auto) PT INR APTT Sodium 138 Potassium 4.6 Chloride 104 Carbon Dioxide 25 Anion Gap 14 BUN 24 H Creatinine 0.8 Est GFR ( Amer) > 60 Est GFR (Non-Af Amer) > 60 Random Glucose 255 H Lactic Acid Calcium 8.4 L Magnesium 2.3 Total Bilirubin 3.7 H AST 143 H ALT 80 H D Alkaline Phosphatase 575 H Ammonia 50 H Total Protein 6.5 Albumin 3.0 L Globulin 3.5 Albumin/Globulin Ratio 0.9 L Lipase 65 Stool Occult Blood Blood Type O POSITIVE Antibody Screen Negative 12/28/17 20:20 WBC 9.7 RBC 2.51 L Hgb 8.3 L Hct 24.0 L MCV 95.9 H MCH 33.1 H MCHC 34.5 RDW 17.2 H Plt Count 196 MPV 10.6 Neut % (Auto) 75.0 Lymph % (Auto) 14.5 L [place] % (Auto) 6.3 Eos % (Auto) 2.8 Baso % (Auto) 1.4 Neut # (Auto) 7.3 H Lymph # (Auto) 1.4 [place] # (Auto) 0.6 Eos # (Auto) 0.3 Baso # (Auto) 0.1 PT INR APTT Sodium Potassium Chloride Carbon Dioxide Anion Gap BUN Creatinine Est GFR ( Amer) Est GFR (Non-Af Amer) Random Glucose Lactic Acid Calcium Magnesium Total Bilirubin AST ALT Alkaline Phosphatase Ammonia Total Protein Albumin Globulin Albumin/Globulin Ratio Lipase Stool Occult Blood Blood Type Antibody Screen Assessment & Plan - Assessment and Plan (Free Text) Assessment: 57 year old male with past medical history of decompensated HCV cirrhosis (Genotype 3a, viral load >2million with failed treatment IFN/RBN 15 years ago) complicated by multifocal HCC with vascular invasion on liver biopsy (10/2017) and chronic portal vein thrombosis, Prothrombin [id number] mutation, polysubstance abuse, hypertension, benign prostatic hyperplasia and diabetes mellitus who presents with complaints of black stool and diffuse, sharp, 7/10 abdominal pain w/o radiation. Stool Occult Blood in E.R was positive. Patient admitted for evaluation and treatment of GI Bleed. Plan: GI Bleed -Stool Occult Blood - Positive -GI Consulted - Dr. Reza Octreotide Drip per GI Rocephin 1gm Daily for SBP prophylaxis per GI -Protonix Drip -NPO -No Anticoags -H&H Q6H Systolic Murmur ECHO Hepatocellular CA w/ extensive vascular invasions -s/p FNA Bx (11/09/17) Liver CT (11/02/17): Technically limited examination. Hepatic arterial phase images were not obtained. Multifocal low attenuation in the right hepatic lobe. This may represent a neoplastic process such as multifocal hepatic cellular malignancy or metastasis. Hepatic cirrhosis. Ascites. Hepatosplenomegaly. 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 Portal venous thrombus may be bland or tumoral. Cholelithiasis. -MRI Abd (11/03/17): Multifocal neoplasm in the right lobe of the liver. Differential diagnosis includes metastatic disease or multifocal hepatocellular carcinoma. Invasion and thrombosis of the right and main portal vein. Left portal vein appears patent. Mild erasto hepatis lymphadenopathy and 1 mildly enlarged precaval lymph node. Mild splenomegaly. -morphine 0.5 mg IVP Q4 PRN for moderate pain -morphine 1 mg IVP Q4 PRN for severe pain Portal Vein Thrombosis -heterozygous for Prothombin [id number] Mutation; increased risk for blood clots -US (10/31/17): 1. Echogenic foci noted at the level of the portal vein which may represent underlying portal vein thrombus. Clinical correlation. 2. Enlarged liver measuring 18.5 centimeters in length with associated increased echogenicity of the hepatic parenchymal cortex suggestive for fatty infiltration versus hepatic parenchymal disease. Clinical correlation. 3. Multiple prominent partially echogenic hepatic masses which are indeterminate and may represent underlying hepatic neoplasm. Correlation with multiphasic CT or MR may be helpful for further evaluation if clinically indicated. 4. Cholelithiasis with gallbladder wall thickening measuring up to 5 millimeters with associated gallbladder wall edema. Associated pericholecystic fluid. This may represent underlying cholecystitis. Clinical correlation. 5. Pancreas not well visualized. -No Anticoags -GI Consulted Diabetes M. Type II Regular Insulin Sliding Scale (Low) Hx of Benign Prostatic Hyperplasia Home Medication: Flomax 0.4mg PO Daily. Lower Extremity Edema - Chronic -Has been present since prior admissions, likely 2/2 to other medical problems -Home Medication: Lasix 20mg Daily (Hold) Hx of Cholelithiasis -see Abd US (10/31/17) above; treated 7 days w/ Flagyl and Zosyn in October 2017 -see Surgery note in October 2017; no acute intervention Hepatitis C -Hep C RNA [id number] & Quantitative PCR 6.32 in October 2017 -Follow at [facility] liver clinic--appointment scheduled for 01/07 @ 2:45 PM. -GI Consulted Hx Alcohol Use -Last ETOH was over one year ago Hx Nicotine Use -Nicoderm patch 21g sc q12hr PPX, Diet, Disposition -GI PPX: Protonix Drip -DVT PPX: Contraindicated at this time -Diet: NPO -Follow at [facility] liver clinic--appointment scheduled for 01/07 @ 2:45 PM. Patient discussed with Attending (Dr. Booker) Rafaela Anderson, PGY-2 <Connor Booker - Last Filed: 12/29/17 06:28> Results - Vital Signs Recent Vital Signs: Last Vital Signs Temp 98.5 F 12/29/17 00:20 Pulse 78 12/29/17 00:20 Resp 20 12/29/17 00:20 BP 143/67 12/29/17 04:00 Pulse Ox 96 12/29/17 00:20 - Labs Result Diagrams: 12/29/17 02:50 12/28/17 20:04 Labs: Laboratory Results - last 24 hr 12/28/17 12/28/17 12/28/17 19:57 19:57 20:04 WBC RBC Hgb Hct MCV MCH MCHC RDW Plt Count MPV Neut % (Auto) Lymph % (Auto) [place] % (Auto) Eos % (Auto) Baso % (Auto) Neut # (Auto) Lymph # (Auto) [place] # (Auto) Eos # (Auto) Baso # (Auto) PT 13.5 H INR 1.2 APTT 28 Sodium Potassium Chloride Carbon Dioxide Anion Gap BUN Creatinine Est GFR ( Amer) Est GFR (Non-Af Amer) Random Glucose Lactic Acid 1.4 Calcium Magnesium Total Bilirubin AST ALT Alkaline Phosphatase Ammonia Total Protein Albumin Globulin Albumin/Globulin Ratio Lipase Stool Occult Blood Positive H Blood Type Antibody Screen 12/28/17 12/28/17 12/28/17 20:04 20:04 20:04 WBC RBC Hgb Hct MCV MCH MCHC RDW Plt Count MPV Neut % (Auto) Lymph % (Auto) [place] % (Auto) Eos % (Auto) Baso % (Auto) Neut # (Auto) Lymph # (Auto) [place] # (Auto) Eos # (Auto) Baso # (Auto) PT INR APTT Sodium 138 Potassium 4.6 Chloride 104 Carbon Dioxide 25 Anion Gap 14 BUN 24 H Creatinine 0.8 Est GFR ( Amer) > 60 Est GFR (Non-Af Amer) > 60 Random Glucose 255 H Lactic Acid Calcium 8.4 L Magnesium 2.3 Total Bilirubin 3.7 H AST 143 H ALT 80 H D Alkaline Phosphatase 575 H Ammonia 50 H Total Protein 6.5 Albumin 3.0 L Globulin 3.5 Albumin/Globulin Ratio 0.9 L Lipase 65 Stool Occult Blood Blood Type O POSITIVE Antibody Screen Negative 12/28/17 12/29/17 20:20 02:50 WBC 9.7 RBC 2.51 L Hgb 8.3 L 7.0 L Hct 24.0 L 20.9 L MCV 95.9 H MCH 33.1 H MCHC 34.5 RDW 17.2 H Plt Count 196 MPV 10.6 Neut % (Auto) 75.0 Lymph % (Auto) 14.5 L [place] % (Auto) 6.3 Eos % (Auto) 2.8 Baso % (Auto) 1.4 Neut # (Auto) 7.3 H Lymph # (Auto) 1.4 [place] # (Auto) 0.6 Eos # (Auto) 0.3 Baso # (Auto) 0.1 PT INR APTT Sodium Potassium Chloride Carbon Dioxide Anion Gap BUN Creatinine Est GFR ( Amer) Est GFR (Non-Af Amer) Random Glucose Lactic Acid Calcium Magnesium Total Bilirubin AST ALT Alkaline Phosphatase Ammonia Total Protein Albumin Globulin Albumin/Globulin Ratio Lipase Stool Occult Blood Blood Type Antibody Screen Assessment & Plan - Date & Time Date: 12/29/17 (I have seen and examined the patient. I agree with the findings and plan of care as documented by Dr. Anderson. Patient with GI bleed. Symptomatic anemia. Type and cross 2 units. If drop in hemoglobin continues, plan for transfusion of PRBCs. Monitor for hemodynamic instability. Protonix IV and Octreotide. Consult to GI. Liver CA. Patient with plan for follow up at [facility]. Monitor for acute changes.) Time: 06:26 Attending/Attestation - Attestation I have personally seen and examined this patient.: Yes I have fully participated in the care of the patient.: Yes I have reviewed all pertinent clinical information: Yes
[2017-12-29] MEDS: Pantoprazole 80 MG in Sodium Chloride 0.9% 100 ML IVP SCH ×5 (01:04→19:45)
[2017-12-29] MEDS: Sodium Chloride 0.9% 1,000 ML IV SCH ×3 (01:07→18:40)
[2017-12-29] MEDS: (Novolin R) Insulin Human Regular 100 units/ml vial SC SCH ×2 (08:19→22:09)
[2017-12-29 08:37] LABS: BASO # 0.2 K/uL (0.0-0.2); BASO % 1.7 % (0.0-2.0); EOS # 0.3 K/uL (0.0-0.7); EOS % 3.2 % (0.0-4.0); HEMOGLOBIN 7.8 g/dL (12.0-18.0); LYMPH # 1.6 K/uL (1.0-4.3); LYMPH % 17.6 % (20.0-40.0); MEAN CELL VOLUME 96.1 fL (80.0-94.0); MEAN CORPUSCULAR HEMOGLOBIN 32.2 pg (27.0-31.0); MEAN CORPUSCULAR HGB CONC 33.5 g/dL (33.0-37.0); MEAN PLATELET VOLUME 9.8 fL (7.2-11.7); MONO # 0.5 K/uL (0.0-0.8); NEUT # 6.6 K/uL (1.8-7.0); NEUT % 71.5 % (50.0-75.0); RBC 2.43 Mil/uL (4.40-5.90); RED CELL DISTRIBUTION WIDTH 17.3 % (11.5-14.5); WHITE BLOOD COUNT 9.2 K/uL (4.8-10.8)
[2017-12-29 09:02] LABS: ALB/GLOB RATIO 0.8 (1.0-2.1)
--- NOTE | 2017-12-29 09:15 | CP.PCM.PN ---
<Silvano Lara - Last Filed: 12/29/17 14:48> Subjective - Date & Time of Evaluation Date of Evaluation: 12/29/17 Time of Evaluation: 09:14 - Subjective Subjective: PGY-1 Medicine Progress Note for Dr. Medeiros Patient seen and examined at bedside this AM, receiving pRBC transfusion after Hb level found to be 7.8. He continues to have black stool since last admission 12/23-12/25. He reports abdominal pain across his lower abdomen, localized with no radiation. Pain is exacerbated by straining when passing a BM. No other acute complaints. Denies headaches, dizziness, chest pain, palpitations, sob, cough, nausea/vomiting/diarrhea/constipation. Objective - Vital Signs/Intake and Output Vital Signs (last 24 hours): Temp Pulse Resp BP Pulse Ox 98.1 F 81 20 155/68 H 97 12/29/17 07:00 12/29/17 07:00 12/29/17 07:00 12/29/17 07:00 12/29/17 07:00 Intake and Output: 12/29/17 12/29/17 06:59 18:59 Intake Total 880 Balance 880 - Medications Medications: Current Medications Pantoprazole Sodium 80 mg/ (Sodium Chloride) 100 mls @ 10 mls/hr IVP .Q10H BRENDA PRN Reason: 8 MG/HR Last Admin: 12/29/17 01:06 Dose: Not Given Sodium Chloride (Sodium Chloride 0.9%) 1,000 mls @ 100 mls/hr IV .Q10H BRENDA Last Admin: 12/29/17 04:20 Dose: Not Given Ceftriaxone Sodium 1 gm/ (Sodium Chloride) 100 mls @ 100 mls/hr IVPB DAILY BRENDA PRN Reason: Protocol Octreotide Acetate 1,250 mcg/ (Sodium Chloride) 252.5 mls @ 5.05 mls/hr SC .Q24H BRENDA; 25 MCG/HR PRN Reason: Protocol Last Admin: 12/29/17 04:21 Dose: Not Given Insulin Human Regular (Novolin R) 0 unit SC ACHS BRENDA PRN Reason: Protocol Morphine Sulfate (Morphine) 0.5 mg IVP Q4 PRN PRN Reason: Pain, moderate (4-7) Morphine Sulfate (Morphine) 1 mg IVP Q4 PRN PRN Reason: Pain, severe (8-10) Last Admin: 12/29/17 05:06 Dose: 1 mg Nicotine (Nicoderm Cq) 1 patch TD DAILY [facility] Pneumococcal Polyvalent Vaccine (Pneumovax 23 Vaccine) 0.5 ml IM .ONCE ONE Stop: 12/30/17 14:01 Tamsulosin HCl (Flomax) 0.4 mg PO DAILY BRENDA - Labs Labs: 12/29/17 08:16 PT 13.5 SECONDS (9.7-12.2) H 12/28/17 20:04 INR 1.2 12/28/17 20:04 APTT 28 SECONDS (21-34) 12/28/17 20:04 - Constitutional Appears: Non-toxic, No Acute Distress, Chronically Ill - Head Exam Head Exam: ATRAUMATIC, NORMAL INSPECTION, NORMOCEPHALIC - Eye Exam Eye Exam: EOMI, Normal appearance, PERRL Pupil Exam: NORMAL ACCOMODATION - ENT Exam ENT Exam: Mucous Membranes Moist, Normal Exam - Neck Exam Neck Exam: Full ROM, Normal Inspection - Respiratory Exam Respiratory Exam: Clear to Ausculation Bilateral, NORMAL BREATHING PATTERN. absent: Rales, Rhonchi, Wheezes - Cardiovascular Exam Cardiovascular Exam: REGULAR RHYTHM, +S1, +S2 - GI/Abdominal Exam GI & Abdominal Exam: Soft, Tenderness, Normal Bowel Sounds. absent: Distended, Firm, Guarding, Rigid, Mass, Organomegaly, Rebound Additional comments: right flank tenderness - Extremities Exam Extremities Exam: Normal Capillary Refill, Normal Inspection. 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 Recently discharged on 12/25 for similar concern of acute anemia s/p 2 units pRBCs with planned outpatient EGD and follow up with [facility] on 01/07/18. Active treatment of acute on chronic anemia concerning for upper GI bleed. No prior EGD or colonoscopy. Plan: GI Bleed -GI recs (Dr. Reza) appreciated - NPO - Continue with PPI and octreotide infusion therapy - Rocephin 1 gm daily for SBP ppx - Continue to monitor H/H, s/p PRBC transfusion - Will plan for EGD evaluation today given progressive anemia with dark stool , rule out upper GI source - Following endoscopy, patient will require additional outpatient follow up at [facility] liver clinic, patient has appointment for 01/07 - Will continue to monitor patient clinical course Hepatocellular CA w/ extensive vascular invasions -s/p FNA Bx (11/09/17) -see Liver CT (11/02/17): Technically limited examination. Hepatic arterial phase images were not obtained. Multifocal low attenuation in the right hepatic lobe. This may represent a neoplastic process such as multifocal hepatic cellular malignancy or metastasis. Hepatic cirrhosis. Ascites. Hepatosplenomegaly. 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 Portal venous thrombus may be bland or tumoral. Cholelithiasis. -MRI Abd (11/03/17): Multifocal neoplasm in the right lobe of the liver. Differential diagnosis includes metastatic disease or multifocal hepatocellular carcinoma. Invasion and thrombosis of the right and main portal vein. Left portal vein appears patent. Mild erasto hepatis lymphadenopathy and 1 mildly enlarged precaval lymph node. Mild splenomegaly. -morphine 0.5 mg IVP Q4 PRN for moderate pain -morphine 1 mg IVP Q4 PRN for severe pain Portal Vein Thrombosis -heterozygous for Prothombin [id number] Mutation; increased risk for blood clots -US (10/31/17): 1. Echogenic foci noted at the level of the portal vein which may represent underlying portal vein thrombus. Clinical correlation. 2. Enlarged liver measuring 18.5 centimeters in length with associated increased echogenicity of the hepatic parenchymal cortex suggestive for fatty infiltration versus hepatic parenchymal disease. Clinical correlation. 3. Multiple prominent partially echogenic hepatic masses which are indeterminate and may represent underlying hepatic neoplasm. Correlation with multiphasic CT or MR may be helpful for further evaluation if clinically indicated. 4. Cholelithiasis with gallbladder wall thickening measuring up to 5 millimeters with associated gallbladder wall edema. Associated pericholecystic fluid. This may represent underlying cholecystitis. Clinical correlation. 5. Pancreas not well visualized. Lower Extremity Edema - Chronic -Has been present since prior admissions, likely 2/2 to other medical problems Cholelithiasis -see Abd US (10/31/17) above; treated 7 days w/ Flagyl and Zosyn in October 2017 -see Surgery note in October 2017; no acute intervention Hepatitis C -Hep C RNA [id number] & Quantitative PCR 6.32 in October 2017 Hx Alcohol Use -Last ETOH was over one year ago Hx Nicotine Use -Nicoderm patch 21g sc q12hr PPX, Diet, Disposition -GI PPX: Protonix 40mg iv q12h -DVT PPX: Contraindicated at this time -Follow at [facility]--appointment scheduled for 01/07 @ 2: 45 PM. Case discussed with Dr. Mala Lara DO, PGY-1 <Augustina Medeiros - Last Filed: 12/29/17 18:58> Objective - Vital Signs/Intake and Output Vital Signs (last 24 hours): Temp Pulse Resp BP Pulse Ox 98.9 F 97 H 36 H 198/85 H 100 12/29/17 14:45 12/29/17 15:15 12/29/17 15:15 12/29/17 15:15 12/29/17 15:15 Intake and Output: 12/29/17 12/29/17 06:59 18:59 Intake Total 3065 Output Total 325 Balance 2740 - Medications Medications: Current Medications Pantoprazole Sodium 80 mg/ (Sodium Chloride) 100 mls @ 10 mls/hr IVP .Q10H BRENDA PRN Reason: 8 MG/HR Last Admin: 12/29/17 16:30 Dose: 0 mls Sodium Chloride (Sodium Chloride 0.9%) 1,000 mls @ 100 mls/hr IV .Q10H BRENDA Last Admin: 12/29/17 04:20 Dose: Not Given Ceftriaxone Sodium 1 gm/ (Sodium Chloride) 100 mls @ 100 mls/hr IVPB DAILY BRENDA PRN Reason: Protocol Last Admin: 12/29/17 10:19 Dose: Not Given Octreotide Acetate 1,250 mcg/ (Sodium Chloride) 252.5 mls @ 5.05 mls/hr SC .Q24H BRENDA; 25 MCG/HR PRN Reason: Protocol Last Admin: 12/29/17 04:21 Dose: Not Given Insulin Human Regular (Novolin R) 0 unit SC ACHS BRENDA PRN Reason: Protocol Last Admin: 12/29/17 08:19 Dose: Not Given Morphine Sulfate (Morphine) 0.5 mg IVP Q4 PRN PRN Reason: Pain, moderate (4-7) Morphine Sulfate (Morphine) 1 mg IVP Q4 PRN PRN Reason: Pain, severe (8-10) Last Admin: 12/29/17 17:30 Dose: 1 mg Nicotine (Nicoderm Cq) 1 patch TD DAILY [facility] Last Admin: 12/29/17 10:28 Dose: 1 patch Pneumococcal Polyvalent Vaccine (Pneumovax 23 Vaccine) 0.5 ml IM .ONCE ONE Stop: 12/30/17 14:01 Tamsulosin HCl (Flomax) 0.4 mg PO DAILY [facility] Last Admin: 12/29/17 09:47 Dose: Not Given - Labs Labs: 12/29/17 08:16 12/29/17 08:16 PT 13.5 SECONDS (9.7-12.2) H 12/28/17 20:04 INR 1.2 12/28/17 20:04 APTT 28 SECONDS (21-34) 12/28/17 20:04 Attending/Attestation - Attestation I have personally seen and examined this patient.: Yes I have fully participated in the care of the patient.: Yes I have reviewed all pertinent clinical information, including history, physical exam and plan: Yes Notes (Text): This patient patient was seen and examined by me this morning at 6T and this evening at PACU Discussed with DR Reza this morning.S/P EGD for GI bleeding.noted with two column of grade 2 varices ,one with active bleeding at lower esophagus Epi injected successfully and homeostasis obtained. Patient was seen after procedure . His vitals BP 155/67. pulse 77,alert and oriented. Spoke to GI fellow Dr Sutton who arranged to transfer him to [facility].Patient will be transferred to [facility] when bed ready. We will admit him to ICU for monitor bleeding . [facility] binder sorter Dr Torres will be accepting him . Transfer center number [phone]
[2017-12-29 09:22] LABS: ALBUMIN 2.7 g/dL (3.5-5.0); ALT/SGPT 72 U/L (21-72); AST/SGOT 132 U/L (17-59); BLOOD UREA NITROGEN 22 mg/dL (9-20); CALCIUM 8.1 mg/dl (8.6-10.4); GFR NON-AFRICAN AMERICAN > 60
--- NOTE | 2017-12-29 10:30 | CP.PCM.CON ---
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 Recently discharged 12/25 for similar concern on acute anemia s/p 2 U pRBCs with planned outpatient EGD and follow up with [facility] on 01/07/18. He admits to normal colored stool at home on 12/27 after discharge and the morning of 12/28. Notes two episodes of dark loose stools in the afternoon/evening and unchanged lower abdominal and right flank discomfort. Repeat dark stool night after admission. Denies nausea, vomiting, hematemesis, diarrhea, constipation, hematochezia, jaundice, confusion, abdominal distension , leg swelling, altered sleep/wake cycles, chest pain, shortness of breath. Previously admitted to 40 pound unintentional weight loss over the last 2-3 months during last admission. No prior EGD or colonoscopy. Family History- father colon cancer diagnosed in early 60s of age, denies stomach cancer Social History- 40 pack years, social alcohol use, prior snorting of multiple illicit drugs over 10 years ago Surgical History- none Review of Systems - Review of Systems Review of Systems: 12-point review of systems negative except for as above Past Patient History - Infectious Disease Hx of Infectious Diseases: None - Past Medical History & Family History Past Medical History?: Yes - Past Social History Smoking Status: Heavy Smoker > 10 Cigarettes Daily - CARDIAC Hx Cardiac Disorders: Yes Hx Hypertension: Yes - PULMONARY Hx Respiratory Disorders: No - NEUROLOGICAL Hx Neurological Disorder: No Hx Seizures: No (Patient denied) - HEENT Hx HEENT Problems: No - RENAL Hx Chronic Kidney Disease: Yes Hx Kidney Stones: Yes - ENDOCRINE/METABOLIC Hx Endocrine Disorders: Yes Hx Diabetes Mellitus Type 2: Yes (state not been treated) - HEMATOLOGICAL/ONCOLOGICAL Hx Human Immunodeficiency Virus (HIV): No (Patient denied) - INTEGUMENTARY Hx Dermatological Problems: Yes Other/Comment: Jaundice. Admit diagnose with liver cancer at [facility] 2month - MUSCULOSKELETAL/RHEUMATOLOGICAL Hx Musculoskeletal Disorders: No Hx Falls: No - GASTROINTESTINAL Hx Gastrointestinal Disorders: Yes Hx Gall Bladder Disease: Yes Hx Gastritis: Yes (Gall stones) Other/Comment: Pt said he was diagnosed with liver cancer 2 months ago - GENITOURINARY/GYNECOLOGICAL Hx Genitourinary Disorders: No Hx Sexually Transmitted Disorders: No (Patient denied) - PSYCHIATRIC Hx Psychophysiologic Disorder: Yes Hx Anxiety: Yes Hx Substance Use: No (Denied by PT.) - SURGICAL HISTORY Hx Surgeries: Yes Other/Comment: Liver biopsy - ANESTHESIA Hx Anesthesia: Yes Hx Anesthesia Reactions: No Hx Malignant Hyperthermia: No Has any member of the family had a problem w/ anesthesia?: No Meds Allergies/Adverse Reactions: Allergies Allergy/AdvReac Type Severity Reaction Status Date / Time aspirin AdvReac VOMITING Verified 12/28/17 18:24 - Medications Medications: Current Medications Pantoprazole Sodium 80 mg/ (Sodium Chloride) 100 mls @ 10 mls/hr IVP .Q10H BRENDA PRN Reason: 8 MG/HR Last Admin: 12/29/17 01:06 Dose: Not Given Sodium Chloride (Sodium Chloride 0.9%) 1,000 mls @ 100 mls/hr IV .Q10H BRENDA Last Admin: 12/29/17 04:20 Dose: Not Given Ceftriaxone Sodium 1 gm/ (Sodium Chloride) 100 mls @ 100 mls/hr IVPB DAILY BRENDA PRN Reason: Protocol Last Admin: 12/29/17 10:19 Dose: Not Given Octreotide Acetate 1,250 mcg/ (Sodium Chloride) 252.5 mls @ 5.05 mls/hr SC .Q24H BRENDA; 25 MCG/HR PRN Reason: Protocol Last Admin: 12/29/17 04:21 Dose: Not Given Insulin Human Regular (Novolin R) 0 unit SC ACHS BRENDA PRN Reason: Protocol Last Admin: 12/29/17 08:19 Dose: Not Given Morphine Sulfate (Morphine) 0.5 mg IVP Q4 PRN PRN Reason: Pain, moderate (4-7) Morphine Sulfate (Morphine) 1 mg IVP Q4 PRN PRN Reason: Pain, severe (8-10) Last Admin: 12/29/17 05:06 Dose: 1 mg Nicotine (Nicoderm Cq) 1 patch TD DAILY BRENDA Pneumococcal Polyvalent Vaccine (Pneumovax 23 Vaccine) 0.5 ml IM .ONCE ONE Stop: 12/30/17 14:01 Tamsulosin HCl (Flomax) 0.4 mg PO DAILY BRENDA Last Admin: 12/29/17 09:47 Dose: Not Given Physical Exam - Constitutional Appears: Non-toxic, No Acute Distress, Chronically Ill - Head Exam Head Exam: ATRAUMATIC, NORMOCEPHALIC - Eye Exam Eye Exam: EOMI, PERRL. absent: Scleral icterus Pupil Exam: PERRL. absent: Miosis, Mydriatic - ENT Exam ENT Exam: Mucous Membranes Moist, Normal Oropharynx - Neck Exam Neck exam: Positive for: Full Rom, Normal Inspection - Respiratory Exam Respiratory Exam: Clear to Auscultation Bilateral. absent: Rales, Rhonchi, Wheezes - Cardiovascular Exam Cardiovascular Exam: RRR, +S1, +S2. absent: Gallop, Rubs - GI/Abdominal Exam GI & Abdominal Exam: Normal Bowel Sounds, Organomegaly, Soft, Tenderness. absent: Distended, Firm, Guarding, Rebound, Rigid Additional comments: right flank tenderness - Rectal Exam Additional comments: patient refused - Extremities Exam Extremities exam: Positive for: normal inspection. Negative for: pedal edema - Neurological Exam Neurological exam: Alert - Psychiatric Exam Psychiatric exam: Normal Affect, Normal Mood - Skin Skin Exam: Dry, Intact, Normal Color, Warm Results - Vital Signs Recent Vital Signs: Last Vital Signs Temp 98.3 F 12/29/17 10:10 Pulse 81 12/29/17 10:10 Resp 20 12/29/17 10:10 BP 189/82 H 12/29/17 10:10 Pulse Ox 97 12/29/17 07:00 - Labs Result Diagrams: 12/29/17 08:16 12/29/17 08:16 Labs: Laboratory Results - last 24 hr 12/28/17 12/28/17 12/28/17 19:57 19:57 20:04 WBC RBC Hgb Hct MCV MCH MCHC RDW Plt Count MPV Neut % (Auto) Lymph % (Auto) Butler % (Auto) Eos % (Auto) Baso % (Auto) Neut # (Auto) Lymph # (Auto) Butler # (Auto) Eos # (Auto) Baso # (Auto) PT 13.5 H INR 1.2 APTT 28 Sodium Potassium Chloride Carbon Dioxide Anion Gap BUN Creatinine Est GFR ( Amer) Est GFR (Non-Af Amer) Random Glucose Lactic Acid 1.4 Calcium Magnesium Total Bilirubin AST ALT Alkaline Phosphatase Ammonia Total Protein Albumin Globulin Albumin/Globulin Ratio Lipase Stool Occult Blood Positive H Blood Type Antibody Screen 12/28/17 12/28/17 12/28/17 20:04 20:04 20:04 WBC RBC Hgb Hct MCV MCH MCHC RDW Plt Count MPV Neut % (Auto) Lymph % (Auto) Butler % (Auto) Eos % (Auto) Baso % (Auto) Neut # (Auto) Lymph # (Auto) Butler # (Auto) Eos # (Auto) Baso # (Auto) PT INR APTT Sodium 138 Potassium 4.6 Chloride 104 Carbon Dioxide 25 Anion Gap 14 BUN 24 H Creatinine 0.8 Est GFR ( Amer) > 60 Est GFR (Non-Af Amer) > 60 Random Glucose 255 H Lactic Acid Calcium 8.4 L Magnesium 2.3 Total Bilirubin 3.7 H AST 143 H ALT 80 H D Alkaline Phosphatase 575 H Ammonia 50 H Total Protein 6.5 Albumin 3.0 L Globulin 3.5 Albumin/Globulin Ratio 0.9 L Lipase 65 Stool Occult Blood Blood Type O POSITIVE Antibody Screen Negative 12/28/17 12/29/17 12/29/17 20:20 02:50 08:16 WBC 9.7 RBC 2.51 L Hgb 8.3 L 7.0 L Hct 24.0 L 20.9 L MCV 95.9 H MCH 33.1 H MCHC 34.5 RDW 17.2 H Plt Count 196 MPV 10.6 Neut % (Auto) 75.0 Lymph % (Auto) 14.5 L Butler % (Auto) 6.3 Eos % (Auto) 2.8 Baso % (Auto) 1.4 Neut # (Auto) 7.3 H Lymph # (Auto) 1.4 Butler # (Auto) 0.6 Eos # (Auto) 0.3 Baso # (Auto) 0.1 PT INR APTT Sodium Potassium Chloride Carbon Dioxide Anion Gap BUN Creatinine Est GFR ( Amer) Est GFR (Non-Af Amer) Random Glucose Lactic Acid Calcium Magnesium Total Bilirubin AST ALT Alkaline Phosphatase Ammonia 44 H Total Protein Albumin Globulin Albumin/Globulin Ratio Lipase Stool Occult Blood Blood Type Antibody Screen 12/29/17 12/29/17 08:16 08:16 WBC 9.2 RBC 2.43 L Hgb 7.8 L Hct 23.4 L MCV 96.1 H MCH 32.2 H MCHC 33.5 RDW 17.3 H Plt Count 191 MPV 9.8 Neut % (Auto) 71.5 Lymph % (Auto) 17.6 L Butler % (Auto) 6.0 Eos % (Auto) 3.2 Baso % (Auto) 1.7 Neut # (Auto) 6.6 Lymph # (Auto) 1.6 Butler # (Auto) 0.5 Eos # (Auto) 0.3 Baso # (Auto) 0.2 PT INR APTT Sodium 139 Potassium 4.5 Chloride 107 Carbon Dioxide 25 Anion Gap 11 BUN 22 H Creatinine 0.6 L Est GFR ( Amer) > 60 Est GFR (Non-Af Amer) > 60 Random Glucose 196 H Lactic Acid Calcium 8.1 L Magnesium Total Bilirubin 3.1 H AST 132 H ALT 72 Alkaline Phosphatase 485 H Ammonia Total Protein 6.0 L Albumin 2.7 L Globulin 3.3 Albumin/Globulin Ratio 0.8 L Lipase Stool Occult Blood Blood Type Antibody Screen Assessment & Plan - Assessment and Plan (Free Text) Assessment: 57 year old male with PMH of decompensated HCV cirrhosis (Genotype 3a, viral load >2million, failed treatment IFN/RBN 15 years ago) complicated by multifocal HCC with vascular invasion on liver biopsy 10/2017 and chronic portal vein thrombosis, Prothrombin [id number] mutation on Eliquis, and Polysubstance Abuse presenting with dark stools. Recently discharged 12/25 for similar concern on acute anemia s/p 2 U pRBCs with planned outpatient EGD, and follow up with [facility] on 01/07/18.Active treatment of acute on chronic anemia concerning for upper GI bleed. No prior EGD or colonoscopy. Plan: -MELD 13 -NPO -EGD today to evaluate for varices, PUD, vascular malformation -on Octreotide gtt and Protonix gtt -ceftriaxone for SBP Prophylaxis -continue to trend H/H -primary team planning for 1Unit pRBC transfusion -transfusion goal 8 -Eliquis held since last admission -further recommendations after EGD <Todd Reza - Last Filed: 12/29/17 13:14> Meds - Medications Medications: Current Medications Pantoprazole Sodium 80 mg/ (Sodium Chloride) 100 mls @ 10 mls/hr IVP .Q10H BRENDA PRN Reason: 8 MG/HR Last Admin: 12/29/17 01:06 Dose: Not Given Sodium Chloride (Sodium Chloride 0.9%) 1,000 mls @ 100 mls/hr IV .Q10H BRENDA Last Admin: 12/29/17 04:20 Dose: Not Given Ceftriaxone Sodium 1 gm/ (Sodium Chloride) 100 mls @ 100 mls/hr IVPB DAILY BRENDA PRN Reason: Protocol Last Admin: 12/29/17 10:19 Dose: Not Given Octreotide Acetate 1,250 mcg/ (Sodium Chloride) 252.5 mls @ 5.05 mls/hr SC .Q24H BRENDA; 25 MCG/HR PRN Reason: Protocol Last Admin: 12/29/17 04:21 Dose: Not Given Insulin Human Regular (Novolin R) 0 unit SC ACHS BRENDA PRN Reason: Protocol Last Admin: 12/29/17 08:19 Dose: Not Given Morphine Sulfate (Morphine) 0.5 mg IVP Q4 PRN PRN Reason: Pain, moderate (4-7) Morphine Sulfate (Morphine) 1 mg IVP Q4 PRN PRN Reason: Pain, severe (8-10) Last Admin: 12/29/17 10:39 Dose: 1 mg Nicotine (Nicoderm Cq) 1 patch TD DAILY [facility] Last Admin: 12/29/17 10:28 Dose: 1 patch Pneumococcal Polyvalent Vaccine (Pneumovax 23 Vaccine) 0.5 ml IM .ONCE ONE Stop: 12/30/17 14:01 Tamsulosin HCl (Flomax) 0.4 mg PO DAILY [facility] Last Admin: 12/29/17 09:47 Dose: Not Given Results - Vital Signs Recent Vital Signs: Last Vital Signs Temp 98.1 F 12/29/17 10:40 Pulse 87 12/29/17 10:40 Resp 20 12/29/17 10:40 BP 208/82 H 12/29/17 10:40 Pulse Ox 97 12/29/17 07:00 - Labs Result Diagrams: 12/29/17 08:16 12/29/17 08:16 Labs: Laboratory Results - last 24 hr 12/28/17 12/28/17 12/28/17 19:57 19:57 20:04 WBC RBC Hgb Hct MCV MCH MCHC RDW Plt Count MPV Neut % (Auto) Lymph % (Auto) Butler % (Auto) Eos % (Auto) Baso % (Auto) Neut # (Auto) Lymph # (Auto) Butler # (Auto) Eos # (Auto) Baso # (Auto) PT 13.5 H INR 1.2 APTT 28 Sodium Potassium Chloride Carbon Dioxide Anion Gap BUN Creatinine Est GFR ( Amer) Est GFR (Non-Af Amer) Random Glucose Lactic Acid 1.4 Calcium Magnesium Total Bilirubin AST ALT Alkaline Phosphatase Ammonia Total Protein Albumin Globulin Albumin/Globulin Ratio Lipase Stool Occult Blood Positive H Blood Type Antibody Screen 12/28/17 12/28/17 12/28/17 20:04 20:04 20:04 WBC RBC Hgb Hct MCV MCH MCHC RDW Plt Count MPV Neut % (Auto) Lymph % (Auto) Butler % (Auto) Eos % (Auto) Baso % (Auto) Neut # (Auto) Lymph # (Auto) Butler # (Auto) Eos # (Auto) Baso # (Auto) PT INR APTT Sodium 138 Potassium 4.6 Chloride 104 Carbon Dioxide 25 Anion Gap 14 BUN 24 H Creatinine 0.8 Est GFR ( Amer) > 60 Est GFR (Non-Af Amer) > 60 Random Glucose 255 H Lactic Acid Calcium 8.4 L Magnesium 2.3 Total Bilirubin 3.7 H AST 143 H ALT 80 H D Alkaline Phosphatase 575 H Ammonia 50 H Total Protein 6.5 Albumin 3.0 L Globulin 3.5 Albumin/Globulin Ratio 0.9 L Lipase 65 Stool Occult Blood Blood Type O POSITIVE Antibody Screen Negative 12/28/17 12/29/17 12/29/17 20:20 02:50 08:16 WBC 9.7 RBC 2.51 L Hgb 8.3 L 7.0 L Hct 24.0 L 20.9 L MCV 95.9 H MCH 33.1 H MCHC 34.5 RDW 17.2 H Plt Count 196 MPV 10.6 Neut % (Auto) 75.0 Lymph % (Auto) 14.5 L Butler % (Auto) 6.3 Eos % (Auto) 2.8 Baso % (Auto) 1.4 Neut # (Auto) 7.3 H Lymph # (Auto) 1.4 Butler # (Auto) 0.6 Eos # (Auto) 0.3 Baso # (Auto) 0.1 PT INR APTT Sodium Potassium Chloride Carbon Dioxide Anion Gap BUN Creatinine Est GFR ( Amer) Est GFR (Non-Af Amer) Random Glucose Lactic Acid Calcium Magnesium Total Bilirubin AST ALT Alkaline Phosphatase Ammonia 44 H Total Protein Albumin Globulin Albumin/Globulin Ratio Lipase Stool Occult Blood Blood Type Antibody Screen 12/29/17 12/29/17 08:16 08:16 WBC 9.2 RBC 2.43 L Hgb 7.8 L Hct 23.4 L MCV 96.1 H MCH 32.2 H MCHC 33.5 RDW 17.3 H Plt Count 191 MPV 9.8 Neut % (Auto) 71.5 Lymph % (Auto) 17.6 L Butler % (Auto) 6.0 Eos % (Auto) 3.2 Baso % (Auto) 1.7 Neut # (Auto) 6.6 Lymph # (Auto) 1.6 Butler # (Auto) 0.5 Eos # (Auto) 0.3 Baso # (Auto) 0.2 PT INR APTT Sodium 139 Potassium 4.5 Chloride 107 Carbon Dioxide 25 Anion Gap 11 BUN 22 H Creatinine 0.6 L Est GFR ( Amer) > 60 Est GFR (Non-Af Amer) > 60 Random Glucose 196 H Lactic Acid Calcium 8.1 L Magnesium Total Bilirubin 3.1 H AST 132 H ALT 72 Alkaline Phosphatase 485 H Ammonia Total Protein 6.0 L Albumin 2.7 L Globulin 3.3 Albumin/Globulin Ratio 0.8 L Lipase Stool Occult Blood Blood Type Antibody Screen Attending/Attestation - Attestation I have personally seen and examined this patient.: Yes I have fully participated in the care of the patient.: Yes I have reviewed all pertinent clinical information: Yes Notes (Text): 12/29/17 13:08 I have seen and examined patient with GI fellow. Agree with above documentation with the following additions. In brief, this is a 57 year old male with history of HCV cirrhosis, HCC with vascular invasion, hypercoaguable state (previously on eliquis), who presents to hospital with complaint of dark stool. He reports two episodes of dark tarry stool yesterday. He denies associated abdominal pain, nausea, vomiting, fever/chills. He has lost a significant amount of weight over the past few months, approximately 40 pounds. He was just recently discharged from hospital last week after prolonged hospital course and was supposed to have further outpatient follow up at [facility] liver clinic. Review of vitals from today shows elevated BP. No prior endoscopic evaluation. Decompensated HCV cirrhosis, MELD 13 without exception points HCC with vascular invasion Hypercoaguable state (previously on eliquis) Anemia Melena - NPO - Continue with PPI and octreotide infusion therapy - Continue to monitor H/H, s/p PRBC transfusion - Will plan for EGD evaluation today given progressive anemia with dark stool, rule out upper GI source - Following endoscopy, patient will require additional outpatient follow up at [facility] liver clinic, patient has appointment for 01/07 - Will continue to monitor patient clinical course
--- NOTE | 2017-12-29 10:37 | RAD ---
Date of service: 12/28/2017 PROCEDURE: CHEST RADIOGRAPH, 1 VIEW HISTORY: SOB COMPARISON: Comparison chest 968 FINDINGS: LUNGS: Slight diminished lung volumes, crowded bronchovascular markings and bibasilar atelectasis left greater than right. PLEURA: No pneumothorax or pleural fluid seen. CARDIOVASCULAR: Heart is enlarged. OSSEOUS STRUCTURES: No significant abnormalities. VISUALIZED UPPER ABDOMEN: Normal. OTHER FINDINGS: None. IMPRESSION: Cardiomegaly. Slightly diminished lung volumes with mild crowded bronchovascular markings and mild bibasilar atelectasis left greater than right.
--- NOTE | 2017-12-29 12:50 | CARD ---
APPROVED REPORT Date of service: 12/28/2017 EKG Measurement Heart [id number] <Conclusion> Normal sinus rhythm Normal ECG
[2017-12-29] MEDS ORDERED: Propofol 10 mg/ml Inj (20 ML) ONE ×2 (14:06→14:22)
[2017-12-29] MEDS: Labetalol 5 mg/ml Inj 20ML IV STA (16:55)
--- NOTE | 2017-12-29 17:51 | CP.PCM.CON ---
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 Patient had an EGD done today with Dr. Reza, noted to have active esophageal variceal bleeding. Bleeding was controlled with Epinephrine. Patient was on Eliquis, until it was held on 12/23/17 during last admission at [facility], [place] when patient was noted to have GI bleed as well. PMHx: Hepatocellular Carcinoma, Hepatitis C, Right portal Vein Thrombosis, Hypertension, Diabetes M. II, Benign Prostatic Hyperplasia (BPH) PSHx: Denies Allergies: Aspirin Social Hx: 1-1.5ppd x40+ years; social etoh use; formerly used cocaine (14 years ago); homeless and lives in a halfway FamHx: Father - [place], Mother - CHF Meds: Lasix 20mg Daily , Oxycodone 15mg PO QID. Flomax 0.4 Daily, Eliquis STOPPED on previous admission. Past Patient History - Infectious Disease Hx of Infectious Diseases: None - Past Medical History & Family History Past Medical History?: Yes - Past Social History Smoking Status: Heavy Smoker > 10 Cigarettes Daily - CARDIAC Hx Cardiac Disorders: Yes Hx Hypertension: Yes - PULMONARY Hx Respiratory Disorders: No - NEUROLOGICAL Hx Neurological Disorder: No Hx Seizures: No (Patient denied) - HEENT Hx HEENT Problems: No - RENAL Hx Chronic Kidney Disease: Yes Hx Kidney Stones: Yes - ENDOCRINE/METABOLIC Hx Endocrine Disorders: Yes Hx Diabetes Mellitus Type 2: Yes (state not been treated) - HEMATOLOGICAL/ONCOLOGICAL Hx Human Immunodeficiency Virus (HIV): No (Patient denied) - INTEGUMENTARY Hx Dermatological Problems: Yes Other/Comment: Jaundice. Admit diagnose with liver cancer at [facility] [place] 2month - MUSCULOSKELETAL/RHEUMATOLOGICAL Hx Musculoskeletal Disorders: No Hx Falls: No - GASTROINTESTINAL Hx Gastrointestinal Disorders: Yes Hx Gall Bladder Disease: Yes Hx Gastritis: Yes (Gall stones) Other/Comment: Pt said he was diagnosed with liver cancer 2 months ago - GENITOURINARY/GYNECOLOGICAL Hx Genitourinary Disorders: No Hx Sexually Transmitted Disorders: No (Patient denied) - PSYCHIATRIC Hx Psychophysiologic Disorder: Yes Hx Anxiety: Yes Hx Substance Use: No (Denied by PT.) - SURGICAL HISTORY Hx Surgeries: Yes Other/Comment: Liver biopsy - ANESTHESIA Hx Anesthesia: Yes Hx Anesthesia Reactions: No Hx Malignant Hyperthermia: No Has any member of the family had a problem w/ anesthesia?: No Meds Allergies/Adverse Reactions: Allergies Allergy/AdvReac Type Severity Reaction Status Date / Time aspirin AdvReac VOMITING Verified 12/28/17 18:24 - Medications Medications: Current Medications Pantoprazole Sodium 80 mg/ (Sodium Chloride) 100 mls @ 10 mls/hr IVP .Q10H BRENDA PRN Reason: 8 MG/HR Last Admin: 12/29/17 14:54 Dose: 10 mls/hr Sodium Chloride (Sodium Chloride 0.9%) 1,000 mls @ 100 mls/hr IV .Q10H BRENDA Last Admin: 12/29/17 04:20 Dose: Not Given Ceftriaxone Sodium 1 gm/ (Sodium Chloride) 100 mls @ 100 mls/hr IVPB DAILY BRENDA PRN Reason: Protocol Last Admin: 12/29/17 10:19 Dose: Not Given Octreotide Acetate 1,250 mcg/ (Sodium Chloride) 252.5 mls @ 5.05 mls/hr SC .Q24H BRENDA; 25 MCG/HR PRN Reason: Protocol Last Admin: 12/29/17 04:21 Dose: Not Given Insulin Human Regular (Novolin R) 0 unit SC ACHS BRENDA PRN Reason: Protocol Last Admin: 12/29/17 08:19 Dose: Not Given Morphine Sulfate (Morphine) 0.5 mg IVP Q4 PRN PRN Reason: Pain, moderate (4-7) Morphine Sulfate (Morphine) 1 mg IVP Q4 PRN PRN Reason: Pain, severe (8-10) Last Admin: 12/29/17 10:39 Dose: 1 mg Nicotine (Nicoderm Cq) 1 patch TD DAILY BRENDA Last Admin: 12/29/17 10:28 Dose: 1 patch Pneumococcal Polyvalent Vaccine (Pneumovax 23 Vaccine) 0.5 ml IM .ONCE ONE Stop: 12/30/17 14:01 Tamsulosin HCl (Flomax) 0.4 mg PO DAILY BRENDA Last Admin: 12/29/17 09:47 Dose: Not Given Physical Exam - Constitutional Additional comments: Appears jaundiced - Head Exam Head Exam: ATRAUMATIC, NORMAL INSPECTION - Eye Exam Eye Exam: EOMI Additional comments: Scleral icterus - ENT Exam ENT Exam: Mucous Membranes Moist - Respiratory Exam Respiratory Exam: Clear to Auscultation Bilateral. absent: Chest Wall Tenderness, Decreased Breath Sounds - Cardiovascular Exam Cardiovascular Exam: REGULAR RHYTHM, +S1, +S2 - GI/Abdominal Exam GI & Abdominal Exam: Distended, Normal Bowel Sounds, Soft, Tenderness (diffuse abdominal tenderness worse in right ) - Extremities Exam Extremities exam: Positive for: pedal edema (bilateral 1+ pitting edema ), pedal pulses present - Neurological Exam Neurological exam: Alert, Oriented x3 - Psychiatric Exam Psychiatric exam: Normal Affect, Normal Mood Results - Vital Signs Recent Vital Signs: Last Vital Signs Temp 98.9 F 12/29/17 14:45 Pulse 97 H 12/29/17 15:15 Resp 36 H 12/29/17 15:15 BP 198/85 H 12/29/17 15:15 Pulse Ox 100 12/29/17 15:15 - Labs Result Diagrams: 12/29/17 08:16 12/29/17 08:16 Labs: Laboratory Results - last 24 hr 12/28/17 12/28/17 12/28/17 19:57 19:57 20:04 WBC RBC Hgb Hct MCV MCH MCHC RDW Plt Count MPV Neut % (Auto) Lymph % (Auto) [place] % (Auto) Eos % (Auto) Baso % (Auto) Neut # (Auto) Lymph # (Auto) [place] # (Auto) Eos # (Auto) Baso # (Auto) PT 13.5 H INR 1.2 APTT 28 Sodium Potassium Chloride Carbon Dioxide Anion Gap BUN Creatinine Est GFR ( Amer) Est GFR (Non-Af Amer) POC Glucose (mg/dL) Random Glucose Lactic Acid 1.4 Calcium Magnesium Total Bilirubin AST ALT Alkaline Phosphatase Ammonia Total Protein Albumin Globulin Albumin/Globulin Ratio Lipase Stool Occult Blood Positive H Blood Type Antibody Screen 12/28/17 12/28/17 12/28/17 20:04 20:04 20:04 WBC RBC Hgb Hct MCV MCH MCHC RDW Plt Count MPV Neut % (Auto) Lymph % (Auto) [place] % (Auto) Eos % (Auto) Baso % (Auto) Neut # (Auto) Lymph # (Auto) [place] # (Auto) Eos # (Auto) Baso # (Auto) PT INR APTT Sodium 138 Potassium 4.6 Chloride 104 Carbon Dioxide 25 Anion Gap 14 BUN 24 H Creatinine 0.8 Est GFR ( Amer) > 60 Est GFR (Non-Af Amer) > 60 POC Glucose (mg/dL) Random Glucose 255 H Lactic Acid Calcium 8.4 L Magnesium 2.3 Total Bilirubin 3.7 H AST 143 H ALT 80 H D Alkaline Phosphatase 575 H Ammonia 50 H Total Protein 6.5 Albumin 3.0 L Globulin 3.5 Albumin/Globulin Ratio 0.9 L Lipase 65 Stool Occult Blood Blood Type O POSITIVE Antibody Screen Negative 12/28/17 12/29/17 12/29/17 20:20 02:50 08:16 WBC 9.7 RBC 2.51 L Hgb 8.3 L 7.0 L Hct 24.0 L 20.9 L MCV 95.9 H MCH 33.1 H MCHC 34.5 RDW 17.2 H Plt Count 196 MPV 10.6 Neut % (Auto) 75.0 Lymph % (Auto) 14.5 L [place] % (Auto) 6.3 Eos % (Auto) 2.8 Baso % (Auto) 1.4 Neut # (Auto) 7.3 H Lymph # (Auto) 1.4 [place] # (Auto) 0.6 Eos # (Auto) 0.3 Baso # (Auto) 0.1 PT INR APTT Sodium Potassium Chloride Carbon Dioxide Anion Gap BUN Creatinine Est GFR ( Amer) Est GFR (Non-Af Amer) POC Glucose (mg/dL) Random Glucose Lactic Acid Calcium Magnesium Total Bilirubin AST ALT Alkaline Phosphatase Ammonia 44 H Total Protein Albumin Globulin Albumin/Globulin Ratio Lipase Stool Occult Blood Blood Type Antibody Screen 12/29/17 12/29/17 12/29/17 08:16 08:16 16:49 WBC 9.2 RBC 2.43 L Hgb 7.8 L Hct 23.4 L MCV 96.1 H MCH 32.2 H MCHC 33.5 RDW 17.3 H Plt Count 191 MPV 9.8 Neut % (Auto) 71.5 Lymph % (Auto) 17.6 L [place] % (Auto) 6.0 Eos % (Auto) 3.2 Baso % (Auto) 1.7 Neut # (Auto) 6.6 Lymph # (Auto) 1.6 [place] # (Auto) 0.5 Eos # (Auto) 0.3 Baso # (Auto) 0.2 PT INR APTT Sodium 139 Potassium 4.5 Chloride 107 Carbon Dioxide 25 Anion Gap 11 BUN 22 H Creatinine 0.6 L Est GFR ( Amer) > 60 Est GFR (Non-Af Amer) > 60 POC Glucose (mg/dL) 247 H Random Glucose 196 H Lactic Acid Calcium 8.1 L Magnesium Total Bilirubin 3.1 H AST 132 H ALT 72 Alkaline Phosphatase 485 H Ammonia Total Protein 6.0 L Albumin 2.7 L Globulin 3.3 Albumin/Globulin Ratio 0.8 L Lipase Stool Occult Blood Blood Type Antibody Screen Assessment & Plan - Assessment and Plan (Free Text) Assessment: 57 year old male with history of decompensated HCV cirrhosis (Genotype 3a, viral load >2million with failed treatment IFN/RBN 15 years ago) complicated by multifocal HCC with vascular invasion on liver biopsy (10/2017) and chronic portal vein thrombosis, Prothrombin [id number] mutation, polysubstance abuse, hypertension, benign prostatic hyperplasia and diabetes mellitus who presented for black stool with abdominal pain. S/p EGD with Dr. Reza, noted to have active esophageal variceal bleeding, Epinephrine given. Patient has not been on Eliquis since 12/23/17. Plan: Neuro: Alert and oriented Pulm: Oxygenating well CXR: slightly diminished lung volumes with mild crowded bronchovascular markings and mild bibasilar atelectasis left greater than right. CV: BP elevated Labetalol 10mg IV x2 given GI: Keep NPO Protonix drip Octreotide drip Zofran 4mg Q6 BRENDA NO NG TUBE Received [address] Reza on case No anticoagulation INR 1.2 EGD findings: 2 columsn of Grade II varices, one with active spurting blood was found in the lower third of esophagus. Area was successfully injected with 2ml of a 1:10,000 solutoin of epinephrine for hemostasis. Diffuse mild inflammation characterized by erythema was found in the gastric body. Portal hypertensive gastropathy was found in the gastric fundus. The cardia and gastric fundus were normal on retroflexion. The examined duodenum was normal. Heme: Hb 7.8/Hct 23.4 Receiving 2 units PRBCs after EGD with variceal bleeding Endo: maintain euglycemia Renal: BUN/Cr 22/0.6 Monitor I and O Replete electrolytes as needed Flomax ID: [id number] Wbc of 9.2 Continue to monitor PPX: Protonix Case discussed with Dr. Armstrong <Juan M Armstrong - Last Filed: 12/29/17 19:32> Meds - Medications Medications: Current Medications Pantoprazole Sodium 80 mg/ (Sodium Chloride) 100 mls @ 10 mls/hr IVP .Q10H BRENDA PRN Reason: 8 MG/HR Last Admin: 12/29/17 16:30 Dose: 20 mls Ceftriaxone Sodium 1 gm/ (Sodium Chloride) 100 mls @ 100 mls/hr IVPB DAILY BRENDA PRN Reason: Protocol Last Admin: 12/29/17 10:19 Dose: Not Given Octreotide Acetate 1,250 mcg/ (Sodium Chloride) 252.5 mls @ 5.05 mls/hr SC .Q24H BRENDA; 25 MCG/HR PRN Reason: Protocol Last Admin: 12/29/17 04:21 Dose: Not Given Insulin Human Regular (Novolin R) 0 unit SC ACHS BRENDA PRN Reason: Protocol Last Admin: 12/29/17 08:19 Dose: Not Given Morphine Sulfate (Morphine) 0.5 mg IVP Q4 PRN PRN Reason: Pain, moderate (4-7) Morphine Sulfate (Morphine) 1 mg IVP Q4 PRN PRN Reason: Pain, severe (8-10) Last Admin: 12/29/17 17:30 Dose: 1 mg Nicotine (Nicoderm Cq) 1 patch TD DAILY [facility] Last Admin: 12/29/17 10:28 Dose: 1 patch Ondansetron HCl (Zofran Inj) 4 mg IVP Q6 [facility] Pneumococcal Polyvalent Vaccine (Pneumovax 23 Vaccine) 0.5 ml IM .ONCE ONE Stop: 12/30/17 14:01 Tamsulosin HCl (Flomax) 0.4 mg PO DAILY [facility] Last Admin: 12/29/17 09:47 Dose: Not Given Results - Vital Signs Recent Vital Signs: Last Vital Signs Temp 98.5 F 12/29/17 18:30 Pulse 89 12/29/17 18:30 Resp 31 H 12/29/17 18:30 BP 167/64 H 12/29/17 18:30 Pulse Ox 97 12/29/17 18:30 - Labs Result Diagrams: 12/29/17 08:16 12/29/17 08:16 Labs: Laboratory Results - last 24 hr 12/28/17 12/28/17 12/28/17 19:57 19:57 20:04 WBC RBC Hgb Hct MCV MCH MCHC RDW Plt Count MPV Neut % (Auto) Lymph % (Auto) [place] % (Auto) Eos % (Auto) Baso % (Auto) Neut # (Auto) Lymph # (Auto) [place] # (Auto) Eos # (Auto) Baso # (Auto) PT 13.5 H INR 1.2 APTT 28 Sodium Potassium Chloride Carbon Dioxide Anion Gap BUN Creatinine Est GFR ( Amer) Est GFR (Non-Af Amer) POC Glucose (mg/dL) Random Glucose Lactic Acid 1.4 Calcium Magnesium Total Bilirubin AST ALT Alkaline Phosphatase Ammonia Total Protein Albumin Globulin Albumin/Globulin Ratio Lipase Stool Occult Blood Positive H Blood Type Antibody Screen 12/28/17 12/28/17 12/28/17 20:04 20:04 20:04 WBC RBC Hgb Hct MCV MCH MCHC RDW Plt Count MPV Neut % (Auto) Lymph % (Auto) [place] % (Auto) Eos % (Auto) Baso % (Auto) Neut # (Auto) Lymph # (Auto) [place] # (Auto) Eos # (Auto) Baso # (Auto) PT INR APTT Sodium 138 Potassium 4.6 Chloride 104 Carbon Dioxide 25 Anion Gap 14 BUN 24 H Creatinine 0.8 Est GFR ( Amer) > 60 Est GFR (Non-Af Amer) > 60 POC Glucose (mg/dL) Random Glucose 255 H Lactic Acid Calcium 8.4 L Magnesium 2.3 Total Bilirubin 3.7 H AST 143 H ALT 80 H D Alkaline Phosphatase 575 H Ammonia 50 H Total Protein 6.5 Albumin 3.0 L Globulin 3.5 Albumin/Globulin Ratio 0.9 L Lipase 65 Stool Occult Blood Blood Type O POSITIVE Antibody Screen Negative 12/28/17 12/29/17 12/29/17 20:20 02:50 08:16 WBC 9.7 RBC 2.51 L Hgb 8.3 L 7.0 L Hct 24.0 L 20.9 L MCV 95.9 H MCH 33.1 H MCHC 34.5 RDW 17.2 H Plt Count 196 MPV 10.6 Neut % (Auto) 75.0 Lymph % (Auto) 14.5 L [place] % (Auto) 6.3 Eos % (Auto) 2.8 Baso % (Auto) 1.4 Neut # (Auto) 7.3 H Lymph # (Auto) 1.4 [place] # (Auto) 0.6 Eos # (Auto) 0.3 Baso # (Auto) 0.1 PT INR APTT Sodium Potassium Chloride Carbon Dioxide Anion Gap BUN Creatinine Est GFR ( Amer) Est GFR (Non-Af Amer) POC Glucose (mg/dL) Random Glucose Lactic Acid Calcium Magnesium Total Bilirubin AST ALT Alkaline Phosphatase Ammonia 44 H Total Protein Albumin Globulin Albumin/Globulin Ratio Lipase Stool Occult Blood Blood Type Antibody Screen 12/29/17 12/29/17 12/29/17 08:16 08:16 16:49 WBC 9.2 RBC 2.43 L Hgb 7.8 L Hct 23.4 L MCV 96.1 H MCH 32.2 H MCHC 33.5 RDW 17.3 H Plt Count 191 MPV 9.8 Neut % (Auto) 71.5 Lymph % (Auto) 17.6 L [place] % (Auto) 6.0 Eos % (Auto) 3.2 Baso % (Auto) 1.7 Neut # (Auto) 6.6 Lymph # (Auto) 1.6 [place] # (Auto) 0.5 Eos # (Auto) 0.3 Baso # (Auto) 0.2 PT INR APTT Sodium 139 Potassium 4.5 Chloride 107 Carbon Dioxide 25 Anion Gap 11 BUN 22 H Creatinine 0.6 L Est GFR ( Amer) > 60 Est GFR (Non-Af Amer) > 60 POC Glucose (mg/dL) 247 H Random Glucose 196 H Lactic Acid Calcium 8.1 L Magnesium Total Bilirubin 3.1 H AST 132 H ALT 72 Alkaline Phosphatase 485 H Ammonia Total Protein 6.0 L Albumin 2.7 L Globulin 3.3 Albumin/Globulin Ratio 0.8 L Lipase Stool Occult Blood Blood Type Antibody Screen Attending/Attestation - Attestation I have personally seen and examined this patient.: Yes I have fully participated in the care of the patient.: Yes I have reviewed all pertinent clinical information: Yes Notes (Text): 09/12/18 19:32 patient seen and examined Assessment and plan as per resident note Continue octreotide drip Continue Protonix Follow-up CBC and transfuse as necessary Pending transfer to tertiary hospital
--- NOTE | 2017-12-29 18:34 | CP.PCM.CON ---
Addendum entered and electronically signed by Diomedes Jang DO 12/29/17 20: 01: Pt seen and examined in ICU. Chart reviewed in depth. Agree with resident Dr Guzman's assessment. Pt had EGD today with epi injection. Hemostasis achieved. HgB now stable. Recommendations: Transfer to tertiary center as soon as bed is available Continue medical mgmt, including somatostatin, protonix, strict BP control ( recommend caution with BB use in an active bleeding pt) Tranfusion goal should be HgB >8 and < 10 If pt rebleeds - would recommend repeat endoscopy with dual-therapy. If this is unsuccessful next step would likely be IR for embolization as surgery would have a very poor prognosis/outcome Cont abx for 7 days - currently on IV ceftriaxone - can switch to oral Norfloxacin when can tolerate PO intake. Case discussed with Dr Eddie Kaur surgical attending, as well as Dr Anne-Marie Boland GI fellow. Original Note: <Rhiannon Guzman - Last Filed: 12/29/17 19:59> History of Present Illness - History of Present Illness History of Present Illness: General surgery consult note for Dr. Mukul Kaur-Rhiannon Guzman, PGY-2 Pt S & E at bedside at 1550 57M w/PMH sig for HCC with vascular invasion consulted for Bleeding vessel- esophageal varix, cirrhosis, HCC with vascular invasion s/p EGD. Pt reports recent dx of HCC with vascular invasion 10/2017. Reports extensive hospitalization for complications related to diagnoses, was recently discharged. Pt notes melenotic stool that started yesterday, approximately 5-6 episodes noted. Also admits to jaundice since last hospitalization, RUQ abdominal pain (intermittent, non radiating, moderate), SOB and unintentional wt loss over last 2-3 months. Pt denies constipation, diarrhea, nausea, vomiting, fevers, chills, LE swelling. In hospital- EGD done with findings of 2 columns of grade II varices, one with active spurting blood in lower 3rd of esophagus, injected with epinephrine, diffuse mild inflmammation of gastric body, portal hypertensive gastropathy. Pt seen/evaluted in EGD- currently receiving 1 unit pRBCs, BP 180/90. Per pt, had an appointment with [facility] with liver specialist scheduled for PMH: Cirrhosis, HCC with vascular invasion, splenomegaly, cholelithiasis PSH: Denies All: ASA (bleeding) SH: history of ETOH use, multiple illicit drug use hx, Admits to 1.5 ppd x 45 yrs tobacco use. FH: Colon CA in Father Review of Systems - Review of Systems All systems: reviewed and no additional remarkable complaints except - Constitutional Constitutional: absent: Chills, Fever - EENT Eyes: absent: Change in Vision Nose/Mouth/Throat: absent: Sore Throat - Cardiovascular Cardiovascular: absent: Chest Pain - Respiratory Respiratory: absent: Cough - Gastrointestinal Gastrointestinal: Abdominal Pain, Melena. absent: Constipation, Nausea, Vomiting - Genitourinary Genitourinary: Difficulty Urinating (hesitancy) - Musculoskeletal Musculoskeletal: absent: Back Pain - Integumentary Integumentary: absent: Rash - Neurological Neurological: absent: Dizziness, Syncope, Weakness - Psychiatric Psychiatric: absent: Change in Appetite - Endocrine Endocrine: absent: Fatigue Past Patient History - Infectious Disease Hx of Infectious Diseases: None - Past Medical History & Family History Past Medical History?: Yes - Past Social History Smoking Status: Heavy Smoker > 10 Cigarettes Daily - CARDIAC Hx Cardiac Disorders: Yes Hx Hypertension: Yes - PULMONARY Hx Respiratory Disorders: No - NEUROLOGICAL Hx Neurological Disorder: No Hx Seizures: No (Patient denied) - HEENT Hx HEENT Problems: No - RENAL Hx Chronic Kidney Disease: Yes Hx Kidney Stones: Yes - ENDOCRINE/METABOLIC Hx Endocrine Disorders: Yes Hx Diabetes Mellitus Type 2: Yes (state not been treated) - HEMATOLOGICAL/ONCOLOGICAL Hx Human Immunodeficiency Virus (HIV): No (Patient denied) - INTEGUMENTARY Hx Dermatological Problems: Yes Other/Comment: Jaundice. Admit diagnose with liver cancer at [facility] - MUSCULOSKELETAL/RHEUMATOLOGICAL Hx Musculoskeletal Disorders: No Hx Falls: No - GASTROINTESTINAL Hx Gastrointestinal Disorders: Yes Hx Gall Bladder Disease: Yes Hx Gastritis: Yes (Gall stones) Other/Comment: Pt said he was diagnosed with liver cancer 2 months ago - GENITOURINARY/GYNECOLOGICAL Hx Genitourinary Disorders: No Hx Sexually Transmitted Disorders: No (Patient denied) - PSYCHIATRIC Hx Psychophysiologic Disorder: Yes Hx Anxiety: Yes Hx Substance Use: No (Denied by PT.) - SURGICAL HISTORY Hx Surgeries: Yes Other/Comment: Liver biopsy - ANESTHESIA Hx Anesthesia: Yes Hx Anesthesia Reactions: No Hx Malignant Hyperthermia: No Has any member of the family had a problem w/ anesthesia?: No Meds Allergies/Adverse Reactions: Allergies Allergy/AdvReac Type Severity Reaction Status Date / Time aspirin AdvReac VOMITING Verified 12/28/17 18:24 - Medications Medications: Current Medications Pantoprazole Sodium 80 mg/ (Sodium Chloride) 100 mls @ 10 mls/hr IVP .Q10H BRENDA PRN Reason: 8 MG/HR Last Admin: 12/29/17 16:30 Dose: 0 mls Sodium Chloride (Sodium Chloride 0.9%) 1,000 mls @ 100 mls/hr IV .Q10H BRENDA Last Admin: 12/29/17 04:20 Dose: Not Given Ceftriaxone Sodium 1 gm/ (Sodium Chloride) 100 mls @ 100 mls/hr IVPB DAILY BRENDA PRN Reason: Protocol Last Admin: 12/29/17 10:19 Dose: Not Given Octreotide Acetate 1,250 mcg/ (Sodium Chloride) 252.5 mls @ 5.05 mls/hr SC .Q24H BRENDA; 25 MCG/HR PRN Reason: Protocol Last Admin: 12/29/17 04:21 Dose: Not Given Insulin Human Regular (Novolin R) 0 unit SC ACHS BRENDA PRN Reason: Protocol Last Admin: 12/29/17 08:19 Dose: Not Given Morphine Sulfate (Morphine) 0.5 mg IVP Q4 PRN PRN Reason: Pain, moderate (4-7) Morphine Sulfate (Morphine) 1 mg IVP Q4 PRN PRN Reason: Pain, severe (8-10) Last Admin: 12/29/17 17:30 Dose: 1 mg Nicotine (Nicoderm Cq) 1 patch TD DAILY [facility] Last Admin: 12/29/17 10:28 Dose: 1 patch Pneumococcal Polyvalent Vaccine (Pneumovax 23 Vaccine) 0.5 ml IM .ONCE ONE Stop: 12/30/17 14:01 Tamsulosin HCl (Flomax) 0.4 mg PO DAILY [facility] Last Admin: 12/29/17 09:47 Dose: Not Given Physical Exam - Constitutional Appears: Non-toxic, No Acute Distress - Head Exam Head Exam: ATRAUMATIC, NORMAL INSPECTION, NORMOCEPHALIC - Eye Exam Eye Exam: EOMI, Normal appearance - ENT Exam ENT Exam: Mucous Membranes Moist, Normal Exam - Neck Exam Neck exam: Positive for: Full Rom, Normal Inspection - Respiratory Exam Respiratory Exam: NORMAL BREATHING PATTERN - Cardiovascular Exam Cardiovascular Exam: REGULAR RHYTHM, +S1, +S2 - GI/Abdominal Exam GI & Abdominal Exam: Distended, Soft, Tenderness (RUQ). absent: Firm, Guarding - Extremities Exam Extremities exam: Positive for: pedal edema (bilateral) - Neurological Exam Neurological exam: Alert, CN II-XII Intact, Oriented x3 - Psychiatric Exam Psychiatric exam: Normal Affect, Normal Mood - Skin Skin Exam: Dry, Intact, Warm Additional comments: jaundiced Results - Vital Signs Recent Vital Signs: Last Vital Signs Temp 98.9 F 12/29/17 14:45 Pulse 97 H 12/29/17 15:15 Resp 36 H 12/29/17 15:15 BP 198/85 H 12/29/17 15:15 Pulse Ox 100 12/29/17 15:15 - Labs Result Diagrams: 12/29/17 08:16 12/29/17 08:16 Labs: Laboratory Results - last 24 hr 12/28/17 12/28/17 12/28/17 19:57 19:57 20:04 WBC RBC Hgb Hct MCV MCH MCHC RDW Plt Count MPV Neut % (Auto) Lymph % (Auto) Swisher % (Auto) Eos % (Auto) Baso % (Auto) Neut # (Auto) Lymph # (Auto) Swisher # (Auto) Eos # (Auto) Baso # (Auto) PT 13.5 H INR 1.2 APTT 28 Sodium Potassium Chloride Carbon Dioxide Anion Gap BUN Creatinine Est GFR ( Amer) Est GFR (Non-Af Amer) POC Glucose (mg/dL) Random Glucose Lactic Acid 1.4 Calcium Magnesium Total Bilirubin AST ALT Alkaline Phosphatase Ammonia Total Protein Albumin Globulin Albumin/Globulin Ratio Lipase Stool Occult Blood Positive H Blood Type Antibody Screen 12/28/17 12/28/17 12/28/17 20:04 20:04 20:04 WBC RBC Hgb Hct MCV MCH MCHC RDW Plt Count MPV Neut % (Auto) Lymph % (Auto) Swisher % (Auto) Eos % (Auto) Baso % (Auto) Neut # (Auto) Lymph # (Auto) Swisher # (Auto) Eos # (Auto) Baso # (Auto) PT INR APTT Sodium 138 Potassium 4.6 Chloride 104 Carbon Dioxide 25 Anion Gap 14 BUN 24 H Creatinine 0.8 Est GFR ( Amer) > 60 Est GFR (Non-Af Amer) > 60 POC Glucose (mg/dL) Random Glucose 255 H Lactic Acid Calcium 8.4 L Magnesium 2.3 Total Bilirubin 3.7 H AST 143 H ALT 80 H D Alkaline Phosphatase 575 H Ammonia 50 H Total Protein 6.5 Albumin 3.0 L Globulin 3.5 Albumin/Globulin Ratio 0.9 L Lipase 65 Stool Occult Blood Blood Type O POSITIVE Antibody Screen Negative 12/28/17 12/29/17 12/29/17 20:20 02:50 08:16 WBC 9.7 RBC 2.51 L Hgb 8.3 L 7.0 L Hct 24.0 L 20.9 L MCV 95.9 H MCH 33.1 H MCHC 34.5 RDW 17.2 H Plt Count 196 MPV 10.6 Neut % (Auto) 75.0 Lymph % (Auto) 14.5 L Swisher % (Auto) 6.3 Eos % (Auto) 2.8 Baso % (Auto) 1.4 Neut # (Auto) 7.3 H Lymph # (Auto) 1.4 Swisher # (Auto) 0.6 Eos # (Auto) 0.3 Baso # (Auto) 0.1 PT INR APTT Sodium Potassium Chloride Carbon Dioxide Anion Gap BUN Creatinine Est GFR ( Amer) Est GFR (Non-Af Amer) POC Glucose (mg/dL) Random Glucose Lactic Acid Calcium Magnesium Total Bilirubin AST ALT Alkaline Phosphatase Ammonia 44 H Total Protein Albumin Globulin Albumin/Globulin Ratio Lipase Stool Occult Blood Blood Type Antibody Screen 12/29/17 12/29/17 12/29/17 08:16 08:16 16:49 WBC 9.2 RBC 2.43 L Hgb 7.8 L Hct 23.4 L MCV 96.1 H MCH 32.2 H MCHC 33.5 RDW 17.3 H Plt Count 191 MPV 9.8 Neut % (Auto) 71.5 Lymph % (Auto) 17.6 L Swisher % (Auto) 6.0 Eos % (Auto) 3.2 Baso % (Auto) 1.7 Neut # (Auto) 6.6 Lymph # (Auto) 1.6 Swisher # (Auto) 0.5 Eos # (Auto) 0.3 Baso # (Auto) 0.2 PT INR APTT Sodium 139 Potassium 4.5 Chloride 107 Carbon Dioxide 25 Anion Gap 11 BUN 22 H Creatinine 0.6 L Est GFR ( Amer) > 60 Est GFR (Non-Af Amer) > 60 POC Glucose (mg/dL) 247 H Random Glucose 196 H Lactic Acid Calcium 8.1 L Magnesium Total Bilirubin 3.1 H AST 132 H ALT 72 Alkaline Phosphatase 485 H Ammonia Total Protein 6.0 L Albumin 2.7 L Globulin 3.3 Albumin/Globulin Ratio 0.8 L Lipase Stool Occult Blood Blood Type Antibody Screen Assessment & Plan - Assessment and Plan (Free Text) Assessment: 57M w/invasive HCC Plan: Plan for transfer to [facility] for liver transplant once stable DW Dr. Vincent Guzman, PGY-2 - Date & Time Date: 12/29/17 Time: 18:36 <Mukul Kaur - Last Filed: 12/30/17 17:10> Meds - Medications Medications: Current Medications Pantoprazole Sodium 80 mg/ (Sodium Chloride) 100 mls @ 10 mls/hr IVP .Q10H BRENDA PRN Reason: 8 MG/HR Last Admin: 12/30/17 14:25 Dose: 10 mls/hr Octreotide Acetate 1,250 mcg/ (Sodium Chloride) 252.5 mls @ 5.05 mls/hr SC .Q24H BRENDA; 25 MCG/HR PRN Reason: Protocol Last Admin: 12/30/17 00:46 Dose: Not Given Insulin Human Regular (Novolin R) 0 unit SC ACHS BRENDA PRN Reason: Protocol Last Admin: 12/30/17 12:00 Dose: 3 u Lisinopril (Zestril) 10 mg PO DAILY [facility] Last Admin: 12/30/17 14:25 Dose: 10 mg Morphine Sulfate (Morphine) 0.5 mg IVP Q4 PRN PRN Reason: Pain, moderate (4-7) Last Admin: 12/29/17 19:42 Dose: 0.5 mg Morphine Sulfate (Morphine) 2 mg IVP Q4 PRN PRN Reason: Pain, severe (8-10) Last Admin: 12/30/17 14:46 Dose: 2 mg Nicotine (Nicoderm Cq) 1 patch TD DAILY [facility] Last Admin: 12/30/17 10:02 Dose: 1 patch Ondansetron HCl (Zofran Inj) 4 mg IVP Q6 [facility] Last Admin: 12/30/17 13:00 Dose: 4 mg Propranolol HCl (Inderal) 10 mg PO TID [facility] Last Admin: 12/30/17 14:28 Dose: 10 mg Tamsulosin HCl (Flomax) 0.4 mg PO DAILY [facility] Last Admin: 12/30/17 10:02 Dose: 0.4 mg Results - Vital Signs Recent Vital Signs: Last Vital Signs Temp 98.3 F 12/30/17 12:00 Pulse 63 12/30/17 15:00 Resp 28 H 12/30/17 15:00 BP 167/67 H 12/30/17 15:00 Pulse Ox 98 12/30/17 15:00 - Labs Result Diagrams: 12/30/17 06:22 12/30/17 06:17 Labs: Laboratory Results - last 24 hr 12/28/17 12/29/17 12/29/17 20:04 06:43 11:33 WBC RBC Hgb Hct MCV MCH MCHC RDW Plt Count MPV Neut % (Auto) Lymph % (Auto) Swisher % (Auto) Eos % (Auto) Baso % (Auto) Neut # (Auto) Lymph # (Auto) Swisher # (Auto) Eos # (Auto) Baso # (Auto) Neutrophils % (Manual) Lymphocytes % (Manual) Monocytes % (Manual) Eosinophils % (Manual) Platelet Estimate Anisocytosis (manual) Sodium Potassium Chloride Carbon Dioxide Anion Gap BUN Creatinine Est GFR ( Amer) Est GFR (Non-Af Amer) POC Glucose (mg/dL) 184 H 206 H Random Glucose Calcium Phosphorus Magnesium Total Bilirubin AST ALT Alkaline Phosphatase Total Protein Albumin Globulin Albumin/Globulin Ratio Blood Type O POSITIVE Antibody Screen Negative 12/29/17 12/29/17 12/30/17 16:49 21:23 06:17 WBC RBC Hgb Hct MCV MCH MCHC RDW Plt Count MPV Neut % (Auto) Lymph % (Auto) Swisher % (Auto) Eos % (Auto) Baso % (Auto) Neut # (Auto) Lymph # (Auto) Swisher # (Auto) Eos # (Auto) Baso # (Auto) Neutrophils % (Manual) Lymphocytes % (Manual) Monocytes % (Manual) Eosinophils % (Manual) Platelet Estimate Anisocytosis (manual) Sodium 138 Potassium 4.5 Chloride 109 H Carbon Dioxide 20 L Anion Gap 14 BUN 19 Creatinine 0.7 L Est GFR ( Amer) > 60 Est GFR (Non-Af Amer) > 60 POC Glucose (mg/dL) 247 H 293 H Random Glucose 329 H Calcium 8.3 L Phosphorus Magnesium Total Bilirubin 3.6 H AST 125 H ALT 76 H Alkaline Phosphatase 445 H Total Protein 6.2 L Albumin 3.0 L Globulin 3.2 Albumin/Globulin Ratio 0.9 L Blood Type Antibody Screen 12/30/17 12/30/17 12/30/17 06:17 06:22 07:15 WBC 13.8 H RBC 3.05 L Hgb 9.5 L Hct 28.6 L MCV 93.8 D MCH 31.0 MCHC 33.1 RDW 19.2 H Plt Count 199 MPV 9.8 Neut % (Auto) 83.4 H Lymph % (Auto) 9.4 L Swisher % (Auto) 4.9 Eos % (Auto) 1.3 Baso % (Auto) 1.0 Neut # (Auto) 11.5 H Lymph # (Auto) 1.3 Swisher # (Auto) 0.7 Eos # (Auto) 0.2 Baso # (Auto) 0.1 Neutrophils % (Manual) 83 H Lymphocytes % (Manual) 10 L Monocytes % (Manual) 5 Eosinophils % (Manual) 2 Platelet Estimate Normal Anisocytosis (manual) Moderate Sodium Potassium Chloride Carbon Dioxide Anion Gap BUN Creatinine Est GFR ( Amer) Est GFR (Non-Af Amer) POC Glucose (mg/dL) 348 H Random Glucose Calcium Phosphorus 3.5 Magnesium 2.1 Total Bilirubin AST ALT Alkaline Phosphatase Total Protein Albumin Globulin Albumin/Globulin Ratio Blood Type Antibody Screen 12/30/17 11:34 WBC RBC Hgb Hct MCV MCH MCHC RDW Plt Count MPV Neut % (Auto) Lymph % (Auto) Swisher % (Auto) Eos % (Auto) Baso % (Auto) Neut # (Auto) Lymph # (Auto) Swisher # (Auto) Eos # (Auto) Baso # (Auto) Neutrophils % (Manual) Lymphocytes % (Manual) Monocytes % (Manual) Eosinophils % (Manual) Platelet Estimate Anisocytosis (manual) Sodium Potassium Chloride Carbon Dioxide Anion Gap BUN Creatinine Est GFR ( Amer) Est GFR (Non-Af Amer) POC Glucose (mg/dL) 251 H Random Glucose Calcium Phosphorus Magnesium Total Bilirubin AST ALT Alkaline Phosphatase Total Protein Albumin Globulin Albumin/Globulin Ratio Blood Type Antibody Screen Assessment & Plan - Assessment and Plan (Free Text) Plan: Asked to see patient at the request of Dr. Reza from . I personally saw and examined the patient independent of the resident staff, and reviewed the available diagnostic images and reports and agree with the above assessment and plan with followin M HCC (1 right lobe lesion 3cm on CT from 11/2017) cirrhotic nataliya B/MELD 13 , with 2nd admission for variceal bleeding s/p endoscopic epinephrine injection (without banding) adequate response to 2U pRBC. Increased distension and SOB over last 2 weeks per patient, concerning for worsening ascites, possible RHF. States he had 2-3 melanotic stools as early as this am. Cont. octreotide drip 5 days, IV abx for SBP prophylaxis x 7days (transition to PO norfloxacin hen taking PO), manage BP. Echo. BNP level. Cautious use of NSBB if concerns for on- going bleeding, ok to start as secondary prophylaxis after current bleed adequately controlled endoscopically. Minimize blood products/IVF to prevent further elevation in portal pressures. Protonix gtt not necessary. Agree with transfer to tertiary center for higher level of care. High risk for re-bleed. If re-bleeds, repeat EGD with band ligation/ sclerotherapy + injection. TIPS may be possible, but rec dedicated liver imaging : triple phase CT/MRI w/wwo IV contrast to assess vasculature and tumor burden/ extent of disease for amenability to TIPS and HCC staging. Currently does not have any surgical indications for variceal bleeding. Generally, surgical intervention is last resort in these situations if medical management, endoscopic VBL/sclerotherapy, and IR options fail and would require specialized hepatobiliary/liver transplant expertise for possible surgical shunt options and overall candidacy for transplant in the setting of HCC and acute decompensation. Consult hepatobiliary surgeon while patient remains here awaiting transfer.
[2017-12-29] MEDS: Labetalol 25mg/5ml Syringe IVP STA ×2 (19:42→19:45)
[2017-12-30] MEDS: Pantoprazole 80 MG in Sodium Chloride 0.9% 100 ML IVP SCH ×4 (01:33→22:43)
[2017-12-30 06:32] LABS: BASO # 0.1 K/uL (0.0-0.2); EOS # 0.2 K/uL (0.0-0.7); EOS % 1.3 % (0.0-4.0); HEMOGLOBIN 9.5 g/dL (12.0-18.0); LYMPH # 1.3 K/uL (1.0-4.3); LYMPH % 9.4 % (20.0-40.0); MEAN CELL VOLUME 93.8 fL (80.0-94.0); MEAN CORPUSCULAR HGB CONC 33.1 g/dL (33.0-37.0); MEAN PLATELET VOLUME 9.8 fL (7.2-11.7); MONO # 0.7 K/uL (0.0-0.8); MONO % 4.9 % (0.0-10.0); NEUT # 11.5 K/uL (1.8-7.0); NEUT % 83.4 % (50.0-75.0); NRBC % 0.1 % (0.0-2.0); PLATELET COUNT 199 K/uL (130-400); RBC 3.05 Mil/uL (4.40-5.90); RED CELL DISTRIBUTION WIDTH 19.2 % (11.5-14.5); WHITE BLOOD COUNT 13.8 K/uL (4.8-10.8)
[2017-12-30 06:37] LABS: ALB/GLOB RATIO 0.9 (1.0-2.1); ALT/SGPT 76 U/L (21-72); AST/SGOT 125 U/L (17-59); BLOOD UREA NITROGEN 19 mg/dL (9-20); CALCIUM 8.3 mg/dl (8.6-10.4); GFR NON-AFRICAN AMERICAN > 60
--- NOTE | 2017-12-30 07:05 | CP.PCM.PN ---
<Rhiannon Guzman - Last Filed: 12/30/17 07:04> Subjective - Date & Time of Evaluation Date of Evaluation: 12/30/17 Time of Evaluation: 07:04 - Subjective Subjective: General surgery progress note for Dr. Kelly Guzman, PGY-2 Pt S & E at bedside at 0300 Pt stable overnight, HTN overnight, BP in the 170's, HR WNL in 70-80's. Per nursing, pt awaiting bed at [facility] for transfer. Hgb 9.5 this AM from 7.8 yesterday. Objective - Vital Signs/Intake and Output Vital Signs (last 24 hours): Temp Pulse Resp BP Pulse Ox 98.5 F 78 24 174/78 H 100 12/30/17 04:00 12/30/17 06:00 12/30/17 06:00 12/30/17 05:51 12/30/17 06:00 Intake and Output: 12/30/17 12/30/17 06:59 18:59 Intake Total 135 15 Output Total 800 Balance -665 15 - Medications Medications: Current Medications Pantoprazole Sodium 80 mg/ (Sodium Chloride) 100 mls @ 10 mls/hr IVP .Q10H BRENDA PRN Reason: 8 MG/HR Last Admin: 12/30/17 04:35 Dose: Not Given Ceftriaxone Sodium 1 gm/ (Sodium Chloride) 100 mls @ 100 mls/hr IVPB DAILY [facility]ENDA PRN Reason: Protocol Last Admin: 12/29/17 10:19 Dose: Not Given Octreotide Acetate 1,250 mcg/ (Sodium Chloride) 252.5 mls @ 5.05 mls/hr SC .Q24H BRENDA; 25 MCG/HR PRN Reason: Protocol Last Admin: 12/30/17 00:46 Dose: Not Given Insulin Human Regular (Novolin R) 0 unit SC ACHS BRENDA PRN Reason: Protocol Last Admin: 12/29/17 22:09 Dose: Not Given Morphine Sulfate (Morphine) 0.5 mg IVP Q4 PRN PRN Reason: Pain, moderate (4-7) Last Admin: 12/29/17 19:42 Dose: 0.5 mg Morphine Sulfate (Morphine) 1 mg IVP Q4 PRN PRN Reason: Pain, severe (8-10) Last Admin: 12/30/17 06:03 Dose: 1 mg Nicotine (Nicoderm Cq) 1 patch TD DAILY [facility] Last Admin: 12/29/17 10:28 Dose: 1 patch Ondansetron HCl (Zofran Inj) 4 mg IVP Q6 [facility] Last Admin: 12/30/17 05:42 Dose: 4 mg Pneumococcal Polyvalent Vaccine (Pneumovax 23 Vaccine) 0.5 ml IM .ONCE ONE Stop: 12/30/17 14:01 Tamsulosin HCl (Flomax) 0.4 mg PO DAILY [facility] Last Admin: 12/29/17 09:47 Dose: Not Given - Labs Labs: 12/30/17 06:22 12/30/17 06:17 PT 13.5 SECONDS (9.7-12.2) H 12/28/17 20:04 INR 1.2 12/28/17 20:04 APTT 28 SECONDS (21-34) 12/28/17 20:04 - Constitutional Appears: Non-toxic, No Acute Distress - Head Exam Head Exam: ATRAUMATIC, NORMAL INSPECTION, NORMOCEPHALIC - Eye Exam Eye Exam: EOMI, Normal appearance - ENT Exam ENT Exam: Mucous Membranes Moist, Normal Exam - Neck Exam Neck Exam: Full ROM, Normal Inspection - Respiratory Exam Respiratory Exam: NORMAL BREATHING PATTERN - Cardiovascular Exam Cardiovascular Exam: REGULAR RHYTHM, +S1, +S2 - GI/Abdominal Exam GI & Abdominal Exam: Soft, Tenderness (RUQ). absent: Distended, Firm, Guarding , Rigid - Neurological Exam Neurological Exam: Alert, Awake, CN II-XII Intact, Oriented x3 - Psychiatric Exam Psychiatric exam: Normal Affect, Normal Mood - Skin Skin Exam: Dry, Intact, Warm. absent: Normal Color Additional comments: jaundice Assessment and Plan - Assessment and Plan (Free Text) Assessment: 57M w/invasive HCC w/bleeding variceal Plan: Transfer to tertiary center when bed available Cont med mgmt, including somatostatin, strict BP control (recommend caution w/ BB use in active bleeding pt) Transfusion goal should be Hgb>8, <10 If pt re-bleeds, repeat endoscopy with dual therapy. If unsuccessful next step would likely be IR for embolization - likely poor prognosis/outcome with surgery Cont Abx x 7 days- see previous recommendations Thank you for this consult Please re-consult as needed DW Dr. Vincent uGzman, PGY-2 <Mukul Kaur - Last Filed: 12/30/17 17:11> Objective - Vital Signs/Intake and Output Vital Signs (last 24 hours): Temp Pulse Resp BP Pulse Ox 98.3 F 60 27 H 150/74 99 12/30/17 16:00 12/30/17 16:05 12/30/17 16:05 12/30/17 16:00 12/30/17 16:05 Intake and Output: 12/30/17 12/30/17 06:59 18:59 Intake Total 135 150 Output Total 800 202 Balance -665 -52 - Medications Medications: Current Medications Pantoprazole Sodium 80 mg/ (Sodium Chloride) 100 mls @ 10 mls/hr IVP .Q10H BRENDA PRN Reason: 8 MG/HR Last Admin: 12/30/17 14:25 Dose: 10 mls/hr Octreotide Acetate 1,250 mcg/ (Sodium Chloride) 252.5 mls @ 5.05 mls/hr SC .Q24H BRENDA; 25 MCG/HR PRN Reason: Protocol Last Admin: 12/30/17 00:46 Dose: Not Given Insulin Human Regular (Novolin R) 0 unit SC ACHS BRENDA PRN Reason: Protocol Last Admin: 12/30/17 12:00 Dose: 3 u Lisinopril (Zestril) 10 mg PO DAILY [facility] Last Admin: 12/30/17 14:25 Dose: 10 mg Morphine Sulfate (Morphine) 0.5 mg IVP Q4 PRN PRN Reason: Pain, moderate (4-7) Last Admin: 12/29/17 19:42 Dose: 0.5 mg Morphine Sulfate (Morphine) 2 mg IVP Q4 PRN PRN Reason: Pain, severe (8-10) Last Admin: 12/30/17 14:46 Dose: 2 mg Nicotine (Nicoderm Cq) 1 patch TD DAILY [facility] Last Admin: 12/30/17 10:02 Dose: 1 patch Ondansetron HCl (Zofran Inj) 4 mg IVP Q6 [facility] Last Admin: 12/30/17 13:00 Dose: 4 mg Propranolol HCl (Inderal) 10 mg PO TID [facility] Last Admin: 12/30/17 14:28 Dose: 10 mg Tamsulosin HCl (Flomax) 0.4 mg PO DAILY [facility] Last Admin: 12/30/17 10:02 Dose: 0.4 mg - Labs Labs: 12/30/17 06:22 12/30/17 06:17 PT 13.5 SECONDS (9.7-12.2) H 12/28/17 20:04 INR 1.2 12/28/17 20:04 APTT 28 SECONDS (21-34) 12/28/17 20:04 Assessment and Plan - Assessment and Plan (Free Text) Plan: See addendum to Consult note
[2017-12-30] MEDS: (Novolin R) Insulin Human Regular 100 units/ml vial SC SCH ×4 (07:42→22:33)
[2017-12-30] MEDS: Labetalol 5 mg/ml Inj 20ML IV STA (07:46)
[2017-12-30 08:48] LABS: EOSINOPHIL 2 % (0-4); NEUTROPHIL 83 % (50-75); TOTAL CELLS COUNTED 100
[2017-12-30 08:49] LABS: ANISOCYTOSIS MODERATE; LYMPHOCYTE 10 % (20-40); MONOCYTE 5 % (0-10); PLATELET ESTIMATE NORMAL (NORMAL)
[2017-12-30] MEDS ORDERED: Labetalol 25mg/5ml Syringe IVP ONE (09:45)
--- NOTE | 2017-12-30 09:46 | CP.PCM.PN ---
Subjective - Date & Time of Evaluation Date of Evaluation: 12/30/17 Time of Evaluation: 09:40 - Subjective Subjective: Patient was lying comfortable,Had black stool last night and this morning. c/p right side abdominal pain and the pain medication is not strong enough to control his pain Patient wants us to contact his brother Rudy for emergency. Objective - Vital Signs/Intake and Output Vital Signs (last 24 hours): Temp Pulse Resp BP Pulse Ox 98.5 F 79 28 H 190/90 H 97 12/30/17 08:00 12/30/17 08:22 12/30/17 08:22 12/30/17 08:00 12/30/17 08:22 Intake and Output: 12/30/17 12/30/17 06:59 18:59 Intake Total 135 45 Output Total 800 Balance -665 45 - Medications Medications: Current Medications Pantoprazole Sodium 80 mg/ (Sodium Chloride) 100 mls @ 10 mls/hr IVP .Q10H BRENDA PRN Reason: 8 MG/HR Last Admin: 12/30/17 04:35 Dose: Not Given Ceftriaxone Sodium 1 gm/ (Sodium Chloride) 100 mls @ 100 mls/hr IVPB DAILY BRENDA PRN Reason: Protocol Last Admin: 12/29/17 10:19 Dose: Not Given Octreotide Acetate 1,250 mcg/ (Sodium Chloride) 252.5 mls @ 5.05 mls/hr SC .Q24H BRENDA; 25 MCG/HR PRN Reason: Protocol Last Admin: 12/30/17 00:46 Dose: Not Given Insulin Human Regular (Novolin R) 0 unit SC ACHS BRENDA PRN Reason: Protocol Last Admin: 12/30/17 07:42 Dose: 4 u Labetalol HCl (Trandate) 10 mg IVP ONCE ONE Stop: 12/30/17 09:46 Morphine Sulfate (Morphine) 0.5 mg IVP Q4 PRN PRN Reason: Pain, moderate (4-7) Last Admin: 12/29/17 19:42 Dose: 0.5 mg Morphine Sulfate (Morphine) 1 mg IVP Q4 PRN PRN Reason: Pain, severe (8-10) Last Admin: 12/30/17 06:03 Dose: 1 mg Nicotine (Nicoderm Cq) 1 patch TD DAILY BRENDA Last Admin: 12/29/17 10:28 Dose: 1 patch Ondansetron HCl (Zofran Inj) 4 mg IVP Q6 [facility] Last Admin: 12/30/17 05:42 Dose: 4 mg Pneumococcal Polyvalent Vaccine (Pneumovax 23 Vaccine) 0.5 ml IM .ONCE ONE Stop: 12/30/17 14:01 Propranolol HCl (Inderal) 10 mg PO TID [facility] Tamsulosin HCl (Flomax) 0.4 mg PO DAILY [facility] Last Admin: 12/29/17 09:47 Dose: Not Given - Labs Labs: 12/30/17 06:22 12/30/17 06:17 PT 13.5 SECONDS (9.7-12.2) H 12/28/17 20:04 INR 1.2 12/28/17 20:04 APTT 28 SECONDS (21-34) 12/28/17 20:04 - Constitutional Appears: No Acute Distress, Unkempt, Chronically Ill - Head Exam Head Exam: NORMAL INSPECTION - Eye Exam Eye Exam: Normal appearance - ENT Exam ENT Exam: Mucous Membranes Moist - Neck Exam Neck Exam: Full ROM - Respiratory Exam Respiratory Exam: Clear to Ausculation Bilateral, NORMAL BREATHING PATTERN - Cardiovascular Exam Cardiovascular Exam: REGULAR RHYTHM - GI/Abdominal Exam GI & Abdominal Exam: Distended (Distended,no diffuse tenderness, mild right hypochondrial tenderness), Normal Bowel Sounds - Extremities Exam Extremities Exam: Full ROM - Back Exam Back Exam: NORMAL INSPECTION - Neurological Exam Neurological Exam: Awake, Oriented x3 - Psychiatric Exam Psychiatric exam: Normal Mood - Skin Skin Exam: Dry Assessment and Plan - Assessment and Plan (Free Text) Assessment: This is a 57 year old male with PMHx of decompensated HCV cirrhosis (Genotype 3a , viral load >2million, failed treatment IFN/RBN 15 years ago) complicated by multifocal HCC with vascular invasion on liver biopsy (10/2017) and chronic portal vein thrombosis, 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 Recently discharged on 12/25 for similar concern of acute anemia s/p 2 units pRBCs with planned outpatient EGD and follow up with [facility] on 01/07/18. This time he has GI bleeding due to ruptured esophageal varices. S/P EGD by DR Reza ,found one bleeding vessel Epinephrine injected and hemostasis Plan: I GI Bleed due to ruptured esophageal varices s/p EGD by Dr. Reza Has grade two esophageal varices .Found one bleeding vessel Epinephrine injected and hemostasis Continue NPO and Continue with PPI and octreotide infusion therapy On Rocephin 1 gm daily for SBP ppx 2. Hepatocellular CA w/ extensive vascular invasions -s/p FNA Bx (11/09/17) -see Liver CT (11/02/17): Technically limited examination. Hepatic arterial phase images were not obtained. Multifocal low attenuation in the right hepatic lobe. This may represent a neoplastic process such as multifocal hepatic cellular malignancy or metastasis. Hepatic cirrhosis. Ascites. Hepatosplenomegaly. 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 Portal venous thrombus may be bland or tumoral. Cholelithiasis. -MRI Abd (11/03/17): Multifocal neoplasm in the right lobe of the liver. Differential diagnosis includes metastatic disease or multifocal hepatocellular carcinoma. Invasion and thrombosis of the right and main portal vein. Left portal vein appears patent. Mild erasto hepatis lymphadenopathy and 1 mildly enlarged precaval lymph node. Mild splenomegaly. complaining of right hypochondriac pain . 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 Hepatitis C Hep C RNA [id number] & Quantitative PCR 6.32 in October 2017 noncompliance with out pt follow up 5.Hx Alcohol Use 6. Hx Nicotine Use -Nicoderm patch 21g sc q12hr 8. Continue Protonix for GI prophylaxis DVT PPX: Contraindicated at this time Advance directives discussed .He is DNR and DNI. Patient is home less,No children or . Has a sister and a brother. Not in touch with his sister. He wants us to contact his brother for emergency Pending transfer to [facility]/ [facility] clinical lab assistant Dr Torres will be accepting him . Transfer center number [phone]
--- NOTE | 2017-12-30 12:30 | CP.PCM.PN ---
Subjective - Date & Time of Evaluation Date of Evaluation: 12/30/17 Time of Evaluation: 12:24 - Subjective Subjective: Patient seen and examined, remains in intensive care unit. No acute events overnight, he reports 3-4 episodes of watery black stool overnight but small volume. He denies nausea, vomiting, fever/chills. He continues to endorse RUQ abdominal pain. Review of vitals from today shows elevated BP. 12 point review of systems performed, negative aside from mentioned above. Objective - Vital Signs/Intake and Output Vital Signs (last 24 hours): Temp Pulse Resp BP Pulse Ox 98.5 F 84 21 190/90 H 97 12/30/17 08:00 12/30/17 10:00 12/30/17 10:00 12/30/17 08:00 12/30/17 08:22 Intake and Output: 12/30/17 12/30/17 06:59 18:59 Intake Total 135 70 Output Total 800 202 Balance -665 -132 - Medications Medications: Current Medications Pantoprazole Sodium 80 mg/ (Sodium Chloride) 100 mls @ 10 mls/hr IVP .Q10H BRENDA PRN Reason: 8 MG/HR Last Admin: 12/30/17 04:35 Dose: Not Given Octreotide Acetate 1,250 mcg/ (Sodium Chloride) 252.5 mls @ 5.05 mls/hr SC .Q24H BRENDA; 25 MCG/HR PRN Reason: Protocol Last Admin: 12/30/17 00:46 Dose: Not Given Insulin Human Regular (Novolin R) 0 unit SC ACHS BRENDA PRN Reason: Protocol Last Admin: 12/30/17 07:42 Dose: 4 u Morphine Sulfate (Morphine) 0.5 mg IVP Q4 PRN PRN Reason: Pain, moderate (4-7) Last Admin: 12/29/17 19:42 Dose: 0.5 mg Morphine Sulfate (Morphine) 2 mg IVP Q4 PRN PRN Reason: Pain, severe (8-10) Last Admin: 12/30/17 09:56 Dose: 2 mg Nicotine (Nicoderm Cq) 1 patch TD DAILY [facility] Last Admin: 12/30/17 10:02 Dose: 1 patch Ondansetron HCl (Zofran Inj) 4 mg IVP Q6 [facility] Last Admin: 12/30/17 05:42 Dose: 4 mg Pneumococcal Polyvalent Vaccine (Pneumovax 23 Vaccine) 0.5 ml IM .ONCE ONE Stop: 12/30/17 14:01 Propranolol HCl (Inderal) 10 mg PO TID [facility] Last Admin: 12/30/17 10:02 Dose: 10 mg Tamsulosin HCl (Flomax) 0.4 mg PO DAILY [facility] Last Admin: 12/30/17 10:02 Dose: 0.4 mg - Labs Labs: 12/30/17 06:22 12/30/17 06:17 PT 13.5 SECONDS (9.7-12.2) H 12/28/17 20:04 INR 1.2 12/28/17 20:04 APTT 28 SECONDS (21-34) 12/28/17 20:04 - Constitutional Appears: Non-toxic, No Acute Distress - Head Exam Head Exam: NORMAL INSPECTION - Eye Exam Eye Exam: EOMI, Normal appearance - ENT Exam ENT Exam: Mucous Membranes Moist - Respiratory Exam Respiratory Exam: Clear to Ausculation Bilateral - Cardiovascular Exam Cardiovascular Exam: +S1, +S2 - GI/Abdominal Exam GI & Abdominal Exam: Soft, Tenderness, Normal Bowel Sounds Additional comments: RUQ tenderness to palpation, no rebound/guarding - Skin Skin Exam: Dry, Intact, Normal Color, Warm Assessment and Plan - Assessment and Plan (Free Text) Assessment: Decompensated HCV cirrhosis HCC with vascular invasion Hypercoaguable state (eliquis held) Melena - s/p EGD yesterday showing actively bleeding distal esophageal varices s /p injection therapy Plan: - NPO - H/H remains stable s/p PRBC transfusion, continue to monitor - Anti-emetic therapy - Continue with PPI and octreotide infusion therapies - Continue with antibiotic prophylaxis for upper GI bleeding in cirrhotic patient - Patient is not TIPS candidate due to vascular invasion from hepatic tumor, therefore given current clinical condition, patient would be best served at tertiary care facility with liver transplant capability. Patient accepted to [facility], awaiting bed placement. - Overall patient prognosis remains guarded
--- NOTE | 2017-12-30 13:03 | CP.CCUPN ---
<Chet Ugalde - Last Filed: 12/30/17 16:55> CCU Subjective - Physician Review Subjective (Free Text): 12/30/17 16:38 ICU Progress note Patient seen and examined at bedside. Patient has not had any hematemesis since admission to ICU. Patient only complains of right sided abdominal pain which is unchanged from prior. He states he has had some melena since admission, but no bright red stool. CCU Objective - Vital Signs / Intake & Output Vital Signs (Last 4 hours): Vital Signs Temp Pulse Resp BP Pulse Ox 12/30/17 12:08 63 29 H 99 12/30/17 12:00 98.3 F 66 19 163/72 H 98 12/30/17 11:00 64 18 188/88 H 97 12/30/17 10:00 69 18 190/80 H 97 Intake and Output (Last 8hrs): Intake & Output 12/29/17 12/30/17 12/30/17 22:59 06:59 14:59 Intake Total 1670 120 90 Output Total 325 800 202 Balance 1345 -680 -112 Weight 208 lb Intake: Intake, IV Amount 165 120 90 Right Antecubital 150 Right Distal Port Wrist 5 40 30 Right Proximal Port Wrist 10 80 60 Blood Product 275 Other 1230 Output: Urine 325 800 200 Urine, Voided 325 800 200 Stool 2 Other: # Bowel Movements 2 1 - Physical Exam Head: Positive for: Atraumatic, Normocephalic, Other (Jaundiced) Pupils: Positive for: PERRL Extroacular Muscles: Positive for: EOMI Conjunctiva: Positive for: Icteric Mouth: Positive for: Moist Mucous Membranes Respiratory/Chest: Positive for: Clear to Auscultation Cardiovascular: Positive for: Regular Rate and Rhythm, Normal S1, S2 Abdomen: Positive for: Tenderness (Mild right abdominal tenderness), Distention , Normal Bowel Sounds Lower Extremity: Positive for: Edema (bilateral 1+pitting edema ), NORMAL PULSES. Negative for: CALF TENDERNESS Neurological: Positive for: GCS=15 Skin: Positive for: Warm, Dry Psychiatric: Positive for: Alert, Oriented x 3 - Medications Active Medications: Active Medications Generic Name Dose Route Start Last Admin Trade Name Freq PRN Reason Stop Dose Admin Pantoprazole Sodium 80 mg/ 100 mls @ 10 mls/hr 12/28/17 22:30 12/30/17 04:35 Sodium Chloride IVP Not Given .Q10H BRENDA 8 MG/HR Octreotide Acetate 1,250 mcg/ 252.5 mls @ 5.05 mls/hr 12/28/17 23:15 00:46 Sodium Chloride SC Not Given .Q24H BRENDA Protocol 25 MCG/HR Insulin Human Regular 0 unit 12/29/17 07:30 12/30/17 07:42 Novolin R SC 4 u ACHS BRENDA Administration Protocol Morphine Sulfate 0.5 mg 12/28/17 23:11 12/29/17 19:42 Morphine IVP 0.5 mg Q4 PRN Administration Pain, moderate (4-7) Morphine Sulfate 2 mg 12/30/17 09:47 12/30/17 09:56 Morphine IVP 2 mg Q4 PRN Administration Pain, severe (8-10) Nicotine 1 patch 12/29/17 10:00 12/30/17 10:02 Nicoderm Cq TD 1 patch DAILY BRENDA Administration Ondansetron HCl 4 mg 12/30/17 00:00 12/30/17 05:42 Zofran Inj IVP 4 mg Q6 BRENDA Administration Pneumococcal Polyvalent Vaccine 0.5 ml 12/30/17 14:00 Pneumovax 23 Vaccine IM 12/30/17 14:01 .ONCE ONE Propranolol HCl 10 mg 12/30/17 10:00 12/30/17 10:02 Inderal PO 10 mg TID BRENDA Administration Tamsulosin HCl 0.4 mg 12/29/17 10:00 12/30/17 10:02 Flomax PO 0.4 mg DAILY BRENDA Administration - Patient Studies Lab Studies: Lab Studies 12/30/17 12/30/17 12/30/17 Range/Units 11:34 07:15 06:22 WBC 13.8 H (4.8-10.8) K/uL RBC 3.05 L (4.40-5.90) Mil/uL Hgb 9.5 L (12.0-18.0) g/dL Hct 28.6 L (35.0-51.0) % MCV 93.8 D (80.0-94.0) fL MCH 31.0 (27.0-31.0) pg MCHC 33.1 (33.0-37.0) g/dL RDW 19.2 H (11.5-14.5) % Plt Count 199 (130-400) K/uL MPV 9.8 (7.2-11.7) fL Neut % (Auto) 83.4 H (50.0-75.0) % Lymph % (Auto) 9.4 L (20.0-40.0) % [place] % (Auto) 4.9 (0.0-10.0) % Eos % (Auto) 1.3 (0.0-4.0) % Baso % (Auto) 1.0 (0.0-2.0) % Neut # (Auto) 11.5 H (1.8-7.0) K/uL Lymph # (Auto) 1.3 (1.0-4.3) K/uL [place] # (Auto) 0.7 (0.0-0.8) K/uL Eos # (Auto) 0.2 (0.0-0.7) K/uL Baso # (Auto) 0.1 (0.0-0.2) K/uL Neutrophils % (Manual) 83 H (50-75) % Lymphocytes % (Manual) 10 L (20-40) % Monocytes % (Manual) 5 (0-10) % Eosinophils % (Manual) 2 (0-4) % Platelet Estimate Normal (NORMAL) Anisocytosis (manual) Moderate Sodium (132-148) mmol/L Potassium (3.6-5.2) mmol/L Chloride (98-107) mmol/L Carbon Dioxide (22-30) mmol/L Anion Gap (10-20) BUN (9-20) mg/dL Creatinine (0.8-1.5) mg/dL Est GFR ( Amer) Est GFR (Non-Af Amer) POC Glucose (mg/dL) 251 H 348 H (65-110) mg/dL Random Glucose (75-110) mg/dL Calcium (8.6-10.4) mg/dl Phosphorus (2.5-4.5) mg/dL Magnesium (1.6-2.3) mg/dL Total Bilirubin (0.2-1.3) mg/dL AST (17-59) U/L ALT (21-72) U/L Alkaline Phosphatase (38-126) U/L Total Protein (6.3-8.3) g/dL Albumin (3.5-5.0) g/dL Globulin (2.2-3.9) gm/dL Albumin/Globulin Ratio (1.0-2.1) Blood Type Antibody Screen 12/30/17 12/30/17 12/29/17 Range/Units 06:17 06:17 21:23 WBC (4.8-10.8) K/uL RBC (4.40-5.90) Mil/uL Hgb (12.0-18.0) g/dL Hct (35.0-51.0) % MCV (80.0-94.0) fL MCH (27.0-31.0) pg MCHC (33.0-37.0) g/dL RDW (11.5-14.5) % Plt Count (130-400) K/uL MPV (7.2-11.7) fL Neut % (Auto) (50.0-75.0) % Lymph % (Auto) (20.0-40.0) % [place] % (Auto) (0.0-10.0) % Eos % (Auto) (0.0-4.0) % Baso % (Auto) (0.0-2.0) % Neut # (Auto) (1.8-7.0) K/uL Lymph # (Auto) (1.0-4.3) K/uL [place] # (Auto) (0.0-0.8) K/uL Eos # (Auto) (0.0-0.7) K/uL Baso # (Auto) (0.0-0.2) K/uL Neutrophils % (Manual) (50-75) % Lymphocytes % (Manual) (20-40) % Monocytes % (Manual) (0-10) % Eosinophils % (Manual) (0-4) % Platelet Estimate (NORMAL) Anisocytosis (manual) Sodium 138 (132-148) mmol/L Potassium 4.5 (3.6-5.2) mmol/L Chloride 109 H (98-107) mmol/L Carbon Dioxide 20 L (22-30) mmol/L Anion Gap 14 (10-20) BUN 19 (9-20) mg/dL Creatinine 0.7 L (0.8-1.5) mg/dL Est GFR ( Amer) > 60 Est GFR (Non-Af Amer) > 60 POC Glucose (mg/dL) 293 H (65-110) mg/dL Random Glucose 329 H (75-110) mg/dL Calcium 8.3 L (8.6-10.4) mg/dl Phosphorus 3.5 (2.5-4.5) mg/dL Magnesium 2.1 (1.6-2.3) mg/dL Total Bilirubin 3.6 H (0.2-1.3) mg/dL AST 125 H (17-59) U/L ALT 76 H (21-72) U/L Alkaline Phosphatase 445 H (38-126) U/L Total Protein 6.2 L (6.3-8.3) g/dL Albumin 3.0 L (3.5-5.0) g/dL Globulin 3.2 (2.2-3.9) gm/dL Albumin/Globulin Ratio 0.9 L (1.0-2.1) Blood Type Antibody Screen 12/29/17 12/29/17 12/29/17 Range/Units 16:49 11:33 06:43 WBC (4.8-10.8) K/uL RBC (4.40-5.90) Mil/uL Hgb (12.0-18.0) g/dL Hct (35.0-51.0) % MCV (80.0-94.0) fL MCH (27.0-31.0) pg MCHC (33.0-37.0) g/dL RDW (11.5-14.5) % Plt Count (130-400) K/uL MPV (7.2-11.7) fL Neut % (Auto) (50.0-75.0) % Lymph % (Auto) (20.0-40.0) % [place] % (Auto) (0.0-10.0) % Eos % (Auto) (0.0-4.0) % Baso % (Auto) (0.0-2.0) % Neut # (Auto) (1.8-7.0) K/uL Lymph # (Auto) (1.0-4.3) K/uL [place] # (Auto) (0.0-0.8) K/uL Eos # (Auto) (0.0-0.7) K/uL Baso # (Auto) (0.0-0.2) K/uL Neutrophils % (Manual) (50-75) % Lymphocytes % (Manual) (20-40) % Monocytes % (Manual) (0-10) % Eosinophils % (Manual) (0-4) % Platelet Estimate (NORMAL) Anisocytosis (manual) Sodium (132-148) mmol/L Potassium (3.6-5.2) mmol/L Chloride (98-107) mmol/L Carbon Dioxide (22-30) mmol/L Anion Gap (10-20) BUN (9-20) mg/dL Creatinine (0.8-1.5) mg/dL Est GFR ( Amer) Est GFR (Non-Af Amer) POC Glucose (mg/dL) 247 H 206 H 184 H (65-110) mg/dL Random Glucose (75-110) mg/dL Calcium (8.6-10.4) mg/dl Phosphorus (2.5-4.5) mg/dL Magnesium (1.6-2.3) mg/dL Total Bilirubin (0.2-1.3) mg/dL AST (17-59) U/L ALT (21-72) U/L Alkaline Phosphatase (38-126) U/L Total Protein (6.3-8.3) g/dL Albumin (3.5-5.0) g/dL Globulin (2.2-3.9) gm/dL Albumin/Globulin Ratio (1.0-2.1) Blood Type Antibody Screen 12/28/17 Range/Units 20:04 WBC (4.8-10.8) K/uL RBC (4.40-5.90) Mil/uL Hgb (12.0-18.0) g/dL Hct (35.0-51.0) % MCV (80.0-94.0) fL MCH (27.0-31.0) pg MCHC (33.0-37.0) g/dL RDW (11.5-14.5) % Plt Count (130-400) K/uL MPV (7.2-11.7) fL Neut % (Auto) (50.0-75.0) % Lymph % (Auto) (20.0-40.0) % [place] % (Auto) (0.0-10.0) % Eos % (Auto) (0.0-4.0) % Baso % (Auto) (0.0-2.0) % Neut # (Auto) (1.8-7.0) K/uL Lymph # (Auto) (1.0-4.3) K/uL [place] # (Auto) (0.0-0.8) K/uL Eos # (Auto) (0.0-0.7) K/uL Baso # (Auto) (0.0-0.2) K/uL Neutrophils % (Manual) (50-75) % Lymphocytes % (Manual) (20-40) % Monocytes % (Manual) (0-10) % Eosinophils % (Manual) (0-4) % Platelet Estimate (NORMAL) Anisocytosis (manual) Sodium (132-148) mmol/L Potassium (3.6-5.2) mmol/L Chloride (98-107) mmol/L Carbon Dioxide (22-30) mmol/L Anion Gap (10-20) BUN (9-20) mg/dL Creatinine (0.8-1.5) mg/dL Est GFR ( Amer) Est GFR (Non-Af Amer) POC Glucose (mg/dL) (65-110) mg/dL Random Glucose (75-110) mg/dL Calcium (8.6-10.4) mg/dl Phosphorus (2.5-4.5) mg/dL Magnesium (1.6-2.3) mg/dL Total Bilirubin (0.2-1.3) mg/dL AST (17-59) U/L ALT (21-72) U/L Alkaline Phosphatase (38-126) U/L Total Protein (6.3-8.3) g/dL Albumin (3.5-5.0) g/dL Globulin (2.2-3.9) gm/dL Albumin/Globulin Ratio (1.0-2.1) Blood Type O POSITIVE Antibody Screen Negative Laboratory Results - last 24 hr 12/28/17 12/29/17 12/29/17 20:04 06:43 11:33 WBC RBC Hgb Hct MCV MCH MCHC RDW Plt Count MPV Neut % (Auto) Lymph % (Auto) [place] % (Auto) Eos % (Auto) Baso % (Auto) Neut # (Auto) Lymph # (Auto) [place] # (Auto) Eos # (Auto) Baso # (Auto) Neutrophils % (Manual) Lymphocytes % (Manual) Monocytes % (Manual) Eosinophils % (Manual) Platelet Estimate Anisocytosis (manual) Sodium Potassium Chloride Carbon Dioxide Anion Gap BUN Creatinine Est GFR ( Amer) Est GFR (Non-Af Amer) POC Glucose (mg/dL) 184 H 206 H Random Glucose Calcium Phosphorus Magnesium Total Bilirubin AST ALT Alkaline Phosphatase Total Protein Albumin Globulin Albumin/Globulin Ratio Blood Type O POSITIVE Antibody Screen Negative 12/29/17 12/29/17 12/30/17 16:49 21:23 06:17 WBC RBC Hgb Hct MCV MCH MCHC RDW Plt Count MPV Neut % (Auto) Lymph % (Auto) [place] % (Auto) Eos % (Auto) Baso % (Auto) Neut # (Auto) Lymph # (Auto) [place] # (Auto) Eos # (Auto) Baso # (Auto) Neutrophils % (Manual) Lymphocytes % (Manual) Monocytes % (Manual) Eosinophils % (Manual) Platelet Estimate Anisocytosis (manual) Sodium 138 Potassium 4.5 Chloride 109 H Carbon Dioxide 20 L Anion Gap 14 BUN 19 Creatinine 0.7 L Est GFR ( Amer) > 60 Est GFR (Non-Af Amer) > 60 POC Glucose (mg/dL) 247 H 293 H Random Glucose 329 H Calcium 8.3 L Phosphorus Magnesium Total Bilirubin 3.6 H AST 125 H ALT 76 H Alkaline Phosphatase 445 H Total Protein 6.2 L Albumin 3.0 L Globulin 3.2 Albumin/Globulin Ratio 0.9 L Blood Type Antibody Screen 12/30/17 12/30/17 12/30/17 06:17 06:22 07:15 WBC 13.8 H RBC 3.05 L Hgb 9.5 L Hct 28.6 L MCV 93.8 D MCH 31.0 MCHC 33.1 RDW 19.2 H Plt Count 199 MPV 9.8 Neut % (Auto) 83.4 H Lymph % (Auto) 9.4 L [place] % (Auto) 4.9 Eos % (Auto) 1.3 Baso % (Auto) 1.0 Neut # (Auto) 11.5 H Lymph # (Auto) 1.3 [place] # (Auto) 0.7 Eos # (Auto) 0.2 Baso # (Auto) 0.1 Neutrophils % (Manual) 83 H Lymphocytes % (Manual) 10 L Monocytes % (Manual) 5 Eosinophils % (Manual) 2 Platelet Estimate Normal Anisocytosis (manual) Moderate Sodium Potassium Chloride Carbon Dioxide Anion Gap BUN Creatinine Est GFR ( Amer) Est GFR (Non-Af Amer) POC Glucose (mg/dL) 348 H Random Glucose Calcium Phosphorus 3.5 Magnesium 2.1 Total Bilirubin AST ALT Alkaline Phosphatase Total Protein Albumin Globulin Albumin/Globulin Ratio Blood Type Antibody Screen 12/30/17 11:34 WBC RBC Hgb Hct MCV MCH MCHC RDW Plt Count MPV Neut % (Auto) Lymph % (Auto) [place] % (Auto) Eos % (Auto) Baso % (Auto) Neut # (Auto) Lymph # (Auto) [place] # (Auto) Eos # (Auto) Baso # (Auto) Neutrophils % (Manual) Lymphocytes % (Manual) Monocytes % (Manual) Eosinophils % (Manual) Platelet Estimate Anisocytosis (manual) Sodium Potassium Chloride Carbon Dioxide Anion Gap BUN Creatinine Est GFR ( Amer) Est GFR (Non-Af Amer) POC Glucose (mg/dL) 251 H Random Glucose Calcium Phosphorus Magnesium Total Bilirubin AST ALT Alkaline Phosphatase Total Protein Albumin Globulin Albumin/Globulin Ratio Blood Type Antibody Screen Critical Care Progress Note - Nutrition Nutrition: Nutrition Category Date Time Status NPO Diet [DIET] Diets 12/28/17 Breakfast Active Assessment/Plan - Assessment and Plan (Free Text) Assessment: 57 year old male with history of decompensated HCV cirrhosis (Genotype 3a, viral load >2million with failed treatment IFN/RBN 15 years ago) complicated by multifocal HCC with vascular invasion on liver biopsy (10/2017) and chronic portal vein thrombosis, 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 S/p EGD with Dr. Reza, noted to have active esophageal variceal bleeding, Epinephrine given. Patient has not been on Eliquis since 12/23/17. Plan: Neuro: Alert and oriented Pulm: Oxygenating well CXR: slightly diminished lung volumes with mild crowded bronchovascular markings and mild bibasilar atelectasis left greater than right. CV: Hx of HTN Lisinopril 10mg PO daily Propanolol 10mg TID GI: Keep NPO Protonix drip Octreotide drip Zofran 4mg Q6 BRENDA NO NG TUBE Received 2 units PRBCs sp EGD GI Dr. Reza on case No anticoagulation INR 1.2 EGD findings: 2 columns of Grade II varices, one with active spurting blood was found in the lower third of esophagus. Area was successfully injected with 2ml of a 1:10,000 solutoin of epinephrine for hemostasis. Diffuse mild inflammation characterized by erythema was found in the gastric body. Portal hypertensive gastropathy was found in the gastric fundus. The cardia and gastric fundus were normal on retroflexion. The examined duodenum was normal. Heme: Hb 9.5/Hct 28.6 Receiving 2 units PRBCs after EGD with variceal bleeding Endo: maintain euglycemia Renal: BUN/Cr 19/0.7 Monitor I and O Replete electrolytes as needed Flomax ID: [id number] Wbc of 13.2 Continue to monitor PPX: Protonix Case discussed with Dr. Montanez <Ronan Montanez - Last Filed: 12/30/17 18:07> CCU Objective - Vital Signs / Intake & Output Vital Signs (Last 4 hours): Vital Signs Temp Pulse Resp BP Pulse Ox 12/30/17 16:05 60 27 H 99 12/30/17 16:00 98.3 F 60 21 150/74 97 12/30/17 15:00 63 28 H 167/67 H 98 12/30/17 14:06 71 21 100 12/30/17 14:00 68 20 180/90 H 98 Intake and Output (Last 8hrs): Intake & Output 12/30/17 12/30/17 12/30/17 06:59 14:59 22:59 Intake Total 120 120 30 Output Total 800 202 Balance -680 -82 30 Weight 208 lb Intake: Intake, IV Amount 120 120 30 Right Distal Port Wrist 40 40 10 Right Proximal Port Wrist 80 80 20 Output: Urine 800 200 Urine, Voided 800 200 Stool 2 Other: # Bowel Movements 1 - Medications Active Medications: Active Medications Generic Name Dose Route Start Last Admin Trade Name Freq PRN Reason Stop Dose Admin Pantoprazole Sodium 80 mg/ 100 mls @ 10 mls/hr 12/28/17 22:30 12/30/17 14:25 Sodium Chloride IVP 10 mls/hr .Q10H BRENDA Administration 8 MG/HR Octreotide Acetate 1,250 mcg/ 252.5 mls @ 5.05 mls/hr 12/28/17 23:15 00:46 Sodium Chloride SC Not Given .Q24H BRENDA Protocol 25 MCG/HR Insulin Human Regular 0 unit 12/29/17 07:30 12/30/17 17:00 Novolin R SC 2 u ACHS BRENDA Administration Protocol Lisinopril 10 mg 12/30/17 13:15 12/30/17 14:25 Zestril PO 10 mg DAILY BRENDA Administration Morphine Sulfate 0.5 mg 12/28/17 23:11 12/29/17 19:42 Morphine IVP 0.5 mg Q4 PRN Administration Pain, moderate (4-7) Morphine Sulfate 2 mg 12/30/17 09:47 12/30/17 14:46 Morphine IVP 2 mg Q4 PRN Administration Pain, severe (8-10) Nicotine 1 patch 12/29/17 10:00 12/30/17 10:02 Nicoderm Cq TD 1 patch DAILY BRENDA Administration Ondansetron HCl 4 mg 12/30/17 00:00 12/30/17 17:45 Zofran Inj IVP 4 mg Q6 BRENDA Administration Propranolol HCl 10 mg 12/30/17 10:00 12/30/17 17:41 Inderal PO 10 mg TID BRENDA Administration Tamsulosin HCl 0.4 mg 12/29/17 10:00 12/30/17 10:02 Flomax PO 0.4 mg DAILY BRENDA Administration - Patient Studies Lab Studies: Lab Studies 12/30/17 12/30/17 12/30/17 Range/Units 11:34 07:15 06:22 WBC 13.8 H (4.8-10.8) K/uL RBC 3.05 L (4.40-5.90) Mil/uL Hgb 9.5 L (12.0-18.0) g/dL Hct 28.6 L (35.0-51.0) % MCV 93.8 D (80.0-94.0) fL MCH 31.0 (27.0-31.0) pg MCHC 33.1 (33.0-37.0) g/dL RDW 19.2 H (11.5-14.5) % Plt Count 199 (130-400) K/uL MPV 9.8 (7.2-11.7) fL Neut % (Auto) 83.4 H (50.0-75.0) % Lymph % (Auto) 9.4 L (20.0-40.0) % [place] % (Auto) 4.9 (0.0-10.0) % Eos % (Auto) 1.3 (0.0-4.0) % Baso % (Auto) 1.0 (0.0-2.0) % Neut # (Auto) 11.5 H (1.8-7.0) K/uL Lymph # (Auto) 1.3 (1.0-4.3) K/uL [place] # (Auto) 0.7 (0.0-0.8) K/uL Eos # (Auto) 0.2 (0.0-0.7) K/uL Baso # (Auto) 0.1 (0.0-0.2) K/uL Neutrophils % (Manual) 83 H (50-75) % Lymphocytes % (Manual) 10 L (20-40) % Monocytes % (Manual) 5 (0-10) % Eosinophils % (Manual) 2 (0-4) % Platelet Estimate Normal (NORMAL) Anisocytosis (manual) Moderate Sodium (132-148) mmol/L Potassium (3.6-5.2) mmol/L Chloride (98-107) mmol/L Carbon Dioxide (22-30) mmol/L Anion Gap (10-20) BUN (9-20) mg/dL Creatinine (0.8-1.5) mg/dL Est GFR ( Amer) Est GFR (Non-Af Amer) POC Glucose (mg/dL) 251 H 348 H (65-110) mg/dL Random Glucose (75-110) mg/dL Calcium (8.6-10.4) mg/dl Phosphorus (2.5-4.5) mg/dL Magnesium (1.6-2.3) mg/dL Total Bilirubin (0.2-1.3) mg/dL AST (17-59) U/L ALT (21-72) U/L Alkaline Phosphatase (38-126) U/L Total Protein (6.3-8.3) g/dL Albumin (3.5-5.0) g/dL Globulin (2.2-3.9) gm/dL Albumin/Globulin Ratio (1.0-2.1) Blood Type Antibody Screen 12/30/17 12/30/17 12/29/17 Range/Units 06:17 06:17 21:23 WBC (4.8-10.8) K/uL RBC (4.40-5.90) Mil/uL Hgb (12.0-18.0) g/dL Hct (35.0-51.0) % MCV (80.0-94.0) fL MCH (27.0-31.0) pg MCHC (33.0-37.0) g/dL RDW (11.5-14.5) % Plt Count (130-400) K/uL MPV (7.2-11.7) fL Neut % (Auto) (50.0-75.0) % Lymph % (Auto) (20.0-40.0) % [place] % (Auto) (0.0-10.0) % Eos % (Auto) (0.0-4.0) % Baso % (Auto) (0.0-2.0) % Neut # (Auto) (1.8-7.0) K/uL Lymph # (Auto) (1.0-4.3) K/uL [place] # (Auto) (0.0-0.8) K/uL Eos # (Auto) (0.0-0.7) K/uL Baso # (Auto) (0.0-0.2) K/uL Neutrophils % (Manual) (50-75) % Lymphocytes % (Manual) (20-40) % Monocytes % (Manual) (0-10) % Eosinophils % (Manual) (0-4) % Platelet Estimate (NORMAL) Anisocytosis (manual) Sodium 138 (132-148) mmol/L Potassium 4.5 (3.6-5.2) mmol/L Chloride 109 H (98-107) mmol/L Carbon Dioxide 20 L (22-30) mmol/L Anion Gap 14 (10-20) BUN 19 (9-20) mg/dL Creatinine 0.7 L (0.8-1.5) mg/dL Est GFR ( Amer) > 60 Est GFR (Non-Af Amer) > 60 POC Glucose (mg/dL) 293 H (65-110) mg/dL Random Glucose 329 H (75-110) mg/dL Calcium 8.3 L (8.6-10.4) mg/dl Phosphorus 3.5 (2.5-4.5) mg/dL Magnesium 2.1 (1.6-2.3) mg/dL Total Bilirubin 3.6 H (0.2-1.3) mg/dL AST 125 H (17-59) U/L ALT 76 H (21-72) U/L Alkaline Phosphatase 445 H (38-126) U/L Total Protein 6.2 L (6.3-8.3) g/dL Albumin 3.0 L (3.5-5.0) g/dL Globulin 3.2 (2.2-3.9) gm/dL Albumin/Globulin Ratio 0.9 L (1.0-2.1) Blood Type Antibody Screen 12/29/17 12/29/17 12/28/17 Range/Units 11:33 06:43 20:04 WBC (4.8-10.8) K/uL RBC (4.40-5.90) Mil/uL Hgb (12.0-18.0) g/dL Hct (35.0-51.0) % MCV (80.0-94.0) fL MCH (27.0-31.0) pg MCHC (33.0-37.0) g/dL RDW (11.5-14.5) % Plt Count (130-400) K/uL MPV (7.2-11.7) fL Neut % (Auto) (50.0-75.0) % Lymph % (Auto) (20.0-40.0) % [place] % (Auto) (0.0-10.0) % Eos % (Auto) (0.0-4.0) % Baso % (Auto) (0.0-2.0) % Neut # (Auto) (1.8-7.0) K/uL Lymph # (Auto) (1.0-4.3) K/uL [place] # (Auto) (0.0-0.8) K/uL Eos # (Auto) (0.0-0.7) K/uL Baso # (Auto) (0.0-0.2) K/uL Neutrophils % (Manual) (50-75) % Lymphocytes % (Manual) (20-40) % Monocytes % (Manual) (0-10) % Eosinophils % (Manual) (0-4) % Platelet Estimate (NORMAL) Anisocytosis (manual) Sodium (132-148) mmol/L Potassium (3.6-5.2) mmol/L Chloride (98-107) mmol/L Carbon Dioxide (22-30) mmol/L Anion Gap (10-20) BUN (9-20) mg/dL Creatinine (0.8-1.5) mg/dL Est GFR ( Amer) Est GFR (Non-Af Amer) POC Glucose (mg/dL) 206 H 184 H (65-110) mg/dL Random Glucose (75-110) mg/dL Calcium (8.6-10.4) mg/dl Phosphorus (2.5-4.5) mg/dL Magnesium (1.6-2.3) mg/dL Total Bilirubin (0.2-1.3) mg/dL AST (17-59) U/L ALT (21-72) U/L Alkaline Phosphatase (38-126) U/L Total Protein (6.3-8.3) g/dL Albumin (3.5-5.0) g/dL Globulin (2.2-3.9) gm/dL Albumin/Globulin Ratio (1.0-2.1) Blood Type O POSITIVE Antibody Screen Negative Laboratory Results - last 24 hr 12/28/17 12/29/17 12/29/17 20:04 06:43 11:33 WBC RBC Hgb Hct MCV MCH MCHC RDW Plt Count MPV Neut % (Auto) Lymph % (Auto) [place] % (Auto) Eos % (Auto) Baso % (Auto) Neut # (Auto) Lymph # (Auto) [place] # (Auto) Eos # (Auto) Baso # (Auto) Neutrophils % (Manual) Lymphocytes % (Manual) Monocytes % (Manual) Eosinophils % (Manual) Platelet Estimate Anisocytosis (manual) Sodium Potassium Chloride Carbon Dioxide Anion Gap BUN Creatinine Est GFR ( Amer) Est GFR (Non-Af Amer) POC Glucose (mg/dL) 184 H 206 H Random Glucose Calcium Phosphorus Magnesium Total Bilirubin AST ALT Alkaline Phosphatase Total Protein Albumin Globulin Albumin/Globulin Ratio Blood Type O POSITIVE Antibody Screen Negative 12/29/17 12/30/1712/30/18 21:23 06:17 06:17 WBC RBC Hgb Hct MCV MCH MCHC RDW Plt Count MPV Neut % (Auto) Lymph % (Auto) [place] % (Auto) Eos % (Auto) Baso % (Auto) Neut # (Auto) Lymph # (Auto) [place] # (Auto) Eos # (Auto) Baso # (Auto) Neutrophils % (Manual) Lymphocytes % (Manual) Monocytes % (Manual) Eosinophils % (Manual) Platelet Estimate Anisocytosis (manual) Sodium 138 Potassium 4.5 Chloride 109 H Carbon Dioxide 20 L Anion Gap 14 BUN 19 Creatinine 0.7 L Est GFR ( Amer) > 60 Est GFR (Non-Af Amer) > 60 POC Glucose (mg/dL) 293 H Random Glucose 329 H Calcium 8.3 L Phosphorus 3.5 Magnesium 2.1 Total Bilirubin 3.6 H AST 125 H ALT 76 H Alkaline Phosphatase 445 H Total Protein 6.2 L Albumin 3.0 L Globulin 3.2 Albumin/Globulin Ratio 0.9 L Blood Type Antibody Screen 12/30/17 12/30/17 12/30/17 06:22 07:15 11:34 WBC 13.8 H RBC 3.05 L Hgb 9.5 L Hct 28.6 L MCV 93.8 D MCH 31.0 MCHC 33.1 RDW 19.2 H Plt Count 199 MPV 9.8 Neut % (Auto) 83.4 H Lymph % (Auto) 9.4 L [place] % (Auto) 4.9 Eos % (Auto) 1.3 Baso % (Auto) 1.0 Neut # (Auto) 11.5 H Lymph # (Auto) 1.3 [place] # (Auto) 0.7 Eos # (Auto) 0.2 Baso # (Auto) 0.1 Neutrophils % (Manual) 83 H Lymphocytes % (Manual) 10 L Monocytes % (Manual) 5 Eosinophils % (Manual) 2 Platelet Estimate Normal Anisocytosis (manual) Moderate Sodium Potassium Chloride Carbon Dioxide Anion Gap BUN Creatinine Est GFR ( Amer) Est GFR (Non-Af Amer) POC Glucose (mg/dL) 348 H 251 H Random Glucose Calcium Phosphorus Magnesium Total Bilirubin AST ALT Alkaline Phosphatase Total Protein Albumin Globulin Albumin/Globulin Ratio Blood Type Antibody Screen Critical Care Progress Note - Nutrition Nutrition: Nutrition Category Date Time Status NPO Diet [DIET] Diets 12/28/17 Breakfast Active Attending/Attestation - Attestation I have personally seen and examined this patient.: Yes I have fully participated in the care of the patient.: Yes I have reviewed all pertinent clinical information: Yes Notes (Text): 12/30/17 17:56 I have seen and examined the patient. Medical records, lab studies, and imaging were reviewed by me and a management plan was formulated on multidisciplinary rounds with resident Dr. Ugalde. I agree with their documented assessment and plan. Patient is at risk for rebleeding of esophageal varices s/p epinephrine, continue propranolol, started on lisinopril for BP control. Continue octreotide drip. Patient is clinically stable for downgrade to the floors. Still awaiting transfer to [facility] for further care. Critical Care Time 35 minutes. Multi-disciplinary rounds were performed with house staff, nursing, speech therapy, respiratory therapy, pharmacy and nutrition with integrated input from the primary team/attending and other consulting services. The documented time is cumulative and includes review of patient data/exams/labs/chart review and examination of the patient on rounds and throughout the day; time is exclusive of any procedures or teaching time.
[2017-12-30] MEDS ORDERED: Pneumococcal 23-Valent Vaccine IM ONE (14:00)
--- NOTE | 2017-12-30 17:23 | CP.PCM.DIS ---
Provider - Provider Date of Admission: 12/28/17 21:02 Attending physician: Connor Booker MD Primary care physician: Clinic Consults: Dr. Reza (GI), Dr. Mukul Kaur ( Surgery), Dr. Armstrong (ICU) Time Spent in preparation of Discharge (in minutes): 45 Hospital Course - Lab Results Lab Results: Most Recent Lab Values WBC 13.8 K/uL (4.8-10.8) H 12/30/17 06:22 RBC 3.05 Mil/uL (4.40-5.90) L 12/30/17 06:22 Hgb 9.5 g/dL (12.0-18.0) L 12/30/17 06:22 Hct 28.6 % (35.0-51.0) L 12/30/17 06:22 MCV 93.8 fL (80.0-94.0) D 12/30/17 06:22 MCH 31.0 pg (27.0-31.0) 12/30/17 06:22 MCHC 33.1 g/dL (33.0-37.0) 12/30/17 06:22 RDW 19.2 % (11.5-14.5) H 12/30/17 06:22 Plt Count 199 K/uL (130-400) 12/30/17 06:22 MPV 9.8 fL (7.2-11.7) 12/30/17 06:22 Neut % (Auto) 83.4 % (50.0-75.0) H 12/30/17 06:22 Lymph % (Auto) 9.4 % (20.0-40.0) L 12/30/17 06:22 [place] % (Auto) 4.9 % (0.0-10.0) 12/30/17 06:22 Eos % (Auto) 1.3 % (0.0-4.0) 12/30/17 06:22 Baso % (Auto) 1.0 % (0.0-2.0) 12/30/17 06:22 Neut # (Auto) 11.5 K/uL (1.8-7.0) H 12/30/17 06:22 Lymph # (Auto) 1.3 K/uL (1.0-4.3) 12/30/17 06:22 [place] # (Auto) 0.7 K/uL (0.0-0.8) 12/30/17 06:22 Eos # (Auto) 0.2 K/uL (0.0-0.7) 12/30/17 06:22 Baso # (Auto) 0.1 K/uL (0.0-0.2) 12/30/17 06:22 Neutrophils % (Manual) 83 % (50-75) H 12/30/17 06:22 Lymphocytes % (Manual) 10 % (20-40) L 12/30/17 06:22 Monocytes % (Manual) 5 % (0-10) 12/30/17 06:22 Eosinophils % (Manual) 2 % (0-4) 12/30/17 06:22 Platelet Estimate Normal (NORMAL) 12/30/17 06:22 Anisocytosis (manual) Moderate 12/30/17 06:22 PT 13.5 SECONDS (9.7-12.2) H 12/28/17 20:04 INR 1.2 12/28/17 20:04 APTT 28 SECONDS (21-34) 12/28/17 20:04 Sodium 138 mmol/L (132-148) 12/30/17 06:17 Potassium 4.5 mmol/L (3.6-5.2) 12/30/17 06:17 Chloride 109 mmol/L (98-107) H 12/30/17 06:17 Carbon Dioxide 20 mmol/L (22-30) L 12/30/17 06:17 Anion Gap 14 (10-20) 12/30/17 06:17 BUN 19 mg/dL (9-20) 12/30/17 06:17 Creatinine 0.7 mg/dL (0.8-1.5) L 12/30/17 06:17 Est GFR ( Amer) > 60 12/30/17 06:17 Est GFR (Non-Af Amer) > 60 12/30/17 06:17 POC Glucose (mg/dL) 251 mg/dL (65-110) H 12/30/17 11:34 Random Glucose 329 mg/dL (75-110) H 12/30/17 06:17 Lactic Acid 1.4 mmol/L (0.7-2.1) 12/28/17 19:57 Calcium 8.3 mg/dl (8.6-10.4) L 12/30/17 06:17 Phosphorus 3.5 mg/dL (2.5-4.5) 12/30/17 06:17 Magnesium 2.1 mg/dL (1.6-2.3) 12/30/17 06:17 Total Bilirubin 3.6 mg/dL (0.2-1.3) H 12/30/17 06:17 AST 125 U/L (17-59) H 12/30/17 06:17 ALT 76 U/L (21-72) H 12/30/17 06:17 Alkaline Phosphatase 445 U/L (38-126) H 12/30/17 06:17 Ammonia 44 umol/L (9-33) H 12/29/17 08:16 Total Protein 6.2 g/dL (6.3-8.3) L 12/30/17 06:17 Albumin 3.0 g/dL (3.5-5.0) L 12/30/17 06:17 Globulin 3.2 gm/dL (2.2-3.9) 12/30/17 06:17 Albumin/Globulin Ratio 0.9 (1.0-2.1) L 12/30/17 06:17 Lipase 65 U/L (23-300) 12/28/17 20:04 Stool Occult Blood Positive (NEGATIVE) H 12/28/17 19:57 Blood Type O POSITIVE 12/28/17 20:04 Antibody Screen Negative 12/28/17 20:04 - Hospital Course Hospital Course: Mr. 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 Patient was recently at [facility] from 12/23-12/25 due to GI Bleed. Patient states his stool was normal color in the morning and black by the afternoon. He does admit to diarrhea as well. He denies any fever, chills, headache, chest pain, palpitations, shortness of breath, orthopnea, nausea, vomiting, or constipation. Patient does admit to trouble urinating at time. He denies any dysuria, hematuria, or increased urinary frequency. He admits to dizziness when getting up from a seated position. During course, patient had an EGD showing an esophageal variceal bleeding, controlled with epinephrine. Octreotide drip & Protonix was initiated. Patient awaiting transfer to [facility] for further management. Discharge Exam - Head Exam Head Exam: NORMAL INSPECTION - Eye Exam Eye Exam: EOMI Additional comments: Pale Conjuctiva - ENT Exam ENT Exam: Mucous Membranes Moist - Respiratory Exam Respiratory Exam: NORMAL BREATHING PATTERN. absent: Rales, Rhonchi, Wheezes - Cardiovascular Exam Cardiovascular Exam: +S1, +S2. absent: Systolic Murmur - GI/Abdominal Exam GI & Abdominal Exam: Normal Bowel Sounds, Tenderness Additional comments: RUQ tenderness to palpation, no rebound/guarding - Extremities Exam Extremities exam: full ROM, pedal edema Additional comments: trace pedal edema - Neurological Exam Neurological exam: Alert, CN II-XII Intact, Oriented x3 - Psychiatric Exam Psychiatric exam: Flat Affect, Normal Mood - Skin Skin Exam: Dry, Intact, Normal Color, Warm Discharge Plan - Follow Up Plan Condition: GUARDED Disposition: HOME/ ROUTINE
[2017-12-30 20:03] VITALS: TEMP 98.5
[2017-12-30 22:52] VITALS: BP 171/77; PULSE 74; RESP 24; O2SAT 100
--- NOTE | 2017-12-31 07:46 | CARD ---
APPROVED REPORT Date of service: 12/30/2017 EXAM: Two-dimensional and M-mode echocardiogram with Doppler and color Doppler. INDICATION Dyspnea Chest Pain RISK FACTORS Hypertension Diabetes 2D DIMENSIONS IVSd0.9 (0.7-1.1cm)Aortic Root (2D)3.3 (2.0-3.7cm) LVDd5.6 (3.9-5.9cm)PWd1.1 (0.7-1.1cm) LVDs3.1 (2.5-4.0cm)FS (%) 43.6 % LVEF (%)55.0 (>50%) M-Mode DIMENSIONS RVDd1.48 (2.1-3.2cm)Left Atrium (MM)5.49 (2.5-4.0cm) IVSd0.55 (0.7-1.1cm)Aortic Root2.29 (2.2-3.7cm) LVDd6.16 (4.0-5.6cm)Aortic Cusp Exc.1.95 (1.5-2.0cm) PWd0.89 (0.7-1.1cm)FS (%) 28 % LVDs4.46 (2.0-3.8cm)TAPSE22.49 cm LVEF (%)50 (>50%) Mitral Valve MV E Dletzhaj90.3cm/sMV A Roygzlch496.1cm/sE/A ratio0.8 TDI E/Lateral E'0.0E/Medial E'0.0 Tricuspid Valve TR Peak [id number]/sTR Peak Gr.[id number] LEFT VENTRICLE The Left Ventricle is mildly dilated. There is normal left ventricular wall thickness. Left ventricle systolic function is normal. The Ejection Fraction is 50-55%. There is normal LV segmental wall motion. Tissue Doppler imaging reveals abnormal left ventricular diastolic dysfunction. RIGHT VENTRICLE The right ventricle is normal size. There is normal right ventricular wall thickness. The right ventricular systolic function is normal. ATRIA The left atrium is mildly dilated. The right atrium size is normal. The interatrial septum is intact with no evidence for an atrial septal defect. AORTIC VALVE The aortic valve is normal in structure. No aortic regurgitation is present. There is no aortic valvular stenosis. There is no aortic valvular vegetation. MITRAL VALVE The mitral valve is normal in structure. There is no evidence of mitral valve prolapse. There is no mitral valve stenosis. Mitral regurgitation is mild. TRICUSPID VALVE The tricuspid valve is normal in structure. There is mild tricuspid regurgitation. Right ventricular systolic pressure is estimated at 30-40 mmHg. There is mild pulmonary hypertension. PULMONIC VALVE The pulmonic valve is not well visualized. There is trace pulmonic valvular regurgitation. GREAT VESSELS The aortic root is normal in size. PERICARDIAL EFFUSION There is no significant pericardial effusion. <Conclusion> Left ventricle systolic function is normal. The Ejection Fraction is 50-55%. Diastolic dysfunction. No aortic regurgitation is present. Mitral regurgitation is mild. There is mild tricuspid regurgitation. There is mild pulmonary hypertension. There is trace pulmonic valvular regurgitation.
== END 2017-12-30 23:30 | disposition short-term general hospital (02) | DRG 432 ==
LOC: C.ER 18:21 → C.9E 21:02 → C.6T 23:12 → C.9I 12-29 17:35
PROVIDERS: ADMIT Family Medicine; ATTEND Family Medicine
PROC: 30233N1 Transfusion of Nonautologous Red Blood Cells into Peripheral Vein, Percutaneous Approach (ICD-10-PCS; 2017-12-29)
PROC: 0DJ08ZZ Inspection of Upper Intestinal Tract, Via Natural or Artificial Opening Endoscopic (ICD-10-PCS; 2017-12-29)
PROC: 3E0G8GC Introduction of Other Therapeutic Substance into Upper GI, Via Natural or Artificial Opening Endoscopic (ICD-10-PCS; principal; 2017-12-29 14:07)
DX: K74.60 Unspecified cirrhosis of liver (principal); I85.11 Secondary esophageal varices with bleeding; C22.9 Malignant neoplasm of liver, not specified as primary or secondary; D62 Acute posthemorrhagic anemia; K76.6 Portal hypertension; B19.20 Unspecified viral hepatitis C without hepatic coma; E11.22 Type 2 diabetes mellitus with diabetic chronic kidney disease; F17.210 Nicotine dependence, cigarettes, uncomplicated; I12.9 Hypertensive chronic kidney disease with stage 1 through stage 4 chronic kidney disease, or unspecified chronic kidney disease; N40.0 Benign prostatic hyperplasia without lower urinary tract symptoms; N18.9 Chronic kidney disease, unspecified; Z80.0 Family history of malignant neoplasm of digestive organs; F41.9 Anxiety disorder, unspecified; K31.89 Other diseases of stomach and duodenum